=== PATIENT | male | born 1985 | race Caucasian/White ===

== ENCOUNTER 2017-11-29 15:43 | Emergency (ER) | payer OTHER, MEDICAID, SELFPAY ==
[2017-11-29] VITALS (7 sets, daily range): BP systolic 110–126; BP diastolic 46–81; PULSE 49–85; RESP 14–22; TEMP 36.9; O2SAT 99–100
--- NOTE | 2017-11-29 16:12 | ED.TRAUMA ---
HPI - Trauma General Chief Complaint: Trauma Stated Complaint: ELECTROCUTED BY [address] [employer] Time Seen by Provider: 11/29/17 16:30 Source: patient Mode of arrival: ambulatory Limitations: no limitations History of Present Illness HPI narrative: Patient is a 32-year-old male who presents after being electrocuted by the leather drier. He said he was working on the leather drier he did on plug every other time accept the last time. He had a ranch in hand and his hand crossed all 3 power wires. He was unable to let go. He had urinary incontinence, he does not think he was unconscious. Somebody had a unplug the leather drier in order for him to be released. His body shook all over. The was 130 amps. He does not have any pain. He was holding on to the wrench with his right hand. He is able move all his fingers denies numbness or tingling. Happened at about 2:45pm this afternoon MD complaint: injury (Electrical) Related Data Home Medications Medication Instructions Recorded Confirmed cyclobenzaprine 10 mg PO PRN PRN #0 04/24/17 11/29/17 acetaminophen-codeine 2 tab PO TID 11/29/17 11/29/17 omeprazole 20 mg PO BID 11/29/17 11/29/17 Allergies Allergy/AdvReac Type Severity Reaction Status Date / Time Sulfa (Sulfonamide Allergy Mild Unverified 09/05/17 12:15 Antibiotics) [SULFA (SULFONAMIDE ANTIBIOTICS)] hydrocodone [HYDROCODONE] Allergy Unknown ITCHY AND Unverified 09/05/17 12:15 RASH, GI UPSET tramadol AdvReac Verified 11/29/17 16:50 Review of Systems Review of Systems All systems reviewed & are unremarkable except as noted in HPI and below Constitutional Denies chills, Denies fatigue, Denies fever(s), Denies lethargy and Denies weakness Eyes Denies change in vision, Denies eye discharge, Denies irritation and Denies loss of vision Cardiovascular Denies chest pain, Denies syncope, Denies pedal edema and Denies edema Respiratory Denies cough and Denies pain with cough Gastrointestinal Gastrointestinal: Denies abdominal pain, Denies change in bowel habits, Denies diarrhea, Denies nausea and Denies vomiting Musculoskeletal Reports as per HPI Integumentary/Breasts Denies pruritus, Denies erythema, Denies rash and Denies wounds Neurologic Denies syncope, Denies loss of vision and Denies weakness Endocrine Denies fatigue and Denies flushing PFSH Surgical History Status post hernia repair Status post hernia repair Family History Father Age: 58 Hypertension Mother Age: 54 Hypertension High cholesterol Sister Age: 36 Hypertension Exam Initial Vital Signs Initial Vital Signs: Vital Signs Temperature 98.4 F 11/29/17 15:50 Pulse Rate 85 11/29/17 15:50 Respiratory Rate 18 11/29/17 15:50 Blood Pressure 124/81 H 11/29/17 15:50 Pulse Oximetry 99 11/29/17 15:50 Const General: cooperative and well developed Nutritional Appearance: well nourished Orientation: alert, awake, oriented x3 and not confused Eyes General: appearance normal, both eyes and all related structures Pupils: PERRL EOM: EOM intact bilaterally Neck Neck: normal visual inspection and full ROM Chest Chest: normal inspection of the chest Resp Effort & Inspection: normal respiratory effort, able to speak in complete sentences, no respiratory distress and no use of accessory muscles Auscultation: clear to auscultation bilaterally, no rales, no rhonchi and no wheezes Cardio Rate: regular rate Rhythm: regular rhythm Heart Sounds: no click, no gallops, no murmurs and no rubs Pulses: normal peripheral pulses GI Inspection: non-distended Palpation: soft, no hepatosplenomegaly, No guarding, No pulsatile mass and No tender Auscultation: normal bowel sounds Skin General: no rashes or lesions noted Other: No khan, no lesions Neuro General: alert, oriented x3, gait normal and no focal motor deficits Speech: speech normal Extrem General: normal to inspection, full ROM, capillary refill normal and normal exam except as noted Course Orders Ordered: Discontinued Medications Sodium Chloride (Normal Saline 0.9%) 1,000 mls @ 1,000 mls/hr IV BOLUS ONE Stop: 11/29/17 17:32 Last Infusion: 11/29/17 17:49 Dose: 0 mls/hr Admin: 11/29/17 16:35 Dose: 1,000 mls/hr Sodium Chloride (Normal Saline 0.9%) 1,000 mls @ 1,000 mls/hr IV BOLUS ONE Stop: 11/29/17 19:16 Last Infusion: 11/29/17 18:34 Dose: 0 mls/hr Admin: 11/29/17 17:49 Dose: 1,000 mls/hr Sodium Chloride (Normal Saline 0.9%) 1,000 ml IV NOW ONE Stop: 11/29/17 16:34 Last Admin: 11/29/17 16:35 Dose: Vital Signs - 8 hr 11/29/17 15:50 11/29/17 16:11 11/29/17 16:38 Temperature 98.4 F Pulse Rate 85 79 Respiratory Rate 18 16 16 Blood Pressure 124/81 H Blood Pressure [Left Arm] 126/62 H Pulse Oximetry 99 100 11/29/17 16:51 11/29/17 17:12 11/29/17 17:46 Temperature Pulse Rate 76 49 L 72 Respiratory Rate 14 15 22 Blood Pressure Blood Pressure [Left Arm] 119/58 L 121/57 H 111/46 L Pulse Oximetry 99 99 100 MDM - Trauma Medical Records Attestation: I reviewed the patient's medical records. Lab Data Attestation: I reviewed the patient's lab results. Result diagrams: 11/29/17 16:20 11/29/17 16:20 Lab Results 11/29/17 11/29/17 11/29/17 Range/Units 16:20 16:20 17:40 WBC 6.5 (4.5-11.0) X10^3/uL RBC 4.30 L (4.5-5.9) X10^6/uL Hgb 14.1 (13.5-17.5) g/dL Hct 40.6 L (41-53) % MCV 94.5 (80-100) fL MCH 32.9 (26-34) PG MCHC 34.8 (30-36) % RDW 12.3 (11.6-14.8) % Plt Count 168 (150-400) X10^3/uL Neut % (Auto) 67.9 (50-75) % Lymph % (Auto) 23.5 L (25-40) % [place] % (Auto) 6.6 (3-14) % Eos % (Auto) 1.4 L (2-4) % Baso % (Auto) 0.6 (0-2) % Neut # (Auto) 4400 (4231-0972) /uL Sodium 141 (137-145) mmol/L Potassium 4.0 (3.4-5.1) mmol/L Chloride 106 (98-107) mmol/L Carbon Dioxide 27 (22-32) mmol/L BUN 14 (9-20) mg/dL Creatinine 0.80 (0.66-1.25) mg/dL Estimated GFR > 60.0 (>60) mL/min BUN/Creatinine Ratio 17.5 (6-22) Glucose 86 (70-100) mg/dL Calcium 9.3 (8.4-10.2) mg/dL Total Bilirubin 1.5 H (0.2-1.3) mg/dL AST 26 (17-59) IU/L ALT 26 (21-72) IU/L Alkaline Phosphatase 54 (38-126) U/L Total Creatine Kinase 342 H (55-170) U/L Total Protein 7.2 (6.3-8.2) g/dL Albumin 4.3 (3.5-5.0) g/dL Globulin 2.9 (1.7-4.1) g/dL Albumin/Globulin Ratio 1.5 (1.0-2.8) Urine Color Yellow Urine Appearance Clear Urine pH 6.5 (4.5-8.0) Ur Specific [place] 1.010 (1.000-1.035) Urine Protein Negative (Negative) Urine Glucose (UA) Negative (Normal) g/dL Urine Ketones Negative (NEGATIVE) Urine Occult Blood Negative (Negative) Urine Nitrate Negative (Negative) Urine Bilirubin Negative (NEGATIVE) Urine Urobilinogen 0.2 (0.2) E.U./dL Ur Leukocyte Esterase Negative (NEGATIVE) Urine RBC None seen (0-5/HPF) Urine WBC 5-10/hpf H (0-5/HPF) Urine Bacteria Many (>30) H (None) Ur Culture Indicated? Specimen cultured Micro UA Comment Not Reportable ECG Data Attestation: I personally reviewed and interpreted this ECG as follows: Prior ECG tracings: available for review Interpretation: Normal sinus rhythm rate 68 no acute ischemia normal intervals Discharge Plan Departure Patient Disposition: Home, Self-Care Clinical Impression: Electric current accident Discharge Date/Time: 11/29/17 18:36 Interventions: ED Discharge Assessment Last Done: 11/29/17 18:35 Instructions: DI for Electric Shock Injuries Activity Restrictions/Additional Instructions: *You have been diagnosed with electric current injury *What to do: Unplug the samuel devices while working them, may take Tylenol and/or ibuprofen if needed for pain *Continue to take medications as directed *Follow up with your primary care provider in 2-3 days *Return to ER if you should have any new, worsening or concerning symptoms Prescriptions: No Action cyclobenzaprine 10 MG tablet 10 mg PO PRN PRN (Reason: Spasms) Qty: 0 RF: 0 omeprazole 20 mg Capsule,Delayed Release(Dr/Ec) 20 mg PO BID RF: 0 acetaminophen-codeine 300-30 mg tablet 2 tab PO TID RF: 0 Referrals: Cricket Wagoner MD [Primary Care Provider] -
[2017-11-29 16:29] LABS: Add Manual Diff / Slide Review NO; Basophils Percent Auto 0.6 % (0-2); Eosinophils Percent Auto 1.4 % (2-4); Hematocrit 40.6 % (41-53); Hemoglobin 14.1 g/dL (13.5-17.5); Lymphocytes Percent Auto 23.5 % (25-40); Mean Corpuscular HGB Conc 34.8 % (30-36); Mean Corpuscular Hemoglobin 32.9 PG (26-34); Mean Corpuscular Volume 94.5 fL (80-100); Monocytes Percent Auto 6.6 % (3-14); Neutrophils Absolute Auto 4400 /uL (3000-5900); Neutrophils Percent Auto 67.9 % (50-75); Platelet Count 168 X10^3/uL (150-400); Red Cell Distribution Width 12.3 % (11.6-14.8); White Blood Cell Count 6.5 X10^3/uL (4.5-11.0)
[2017-11-29] MEDS: SODIUM CHLORIDE 0.9% 1,000 ML 1000 ML IV ×2 (16:35→17:49)
[2017-11-29 16:38] LABS: Alanine Aminotransferase 26 IU/L (21-72); Albumin 4.3 g/dL (3.5-5.0); Albumin Globulin Ratio 1.5 (1.0-2.8); Alkaline Phosphatase 54 U/L (38-126); Aspartate Aminotransferase 26 IU/L (17-59); BUN Creatinine Ratio 17.5 (6-22); Bilirubin Total 1.5 mg/dL (0.2-1.3); Blood Urea Nitrogen 14 mg/dL (9-20); Calcium 9.3 mg/dL (8.4-10.2); Carbon Dioxide 27 mmol/L (22-32); Chloride 106 mmol/L (98-107); Creatine Kinase 342 U/L (55-170); Estimated Glomerular Filt Rate > 60.0 mL/min (>60); Globulin 2.9 g/dL (1.7-4.1); Glucose 86 mg/dL (70-100); HEMOLYSIS < 15 (0-50); Sodium 141 mmol/L (137-145); Total Protein 7.2 g/dL (6.3-8.2)
--- NOTE | 2017-11-29 16:45 | PC.NURSE ---
pt reports, working on the clothes dryer (240watts) when his right hand with wrench made contact with the power line, occured approx 230pm , lasting 5-10 seconds rescued by brother. 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 now just feeling anxious, with body cramping. denies chest pain or shortness of breath, denies nausea or vomiting. alert and awake, cooperative with care, breath sound clear thru out, abdominal hypo with bowel sounds, moving all ext. skin warm dry pink, no enter or exit wound noted. obtained left elbow abrasion from the dryer.
[2017-11-29 17:42] LABS: RBC Urine None Seen (0-5/HPF)
[2017-11-29 17:48] LABS: Appearance Urine UA CLEAR; Bilirubin Urine UA NEGATIVE (NEGATIVE); Color Urine UA YELLOW; Glucose Urine UA NEGATIVE (Normal); Ketones Urine UA NEGATIVE (NEGATIVE); Leukocyte Esterase Urine UA NEGATIVE (NEGATIVE); Nitrite Urine UA Negative (Negative); Occult Blood Urine UA NEGATIVE (Negative); Protein Urine UA NEGATIVE (Negative); Urobilinogen Urine UA 0.2 E.U./dL (0.2); pH Urine UA 6.5 (4.5-8.0)
[2017-11-29 17:58] LABS: Bacteria Urine Many (>30); Culture Indicated Urine Specimen Cultured; WBC Urine 5-10/HPF (0-5/HPF)
--- NOTE | 2017-11-29 17:59 | ED_ITS ---
HPI - Trauma General Chief Complaint: Trauma Stated Complaint: ELECTROCUTED BY [address] Time Seen by Provider: 11/29/17 16:30 Source: patient Mode of arrival: ambulatory Limitations: no limitations History of Present Illness HPI narrative: Patient is a 32-year-old male who presents after being electrocuted by the soda drier feeder. He said he was working on the soda drier feeder he did on plug every other time accept the last time. He had a ranch in hand and his hand crossed all 3 power wires. He was unable to let go. He had urinary incontinence, he does not think he was unconscious. Somebody had a unplug the soda drier feeder in order for him to be released. His body shook all over. The was 130 amps. He does not have any pain. He was holding on to the wrench with his right hand. He is able move all his fingers denies numbness or tingling. Happened at about 2:45pm this afternoon MD complaint: injury (Electrical) Related Data Home Medications Medication Instructions Recorded Confirmed cyclobenzaprine 10 mg PO PRN PRN #0 04/24/17 11/29/17 acetaminophen-codeine 2 tab PO TID 11/29/17 11/29/17 omeprazole 20 mg PO BID 11/29/17 11/29/17 Allergies Allergy/AdvReac Type Severity Reaction Status Date / Time Sulfa (Sulfonamide Allergy Mild Unverified 09/05/17 12:15 Antibiotics) [SULFA (SULFONAMIDE ANTIBIOTICS)] hydrocodone [HYDROCODONE] Allergy Unknown ITCHY AND Unverified 09/05/17 12:15 RASH, GI UPSET tramadol AdvReac Verified 11/29/17 16:50 Review of Systems Review of Systems All systems reviewed & are unremarkable except as noted in HPI and below Constitutional Denies chills, Denies fatigue, Denies fever(s), Denies lethargy and Denies weakness Eyes Denies change in vision, Denies eye discharge, Denies irritation and Denies loss of vision Cardiovascular Denies chest pain, Denies syncope, Denies pedal edema and Denies edema Respiratory Denies cough and Denies pain with cough Gastrointestinal Gastrointestinal: Denies abdominal pain, Denies change in bowel habits, Denies diarrhea, Denies nausea and Denies vomiting Musculoskeletal Reports as per HPI Integumentary/Breasts Denies pruritus, Denies erythema, Denies rash and Denies wounds Neurologic Denies syncope, Denies loss of vision and Denies weakness Endocrine Denies fatigue and Denies flushing PFSH Surgical History Status post hernia repair Status post hernia repair Family History Father Age: 58 Hypertension Mother Age: 54 Hypertension High cholesterol Sister Age: 36 Hypertension Exam Initial Vital Signs Initial Vital Signs: Vital Signs Temperature 98.4 F 11/29/17 15:50 Pulse Rate 85 11/29/17 15:50 Respiratory Rate 18 11/29/17 15:50 Blood Pressure 124/81 H 11/29/17 15:50 Pulse Oximetry 99 11/29/17 15:50 Const General: cooperative and well developed Nutritional Appearance: well nourished Orientation: alert, awake, oriented x3 and not confused Eyes General: appearance normal, both eyes and all related structures Pupils: PERRL EOM: EOM intact bilaterally Neck Neck: normal visual inspection and full ROM Chest Chest: normal inspection of the chest Resp Effort & Inspection: normal respiratory effort, able to speak in complete sentences, no respiratory distress and no use of accessory muscles Auscultation: clear to auscultation bilaterally, no rales, no rhonchi and no wheezes Cardio Rate: regular rate Rhythm: regular rhythm Heart Sounds: no click, no gallops, no murmurs and no rubs Pulses: normal peripheral pulses GI Inspection: non-distended Palpation: soft, no hepatosplenomegaly, No guarding, No pulsatile mass and No tender Auscultation: normal bowel sounds Skin General: no rashes or lesions noted Other: No khan, no lesions Neuro General: alert, oriented x3, gait normal and no focal motor deficits Speech: speech normal Extrem General: normal to inspection, full ROM, capillary refill normal and normal exam except as noted Course Orders Ordered: Discontinued Medications Sodium Chloride (Normal Saline 0.9%) 1,000 mls @ 1,000 mls/hr IV BOLUS ONE Stop: 11/29/17 17:32 Last Infusion: 11/29/17 17:49 Dose: 0 mls/hr Admin: 11/29/17 16:35 Dose: 1,000 mls/hr Sodium Chloride (Normal Saline 0.9%) 1,000 mls @ 1,000 mls/hr IV BOLUS ONE Stop: 11/29/17 19:16 Last Infusion: 11/29/17 18:34 Dose: 0 mls/hr Admin: 11/29/17 17:49 Dose: 1,000 mls/hr Sodium Chloride (Normal Saline 0.9%) 1,000 ml IV NOW ONE Stop: 11/29/17 16:34 Last Admin: 11/29/17 16:35 Dose: Vital Signs - 8 hr 11/29/17 15:50 11/29/17 16:11 11/29/17 16:38 Temperature 98.4 F Pulse Rate 85 79 Respiratory Rate 18 16 16 Blood Pressure 124/81 H Blood Pressure [Left Arm] 126/62 H Pulse Oximetry 99 100 11/29/17 16:51 11/29/17 17:12 11/29/17 17:46 Temperature Pulse Rate 76 49 L 72 Respiratory Rate 14 15 22 Blood Pressure Blood Pressure [Left Arm] 119/58 L 121/57 H 111/46 L Pulse Oximetry 99 99 100 MDM - Trauma Medical Records Attestation: I reviewed the patient's medical records. Lab Data Attestation: I reviewed the patient's lab results. Result diagrams: 11/29/17 16:20 11/29/17 16:20 Lab Results 11/29/17 11/29/17 11/29/17 Range/Units 16:20 16:20 17:40 WBC 6.5 (4.5-11.0) X10^3/uL RBC 4.30 L (4.5-5.9) X10^6/uL Hgb 14.1 (13.5-17.5) g/dL Hct 40.6 L (41-53) % MCV 94.5 (80-100) fL MCH 32.9 (26-34) PG MCHC 34.8 (30-36) % RDW 12.3 (11.6-14.8) % Plt Count 168 (150-400) X10^3/uL Neut % (Auto) 67.9 (50-75) % Lymph % (Auto) 23.5 L (25-40) % [place] % (Auto) 6.6 (3-14) % Eos % (Auto) 1.4 L (2-4) % Baso % (Auto) 0.6 (0-2) % Neut # (Auto) 4400 (4034-2042) /uL Sodium 141 (137-145) mmol/L Potassium 4.0 (3.4-5.1) mmol/L Chloride 106 (98-107) mmol/L Carbon Dioxide 27 (22-32) mmol/L BUN 14 (9-20) mg/dL Creatinine 0.80 (0.66-1.25) mg/dL Estimated GFR > 60.0 (>60) mL/min BUN/Creatinine Ratio 17.5 (6-22) Glucose 86 (70-100) mg/dL Calcium 9.3 (8.4-10.2) mg/dL Total Bilirubin 1.5 H (0.2-1.3) mg/dL AST 26 (17-59) IU/L ALT 26 (21-72) IU/L Alkaline Phosphatase 54 (38-126) U/L Total Creatine Kinase 342 H (55-170) U/L Total Protein 7.2 (6.3-8.2) g/dL Albumin 4.3 (3.5-5.0) g/dL Globulin 2.9 (1.7-4.1) g/dL Albumin/Globulin Ratio 1.5 (1.0-2.8) Urine Color Yellow Urine Appearance Clear Urine pH 6.5 (4.5-8.0) Ur Specific [place] 1.010 (1.000-1.035) Urine Protein Negative (Negative) Urine Glucose (UA) Negative (Normal) g/dL Urine Ketones Negative (NEGATIVE) Urine Occult Blood Negative (Negative) Urine Nitrate Negative (Negative) Urine Bilirubin Negative (NEGATIVE) Urine Urobilinogen 0.2 (0.2) E.U./dL Ur Leukocyte Esterase Negative (NEGATIVE) Urine RBC None seen (0-5/HPF) Urine WBC 5-10/hpf H (0-5/HPF) Urine Bacteria Many (>30) H (None) Ur Culture Indicated? Specimen cultured Micro UA Comment Not Reportable ECG Data Attestation: I personally reviewed and interpreted this ECG as follows: Prior ECG tracings: available for review Interpretation: Normal sinus rhythm rate 68 no acute ischemia normal intervals Discharge Plan Departure Patient Disposition: Home, Self-Care Clinical Impression: Electric current accident Discharge Date/Time: 11/29/17 18:36 Interventions: ED Discharge Assessment Last Done: 11/29/17 18:35 Instructions: DI for Electric Shock Injuries Activity Restrictions/Additional Instructions: *You have been diagnosed with electric current injury *What to do: Unplug the samuel devices while working them, may take Tylenol and/ or ibuprofen if needed for pain *Continue to take medications as directed *Follow up with your primary care provider in 2-3 days *Return to ER if you should have any new, worsening or concerning symptoms Prescriptions: No Action cyclobenzaprine 10 MG tablet 10 mg PO PRN PRN (Reason: Spasms) Qty: 0 RF: 0 omeprazole 20 mg Capsule,Delayed Release(Dr/Ec) 20 mg PO BID RF: 0 acetaminophen-codeine 300-30 mg tablet 2 tab PO TID RF: 0 Referrals: Cricket Wagoner MD [Primary Care Provider] -
== END 2017-11-29 18:36 | disposition home or self-care (01) ==
PROVIDERS: Emergency Provider Emergency Medicine; Family Provider Family Medicine; PCP Family Medicine
DX: T75.4XXA Electrocution, initial encounter (principal); W86.0XXA Exposure to domestic wiring and appliances, initial encounter
CPT/HCPCS: 36591; 80053; 81001; 82550; 85025; 87086; 93005; 93041; 94770; 96360; 96361; 99284; 99285

== ENCOUNTER 2018-03-21 15:30 | Emergency (ER) | payer OTHER, MEDICAID, SELFPAY ==
[2018-03-21 15:32] VITALS: BP 131/72; PULSE 80; RESP 22; TEMP 36.4; O2SAT 100
--- NOTE | 2018-03-21 15:56 | DI.RAD.S_ITS ---
PROCEDURE: XR CHEST 2V INDICATIONS: shortnes of breath, cough TECHNIQUE: 2 views of the chest were acquired. COMPARISON: [facility], CR, ABDOMEN ACUTE SERIES, 03/30/2016, 1:45. FINDINGS: Surgical changes and devices: None. Lungs and pleura: No pleural effusions or pneumothorax. Lungs are clear. Mediastinum: Mediastinal contours are normal. Heart size is normal. Bones and chest wall: No suspicious bony abnormalities. Soft tissues appear unremarkable. IMPRESSION: No acute process. Dictated by: Kingsley Dhaliwal M.D. on 03/21/2018 at 16:14 Approved by: Kingsley Dhaliwal M.D. on 03/21/2018 at 16:15
--- NOTE | 2018-03-21 15:56 | PC.NURSE ---
RT leighann at chair side providing breathing Tx.
--- NOTE | 2018-03-21 15:59 | ED.ASTHMA ---
HPI - Asthma <ANN-MARIE Dang-BC - Last Filed: 03/21/18 20:08> General Chief Complaint: Asthma Stated Complaint: ASTHMA ATTACK Time Seen by Provider: 03/21/18 15:50 Source: patient Mode of arrival: ambulatory Limitations: no limitations History of Present Illness HPI Narrative: Patient is a 32-year-old male with history of asthma presents with chief complaint of an asthma exacerbation. He states he has had 3 asthma attacks in the past day. He also complains of night sweats, chills and a productive cough. He does not take any preventative medications for his asthma. He states he used his albuterol 3 times just prior to arrival. He states has been feeling run down for several weeks. He denies any fevers, nausea, vomiting, diarrhea and complains of fatigue. He states that he has taken oral steroids several times for his asthma. Related Data Home Medications Medication Instructions Recorded Confirmed cyclobenzaprine 10 mg PO PRN PRN #0 04/24/17 11/29/17 omeprazole 20 mg PO DAILY 11/29/17 03/21/18 Previous Rx's Medication Instructions Recorded acetaminophen 300 mg-codeine 30 mg See Label Instructions PO Q6H #60 02/01/18 tablet tab albuterol sulfate HFA 90 2 puff INHALATION Q4-6H PRN #18 03/21/18 mcg/actuation aerosol inhaler gram prednisone 50 mg PO DAILY #5 tab 03/21/18 Allergies Allergy/AdvReac Type Severity Reaction Status Date / Time Sulfa (Sulfonamide Allergy Mild Unverified 09/05/17 12:15 Antibiotics) [SULFA (SULFONAMIDE ANTIBIOTICS)] hydrocodone [HYDROCODONE] Allergy Unknown ITCHY AND Unverified 09/05/17 12:15 RASH, GI UPSET tramadol AdvReac Verified 11/29/17 16:50 Review of Systems <ERI DangBC - Last Filed: 03/21/18 20:08> Review of Systems GENERAL: See HPI HEENT: Denies sinus pain, ear pain, sore throat, difficulty swallowing, dizziness. RESPIRATORY: See HPI CARDIOVASCULAR: Denies chest pain, palpitations, orthopnea, edema, GASTROINTESTINAL: Denies nausea, vomiting, abdominal pain, diarrhea, constipation, melena. : Denies dysuria, frequency, incontinence, hematuria, urinary retention. MUSCULOSKELETAL: denies weakness, joint pain, or bony pain SKIN: Denies rash, skin lesions, or other NEUROLOGIC: Denies weakness, headache, numbness, change in speech, confusion, seizures, incoordination. PSYCHIATRIC: No concerning psychosocial issues. 12 point review of systems is negative except for those stated above Exam <ERI DangBC - Last Filed: 03/21/18 20:08> Narrative Exam Narrative: GENERAL: This is a well-nourished, well-developed patient, in mild distress sitting on chair HEAD: Atraumatic. Normocephalic. No temporal or scalp tenderness. EYES: Pupils equal round and reactive. Extraocular motions intact. No scleral icterus. No injection or drainage. ENT: Nose without bleeding, purulent drainage or septal hematoma. Throat without erythema, tonsillar hypertrophy or exudate. Uvula midline. Airway patent. NECK: Trachea midline. No JVD or lymphadenopathy. Supple, nontender, no meningeal signs. CARDIOVASCULAR: Regular rate and rhythm without murmurs, gallops, or rubs. RESPIRATORY: Diffuse expiratory wheezes Breath sounds equal bilaterally. No wheezes, rales, or rhonchi. Slight crackles left middle lobe. GASTROINTESTINAL: Abdomen soft, non-tender, nondistended. No hepato-splenomegaly, or palpable masses. No guarding. EXTREMITIES: No clubbing, cyanosis, or edema. No joint tenderness, effusion, or edema noted. BACK: Nontender without deformity or crepitance. No flank tenderness. NEURO: AOx3. SKIN: No rash or erythema. Initial Vital Signs Initial Vital Signs: Vital Signs Temperature 97.5 F L 03/21/18 15:32 Pulse Rate 80 03/21/18 15:32 Respiratory Rate 22 03/21/18 15:32 Blood Pressure 131/72 03/21/18 15:32 Pulse Oximetry 100 03/21/18 15:32 <Guille Dyer DO - Last Filed: 03/21/18 20:31> Initial Vital Signs Initial Vital Signs: Vital Signs Temperature 97.5 F L 03/21/18 15:32 Pulse Rate 80 03/21/18 15:32 Respiratory Rate 22 03/21/18 15:32 Blood Pressure 131/72 03/21/18 15:32 Pulse Oximetry 100 03/21/18 15:32 Course <ALLAN Dang - Last Filed: 03/21/18 20:08> Orders Ordered: ED Orders 03/21/18 15:56 XR chest 2V Stat Discontinued Medications Albuterol/Ipratropium (Duoneb) 3 ml INH NOW ONE Stop: 03/21/18 16:03 Last Admin: 03/21/18 16:02 Dose: 3 ml Prednisone (Deltasone) 40 mg PO NOW ONE Stop: 03/21/18 15:58 Last Admin: 03/21/18 16:32 Dose: 40 mg Vital Signs - 8 hr 03/21/18 15:32 03/21/18 16:03 03/21/18 17:02 Temperature 97.5 F L Pulse Rate 80 84 71 Respiratory Rate 22 16 15 Blood Pressure 131/72 128/79 Pulse Oximetry 100 100 100 <Guille Dyer DO - Last Filed: 03/21/18 20:31> Orders Ordered: ED Orders 03/21/18 15:56 XR chest 2V Stat Discontinued Medications Albuterol/Ipratropium (Duoneb) 3 ml INH NOW ONE Stop: 03/21/18 16:03 Last Admin: 03/21/18 16:02 Dose: 3 ml Prednisone (Deltasone) 40 mg PO NOW ONE Stop: 03/21/18 15:58 Last Admin: 03/21/18 16:32 Dose: 40 mg Vital Signs - 8 hr 03/21/18 15:32 03/21/18 16:03 03/21/18 17:02 Temperature 97.5 F L Pulse Rate 80 84 71 Respiratory Rate 22 16 15 Blood Pressure 131/72 128/79 Pulse Oximetry 100 100 100 MDM - Asthma <ALLAN Dang - Last Filed: 03/21/18 20:08> Imaging Data Chest x-ray: Radiologist's impression: [address] [address] XRay Report Signed Patient: Luis Castano RMR#: [id number] : 1985Acct:[id number] Age/Sex: 32 / MDate of Service: 03/21/18 Loc: ED Accession Number: [id number] Procedure: XR chest 2V Ordering Provider: Isabel De La Cruz PROCEDURE: XR CHEST 2V INDICATIONS: shortnes of breath, cough TECHNIQUE: 2 views of the chest were acquired. COMPARISON: [facility], CR, ABDOMEN ACUTE SERIES, 03/30/2016, 1:45. FINDINGS: Surgical changes and devices: None. Lungs and pleura: No pleural effusions or pneumothorax. Lungs are clear. Mediastinum: Mediastinal contours are normal. Heart size is normal. Bones and chest wall: No suspicious bony abnormalities. Soft tissues appear unremarkable. IMPRESSION: No acute process. Dictated by: Knigsley Dhaliwal M.D. on 03/21/2018 at 16:14 Approved by: Kingsley Dhaliwal M.D. on 03/21/2018 at 16:15 MDM Narrative Medical decision making narrative: Patient presents with chief complaint of asthma exacerbation. He states he has had 3 attacks today. Given his productive cough and general malaise, I obtained a a chest x-ray which found no pneumonia. He was treated in the emergency department with p.o. steroids. I discussed at length follow up with his primary care providers was coming back to the emergency department if needed. He received good results with a nebulizer in the emergency department. He had no questions or concerns upon discharge. Return precautions were discussed at length including severe shortness of breath. Discharge Plan Departure Patient Disposition: Home Clinical Impression: Asthma exacerbation Discharge Date/Time: 03/21/18 17:03 Interventions: ED Discharge Assessment Last Done: 03/21/18 17:02 Instructions: DI for Asthma -- Adult Activity Restrictions/Additional Instructions: I am starting you on steroids for your asthma exacerbation. Your x-ray was negative for any pneumonia. Please follow-up with your primary care provider if needed. Please follow-up with your primary care provider if you notice your asthma is being worse as you may need to step up your asthma therapy. Prescriptions: New prednisone 50 mg tablet 50 mg PO DAILY Qty: 5 RF: 0 No Action cyclobenzaprine 10 MG tablet 10 mg PO PRN PRN (Reason: Spasms) Qty: 0 RF: 0 acetaminophen-codeine 300-30 mg tablet See Label Instructions PO Q6H Qty: 60 RF: 0 albuterol sulfate [Ventolin HFA] 90 mcg/actuation HFA aerosol inhaler 2 puff INHALATION Q4-6H PRN (Reason: shortness of breath or wheezing) Qty: 18 RF: 1 omeprazole 20 mg Capsule,Delayed Release(Dr/Ec) 20 mg PO DAILY RF: 0 Referrals: Cricket Wagoner MD [Primary Care Provider] - <Guille Dyer DO - Last Filed: 03/21/18 20:31> Cosign ED Attending Lucasature Attestation: I was immediately available in the department for consultation. Documentation has been reviewed. I agree with assessment and plan.
[2018-03-21] MEDS: ALBUTEROL/IPRATROPIUM 3 ML AMPUL INH (16:02)
[2018-03-21 16:03] VITALS: PULSE 84; RESP 16; O2SAT 100
[2018-03-21] MEDS: predniSONE 20 MG TABLET 40 MG PO (16:32)
[2018-03-21 17:02] VITALS: BP 128/79; PULSE 71; RESP 15; O2SAT 100
== END 2018-03-21 17:03 | disposition home or self-care (01) ==
PROVIDERS: Emergency Provider Nurse Practitioner Family; Family Provider Family Medicine; PCP Family Medicine
DX: J45.901 Unspecified asthma with (acute) exacerbation (principal)
CPT/HCPCS: 71046; 94150; 94640; 99282; 99283

== ENCOUNTER 2018-03-22 06:03 | Emergency (ER) | payer OTHER, MEDICAID, SELFPAY ==
[2018-03-22 06:09] VITALS: BP 150/102; PULSE 80; RESP 20; TEMP 37.2; O2SAT 98; BMI 24.2
--- NOTE | 2018-03-22 06:09 | ED.SOB ---
HPI - SOB/Dyspnea General Chief Complaint: Asthma Stated Complaint: CANNOT BREATHE Time Seen by Provider: 03/22/18 06:07 Source: patient and family Mode of arrival: ambulatory Limitations: no limitations History of Present Illness 32-year-old male, nonsmoker, occasional marijuana user presents with an asthma exacerbation this morning. He woke up feeling short of breath with wheeze and became quite anxious and was unable to improve his breathing after 6 puffs of his home inhaler. He does not have the use of a spacer. He presents to the emergency department with 2 friends stating he cannot breathe. He denies fever or chills. He has had some runny nose and occasional cough. He was here earlier in the day and had a DuoNeb was given prednisone. He denies recent travel MD Complaint: shortness of breath and cough Onset (ago): hour(s) Context: anxiety Severity: moderate Consistency/Duration: intermittent Relieving factors: bronchodilators Exacerbating factors: nothing Known history of: asthma Associated symptoms: denies other symptoms Treatment prior to arrival: bronchodilator Related Data Home oxygen amount: none Home Medications Medication Instructions Recorded Confirmed cyclobenzaprine 10 mg PO PRN PRN #0 04/24/17 03/22/18 omeprazole 20 mg PO DAILY 11/29/17 03/22/18 Previous Rx's Medication Instructions Recorded albuterol sulfate HFA 90 2 puff INHALATION Q4-6H PRN #18 03/21/18 mcg/actuation aerosol inhaler gram prednisone 50 mg PO DAILY #5 tab 03/21/18 benzonatate 200 mg capsule 200 mg PO TID PRN #20 cap 03/22/18 fluticasone 44 mcg/actuation HFA 2 inhalation INHALATION BID 30 03/22/18 aerosol inhaler Days #10.6 gram Allergies Allergy/AdvReac Type Severity Reaction Status Date / Time Sulfa (Sulfonamide Allergy Mild Unverified 03/22/18 10:41 Antibiotics) [SULFA (SULFONAMIDE ANTIBIOTICS)] hydrocodone [HYDROCODONE] Allergy Unknown ITCHY AND Unverified 03/22/18 10:41 RASH, GI UPSET tramadol AdvReac Verified 03/22/18 10:41 Review of Systems Review of Systems All systems reviewed & are unremarkable except as noted in HPI and below Constitutional Denies chills, Denies fever(s), Denies lethargy and Denies weakness Eyes Denies change in vision, Denies eye discharge, Denies irritation and Denies loss of vision ENT Ears, Nose, Mouth, and Throat: Denies change in voice, Denies neck pain and Denies sore throat Cardiovascular Denies chest pain, Denies irregular heart rhythm, Denies lightheadedness, Denies palpitations, Reports dyspnea, Denies dyspnea on exertion and Denies orthopnea Respiratory Denies cough, Reports dyspnea, Denies dyspnea on exertion and Denies wheezing Gastrointestinal Gastrointestinal: Denies abdominal pain, Denies change in bowel habits, Denies diarrhea, Denies nausea and Denies vomiting Genitourinary Denies hematuria, Denies flank pain, Denies urinary incontinence and Denies urinary urgency Musculoskeletal Denies neck pain Integumentary/Breasts Denies pruritus, Denies erythema, Denies rash and Denies wounds Neurologic Denies confusion, Denies loss of vision and Denies weakness Psychiatric Denies anxiety, Denies confusion, Denies depression, Denies homicidal ideation and Denies suicidal ideation Endocrine Denies palpitations Hematologic/Lymphatic Denies easy bruising Allergic/Immunologic Denies wheezing [facility] Medical History Cervical spine disease (Chronic ~2014) Chronic back pain (Chronic ~2011) Elbow pain (Chronic ~2016) Gastric ulcer (Chronic ~2010) Hearing deficit (Chronic ~2015) Shoulder pain (Chronic) Tinnitus (Chronic ~2015) Vertigo (Chronic ~2015) Vision disorder (Chronic) White blood cell disorder (Chronic ~2015) Fractures (Resolved ~2014) Ruptured tympanic membrane (Resolved ~2015) Surgical History Anesthesia (Resolved) Status post hernia repair (~2008) Status post hernia repair (~2003) Family History Father Age: 58 Hypertension Hematoma Mother Age: 54 Hypertension High cholesterol Diabetes mellitus Sister Age: 36 Hypertension Double ureter Social History Smoking Status: Never smoker Exam Narrative Exam Narrative: GEN: AOx3 and in mild distress, anxious and complaining of trouble breathing. EYES: Pupils are equal, round, and reactive to light and accommodation. Extraoccular muscles are intact bilaterally. There is no subconjunctival hemorrhage or exudate. CHEST: Mild expiratory wheeze throughout. Heart rate is regular rhythm, there are no murmurs, clicks, rubs, or gallops. There is no chest wall tenderness. ABD: Abdomen is soft and nontender. There is no guarding or rebound. Bowel sounds are normal in all 4 quadrants. There is no mass or organomegaly. EXT: Full painless ROM of all extremities with no loss of sensation or strength. SKIN: Warm, pink, and dry. No erythema or rash Initial Vital Signs Initial Vital Signs: Vital Signs Temperature 98.9 F 03/22/18 06:09 Pulse Rate 80 03/22/18 06:09 Respiratory Rate 20 03/22/18 06:09 Blood Pressure 150/102 H 03/22/18 06:09 Pulse Oximetry 98 03/22/18 06:09 Course Orders Ordered: Discontinued Medications Albuterol (Ventolin) 2.5 mg INH NOW ONE Stop: 03/22/18 06:37 Last Admin: 03/22/18 06:38 Dose: 2.5 mg Albuterol/Ipratropium (Duoneb) 3 ml INH NOW ONE Stop: 03/22/18 06:08 Last Admin: 03/22/18 06:18 Dose: 3 ml Reevaluation(s) Reevaluation #1: Patient had his own peak flow meter and measured 300 prior to any intervention. Patient was given a DuoNeb and immediately felt better. He admits to feeling anxious and even being in the emergency department improves his symptoms. He states he does not have a spacer and at that point Respiratory therapy was consulted for bedside teaching with spacer Vital Signs - 8 hr 03/22/18 06:09 Temperature 98.9 F Pulse Rate 80 Respiratory Rate 20 Blood Pressure 150/102 H Pulse Oximetry 98 Discharge Plan Departure Patient Disposition: Home Clinical Impression: Asthma attack Discharge Date/Time: 03/22/18 06:58 Interventions: ED Discharge Assessment Last Done: 03/22/18 06:56 Instructions: Asthma -- Adult Activity Restrictions/Additional Instructions: *You have been diagnosed with [ acute asthma attack] *What to do: *Take medications as directed, use your spacer *Follow up with your primary care provider in 2-3 days, call for an appointment. Let them know you were seen in the Emergency Department and that we ask that you be seen in follow up *Return to ER if you should have any new, worsening or concerning symptoms Prescriptions: No Action cyclobenzaprine 10 MG tablet 10 mg PO PRN PRN (Reason: Spasms) Qty: 0 RF: 0 albuterol sulfate [Ventolin HFA] 90 mcg/actuation HFA aerosol inhaler 2 puff INHALATION Q4-6H PRN (Reason: shortness of breath or wheezing) Qty: 18 RF: 1 benzonatate 200 mg capsule 200 mg PO TID PRN (Reason: cough) Qty: 20 RF: 0 fluticasone 44 mcg/actuation HFA aerosol inhaler 2 inhalation INHALATION BID 30 Days Qty: 10.6 RF: 2 prednisone 50 mg tablet 50 mg PO DAILY Qty: 5 RF: 0 omeprazole 20 mg Capsule,Delayed Release(Dr/Ec) 20 mg PO DAILY RF: 0 Referrals: Cricket Wagoner MD [Primary Care Provider] -
[2018-03-22] MEDS: ALBUTEROL/IPRATROPIUM 3 ML AMPUL INH (06:18)
[2018-03-22 06:35] VITALS: PULSE 96; RESP 20; O2SAT 98
[2018-03-22 06:37] VITALS: BP 144/65; PULSE 89; O2SAT 98
[2018-03-22] MEDS: ALBUTEROL 2.5 MG/3 ML NEB (ADULT) INH (06:38)
[2018-03-22 06:45] VITALS: PULSE 96; RESP 18; O2SAT 98
== END 2018-03-22 06:58 | disposition home or self-care (01) ==
PROVIDERS: Emergency Provider Emergency Medicine; Family Provider Family Medicine; PCP Family Medicine
DX: J45.901 Unspecified asthma with (acute) exacerbation (principal)
CPT/HCPCS: 94150; 94640; 99282; J7613

== ENCOUNTER → 2018-03-26 09:47 | Outpatient (CLI) | payer OTHER, MEDICAID, SELFPAY ==
[2018-03-26 10:16] LABS: Add Manual Diff / Slide Review NO; Basophils Percent Auto 0.5 % (0-2); Eosinophils Percent Auto 2.2 % (2-4); Hematocrit 43.2 % (41-53); Hemoglobin 15.1 g/dL (13.5-17.5); Lymphocytes Percent Auto 24.6 % (25-40); Mean Corpuscular Hemoglobin 32.7 PG (26-34); Mean Corpuscular Volume 93.5 fL (80-100); Monocytes Percent Auto 8.8 % (3-14); Neutrophils Absolute Auto 4000 /uL (3000-5900); Neutrophils Percent Auto 63.9 % (50-75); Platelet Count 237 X10^3/uL (150-400); Red Blood Cell Count 4.62 X10^6/uL (4.5-5.9); Red Cell Distribution Width 12.2 % (11.6-14.8); White Blood Cell Count 6.3 X10^3/uL (4.5-11.0)
[2018-03-26 10:36] LABS: Erythrocyte Sedimentation Rate 2 MM/HR (0-15)
[2018-03-26 10:38] LABS: Lactate (Lactic Acid) < 0.5 mmol/L (0.7-2.1)
[2018-03-26 11:04] LABS: Procalcitonin < 0.05 ng/mL (<0.5)
[2018-03-26 11:33] LABS: C-Reactive Protein Quant < 0.5 mg/dL (<1.0)
== END ==
PROVIDERS: PCP Family Medicine; Visit Provider Family Medicine
DX: R50.9 Fever, unspecified (principal); R53.83 Other fatigue
CPT/HCPCS: 36415; 83605; 84145; 85025; 85651; 86140

== ENCOUNTER 2018-07-01 22:14 | Emergency (ER) | payer OTHER, MEDICAID, SELFPAY ==
[2018-07-01 22:35] VITALS: BP 146/116; PULSE 81; RESP 18; TEMP 36.2; O2SAT 97; BMI 25.8
--- NOTE | 2018-07-01 22:59 | ED.DENTAL ---
HPI - Dental/Oral General Chief complaint: Dental/Oral Stated complaint: ABCESS TOOTH LOTS OF PAIN Time Seen by Provider: 07/01/18 22:39 Source: patient Mode of arrival: ambulatory Limitations: no limitations History of Present Illness HPI Narrative: Patient is a 33-year-old male presents with dental pain ongoing the last 5 days. He has been started on clindamycin this is his 3rd full day on clindamycin. He knows he has an abscess deep down he cannot get a root canal until September. He has been seen by the dentist. His he continues to have pain. He is on meloxicam and Tylenol 1000 mg. MD Complaint: tooth pain 1. No abscess. Tender to touch no swelling Onset (ago): day(s) (5) Related Data Home Medications Medication Instructions Recorded Confirmed cyclobenzaprine 10 mg PO PRN PRN #0 04/24/17 03/22/18 omeprazole 20 mg PO DAILY 11/29/17 03/22/18 Previous Rx's Medication Instructions Recorded albuterol sulfate HFA 90 2 puff INHALATION Q4-6H PRN #18 03/21/18 mcg/actuation aerosol inhaler gram prednisone 50 mg PO DAILY #5 tab 03/21/18 benzonatate 200 mg capsule 200 mg PO TID PRN #20 cap 03/22/18 Allergies Allergy/AdvReac Type Severity Reaction Status Date / Time Sulfa (Sulfonamide Allergy Mild Unverified 03/22/18 10:41 Antibiotics) [SULFA (SULFONAMIDE ANTIBIOTICS)] hydrocodone [HYDROCODONE] Allergy Unknown ITCHY AND Unverified 03/22/18 10:41 RASH, GI UPSET tramadol AdvReac Verified 03/22/18 10:41 Review of Systems Review of Systems GENERAL: Denies chills,fever HEENT: Dental pain see HPI RESPIRATORY: Denies dyspnea, cough, wheezing CARDIOVASCULAR: Denies chest pain, palpitations GASTROINTESTINAL: Denies nausea, vomiting MUSCULOSKELETAL: Denies extremity pain, injury SKIN: No rash, no laceration, no pruritus NEUROLOGIC: Denies weakness, dizziness, headache, numbness 8 point review of systems is negative except for those stated above and HPI PFSH Social History Smoking Status: Never smoker Exam Initial Vital Signs Initial Vital Signs: Vital Signs Temperature 97.1 F L 07/01/18 22:35 Pulse Rate 81 07/01/18 22:35 Respiratory Rate 18 07/01/18 22:35 Blood Pressure 146/116 H 07/01/18 22:35 Pulse Oximetry 97 07/01/18 22:35 GENERAL: Well-appearing, well-nourished and in no acute distress. CARDIOVASCULAR: peripheral pulses in tact, cap refill <2 sec RESPIRATORY: No respiratory distress, speaks in full sentences without difficulty [ABDOMEN: Soft, nontender, no guarding or rebound] EXTREMITIES: Normal range of motion, no clubbing or edema. Neurovascularly intact NEUROLOGICAL: Cranial nerves II through XII grossly intact. Normal gait and speech. SKIN: Warm, dry, no petechiae, no rashes or lesions. [facility] Face and sinus: normal facial exam, no erythema, no edema and no fluctuance Teeth and gingiva: dentition normal (Tooth 25, no abscess, no trismus) Procedures [facility] Procedure Name of Procedure: Dental block Technique/Description of procedure performed: Dental block, injection around affected tooth, bupivacaine with epinephrine use good anesthesia achieved. Course Vital Signs - 8 hr 07/01/18 22:35 07/01/18 23:25 Temperature 97.1 F L Pulse Rate 81 74 Respiratory Rate 18 16 Blood Pressure 146/116 H Blood Pressure [Left Arm] 142/90 H Pulse Oximetry 97 100 MDM - Dental/Oral MDM Narrative Medical decision making narrative: Multiple injections of bupivacaine with epinephrine there was blanching noted at site of injection. Patient states pain is not really improved. He is already on meloxicam and Tylenol. No sign of abscess. He has been on clindamycin. Recommended following up with his dentist. At this time no indication for any narcotics. Discharge Plan Departure Patient Disposition: Home Clinical Impression: Pain, dental Discharge Date/Time: 07/01/18 23:38 Interventions: ED Discharge Assessment Last Done: 07/01/18 23:37 Instructions: Tooth Abscess Activity Restrictions/Additional Instructions: *You have been diagnosed with dental pain/abscess *What to do: You will need to be seen by dentist *Continue to take medications as directed Finish antibiotics as prescribed Tylenol 1000 mg every 6 hr do not exceed more than 4000 mg in 24 hr Meloxicam 15 mg once a day *Follow up with your primary care provider in 2-3 days *Return to ER if you should have fever, redness on face, facial swelling, difficulty breathing or any new, worsening or concerning symptoms Prescriptions: No Action cyclobenzaprine 10 MG tablet 10 mg PO PRN PRN (Reason: Spasms) Qty: 0 RF: 0 albuterol sulfate [Ventolin HFA] 90 mcg/actuation HFA aerosol inhaler 2 puff INHALATION Q4-6H PRN (Reason: shortness of breath or wheezing) Qty: 18 RF: 1 benzonatate 200 mg capsule 200 mg PO TID PRN (Reason: cough) Qty: 20 RF: 0 prednisone 50 mg tablet 50 mg PO DAILY Qty: 5 RF: 0 omeprazole 20 mg Capsule,Delayed Release(Dr/Ec) 20 mg PO DAILY RF: 0 Referrals: Cricket Wagoner MD [Primary Care Provider] -
[2018-07-01 23:25] VITALS: BP 142/90; PULSE 74; RESP 16; O2SAT 100
== END 2018-07-01 23:38 | disposition home or self-care (01) ==
PROVIDERS: Emergency Provider Emergency Medicine; Family Provider Family Medicine; PCP Family Medicine
DX: K08.89 Other specified disorders of teeth and supporting structures (principal)
CPT/HCPCS: 99282

== ENCOUNTER 2018-09-10 07:22 | Day surgery (SDC) | payer OTHER, MEDICAID, SELFPAY ==
[2018-09-10] VITALS (10 sets, daily range): BP systolic 105–127; BP diastolic 46–70; PULSE 60–114; RESP 11–18; TEMP 36.4–37.8; O2SAT 95–107; BMI 25.7
--- NOTE | 2018-09-10 | PATH_ITS ---
[facility] Accession Number: [id number] . 01 Material submitted: . PART A: gastrointestinal site - GASTRIC BIOPSIES PART B: esophagus, E-G Junction - GE JUNCTION . 02 Diagnosis: A. Stomach, Biopsies: Antral and body-type mucosa with no diagnostic abnormality. Negative for Helicobacter by immunohistochemistry. Negative for intestinal metaplasia. Negative for dysplasia and malignancy. . B. Gastroesophageal Junction, Biopsy: Squamocolumnar junctional mucosa with specialized intestinal metaplasia, consistent with Alberts's esophagus. Mild active inflammation with erosion is also present. Negative for dysplasia and malignancy. [facility]/09/12/2018 . 02 Electronically signed: . Amirah Peterson MD, Pathologist NPI- [id number] . 01 Gross description: . Part A: GASTRIC BIOPSIES: Received in formalin are multiple fragment(s) of armijo, soft tissue measuring 0.1 x 0.1 x 0.1 cm to 0.3 x 0.3 x 0.2 cm which is entirely submitted and submitted entirely in 1 cassette(s) Part B: GE JUNCTION: Received in formalin are 4 fragment(s) of armijo, soft tissue measuring 0.1 x 0.1 x 0.1 cm to 0.2 x 0.2 x 0.2 cm which is entirely submitted and submitted entirely in 1 cassette(s) /[facility] /[facility] . 02 Microscopic: . A. An immunohistochemical stain was performed to evaluate for Helicobacter organisms and is negative. The control stain showed appropriate reactivity. . B. An AB/PAS stain was performed to evaluate for intestinal metaplasia and is focally positive. The control stain showed appropriate reactivity. . * This test was developed and its performance characteristics determined by [facility]. It has not been cleared or approved by the U.S. Food and Drug Administration. The FDA has determined that such clearance or approval is not necessary. This test is used for clinical purposes. It should not be regarded as investigational or for research. . 02 Pathologist provided ICD-10: K22.70 . 02 CPT . 079810, 424148, M43165, 720856 Performed at: 01 [facility] [address] [id number] MD Royal Ramírez MD Phone: [phone] Performed at: 02 [facility] [id number] [place] [id number] MD Amirah Peterson MD Phone: [phone]
[2018-09-10] MEDS: SODIUM CHLORIDE 0.9% 1,000 ML 100 ML IV (07:35)
[2018-09-10] MEDS: LIDOCAINE 4% SOLN 50 ML 20 ML TOP (09:10)
[2018-09-10] MEDS: TETRACAINE/BENZOCAINE/BUTAMBEN (CETACAINE) BOTTLE 1 SPRAY TOP (09:11)
[2018-09-10] MEDS: fentaNYL 250 MCG/5 ML INJ IV (09:12)
[2018-09-10] MEDS: MIDAZOLAM 5 MG/5 ML VIAL IV (09:12)
--- NOTE | 2018-09-10 09:38 | PM.PREOP ---
Pre-operative Note Interval Note History & Physical reviewed/Exam performed by Physician: Yes Changes to H&P: No ASA Class (for procedural sedation): I
--- NOTE | 2018-09-10 10:23 | PM.OP.ENDO ---
Operative Date/Time/Diagnoses Date of procedure: 09/10/18 Time of procedure: 10:04 Pre-op diagnosis: Severe heartburn with worsening symptoms Post-op diagnosis: same (Esophageal ulcers. Patchy gastritis) Procedure & Clinicians Study performed: EGD with cold biopsy Same procedure as scheduled: Yes Indications: Worsening symptoms Surgeon: Ramakrishna Gilmore Procedure Notes SCOAP/Timeout: Performed Procedure in detail: The patient was placed in the left lateral decubitus position after having topical anesthetic applied was oropharynx. He was sedated in stepwise fashion using fentanyl and Versed. A bite block was inserted. Scope was advanced through it into the esophagus. The esophagus was normal until I reached the GE junction. here there was inflammation in the appearance of some fibrinous exudate suggesting healing ulcers. Partial Schatzki ring was suggested by the appearance. The scope was passed into the stomach which insufflated well. There was patchy areas of cobblestoning that were discrete. There were also some linear erosions in the antrum. the pyloric channel was narrowed but patent. There were no ulcerations seen. The duodenum was normal to the 3rd part. Scope was brought back into the stomach and retroflexed. There was a small hiatal hernia noted. the scope was straightened and biopsies taken of the linear erosions in the antrum and the cobblestoning in the proximal body. scope was then brought up into the GE junction area where multiple biopsies were taken at the GE junction and of the ulcerative areas. The scope was removed and the patient tolerated the procedure well. the cord structures were noted to be normal and not inflamed. Scope withdrawal time: Not applicable Sedation minutes: 19 Findings: gastritis, hiatal hernia (Small) and other findings (Esophageal ulcer) Specimen(s): other (Gastric and GE junction) Complications: none Recommendations: Continue medication(s) Plan for aftercare: Will call with results and recommendations Follow up: as needed Disposition: PACU
== END 2018-09-10 11:10 | disposition home or self-care (01) ==
PROVIDERS: Family Provider Family Medicine; PCP Family Medicine; Visit Provider Specialist
PROC: 0DJ08ZZ Inspection of Upper Intestinal Tract, Via Natural or Artificial Opening Endoscopic (ICD-10-PCS; CPT 43235; principal; 2018-09-10 08:45)
DX: K22.70 Barrett's esophagus without dysplasia (principal); K21.9 Gastro-esophageal reflux disease without esophagitis; K29.70 Gastritis, unspecified, without bleeding; K44.9 Diaphragmatic hernia without obstruction or gangrene; K22.10 Ulcer of esophagus without bleeding
CPT/HCPCS: 43239; 99152; J2250; J3010

== ENCOUNTER 2018-09-12 13:52 | Emergency (ER) | payer OTHER, MEDICAID, SELFPAY ==
[2018-09-12 14:01] VITALS: BP 127/76; PULSE 75; RESP 15; TEMP 37.2; O2SAT 98; BMI 25.7
--- NOTE | 2018-09-12 14:04 | DI.RAD.S_ITS ---
PROCEDURE: XR FINGER LT MIN 2V INDICATIONS: bent left thumb back, pain TECHNIQUE: AP hand, 2 views of the 1st finger(s) acquired. COMPARISON: [facility], VIKTOR, HAND 3V RIGHT, 11/27/2016, 16:15. [facility], VIKTOR, FINGER RT, 10/30/2016, 10:05. FINDINGS: Bones: There is an intra-articular fracture seen involving the proximal phalanx of the thumb, with mild displacement and mild comminution. No suspicious lytic or blastic lesions are seen. Soft tissues: No suspicious soft tissue calcifications. IMPRESSION: Intra-articular fracture involving the distal aspect of the proximal phalanx of the thumb. Dictated by: Jarred Orr M.D. on 09/12/2018 at 13:38 Approved by: Jarred Orr M.D. on 09/12/2018 at 13:39
[2018-09-12] MEDS: ONDANSETRON 4 MG ODT SL (15:16)
[2018-09-12] MEDS: CODEINE/ACETAMINOPHEN 30/300 TABLET 1 TAB PO (15:16)
--- NOTE | 2018-09-12 15:30 | ED_ITS ---
HPI - Extremity Injury (Upper) <ANN-MARIE Dang-BC - Last Filed: 09/12/18 16:31> General Chief Complaint: Extremity Injury, Upper Stated Complaint: left hand injury, thinks he fractured his thumb Time Seen by Provider: 09/12/18 14:56 Source: patient Mode of arrival: ambulatory Limitations: no limitations History of Present Illness HPI narrative: The patient is a 33-year-old male With a history of gastritis who is a nonsmoker who presents with a chief complaint of acute left thumb pain. he states he bent his thumb back when he fell on patent. He denies any other injury. Denies any numbness or tingling. He has not taken anything for the pain. he denies any laceration or abrasion at the area. Related Data Home Medications Medication Instructions Recorded Confirmed lorazepam 0.5 mg tablet 0.5 mg PO BEDTIME PRN 09/05/18 09/05/18 meloxicam 15 mg tablet 15 mg PO DAILY 09/05/18 09/12/18 pantoprazole 20 mg tablet,delayed 20 mg PO BID tab 09/05/18 09/05/18 release Previous Rx's Medication Instructions Recorded acetaminophen 300 mg-codeine 30 mg See Rx Instructions PO Q6H PRN #30 08/21/18 tablet tab oxycodone-acetaminophen 5 mg-325 1 tab PO Q4-6H PRN #10 tab 09/13/18 mg tablet Allergies Allergy/AdvReac Type Severity Reaction Status Date / Time Sulfa (Sulfonamide Allergy Mild Verified 09/12/18 15:19 Antibiotics) [SULFA (SULFONAMIDE ANTIBIOTICS)] tramadol AdvReac Verified 09/12/18 15:19 Review of Systems <ERI Dang - Last Filed: 09/12/18 16:31> Review of Systems GENERAL: Denies chills, fatigue, malaise, fever, sweats. HEENT: Denies sinus pain, ear pain, sore throat, difficulty swallowing, dizziness. RESPIRATORY: Denies dyspnea, cough, wheezing, hemoptysis, sputum. CARDIOVASCULAR: Denies chest pain, palpitations, orthopnea, edema, GASTROINTESTINAL: Denies nausea, vomiting, abdominal pain, diarrhea, constipation, melena. : Denies dysuria, frequency, incontinence, hematuria, urinary retention. MUSCULOSKELETAL: See HPI SKIN: See HPI NEUROLOGIC: Denies weakness, headache, numbness, change in speech, confusion, seizures, incoordination. PSYCHIATRIC: No concerning psychosocial issues. 12 point review of systems is negative except for those stated above PFSH <ALLAN Dang - Last Filed: 09/12/18 16:31> Medical History Cervical spine disease (Chronic ~2014) Chronic back pain (Chronic ~2011) Elbow pain (Chronic ~2016) Gastric ulcer (Chronic ~2010) Hearing deficit (Chronic ~2015) Shoulder pain (Chronic) Tinnitus (Chronic ~2015) Vertigo (Chronic ~2015) Vision disorder (Chronic) White blood cell disorder (Chronic ~2015) Fractures (Resolved ~2014) Ruptured tympanic membrane (Resolved ~2015) Surgical History Anesthesia (Resolved) Status post hernia repair (~2008) Status post hernia repair (~2003) Family History Father Age: 59 Hypertension Hematoma Mother Age: 55 Hypertension High cholesterol Diabetes mellitus Sister Age: 37 Hypertension Double ureter Grandmother Stroke Grandfather Cancer Social History marital status: household members: family occupational status: employed Smoking Status: Never smoker alcohol intake: current substance use type: does not use Family History Father Age: 59 Hypertension Hematoma Mother Age: 55 Hypertension High cholesterol Diabetes mellitus Sister Age: 37 Hypertension Double ureter Grandmother Stroke Grandfather Cancer Social History marital status: household members: family occupational status: employed Smoking Status: Never smoker alcohol intake: current substance use type: does not use Exam <ALLAN Dang - Last Filed: 09/12/18 16:31> Narrative Exam Narrative: GENERAL: This is a well-nourished, well-developed patient, sitting in chair HEAD: Atraumatic. Normocephalic. No temporal or scalp tenderness. EYES: Pupils equal round and reactive. Extraocular motions intact. No scleral icterus. No injection or drainage. ENT: Nose without bleeding, purulent drainage or septal hematoma. Throat without erythema, tonsillar hypertrophy or exudate. Uvula midline. Airway patent. NECK: Trachea midline. No JVD or lymphadenopathy. Supple, nontender, no meningeal signs. CARDIOVASCULAR: Regular rate and rhythm RESPIRATORY: No cough. No increased respiratory effort. EXTREMITIES: Pain to palpation left thumb. Capillary refill less than 2 seconds left thumb. Left radial pulse intact. NEURO: AOx3. SKIN: No rash or erythema ecchymosis noted left thumb. No laceration noted left thumb. Initial Vital Signs Initial Vital Signs: Vital Signs Temperature 98.9 F 09/12/18 14:01 Pulse Rate 75 09/12/18 14:01 Respiratory Rate 15 09/12/18 14:01 Blood Pressure 127/76 09/12/18 14:01 Pulse Oximetry 98 09/12/18 14:01 <Mery Padilla DO - Last Filed: 09/15/18 19:03> Initial Vital Signs Initial Vital Signs: Vital Signs Temperature 98.9 F 09/12/18 14:01 Pulse Rate 75 09/12/18 14:01 Respiratory Rate 15 09/12/18 14:01 Blood Pressure 127/76 09/12/18 14:01 Pulse Oximetry 98 09/12/18 14:01 Procedures <ALLAN Dang - Last Filed: 09/12/18 16:31> Orthopedic Splinting/Casting Injury #1: Side: left Upper Extremity Injury Location: finger Upper Extremity Immobilizer: thumb spica Post splinting neuro exam: intact Post splinting vascular exam: intact Placed by: Nursing Course <ALLAN Dang - Last Filed: 09/12/18 16:31> Orders Ordered: Discontinued Medications Acetaminophen/Codeine Phosphate (Tylenol #3) 1 tab PO NOW ONE Stop: 09/12/18 15:03 Last Admin: 09/12/18 15:16 Dose: 1 tab Ondansetron HCl (Zofran Odt) 4 mg SL NOW ONE Stop: 09/12/18 15:03 Last Admin: 09/12/18 15:16 Dose: 4 mg Vital Signs - 8 hr 09/12/18 14:01 09/12/18 16:01 Temperature 98.9 F Pulse Rate 75 80 Respiratory Rate 15 19 Blood Pressure 127/76 150/74 H Pulse Oximetry 98 99 <Mery Padilla DO - Last Filed: 09/15/18 19:03> Orders Ordered: Discontinued Medications Acetaminophen/Codeine Phosphate (Tylenol #3) 1 tab PO NOW ONE Stop: 09/12/18 15:03 Last Admin: 09/12/18 15:16 Dose: 1 tab Ondansetron HCl (Zofran Odt) 4 mg SL NOW ONE Stop: 09/12/18 15:03 Last Admin: 09/12/18 15:16 Dose: 4 mg Vital Signs - 8 hr 09/12/18 14:01 09/12/18 16:01 Temperature 98.9 F Pulse Rate 75 80 Respiratory Rate 15 19 Blood Pressure 127/76 150/74 H Pulse Oximetry 98 99 MDM - Extremity Injury (Upper) <ANN-MARIE Dang-BC - Last Filed: 09/12/18 16:31> Imaging Data thumb xray : Radiologist's impression: [address] [address] XRay Report Signed Patient: Luis Castano RMR#: [id number] : 1985Acct:[id number] Age/Sex: te of Service: 09/12/18 Loc: ED Accession Number: [id number] Procedure: XR finger LT min 2V Ordering Provider: Mery Padilla D.O. PROCEDURE: XR FINGER LT MIN 2V INDICATIONS: bent left thumb back, pain TECHNIQUE: AP hand, 2 views of the 1st finger(s) acquired. COMPARISON: [facility], VIKTOR, HAND 3V RIGHT, 11/27/2016, 16:15. [facility], VIKTOR, FINGER RT, 10/30/2016, 10:05. FINDINGS: Bones: There is an intra-articular fracture seen involving the proximal phalanx of the thumb, with mild displacement and mild comminution. No suspicious lytic or blastic lesions are seen. Soft tissues: No suspicious soft tissue calcifications. IMPRESSION: Intra-articular fracture involving the distal aspect of the proximal phalanx of the thumb. Dictated by: Jarred Orr M.D. on 09/12/2018 at 13:38 Approved by: Jarred Orr M.D. on 09/12/2018 at 13:39 MDM Narrative Medical decision making narrative: The patient is a 33-year-old male who presents with a chief complaint of left thumb pain. x-ray indicates an intra- articular fracture. Was placed in a thumb spica cast by nursing with positive pulse motor and sensory before and after splint application. He was given Tylenol 3 in the emergency department. I discussed at length follow up with primary care as well as Orthopedics. Patient has no questions or concerns upon discharge. I discussed return precautions of decreased circulation to thumb and acute concerns Discharge Plan Departure Patient Disposition: Home Clinical Impression: Fracture of thumb, left, closed Qualifiers: Encounter type: initial encounter Phalanx: proximal Fracture alignment: displaced Qualified Code(s): S62.512A - Displaced fracture of proximal phalanx of left thumb, initial encounter for closed fracture Discharge Date/Time: 09/12/18 16:02 Interventions: ED Discharge Assessment Last Done: 09/12/18 16:01 Instructions: DI for Finger Fracture, How To Perform RICE (Rest, Ice, Compress, Elevate), How to Take Care of Your Splint Activity Restrictions/Additional Instructions: You broke your thumb. Please follow-up with [facility]. I have given you a small prescription of pain medication. Please be aware this could be sedating and constipating. Please use aggressive rest ice compression elevation. Please come back to the emergency department for any acute concerns such as lack of circulation to your thumb. Prescriptions: No Action acetaminophen-codeine [Tylenol-Codeine #3] 300-30 mg tablet See Rx Instructions PO Q6H PRN (Reason: pain) Qty: 30 RF: 0 oxycodone-acetaminophen 5-325 mg tablet 1 tab PO Q4-6H PRN (Reason: pain in thumb) Qty: 10 RF: 0 pantoprazole [Protonix] 20 mg tablet,delayed release (DR/EC) 20 mg PO BID RF: 0 meloxicam 15 mg tablet 15 mg PO DAILY RF: 0 lorazepam [Ativan] 0.5 mg tablet 0.5 mg PO BEDTIME PRNRF: 0 Referrals: [facility] [Provider Group] Sergio Helm MD [Primary Care Provider] - Cricket Wagoner MD [Family Provider] - <Mery Padilla DO - Last Filed: 09/15/18 19:03> Cosign ED Attending Coskiaature Attestation: I was immediately available in the department for consultation. Documentation has been reviewed. I agree with assessment and plan.
[2018-09-12 16:01] VITALS: BP 150/74; PULSE 80; RESP 19; O2SAT 99
== END 2018-09-12 16:02 | disposition home or self-care (01) ==
PROVIDERS: Emergency Provider Nurse Practitioner Family; Family Provider Family Medicine; PCP Family Medicine
DX: S62.512A Displaced fracture of proximal phalanx of left thumb, initial encounter for closed fracture (principal); W19.XXXA Unspecified fall, initial encounter
CPT/HCPCS: 73140; 99282; 99283

== ENCOUNTER → 2019-01-03 09:06 | Outpatient (CLI) | payer OTHER, MEDICAID, SELFPAY ==
--- NOTE | 2019-01-03 | DI.RAD.S_ITS ---
PROCEDURE: FL BARIUM SWALLOW INDICATIONS: Gastro-esophageal reflux disease COMPARISON: None. FINDINGS: Function: There is mildly decreased esophageal peristalsis. No elicited gastroesophageal reflux. Morphology: Air-contrast images demonstrate normal mucosal morphology. Single contrast views show no esophageal strictures, extrinsic mass effects, or diverticula. Limited images of the stomach demonstrate normal appearance. IMPRESSION: Mild esophageal dysmotility otherwise negative examination as above. Dictated by: Marquez Vazquez M.D. on 01/03/2019 at 10:20 Approved by: Marquez Vazquez M.D. on 01/03/2019 at 10:21
== END ==
PROVIDERS: Family Provider Family Medicine; PCP Family Medicine; Visit Provider Surgery
DX: K21.9 Gastro-esophageal reflux disease without esophagitis (principal); K22.4 Dyskinesia of esophagus
CPT/HCPCS: 74220

== ENCOUNTER → 2019-01-15 11:26 | Outpatient (CLI) | payer OTHER, MEDICAID, SELFPAY ==
--- NOTE | 2019-01-15 | DI.RAD.S_ITS ---
PROCEDURE: XR CHEST 2V INDICATIONS: LEFT HAND PAIN/EXPOSURE TO NON TOXIC CHEMICALS TECHNIQUE: 2 views of the chest were acquired. COMPARISON: [facility], CR, XR CHEST 2V, 03/21/2018, 15:32. FINDINGS: Surgical changes and devices: None. Lungs and pleura: Lungs are clear. No pleural effusions or pneumothorax. Mediastinum: Mediastinal contours are normal. Heart size is normal. Bones and chest wall: No suspicious bony abnormalities. Soft tissues appear unremarkable. IMPRESSION: No acute cardiopulmonary disease. Dictated by: Lopez Perez M.D. on 01/15/2019 at 16:25 Approved by: Lopez Perez M.D. on 01/15/2019 at 16:26
--- NOTE | 2019-01-15 | DI.RAD.S_ITS ---
PROCEDURE: XR HAND LT MIN 3V INDICATIONS: LEFT HAND PAIN/EXPOSURE TO NON TOXIC CHEMICALS TECHNIQUE: 3 views of the hand(s) acquired. COMPARISON: [facility], , HAND 3V RIGHT, 11/27/2016, 16:15. FINDINGS: Bones: No fractures or dislocations. Carpal bones are normally aligned. No suspicious bony lesions. Soft tissues: There is a punctate calcification medially adjacent to the medial/ulnar aspect of the left ulnocarpal joint, which may represent a joint body. IMPRESSION: No acute osseous abnormality of the left hand. Dictated by: Lopez Perez M.D. on 01/15/2019 at 15:46 Approved by: Lopez Perez M.D. on 01/15/2019 at 15:50
== END ==
PROVIDERS: Family Provider Family Medicine; PCP Student in an Organized Health Care Education/Training Program; Visit Provider Student in an Organized Health Care Education/Training Program
DX: M79.642 Pain in left hand (principal); Z77.098 Contact with and (suspected) exposure to other hazardous, chiefly nonmedicinal, chemicals; V18.0XXA Pedal cycle driver injured in noncollision transport accident in nontraffic accident, initial encounter
CPT/HCPCS: 71046; 73130

== ENCOUNTER 2019-02-18 09:20 | Emergency (ER) | payer OTHER, MEDICAID, SELFPAY ==
[2019-02-18 09:20] VITALS: BP 134/63; PULSE 65; RESP 18; TEMP 36.7; O2SAT 99
--- NOTE | 2019-02-18 09:28 | DI.RAD.S_ITS ---
PROCEDURE: XR FOOT RT MIN 3V INDICATIONS: injury TECHNIQUE: 3 views of the foot were acquired. COMPARISON: None. FINDINGS: Bones: No fractures or dislocations. No suspicious bony lesions. Soft tissues: No tibiotalar joint effusion. Achilles tendon appears normal. IMPRESSION: No evidence acute bony abnormality of the right foot Dictated by: Flaco Durbin M.D. on 02/18/2019 at 10:34 Approved by: Flaco Durbin M.D. on 02/18/2019 at 10:34
--- NOTE | 2019-02-18 09:41 | ED.LOWEXIN ---
HPI - Extremity Injury (Lower) General Chief Complaint: Extremity Injury, Lower Stated Complaint: right foot injury Time Seen by Provider: 02/18/19 09:38 Source: patient Mode of arrival: Ambulatory History of Present Illness HPI Narrative: Patient is a 33-year-old male who presents with right foot injury. He said yesterday he was putting on his pants and he kicked bed. His 2nd and 3rd toe hurt. He has to wear sandals to walk, but is ambulatory without difficulty. He has no numbness or tingling. No other injuries. MD complaint: foot injury Related Data Home Medications Medication Instructions Recorded Confirmed hydroxyzine HCl 10 mg tablet 10 mg PO BEDTIME 01/30/19 01/30/19 pregabalin 100 mg capsule 100 mg PO DAILY cap 01/30/19 01/30/19 ranitidine HCl PO DAILY 01/30/19 01/30/19 Previous Rx's Medication Instructions Recorded acetaminophen 300 mg-codeine 30 mg 1 - 2 tab PO Q6H PRN #50 tab 01/30/19 tablet diclofenac sodium 1 % topical gel 2 g TOP QID #100 gram MDD 8 gm 01/30/19 lidocaine 5 % topical patch 1 patch TOP DAILY #30 each MDD 12 01/30/19 hours in a 24 hour period Allergies Allergy/AdvReac Type Severity Reaction Status Date / Time Sulfa (Sulfonamide Allergy Mild Verified 01/30/19 08:30 Antibiotics) [SULFA (SULFONAMIDE ANTIBIOTICS)] tramadol AdvReac Verified 01/30/19 08:30 Review of Systems Review of Systems Narrative: GENERAL: Denies chills,fever HEENT: Denies throat pain RESPIRATORY: Denies dyspnea, cough, wheezing CARDIOVASCULAR: Denies chest pain, palpitations GASTROINTESTINAL: Denies nausea, vomiting MUSCULOSKELETAL: See HPI SKIN: No rash, no laceration, no pruritus NEUROLOGIC: Denies weakness, dizziness, headache, numbness 8 point review of systems is negative except for those stated above and HPI [facility] Medical History Cervical spine disease (Chronic ~2014) Chronic back pain (Chronic ~2011) Elbow pain (Chronic ~2016) Fractures (Resolved ~2014) Gastric ulcer (Chronic ~2010) Hearing deficit (Chronic ~2015) Ruptured tympanic membrane (Resolved ~2015) Shoulder pain (Chronic) Tinnitus (Chronic ~2016) Vertigo (Chronic ~2016) Vision disorder (Chronic) White blood cell disorder (Chronic ~2016) Surgical History Anesthesia (Resolved) Status post hernia repair (~2008) Status post hernia repair (~2003) Family History Father Age: 59 Hypertension Hematoma Mother Age: 55 Hypertension High cholesterol Diabetes mellitus Sister Age: 37 Hypertension Double ureter Grandmother Stroke Grandfather Cancer Social History marital status: household members: family occupational status: employed Smoking Status: Never smoker alcohol intake: current substance use type: does not use Family History Father Age: 59 Hypertension Hematoma Mother Age: 55 Hypertension High cholesterol Diabetes mellitus Sister Age: 37 Hypertension Double ureter Grandmother Stroke Grandfather Cancer Social History marital status: household members: family occupational status: employed Smoking Status: Never smoker alcohol intake: current substance use type: does not use Exam Initial Vital Signs Initial Vital Signs: Vital Signs Temperature 98.1 F 02/18/19 09:20 Pulse Rate 65 02/18/19 09:20 Respiratory Rate 18 02/18/19 09:20 Blood Pressure 134/63 02/18/19 09:20 Pulse Oximetry 99 02/18/19 09:20 GENERAL: Well-appearing, well-nourished and in no acute distress. CARDIOVASCULAR: peripheral pulses in tact, cap refill <2 sec RESPIRATORY: No respiratory distress, speaks in full sentences without difficulty EXTREMITIES: Normal range of motion, no clubbing or edema. Neurovascularly intact Right foot: No significant swelling or contusion no erythema. Neurovascularly intact. Pain at the base of 2nd and 3rd toe NEUROLOGICAL: Cranial nerves II through XII grossly intact. Normal gait and speech. SKIN: Warm, dry, no petechiae, no rashes or lesions. Course Orders Ordered: ED Orders 02/18/19 09:28 XR foot RT min 3V Stat Vital Signs Vital signs: Vital Signs - 8 hr 02/18/19 09:20 Temperature 98.1 F Pulse Rate 65 Respiratory Rate 18 Blood Pressure 134/63 Pulse Oximetry 99 MDM - Extremity Injury (Lower) Imaging Data foot XR: Radiologist's impression: PROCEDURE: XR FOOT RT MIN 3V INDICATIONS: injury TECHNIQUE: 3 views of the foot were acquired. COMPARISON: None. FINDINGS: Bones: No fractures or dislocations. No suspicious bony lesions. Soft tissues: No tibiotalar joint effusion. Achilles tendon appears normal. IMPRESSION: No evidence acute bony abnormality of the right foot Dictated by: Flaco Durbin M.D. on 02/18/2019 at 10:34 Discharge Plan Departure Patient Disposition: Home Clinical Impression: Right foot sprain Qualifiers: Encounter type: initial encounter Qualified Code(s): S93.601A - Unspecified sprain of right foot, initial encounter Discharge Date/Time: 02/18/19 10:29 Instructions: DI for Foot Sprain Activity Restrictions/Additional Instructions: *You have been diagnosed with right foot sprain *What to do: Increase activity as tolerated, wear supportive shoes either your sandals or the orthopedic shoe *Continue to take medications as directed Ibuprofen 100 mg every 8 hours if needed for pain *Follow up with your primary care provider in 2-3 days *Return to ER if you should have increasing pain, numbness, or any new, worsening or concerning symptoms Prescriptions: No Action acetaminophen-codeine [Tylenol-Codeine #3] 300-30 mg tablet 1 - 2 tab PO Q6H PRN (Reason: pain) Qty: 50 RF: 0 ranitidine HCl PO DAILY RF: 0 Lyrica 100 mg capsule 100 mg PO DAILY RF: 0 hydroxyzine HCl 10 mg tablet 10 mg PO BEDTIME RF: 0 lidocaine 5 % adhesive patch,medicated 1 patch TOP DAILY MDD 12 hours in a 24 hour period Qty: 30 RF: 5 diclofenac sodium 1 % gel 2 g TOP QID MDD 8 gm Qty: 100 RF: 5 Referrals: Mray Beth Crabtree MD [Primary Care Provider] -
== END 2019-02-18 10:29 | disposition home or self-care (01) ==
LOC: ED 09:56
PROVIDERS: Emergency Provider Emergency Medicine; Family Provider Family Medicine; PCP Student in an Organized Health Care Education/Training Program
DX: S93.601A Unspecified sprain of right foot, initial encounter (principal); W22.8XXA Striking against or struck by other objects, initial encounter
CPT/HCPCS: 73630; 99282; 99283

== ENCOUNTER 2019-07-23 10:35 | Emergency (ER) | payer OTHER, MEDICAID, SELFPAY ==
[2019-07-23 10:39] VITALS: BP 119/78; PULSE 81; RESP 16; TEMP 35.9; O2SAT 99
--- NOTE | 2019-07-23 10:42 | DI.RAD.S_ITS ---
PROCEDURE: XR KNEE RT 3V INDICATIONS: fell down stair TECHNIQUE: 4 views of the knee were acquired. COMPARISON: None. FINDINGS: Bones: No displaced fractures or dislocations. No suspicious bony lesions. Soft tissues: No joint effusion. No suspicious soft tissue calcifications. IMPRESSION: No acute right knee fractures. Dictated by: Mega Barraza M.D. on 07/23/2019 at 10:09 Approved by: Mega Barraza M.D. on 07/23/2019 at 10:09
[2019-07-23] MEDS: ACETAMINOPHEN 325 MG TABLET 975 MG PO (14:56)
[2019-07-23] MEDS: IBUPROFEN 400 MG TABLET 800 MG PO (15:17)
[2019-07-23 15:21] VITALS: PULSE 70
--- NOTE | 2019-07-23 15:21 | ED_ITS ---
HPI - Extremity Injury (Lower) General Chief Complaint: Extremity Injury, Lower Stated Complaint: Stair broke underneath, fell, hurt R knee Time Seen by Provider: 07/23/19 15:21 Source: patient Mode of arrival: Ambulatory Limitations: no limitations History of Present Illness HPI Narrative: 34-year-old male comes in with complaint of right knee pain. Patient states he is walking on the stairs and his bottom step broke and he fell onto his right knee hitting just below the patella. Patient states that there has been pain had even below the patella area is worse with extension. Has some increased pain with weight-bearing. Patient states it feels better with flexion. Patient denies any numbness, ecchymosis or other skin changes. Patient states that he has some radiation down the teran. He denies any bony pain. He denies any other injuries. States no other major medical issues. No surgeries on his knee. No allergies to medications. Related Data Home Medications Medication Instructions Recorded Confirmed pregabalin 100 mg capsule 100 mg PO DAILY cap 01/30/19 03/11/19 ranitidine HCl PO DAILY 01/30/19 03/11/19 Previous Rx's Medication Instructions Recorded diclofenac sodium 1 % topical gel 2 g TOP QID #100 gram MDD 8 gm 01/30/19 lidocaine 5 % topical patch 1 patch TOP DAILY #30 each MDD 12 01/30/19 hours in a 24 hour period hydroxyzine HCl 10 mg tablet 10 mg PO BEDTIME #90 tab 03/11/19 ondansetron HCl 4 mg tablet See Rx Instructions .ROUTE 03/18/19 .COMPLEX #30 tab acetaminophen 300 mg-codeine 30 mg 1 - 2 tab PO Q6H PRN #50 tab 07/22/19 tablet Allergies Allergy/AdvReac Type Severity Reaction Status Date / Time Sulfa (Sulfonamide Allergy Mild Verified 03/11/19 11:15 Antibiotics) [SULFA (SULFONAMIDE ANTIBIOTICS)] tramadol AdvReac Verified 03/11/19 11:15 Review of Systems Review of Systems ROS Unobtainable: All systems reviewed & are unremarkable except as noted in HPI and below Patient History Medical History Cervical spine disease (Chronic ~2014) Chronic back pain (Chronic ~2011) Elbow pain (Chronic ~2016) Fractures (Resolved ~2014) Gastric ulcer (Chronic ~2010) Hearing deficit (Chronic ~2015) Ruptured tympanic membrane (Resolved ~2015) Shoulder pain (Chronic) Tinnitus (Chronic ~2015) Vertigo (Chronic ~2015) Vision disorder (Chronic) White blood cell disorder (Chronic ~2015) Surgical History Anesthesia (Resolved) Status post hernia repair (~2008) Status post hernia repair (~2003) Social History marital status: household members: family occupational status: employed Smoking Status: Never smoker alcohol intake: current substance use type: does not use Smoking Status: Never smoker alcohol intake frequency: a few times a month Alcohol type: beer Substance Use Type: marijuana Exam Narrative Exam Narrative: GENERAL: Alert and oriented x three, well-nourished male who is sleeping initially but awakens easily for exam. HEENT: Head normocephalic, atraumatic, EOMI, pupils reactive, face symmetric, moist mucous membranes EXTREMITIES: Normal range of motion, no clubbing or edema. Neurovascularly intact. No bony tenderness. Patient has some mild discomfort in the soft tissue of the lateral portion of the knee just below the patella. No ecchymosis, no swelling, no effusion. Patient has negative joint testing with no laxity. Normal sensation throughout the leg. NEUROLOGICAL: Cranial nerves II through XII grossly intact. Moving all extremities SKIN: Warm, dry, no petechiae, no rashes or lesions. Initial Vital Signs Initial Vital Signs: Vital Signs Temperature 96.7 F L 07/23/19 10:39 Pulse Rate 81 07/23/19 10:39 Respiratory Rate 16 07/23/19 10:39 Blood Pressure 119/78 07/23/19 10:39 Pulse Oximetry 99 07/23/19 10:39 Course Orders Ordered: ED Orders 07/23/19 10:42 XR knee RT 3V Stat Discontinued Medications Acetaminophen (Tylenol) 975 mg PO NOW ONE Stop: 07/23/19 14:47 Last Admin: 07/23/19 14:56 Dose: 975 mg Documented by: NATY Ibuprofen (Advil) 800 mg PO NOW ONE Stop: 07/23/19 14:47 Last Admin: 07/23/19 14:56 Dose: Not Given Documented by: NATY Ibuprofen (Advil) 800 mg PO NOW ONE Stop: 07/23/19 15:10 Last Admin: 07/23/19 15:17 Dose: 800 mg Documented by: NATY Ketorolac Tromethamine (Toradol) 30 mg IM NOW ONE Stop: 07/23/19 15:34 Last Admin: 07/23/19 15:40 Dose: 30 mg Documented by: NATY Vital Signs Vital signs: Vital Signs - 8 hr 07/23/19 15:21 07/23/19 16:05 Pulse Rate 70 Pulse Rate [Right Dorsalis Pedis] 70 Respiratory Rate 18 Blood Pressure [Left Arm] 110/58 L Pulse Oximetry 99 MDM - Extremity Injury (Lower) Imaging Data knee fx: Radiologist's Impression: [address] [address] XRay Report Signed Patient: Luis Castano RMR#: [id number] : 1985Acct:[id number] Age/Sex: 34 / MDate of Service: 07/23/19 Loc: ED Accession Number: [id number] Procedure: XR knee RT 3V Ordering Provider: Isabel Macias D.O. PROCEDURE: XR KNEE RT 3V INDICATIONS: fell down stair TECHNIQUE: 4 views of the knee were acquired. COMPARISON: None. FINDINGS: Bones: No displaced fractures or dislocations. No suspicious bony lesions. Soft tissues: No joint effusion. No suspicious soft tissue calcifications. IMPRESSION: No acute right knee fractures. Dictated by: Mega Barraza M.D. on 07/23/2019 at 10:09 Approved by: Mega Barraza M.D. on 07/23/2019 at 10:09 [facility] Narrative Medical decision making narrative: Patient was offered a knee immobilizer but is more comfortable being able to flex his knee that extended. He landed right on the area of the patellar tendon but has good strength and motion my suspicion for a tear or injury to the tendon itself is low. Patient does not have any bony tenderness in x-ray is negative. No effusion. Plan for watchful waiting Gumaro wrap and weight-bearing as tolerated. We discussed knee immobilizer but patient defers. Plan for repeat imaging if no improvement over the next week. Discharge Plan Departure Patient Disposition: Home Clinical Impression: Acute pain of right knee Discharge Date/Time: 07/23/19 16:07 Instructions: DI for Knee Pain Activity Restrictions/Additional Instructions: Follow-up with primary if your continued to have symptoms after a week. You may take ibuprofen and/or Tylenol as needed for pain. Elevated affected body part to decrease swelling. OK to use ice pack on the affected body part. Use for 15-20 minutes each time, for 5-6x per day. If you develop worsening pain, numbness, tingling, discoloration of the affected body part, loosen the GUMARO wrap, and either see your doctor for an urgent re-assessment, or return to the Emergency Department. Return to the Emergency Department for any new or worsening symptoms. Prescriptions: No Action ondansetron HCl [Zofran] 4 mg tablet See Rx Instructions .ROUTE .COMPLEX Qty: 30 RF: 2 acetaminophen-codeine [Tylenol-Codeine #3] 300-30 mg tablet 1 - 2 tab PO Q6H PRN (Reason: pain) Qty: 50 RF: 0 hydroxyzine HCl 10 mg tablet 10 mg PO BEDTIME Qty: 90 RF: 3 ranitidine HCl PO DAILY RF: 0 Lyrica 100 mg capsule 100 mg PO DAILY RF: 0 lidocaine 5 % adhesive patch,medicated 1 patch TOP DAILY MDD 12 hours in a 24 hour period Qty: 30 RF: 5 diclofenac sodium 1 % gel 2 g TOP QID MDD 8 gm Qty: 100 RF: 5 Referrals: Cricket Wagoner MD [Primary Care Provider] - Stand Alone Forms: Work Release Note
[2019-07-23] MEDS: KETOROLAC 60 MG/2 ML VIAL 30 MG IM (15:40)
[2019-07-23 16:05] VITALS: BP 110/58; PULSE 70; RESP 18; O2SAT 99
== END 2019-07-23 16:07 | disposition home or self-care (01) ==
PROVIDERS: Emergency Provider Emergency Medicine; Family Provider Family Medicine; PCP Family Medicine
DX: M25.561 Pain in right knee (principal)
CPT/HCPCS: 73562; 96372; 99283; 99284; J1885

== ENCOUNTER 2019-08-15 08:57 | Emergency (ER) | payer OTHER, MEDICAID, SELFPAY ==
[2019-08-15 09:00] VITALS: BP 138/85; PULSE 81; RESP 17; TEMP 36.8; O2SAT 99; BMI 25.0
--- NOTE | 2019-08-15 09:03 | ED_ITS ---
HPI - Back Pain/Injury General Chief Complaint: Back Pain/Injury Stated Complaint: 'my lower back' Time Seen by Provider: 08/15/19 09:00 Source: patient Mode of arrival: Wheelchair Limitations: no limitations History of Present Illness HPI Narrative: 34-year-old male nonsmoker with history of lumbar pain and cervical radiculopathy presents a chief complaint of severe lumbar pain after bending over to pickle sorter 1 of his children's toys last night. He denies any specific trauma or direct impact. He denies any numbness, tingling or weakness. He denies any loss of control of bowel or bladder. He has had no fever or chills. Denies any recent travel. MD Complaint: back pain and back injury Onset (ago): hour(s) Duration: constant Similar Symptoms Previously: Yes Location: lumbar spine Severity: moderate Quality: sharp Related Data Home Medications Medication Instructions Recorded Confirmed pregabalin 100 mg capsule 100 mg PO DAILY cap 01/30/19 03/11/19 ranitidine HCl PO DAILY 01/30/19 03/11/19 Previous Rx's Medication Instructions Recorded diclofenac sodium 1 % topical gel 2 g TOP QID #100 gram MDD 8 gm 01/30/19 lidocaine 5 % topical patch 1 patch TOP DAILY #30 each MDD 12 01/30/19 hours in a 24 hour period hydroxyzine HCl 10 mg tablet 10 mg PO BEDTIME #90 tab 03/11/19 ondansetron HCl 4 mg tablet See Rx Instructions .ROUTE 03/18/19 .COMPLEX #30 tab acetaminophen 300 mg-codeine 30 mg 1 - 2 tab PO Q6H PRN #50 tab 07/22/19 tablet lorazepam 0.5 mg tablet See Rx Instructions PO DAILY PRN 08/06/19 #6 tab hydrocodone-acetaminophen 1 tab PO Q4-6H PRN #10 tab 08/15/19 ketorolac 10 mg PO Q6H PRN #14 tab 08/15/19 Allergies Allergy/AdvReac Type Severity Reaction Status Date / Time Sulfa (Sulfonamide Allergy Mild Verified 08/15/19 09:06 Antibiotics) [SULFA (SULFONAMIDE ANTIBIOTICS)] tramadol AdvReac Verified 08/15/19 09:06 Review of Systems Constitutional Constitutional: Denies chills, Denies fatigue, Denies fever(s), Denies frequent falls, Denies lethargy and Denies weakness Eyes Eyes: Denies change in vision, Denies eye discharge, Denies irritation and Denies loss of vision ENT Ears, Nose, Mouth, and Throat: Denies change in voice, Denies dizziness, Denies neck pain, Denies sore throat and Denies throat swelling Cardiovascular Cardiovascular: Denies chest pain, Denies irregular heart rhythm, Denies lightheadedness, Denies palpitations, Denies dyspnea, Denies dyspnea on exertion and Denies orthopnea Respiratory Respiratory: Denies cough, Denies dyspnea, Denies dyspnea on exertion and Denies wheezing Gastrointestinal Gastrointestinal: Denies abdominal pain, Denies change in bowel habits, Denies diarrhea, Denies nausea and Denies vomiting Genitourinary Genitourinary: Denies hematuria, Denies flank pain, Denies urinary incontinence and Denies urinary urgency Musculoskeletal Musculoskeletal: Reports back pain, Denies muscle weakness, Denies neck pain, Denies numbness and Denies tingling Integumentary/Breasts Skin/Breast: Denies pruritus, Denies erythema, Denies rash and Denies wounds Neurologic Neurologic: Denies behavioral changes, Denies confusion, Denies dizziness, Denies frequent falls, Denies loss of vision, Denies numbness, Denies tingling and Denies weakness Psychiatric Psychiatric: Denies anxiety, Denies behavioral changes, Denies confusion, Denies depression, Denies homicidal ideation and Denies suicidal ideation Endocrine Endocrine: Denies fatigue, Denies flushing and Denies palpitations Hematologic/Lymphatic Hematologic/Lymphatic: Denies easy bruising Allergic/Immunologic Allergic/Immunologic: Denies urticaria, Denies throat swelling and Denies wheezing Patient History Medical History Cervical spine disease (Chronic ~2014) Chronic back pain (Chronic ~2011) Elbow pain (Chronic ~2016) Fractures (Resolved ~2014) Gastric ulcer (Chronic ~2010) Hearing deficit (Chronic ~2015) Ruptured tympanic membrane (Resolved ~2015) Shoulder pain (Chronic) Tinnitus (Chronic ~2015) Vertigo (Chronic ~2015) Vision disorder (Chronic) White blood cell disorder (Chronic ~2015) Surgical History Anesthesia (Resolved) Status post hernia repair (~2008) Status post hernia repair (~2003) Family History Father Age: 60 Hypertension Hematoma Mother Age: 56 Hypertension High cholesterol Diabetes mellitus Sister Age: 38 Hypertension Double ureter Grandmother Stroke Grandfather Cancer Social History marital status: household members: family occupational status: employed Smoking Status: Never smoker alcohol intake: current substance use type: does not use Smoking Status: Never smoker alcohol intake frequency: a few times a month Alcohol type: beer Substance Use Type: marijuana Exam Narrative Exam Narrative: GENERAL: [34] year old patient appears stated age. Well- nourished, well-developed patient, in mild distress. HEAD: Atraumatic. Normocephalic. EYES: Pupils equal round and reactive. Extraocular motions intact. No scleral i cterus. No injection or drainage. ENT: Nose without bleeding, purulent drainage. Throat without erythema, tonsillar hypertrophy or exudate. Airway patent. NECK: Trachea midline. Non tender CARDIOVASCULAR: Regular rate and rhythm without murmurs, gallops, or rubs. RESPIRATORY: Clear to auscultation. Breath sounds equal bilaterally. No wheezes, rales, or rhonchi. GASTROINTESTINAL: Abdomen soft, non-tender, nondistended. EXTREMITIES: No edema or joint tenderness. BACK: Midline, if not right-sided low back pain to palpation. No redness, warmth or swelling. No saddle anesthesia. Bilateral lower extremity sensation intact. Patellar reflexes 2+ bilaterally NEURO: AOx3. SKIN: No rash or erythema of visible areas Initial Vital Signs Initial Vital Signs: Vital Signs Temperature 98.2 F 08/15/19 09:00 Pulse Rate 81 08/15/19 09:00 Respiratory Rate 17 08/15/19 09:00 Blood Pressure 138/85 08/15/19 09:00 Pulse Oximetry 99 08/15/19 09:00 Course Orders Ordered: Discontinued Medications Dexamethasone (Decadron) 10 mg IV NOW ONE Stop: 08/15/19 09:20 Last Admin: 08/15/19 09:27 Dose: 10 mg Documented by: MARIVEL Hydromorphone HCl (Dilaudid) 1 mg IV NOW ONE Stop: 08/15/19 09:20 Last Admin: 08/15/19 09:28 Dose: 1 mg Documented by: MARIVEL Ketorolac Tromethamine (Toradol) 15 mg IV NOW ONE Stop: 08/15/19 09:20 Last Admin: 08/15/19 09:28 Dose: 15 mg Documented by: MARIVEL Vital Signs Vital signs: Vital Signs - 8 hr 08/15/19 09:00 Temperature 98.2 F Pulse Rate 81 Respiratory Rate 17 Blood Pressure 138/85 Pulse Oximetry 99 MDM - Back Pain/Injury MDM Narrative Medical decision making narrative: Multiple etiologies for patient's symptoms considered including: Multiple etiologies of back pain considered including; Epidural abscess, cauda equina, mass occupying lesion, and other considered but thought less likely given lack of fever, as well as other considerations noted above Patient's symptoms improved or duration of stay with above-stated therapies. Findings and discharge diagnosis discussed with patient/family followed by verbalization of understanding Return precautions discussed with patient/family whom verbalize understanding. Discharge Plan Departure Patient Disposition: Home Clinical Impression: Acute exacerbation of chronic low back pain Instructions: DI for Back Strain or Sprain Activity Restrictions/Additional Instructions: *You have been diagnosed with [acute on chronic lumbar pain without obvious radiculopathy.] *What to do: *Take medications as directed: Sent to [facility] at your request *Follow up with your primary care provider in 2-3 days, call for an appointment. Let them know you were seen in the Emergency Department and that we ask that you be seen in follow up *Return to ER if you should have any new, worsening or concerning symptoms You have been prescribed narcotic medications. While on these medications you cannot drive or operate heavy machinery. Additionally you cannot sign legal documents or perform any duties such as this. Many people get constipated on narcotic medications so it would be advisable to discuss stool softeners with the pharmacist when you pickle sorter your prescription. Please understand that we cannot provide further refills of narcotics or controlled substances through the ED and your pain management will need to be through your Primary Care Provider Prescriptions: New hydrocodone-acetaminophen 5-325 mg tablet 1 tab PO Q4-6H PRN (Reason: pain) Qty: 10 RF: 0 ketorolac 10 mg tablet 10 mg PO Q6H PRN (Reason: pain) Qty: 14 RF: 0 No Action ondansetron HCl [Zofran] 4 mg tablet See Rx Instructions .ROUTE .COMPLEX Qty: 30 RF: 2 acetaminophen-codeine [Tylenol-Codeine #3] 300-30 mg tablet 1 - 2 tab PO Q6H PRN (Reason: pain) Qty: 50 RF: 0 lorazepam [Ativan] 0.5 mg tablet See Rx Instructions PO DAILY PRN (Reason: anxiety) Qty: 6 RF: 0 hydroxyzine HCl 10 mg tablet 10 mg PO BEDTIME Qty: 90 RF: 3 ranitidine HCl PO DAILY RF: 0 Lyrica 100 mg capsule 100 mg PO DAILY RF: 0 lidocaine 5 % adhesive patch,medicated 1 patch TOP DAILY MDD 12 hours in a 24 hour period Qty: 30 RF: 5 diclofenac sodium 1 % gel 2 g TOP QID MDD 8 gm Qty: 100 RF: 5 Referrals: Cricket Wagoner MD [Primary Care Provider] - ED Sign-out Cosign ED Attending Cosignature Attestation: I was immediately available in the department for consultation. This documentation has been reviewed and I agree with assessment and plan. Supervised by Guille Dyer DO
--- NOTE | 2019-08-15 09:09 | PC.NURSE ---
Pt denies loss bowel/bladder. pt has hx chronic back problems
[2019-08-15] MEDS: DEXAMETHASONE 10 MG/ML VIAL IV (09:27)
[2019-08-15] MEDS: KETOROLAC 60 MG/2 ML VIAL 15 MG IV (09:28)
[2019-08-15] MEDS: HYDROMORPHONE 1 MG INJ IV (09:28)
[2019-08-15 10:30] VITALS: BP 130/79; PULSE 60; RESP 18; O2SAT 99
== END 2019-08-15 10:30 | disposition home or self-care (01) ==
PROVIDERS: Emergency Provider Emergency Medicine; Family Provider Family Medicine; PCP Family Medicine
DX: M54.5 Low back pain (principal)
CPT/HCPCS: 36415; 96374; 96375; 99284; J1100; J1170; J1885

== ENCOUNTER 2019-10-02 23:54 | Emergency (ER) | payer OTHER, MEDICAID, SELFPAY ==
--- NOTE | 2019-10-02 23:58 | ED_ITS ---
HPI - Extremity Injury (Lower) General Chief Complaint: Extremity Injury, Lower Stated Complaint: 'BROKE MY FOOT' Time Seen by Provider: 10/02/19 23:57 Source: patient Mode of arrival: Ambulatory Limitations: no limitations History of Present Illness HPI Narrative: 34M non smoker presents with R foot pain after kicking a wall. His pain is worse with ambulation and improves with rest. Pain is largely involving great toe. NO other injury. MD complaint: knee injury Type of Injury: blunt Place: home Severity: moderate Relieving factors: rest Exacerbating factors: weight bearing Context: direct blow Associated symptoms: swelling and able to partially bear weight Related Data Home Medications Medication Instructions Recorded Confirmed pregabalin 100 mg capsule 100 mg PO DAILY cap 01/30/19 03/11/19 Previous Rx's Medication Instructions Recorded hydroxyzine HCl 10 mg tablet 10 mg PO BEDTIME #90 tab 03/11/19 ondansetron HCl 4 mg tablet See Rx Instructions .ROUTE 03/18/19 .COMPLEX #30 tab lorazepam 0.5 mg tablet See Rx Instructions PO DAILY PRN 08/06/19 #6 tab ketorolac 10 mg PO Q6H PRN #14 tab 08/15/19 cyclobenzaprine 10 mg tablet 10 mg PO BID PRN #60 tab 08/19/19 dexamethasone 4 mg tablet 4 mg PO TID #12 tab 08/26/19 acetaminophen 300 mg-codeine 30 mg 1 - 2 tab PO Q6H PRN #50 tab 09/25/19 tablet Allergies Allergy/AdvReac Type Severity Reaction Status Date / Time Sulfa (Sulfonamide Allergy Mild Verified 08/26/19 10:31 Antibiotics) [SULFA (SULFONAMIDE ANTIBIOTICS)] tramadol AdvReac Verified 08/26/19 10:31 Review of Systems Constitutional Constitutional: Denies chills, Denies fatigue, Denies fever(s), Denies frequent falls, Denies lethargy and Denies weakness Eyes Eyes: Denies change in vision, Denies eye discharge, Denies irritation and Denies loss of vision ENT Ears, Nose, Mouth, and Throat: Denies change in voice, Denies dizziness, Denies neck pain, Denies sore throat and Denies throat swelling Cardiovascular Cardiovascular: Denies chest pain, Denies irregular heart rhythm, Denies lightheadedness, Denies palpitations, Denies dyspnea, Denies dyspnea on exertion and Denies orthopnea Respiratory Respiratory: Denies cough, Denies dyspnea, Denies dyspnea on exertion and Denies wheezing Gastrointestinal Gastrointestinal: Denies abdominal pain, Denies change in bowel habits, Denies diarrhea, Denies nausea and Denies vomiting Genitourinary Genitourinary: Denies hematuria, Denies flank pain, Denies urinary incontinence and Denies urinary urgency Musculoskeletal Musculoskeletal: Denies back pain, Denies muscle weakness, Denies neck pain, Denies numbness and Denies tingling Integumentary/Breasts Skin/Breast: Denies pruritus, Denies erythema, Denies rash and Denies wounds Neurologic Neurologic: Denies behavioral changes, Denies confusion, Denies dizziness, Denies frequent falls, Denies loss of vision, Denies numbness, Denies tingling and Denies weakness Psychiatric Psychiatric: Denies anxiety, Denies behavioral changes, Denies confusion, Denies depression, Denies homicidal ideation and Denies suicidal ideation Endocrine Endocrine: Denies fatigue, Denies flushing and Denies palpitations Hematologic/Lymphatic Hematologic/Lymphatic: Denies easy bruising Allergic/Immunologic Allergic/Immunologic: Denies urticaria, Denies throat swelling and Denies wheezing Patient History Medical History Cervical spine disease (Chronic ~2014) Chronic back pain (Chronic ~2011) Elbow pain (Chronic ~2016) Fractures (Resolved ~2014) Gastric ulcer (Chronic ~2010) Hearing deficit (Chronic ~2015) Ruptured tympanic membrane (Resolved ~2015) Shoulder pain (Chronic) Tinnitus (Chronic ~2015) Vertigo (Chronic ~2015) Vision disorder (Chronic) White blood cell disorder (Chronic ~2015) Surgical History Anesthesia (Resolved) Status post hernia repair (~2008) Status post hernia repair (~2003) Family History Father Age: 60 Hypertension Hematoma Mother Age: 56 Hypertension High cholesterol Diabetes mellitus Sister Age: 38 Hypertension Double ureter Grandmother Stroke Grandfather Cancer Social History marital status: household members: family occupational status: employed Smoking Status: Never smoker alcohol intake: current substance use type: does not use Smoking Status: Never smoker alcohol intake frequency: a few times a month Alcohol type: beer Substance Use Type: marijuana Exam Narrative Exam Narrative: GEN: AOx3 and in mild distress EYES: Pupils are equal, round, and reactive to light and accommodation. Extraoccular muscles are intact bilaterally. There is no subconjunctival hemorrhage or exudate. CHEST: Lungs are clear to auscultation bilaterally and free of wheezes, rales, or rhonchi. Heart rate is regular rhythm, there are no murmurs, clicks, rubs, or gallops. There is no chest wall tenderness. ABD: Abdomen is soft and nontender. There is no guarding or rebound. Bowel sounds are normal in all 4 quadrants. There is no mass or organomegaly. EXT: Full but painful range of motion of right great toe with no obvious deformity. Closed, isolated neurovascularly intact. SKIN: Warm, pink, and dry. No erythema or rash Initial Vital Signs Initial Vital Signs: Vital Signs Temperature 98.6 F 10/03/19 00:05 Pulse Rate 94 H 10/03/19 00:05 Respiratory Rate 14 10/03/19 00:05 Blood Pressure 171/76 H 10/03/19 00:05 Pulse Oximetry 98 10/03/19 00:05 Procedures Orthopedic Splinting/Casting Injury #1: Side: right Lower Extremity Injury Location: foot Lower Extremity Immobilizer: post-op shoe Course Orders Ordered: ED Orders 10/03/19 00:07 XR foot RT min 3V Stat Vital Signs Vital signs: Vital Signs - 8 hr 10/03/19 00:05 Temperature 98.6 F Pulse Rate 94 H Respiratory Rate 14 Blood Pressure 171/76 H Pulse Oximetry 98 Discharge Plan Departure Patient Disposition: Home Clinical Impression: Right foot sprain Qualifiers: Encounter type: initial encounter Qualified Code(s): S93.601A - Unspecified sprain of right foot, initial encounter Discharge Date/Time: 10/03/19 00:55 Instructions: DI for Foot Sprain Activity Restrictions/Additional Instructions: *You have been diagnosed with [right foot sprain] *What to do: *Take medications as directed *Follow up with your primary care provider in 2-3 days, call for an efraín ointment. Let them know you were seen in the Emergency Department and that we ask that you be seen in follow up *Return to ER if you should have any new, worsening or concerning symptoms Radiographic study has been interpreted by an emergency physician. The official diagnosis by radiology will be performed within the next 24 hours and should there be any change in outcome we will notify you of how to proceed. Prescriptions: No Action ondansetron HCl [Zofran] 4 mg tablet See Rx Instructions .ROUTE .COMPLEX Qty: 30 RF: 2 lorazepam [Ativan] 0.5 mg tablet See Rx Instructions PO DAILY PRN (Reason: anxiety) Qty: 6 RF: 0 cyclobenzaprine 10 mg tablet 10 mg PO BID PRN (Reason: Spasms) Qty: 60 RF: 0 acetaminophen-codeine [Tylenol-Codeine #3] 300-30 mg tablet 1 - 2 tab PO Q6H PRN (Reason: pain) Qty: 50 RF: 0 dexamethasone 4 mg tablet 4 mg PO TID Qty: 12 RF: 0 hydroxyzine HCl 10 mg tablet 10 mg PO BEDTIME Qty: 90 RF: 3 ketorolac 10 mg tablet 10 mg PO Q6H PRN (Reason: pain) Qty: 14 RF: 0 Lyrica 100 mg capsule 100 mg PO DAILY RF: 0 Referrals: Cricket Wagoner MD [Primary Care Provider] -
[2019-10-03 00:05] VITALS: BP 171/76; PULSE 94; RESP 14; TEMP 37; O2SAT 98; BMI 25.0
--- NOTE | 2019-10-03 00:07 | DI.RAD.S_ITS ---
PROCEDURE: XR FOOT RT MIN 3V INDICATIONS: injury to foot, pain of great toe TECHNIQUE: 3 views of the foot were acquired. COMPARISON: [facility], CR, XR FOOT RT MIN 3V, 02/18/2019, 9:33. FINDINGS: Bones: There is a small corticated bone fragment along the medial aspect of the distal first metatarsal which is new when compared with the prior plain film dated 02/18/19. No other findings to suggest fracture or dislocation. Soft tissues: No tibiotalar joint effusion. Achilles tendon appears normal. IMPRESSION: Questionable fracture of the distal first metatarsal, the acuity of which is unknown but is likely subsequent to the prior plain film acquired 02/18/19. Dictated by: Leah Garcia M.D. on 10/03/2019 at 8:54 Approved by: Leah Garcia M.D. on 10/03/2019 at 8:55
== END 2019-10-03 00:55 | disposition home or self-care (01) ==
PROVIDERS: Emergency Provider Emergency Medicine; Family Provider Family Medicine; PCP Family Medicine
DX: S93.601A Unspecified sprain of right foot, initial encounter (principal); W22.01XA Walked into wall, initial encounter
CPT/HCPCS: 73630; 99283

== ENCOUNTER 2020-01-20 22:32 | Emergency (ER) | payer OTHER, MEDICAID, SELFPAY ==
[2020-01-20 22:46] VITALS: BP 127/65; PULSE 97; RESP 16; TEMP 37; O2SAT 97; BMI 24.2
--- NOTE | 2020-01-20 23:21 | PC.NURSE ---
Reports last tetanus shot 3-4 years ago.
[2020-01-21] MEDS: LIDOCAINE 1% (PF) 2 ML (00:01)
--- NOTE | 2020-01-21 00:11 | ED.WOUNDLAC ---
HPI - Wound/Laceration General Chief Complaint: Wound/Laceration Stated Complaint: cut right hand Time Seen by Provider: 01/20/20 23:44 Source: patient Mode of arrival: Ambulatory History of Present Illness HPI narrative: Patient complains of laceration to the dorsum of the right hand between the 2nd and 3rd digit at the MCP area. Patient was taking trash out, the steps broke. The garbage sec broken something in the garbage Sack cut his right hand. Patient states he twisted his knee but did not land on it. Does not want x-ray of the knee. Able to ambulate. No numbness tingling weakness. Tetanus up-to-date. No numbness or tingling to the hand or fingers Related Data Previous Rx's Medication Instructions Recorded ondansetron HCl 4 mg tablet See Rx Instructions .ROUTE 03/18/19 .COMPLEX #30 tab cyclobenzaprine 10 mg tablet 10 mg PO BID PRN #60 tab 10/06/19 acetaminophen 300 mg-codeine 30 mg 1 - 2 tab PO Q6H PRN #50 tab 11/07/19 tablet lorazepam 0.5 mg tablet See Rx Instructions PO BID PRN #30 11/10/19 tab pregabalin 100 mg capsule 100 mg PO DAILY #90 cap 11/10/19 hydroxyzine HCl 10 mg tablet 30 mg PO BEDTIME #90 tab 11/26/19 prazosin 1 mg capsule 3 mg PO BEDTIME #30 cap 11/26/19 amoxicillin 500 mg tablet 500 mg PO TID #30 tab 12/15/19 duloxetine 30 mg capsule,delayed 30 mg PO DAILY #90 cap 12/29/19 release oxycodone 5 mg tablet 5 mg PO Q6H PRN #30 tab 12/29/19 cephalexin 500 mg PO Q8H #15 cap 01/21/20 Allergies Allergy/AdvReac Type Severity Reaction Status Date / Time Sulfa (Sulfonamide Allergy Mild Verified 10/06/19 11:25 Antibiotics) [SULFA (SULFONAMIDE ANTIBIOTICS)] tramadol AdvReac Verified 10/06/19 11:25 Review of Systems Review of Systems Narrative: GENERAL: Denies chills, fatigue, malaise, fever, sweats. HEENT: Denies sinus pain, ear pain, sore throat, difficulty swallowing, dizziness. RESPIRATORY: Denies dyspnea, cough, wheezing, hemoptysis, sputum. CARDIOVASCULAR: Denies chest pain, palpitations, orthopnea, edema, GASTROINTESTINAL: Denies nausea, vomiting, abdominal pain, diarrhea, constipation, melena. : Denies dysuria, frequency, incontinence, hematuria, urinary retention. MUSCULOSKELETAL: denies weakness, joint pain, or bony pain SKIN: Denies rash, skin lesions, or other, complains of laceration to the hand NEUROLOGIC: Denies weakness, headache, numbness, change in speech, confusion, seizures, incoordination. PSYCHIATRIC: No concerning psychosocial issues. ROS Unobtainable: All systems reviewed & are unremarkable except as noted in HPI and below Patient History Medical History Acute stress disorder (Acute) Cervical spine disease (Chronic ~2014) Chronic back pain (Chronic ~2011) Elbow pain (Chronic ~2016) Fractures (Resolved ~2014) Gastric ulcer (Chronic ~2010) Hearing deficit (Chronic ~2015) Ruptured tympanic membrane (Resolved ~2015) Shoulder pain (Chronic) Tinnitus (Chronic ~2015) Vertigo (Chronic ~2015) Vision disorder (Chronic) White blood cell disorder (Chronic ~2015) Surgical History Anesthesia (Resolved) Status post hernia repair (~2008) Status post hernia repair (~2003) Family History Father Age: 60 Hypertension Hematoma Mother Age: 56 Hypertension High cholesterol Diabetes mellitus Sister Age: 38 Hypertension Double ureter Grandmother Stroke Grandfather Cancer Social History marital status: household members: family occupational status: employed Smoking Status: Never smoker alcohol intake: current substance use type: does not use Smoking Status: Never smoker alcohol intake frequency: a few times a month Alcohol type: beer Substance Use Type: marijuana Exam Narrative Exam Narrative: GENERAL: patient appears stated age. Well-nourished, well-developed patient, in no distress, not toxic HEAD: Atraumatic. Normocephalic. EXTREMITIES: Examination right hand. There is a small 1 cm transverse laceration between the 2nd and 3rd MCP joints. Bloodless field base visualize no foreign body seen no tendon or bone injury seen. No muscle injury. Patient able to fully flex and extend at the MCP PIP and D IP joints of the 2nd and 3rd digits. Examination right knee nontender able flex and extend the knee fully without any difficulties. No skin injury. NEURO: AOx3. SKIN: No rash or erythema of visible areas PSYCH: Not anxious, is cooperative Initial Vital Signs Initial Vital Signs: Vital Signs Temperature 98.6 F 01/20/20 22:46 Pulse Rate 97 H 01/20/20 22:46 Respiratory Rate 16 01/20/20 22:46 Blood Pressure 127/65 01/20/20 22:46 Pulse Oximetry 97 01/20/20 22:46 Procedures Laceration Repair Laceration 1: Site: hand Side (If applicable): right Size (cm): 1 Description: linear Depth: simple, single layer Local Anesthetic: lidocaine 1% Amount of anesthesia used (mL): 1 Pre-repair: wound explored and irrigated extensively Skin layer closed with: nylon Size (cm): 5-0 Number of sutures: 2 Technique: simple, interrupted Course Orders Ordered: Discontinued Medications Cephalexin HCl (Keflex) 500 mg PO NOW ONE Stop: 01/21/20 00:11 Last Admin: 01/21/20 00:18 Dose: 500 mg Documented by: ORQUIDEA Reevaluation(s) Reevaluation #1: No bleeding after suturing. No neuro complaints. Time: 00:18 Vital Signs Vital signs: Vital Signs - 8 hr 01/20/20 22:46 Temperature 98.6 F Pulse Rate 97 H Respiratory Rate 16 Blood Pressure 127/65 Pulse Oximetry 97 MDM - Wound/Laceration MDM Narrative Medical decision making narrative: No imaging indicated at this time. Based visualized in the laceration. No foreign body. Low suspicion for foreign body. Patient does not want x-ray of her right knee. Discharge Plan Departure Patient Disposition: Home Clinical Impression: Laceration of hand, right Qualifiers: Encounter type: initial encounter Foreign body presence: without foreign body Qualified Code(s): S61.411A - Laceration without foreign body of right hand, initial encounter Discharge Date/Time: 01/21/20 00:33 Instructions: DI for Laceration Repair Activity Restrictions/Additional Instructions: Prescription for antibiotic has been sent here [facility]. Clean wound twice a day warm soap and water in topical antibiotic. See family doctor or may return here in 9 days to remove 2 stitches. May shower but no submersion of the hand under water. Return if worse or if any fever chills or any concerns or questions Prescriptions: New cephalexin 500 mg capsule 500 mg PO Q8H Qty: 15 RF: 0 No Action prazosin 1 mg capsule 3 mg PO BEDTIME Qty: 30 RF: 5 hydroxyzine HCl 10 mg tablet 30 mg PO BEDTIME Qty: 90 RF: 3 ondansetron HCl [Zofran] 4 mg tablet See Rx Instructions .ROUTE .COMPLEX Qty: 30 RF: 2 acetaminophen-codeine [Tylenol-Codeine #3] 300-30 mg tablet 1 - 2 tab PO Q6H PRN (Reason: pain) Qty: 50 RF: 0 amoxicillin 500 mg tablet 500 mg PO TID Qty: 30 RF: 0 duloxetine 30 mg capsule,delayed release(DR/EC) 30 mg PO DAILY Qty: 90 RF: 0 oxycodone 5 mg tablet 5 mg PO Q6H PRN (Reason: pain) Qty: 30 RF: 0 cyclobenzaprine 10 mg tablet 10 mg PO BID PRN (Reason: Spasms) Qty: 60 RF: 0 lorazepam [Ativan] 0.5 mg tablet See Rx Instructions PO BID PRN (Reason: anxiety) Qty: 30 RF: 0 Lyrica 100 mg capsule 100 mg PO DAILY Qty: 90 RF: 3 Referrals: Cricket Wagoner MD [Primary Care Provider] -
[2020-01-21] MEDS: cephALEXin 250 MG CAPSULE 500 MG PO (00:18)
== END 2020-01-21 00:33 | disposition home or self-care (01) ==
PROVIDERS: Emergency Provider Emergency Medicine; Family Provider Family Medicine; PCP Family Medicine
DX: S61.411A Laceration without foreign body of right hand, initial encounter (principal); W45.8XXA Other foreign body or object entering through skin, initial encounter
CPT/HCPCS: 12001; 99283

== ENCOUNTER → 2020-01-21 17:07 | Outpatient (CLI) | payer OTHER, MEDICAID, SELFPAY ==
--- NOTE | 2020-01-21 17:12 | DI.RAD.S_ITS ---
PROCEDURE: XR HAND RT MIN 3V INDICATIONS: Right hand pain after fall w/ laceration TECHNIQUE: 3 views of the hand(s) acquired. COMPARISON: [facility], [facility], HAND 3V RIGHT, 11/27/2016, 16:15. [facility], [facility], XR HAND LT MIN 3V, 01/15/2019, 11:41. FINDINGS: Bones: No acute fracture or dislocation. No suspicious bony lesions. Soft tissues: There is dorsal soft tissue swelling and swelling at the thenar eminence. A radiodense foreign body is present within the dorsal soft tissues interposed between the distal aspect of the 2nd and 3rd metacarpals. There may be a 2nd radiopaque foreign body adjacent to the radial aspect of the 2nd metacarpal. IMPRESSION: 1. No acute fracture or dislocation. 2. Radiopaque foreign bodies as above. Dictated by: Leah Garcia M.D. on 01/21/2020 at 16:48 Approved by: Leah Garcia M.D. on 01/21/2020 at 16:51
== END ==
PROVIDERS: Family Provider Family Medicine; PCP Family Medicine; Referring Provider Family Medicine; Visit Provider Family Medicine
DX: S61.421A Laceration with foreign body of right hand, initial encounter (principal); M79.641 Pain in right hand; W19.XXXA Unspecified fall, initial encounter
CPT/HCPCS: 73130

== ENCOUNTER 2020-01-26 06:57 | Emergency (ER) | payer OTHER, MEDICAID, SELFPAY ==
[2020-01-26 07:00] VITALS: BP 145/84; PULSE 74; RESP 18; TEMP 36.5; O2SAT 100; BMI 24.2
--- NOTE | 2020-01-26 07:10 | DI.RAD.S_ITS ---
PROCEDURE: XR HAND LT MIN 3V INDICATIONS: pain/swelling to hand after slip working on car TECHNIQUE: 3 views of the hand(s) acquired. COMPARISON: [facility], CR, XR HAND LT MIN 3V, 01/15/2019, 11:41. [facility], CR, XR HAND 3+ VIEWS LEFT, 09/30/2018, 16:05. [facility], CR, XR HAND 3+ VIEWS LEFT, 09/24/2018, 14:00. [facility], CR, XR HAND RT MIN 3V, 01/21/2020, 17:02. FINDINGS: Bones: Linear calcification is identified at the junction of the 5th metacarpal and hamate/pisiform carpal bones. In addition, there is poorly defined irregularity at the base of the 4th metacarpal. No suspicious bony lesions. Soft tissues: No suspicious soft tissue calcifications. Punctate radiodensity is noted anterior to the ulna styloid, unchanged since 2019. Prominent soft tissue edema is present overlying the mid hand. IMPRESSION: 1. Linear calcification near the 5th metacarpal base/hamate junction most suggestive of ill-defined fracture. In addition, there is mildly displaced irregularity at the base of the 4th metacarpal, also suggestive of fracture. Secondary to positioning, these areas are not well delineated particularly in regards to additional carpal fractures. CT wrist is recommended for further evaluation. The above findings were discussed with Dr. Sara Paz on 12/29/2019 at 7:45 a.m.. Dictated by: Jyoti Jackson M.D. on 01/26/2020 at 7:41 Approved by: Jyoti Jackson M.D. on 01/26/2020 at 7:50
--- NOTE | 2020-01-26 07:12 | ED_ITS ---
HPI - Extremity Injury (Upper) General Chief Complaint: Extremity Injury, Upper Stated Complaint: BROKE RIGHT HAND Time Seen by Provider: 01/26/20 07:03 Source: patient Mode of arrival: Ambulatory History of Present Illness HPI narrative: 34-year-old gentleman who was seen 5 days ago with a laceration to the right hand was repaired without complication. Yesterday he was working on his [employer] brain using his left hand because his right is disabled slipped jammed his hand into a tight spot significant pain felt that it would improve over the course of the night he was unable to sleep all night long because of the pain and presents today with significant left hand swelling and D bruising over the entire palmar surface of the hand with significant range of motion to all fingers due to swelling and pain. Related Data Previous Rx's Medication Instructions Recorded ondansetron HCl 4 mg tablet See Rx Instructions .ROUTE 03/18/19 .COMPLEX #30 tab cyclobenzaprine 10 mg tablet 10 mg PO BID PRN #60 tab 10/06/19 acetaminophen 300 mg-codeine 30 mg 1 - 2 tab PO Q6H PRN #50 tab 11/07/19 tablet pregabalin 100 mg capsule 100 mg PO DAILY #90 cap 11/10/19 hydroxyzine HCl 10 mg tablet 30 mg PO BEDTIME #90 tab 11/26/19 prazosin 1 mg capsule 3 mg PO BEDTIME #30 cap 11/26/19 amoxicillin 500 mg tablet 500 mg PO TID #30 tab 12/15/19 duloxetine 30 mg capsule,delayed 30 mg PO DAILY #90 cap 12/29/19 release cephalexin 500 mg PO Q8H #15 cap 01/21/20 lorazepam 0.5 mg tablet See Rx Instructions PO BID PRN #30 01/25/20 tab oxycodone 5 mg tablet 5 mg PO Q6H PRN #30 tab 01/25/20 oxycodone 5 - 10 mg PO Q6H PRN #45 tab 01/26/20 Allergies Allergy/AdvReac Type Severity Reaction Status Date / Time Sulfa (Sulfonamide Allergy Mild Verified 10/06/19 11:25 Antibiotics) [SULFA (SULFONAMIDE ANTIBIOTICS)] tramadol AdvReac Verified 10/06/19 11:25 Patient History Medical History (Updated 01/26/20 @ 09:08 by Sara Paz MD) Acute stress disorder (Acute) Cervical spine disease (Chronic ~2014) Chronic back pain (Chronic ~2011) Elbow pain (Chronic ~2016) Fractures (Resolved ~2014) Gastric ulcer (Chronic ~2010) Hearing deficit (Chronic ~2015) Ruptured tympanic membrane (Resolved ~2015) Shoulder pain (Chronic) Tinnitus (Chronic ~2015) Vertigo (Chronic ~2015) Vision disorder (Chronic) White blood cell disorder (Chronic ~2015) Surgical History Anesthesia (Resolved) Status post hernia repair (~2008) Status post hernia repair (~2003) Family History Father Age: 60 Hypertension Hematoma Mother Age: 56 Hypertension High cholesterol Diabetes mellitus Sister Age: 38 Hypertension Double ureter Grandmother Stroke Grandfather Cancer Social History marital status: household members: family occupational status: employed Smoking Status: Never smoker alcohol intake: current substance use type: does not use Smoking Status: Never smoker alcohol intake frequency: a few times a month Alcohol type: beer Substance Use Type: marijuana Exam Initial Vital Signs Initial Vital Signs: Vital Signs Temperature 97.7 F 01/26/20 07:00 Pulse Rate 74 01/26/20 07:00 Respiratory Rate 18 01/26/20 07:00 Blood Pressure 145/84 H 01/26/20 07:00 Pulse Oximetry 100 01/26/20 07:00 Course Orders Ordered: ED Orders 01/26/20 07:10 XR hand LT min 3V Stat 01/26/20 07:52 CT UE LT wo con Stat Discontinued Medications Hydromorphone HCl (Dilaudid) 2 mg IM NOW ONE Stop: 01/26/20 07:24 Last Admin: 01/26/20 07:30 Dose: 2 mg Documented by: RANJIT Hydromorphone HCl (Dilaudid) 1 mg IV NOW ONE Stop: 01/26/20 09:17 Last Admin: 01/26/20 09:33 Dose: 1 mg Documented by: RANJIT Ibuprofen (Advil) 400 mg PO NOW ONE Stop: 01/26/20 11:00 Ketorolac Tromethamine (Toradol) 15 mg IV NOW ONE Stop: 01/26/20 10:41 Oxycodone HCl (Percolone) 10 mg PO NOW ONE Stop: 01/26/20 10:41 Vital Signs Vital signs: Vital Signs - 8 hr 01/26/20 07:00 Temperature 97.7 F Pulse Rate 74 Respiratory Rate 18 Blood Pressure 145/84 H Pulse Oximetry 100 MDM - Extremity Injury (Upper) Medical Records Attestation: I reviewed the patient's medical records. Imaging Data CT hand: Radiologist's Impression: FINDINGS: Image quality: Excellent. Bones: No fracture is seen in visualized portion of right radius and ulna. Slightly comminuted fracture involving mid to distal portion of the hamate is noted with fracture line extending to its articulation with 5th metacarpal base. 5th metacarpal bone is intact. Comminuted and slightly displaced fracture involving 4th proximal phalangeal base is seen with slight dorsal and lateral displacement at fracture side and fracture line extending to 4th carpometacarpal joint space. No fractures are seen in 1st through 3rd metacarpal bones. No fracture is noted in the phalanges. No suspicious intraosseous lesion. Soft tissues: Significant dorsal soft tissue swelling is noted over ulnar aspect of left hand and wrist predominantly over the carpal bones and metacarpal bones. No gross full-thickness extensor or flexor tendon rupture is seen. No significant joint effusion. Metallic density is noted in superficial subcutaneous soft tissue over ulnar are and volar aspect of wrist at the level of ulnar styloid. IMPRESSION: 1. Acute comminuted intra-articular fracture involving dorsal and distal portion of the hamate. 2. Acute comminuted and slightly displaced intra-articular fracture involving 4th metacarpal base and proximal shaft. 3. Significant soft tissue swelling and edema over dorsal and ulnar aspect of left wrist. 4. No other fracture or dislocation. Full-thickness wrist tendon rupture. Dictated by: Tin Meza M.D. on 01/26/2020 at 8:26 Hand x-ray: Radiologist's Impression: FINDINGS: Bones: Linear calcification is identified at the junction of the 5th metacarpal and hamate/pisiform carpal bones. In addition, there is poorly defined irregularity at the base of the 4th metacarpal. No suspicious bony lesions. Soft tissues: No suspicious soft tissue calcifications. Punctate radiodensity is noted anterior to the ulna styloid, unchanged since 2019. Prominent soft tissue edema is present overlying the mid hand. IMPRESSION: 1. Linear calcification near the 5th metacarpal base/hamate junction most suggestive of ill-defined fracture. In addition, there is mildly displaced irregularity at the base of the 4th metacarpal, also suggestive of fracture. Secondary to positioning, these areas are not well delineated particularly in regards to additional carpal fractures. CT wrist is recommended for further evaluation. The above findings were discussed with Dr. Sara Paz on 12/29/2019 at 7:45 a.m.. Dictated by: Jyoti Jackson M.D. on 01/26/2020 at 7:41 MDM Narrative Medical decision making narrative: 34-year-old gentleman who was working on his car yesterday using his left hand fell forward and has suffered a fracture to the hamate as well as the 4th metacarpal with significant swelling, palmar bleeding and pain. After almost a 4 hour emergency staff room stay with ice elevation pain control the swelling is actually clearly not worsening and overall concern for compartment syndrome is significantly less. Films and case reviewed with Dr. Shaw orthopedist. At this time patient will be splinted with very clear instructions on how to watch for vascular compromise and when to return should he have worsening pain or neurovascular concerns. He will follow-up with ortho later this week. He typically gets 3o 5 mg oxycodone from his primary care doctor Dr. Wagoner and is due to pick this up later this week. With pain control will opt to simply give him a prescription for 45 pills which will include the usual #30 prescription. Patient is safe for home discharge Discharge Plan Departure Patient Disposition: Home Clinical Impression: Fracture of hamate Qualifiers: Encounter type: initial encounter Hamate bone location: body Fracture type: closed Fracture alignment: displaced Laterality: left Qualified Code(s): S62.142A - Displaced fracture of body of hamate [unciform] bone, left wrist, initial encounter for closed fracture Fx metacarpal Qualifiers: Encounter type: initial encounter Metacarpal bone: fourth Fracture type: closed Metacarpal location: base Fracture alignment: displaced Laterality: left Qualified Code(s): S62.315A - Displaced fracture of base of fourth metacarpal bone, left hand, initial encounter for closed fracture Instructions: DI for a Hand Fracture Activity Restrictions/Additional Instructions: You did a very good job in breaking your hand, I am so sorry it is hurting so much. I have discussed the x-rays and CT scan with Dr. Shaw, our orthopedist on- call. You likely will need surgery. At this time, we need the swelling to go down a little bit and then you need to follow-up with orthopedic surgery later this week. Please make sure that you call Dr. Shaw's office after you get home this afternoon to schedule an ER follow-up appointment for later this week. We had a long discussion about how to check for blood flow to your fingers and make sure that the swelling is not causing further damage. If you have any concerns it is very appropriate to return to emergency room for us to check. Using 400 mg of ibuprofen (2 [id number] pills) and 1 Tylenol every 6 hours can be very helpful in controlling pain. Using 400 mg of ibuprofen and 5- 10 mg of oxycodone every 6 hours can be appropriate for severe pain. Keeping the splint in place, hand elevated and icing it as much as possible will all help with pain and swelling. 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 I hope you heal quickly Prescriptions: New oxycodone 5 mg tablet 5 - 10 mg PO Q6H PRN (Reason: pain) Qty: 45 RF: 0 No Action prazosin 1 mg capsule 3 mg PO BEDTIME Qty: 30 RF: 5 hydroxyzine HCl 10 mg tablet 30 mg PO BEDTIME Qty: 90 RF: 3 ondansetron HCl [Zofran] 4 mg tablet See Rx Instructions .ROUTE .COMPLEX Qty: 30 RF: 2 acetaminophen-codeine [Tylenol-Codeine #3] 300-30 mg tablet 1 - 2 tab PO Q6H PRN (Reason: pain) Qty: 50 RF: 0 amoxicillin 500 mg tablet 500 mg PO TID Qty: 30 RF: 0 duloxetine 30 mg capsule,delayed release(DR/EC) 30 mg PO DAILY Qty: 90 RF: 0 lorazepam [Ativan] 0.5 mg tablet See Rx Instructions PO BID PRN (Reason: anxiety) Qty: 30 RF: 0 oxycodone 5 mg tablet 5 mg PO Q6H PRN (Reason: pain) Qty: 30 RF: 0 cyclobenzaprine 10 mg tablet 10 mg PO BID PRN (Reason: Spasms) Qty: 60 RF: 0 Lyrica 100 mg capsule 100 mg PO DAILY Qty: 90 RF: 3 cephalexin 500 mg capsule 500 mg PO Q8H Qty: 15 RF: 0 Referrals: Cricket Wagoner MD [Primary Care Provider] -
--- NOTE | 2020-01-26 07:25 | PC.NURSE ---
reports he was removing a large bolt on a brake caliper of a chevy truck and the bolt was very tight. He put all the force he could into the breaker bar wrench to break the bolt free and the breaker bar broke causing him to hit the frame rail of the truck in a punching motion. He took ibuprofen last night and awoke this morning with with increased pain and swelling. His wedding ring was removed using lubricating jelly by the nurse placed in a specimen cup and labeled with patient stickers.
[2020-01-26] MEDS: HYDROMORPHONE 1 MG INJ 2 MG IM (07:30)
--- NOTE | 2020-01-26 07:52 | DI.CT.S_ITS ---
PROCEDURE: CT UE LT WO CON INDICATIONS: carpel and metacarpal fractures TECHNIQUE: Noncontrast 3 mm axial sections acquired of the left wrist and left hand including mid to distal left forearm with coronal and sagittal reformats. COMPARISON: [facility], CR, XR HAND LT MIN 3V, 01/26/2020, 7:01. FINDINGS: Image quality: Excellent. Bones: No fracture is seen in visualized portion of right radius and ulna. Slightly comminuted fracture involving mid to distal portion of the hamate is noted with fracture line extending to its articulation with 5th metacarpal base. 5th metacarpal bone is intact. Comminuted and slightly displaced fracture involving 4th proximal phalangeal base is seen with slight dorsal and lateral displacement at fracture side and fracture line extending to 4th carpometacarpal joint space. No fractures are seen in 1st through 3rd metacarpal bones. No fracture is noted in the phalanges. No suspicious intraosseous lesion. Soft tissues: Significant dorsal soft tissue swelling is noted over ulnar aspect of left hand and wrist predominantly over the carpal bones and metacarpal bones. No gross full-thickness extensor or flexor tendon rupture is seen. No significant joint effusion. Metallic density is noted in superficial subcutaneous soft tissue over ulnar are and volar aspect of wrist at the level of ulnar styloid. IMPRESSION: 1. Acute comminuted intra-articular fracture involving dorsal and distal portion of the hamate. 2. Acute comminuted and slightly displaced intra-articular fracture involving 4th metacarpal base and proximal shaft. 3. Significant soft tissue swelling and edema over dorsal and ulnar aspect of left wrist. 4. No other fracture or dislocation. Full-thickness wrist tendon rupture. Dictated by: Tin Meza M.D. on 01/26/2020 at 8:26 Approved by: Tin Meza M.D. on 01/26/2020 at 8:33
[2020-01-26] MEDS: HYDROMORPHONE 1 MG INJ IV (09:33)
[2020-01-26] MEDS: OXYCODONE IR 5 MG TABLET 10 MG PO (11:13)
[2020-01-26] MEDS: IBUPROFEN 400 MG TABLET PO (11:13)
[2020-01-26 11:16] VITALS: BP 140/93; PULSE 74; O2SAT 99
== END 2020-01-26 11:26 | disposition home or self-care (01) ==
PROVIDERS: Emergency Provider Emergency Medicine; Family Provider Family Medicine; PCP Family Medicine
DX: S62.142A Displaced fracture of body of hamate [unciform] bone, left wrist, initial encounter for closed fracture (principal); S62.315A Displaced fracture of base of fourth metacarpal bone, left hand, initial encounter for closed fracture; W23.0XXA Caught, crushed, jammed, or pinched between moving objects, initial encounter
CPT/HCPCS: 36415; 73130; 73200; 96372; 96374; 99284; 99285; J1170

== ENCOUNTER → 2020-02-03 11:20 | Outpatient (CLI) | payer OTHER, MEDICAID, SELFPAY ==
[2020-02-04 07:55] LABS: COVID19 Sendout Not Detected (Not Detect)
== END ==
PROVIDERS: Family Provider Family Medicine; PCP Family Medicine; Visit Provider Nurse Practitioner
DX: Z11.59 Encounter for screening for other viral diseases (principal)
CPT/HCPCS: 87635

== ENCOUNTER 2020-02-05 06:28 | Day surgery (SDC) | payer OTHER, MEDICAID, SELFPAY ==
[2020-02-04 08:32] VITALS: BMI 24.5
[2020-02-05] VITALS (9 sets, daily range): BP systolic 132–162; BP diastolic 71–86; PULSE 73–101; RESP 9–100; TEMP 36.1–37.2; O2SAT 91–98; BMI 24.1
--- NOTE | 2020-02-05 | PATH_ITS ---
[facility] Accession Number: [id number] . 01 Material submitted: . finger - FOREIGN BODY RIGHT INDEX FINGER . 01 Diagnosis: Right Index Finger, Biopsy: Scar and mixed inflammation with focal dermal necrosis. . Note: While nonspecific, the changes are compatible with a foreign body implantation site. No foreign body or polarizable foreign material is identified in initial and deeper levels examined in an effort to better define this process. PAS stain is negative for fungal hyphae. Clinicopathological correlation is advised. MRV 02/10/2020 1438 Local . 01 Electronically signed: . Tamiko Campos MD, Dermatopathologist NPI- [id number] . 01 Gross description: . The specimen is received in formalin, labeled foreign body right index finger and consists of a 0.9 x 0.6 cm irregular disrupted armijo skin excised to a depth of 0.3 cm. The margin is inked blue. The specimen is bisected and entirely submitted in cassette A1. ([id number]) /[facility] 02/06/2020 1606 Local . 01 Pathologist provided ICD-10: L98.9 . 01 CPT . 191084, [id number] Performed at: [address] [facility] [address], [place], [place] [id number] MD Royal Ramírez MD Phone: [phone]
--- NOTE | 2020-02-05 07:17 | PM.PREOP ---
Pre-operative Note COVID-19 COVID-19 status: Negative Interval Note History & Physical reviewed/Exam performed by Physician: Yes Changes to H&P: No
[2020-02-05] MEDS: LACTATED RINGERS 1,000 ML 42 ML IV ×2 (07:31→09:49)
[2020-02-05] MEDS: METOCLOPRAMIDE 10 MG/2 ML INJ IV (07:37)
[2020-02-05] MEDS: FAMOTIDINE 20 MG/50 ML PIGGYBACK 200 MG IV (07:42)
[2020-02-05] MEDS: CEFAZOLIN 2 GM/100 ML FROZ.PIGGY IV (08:00)
--- NOTE | 2020-02-05 08:28 | SUR.OPER ---
Supine on padded OR bed, head on pillow, bilateral arms draped free on padded black padded arm table at <90 degrees abduction, legs uncrossed, safety belt at thigh, tape over blanket over lower legs.
[2020-02-05] MEDS: BUPIVACAINE 0.25% W/ EPI 30 ML VIAL INJ (08:40)
[2020-02-05] MEDS: HYDROMORPHONE 2 MG INJ IV ×2 (10:41→10:48)
--- NOTE | 2020-02-05 10:43 | SUR.PHASEI ---
Report given to Jodie BATRES.
--- NOTE | 2020-02-05 10:48 | PM.OP.1 ---
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 ORIF hamate fracture left CPT code 49436 2. ORIF 4th metacarpal base fracture CPT code 17346 left 3. ORIF and fixation with K-wires left 4th and 5th CMC joints 4. Removal foreign body right hand CPT code 06006 bilateral procedures removal foreign body right hand and ORIF of fractures left hand Same procedure as scheduled: Yes Indications: The patient is a 34-year-old male the head to hand injuries in close proximity to each other. The 1st injury was to his right hand over the index metacarpal when he reached into a garbage bag at his home and came out with a laceration and bleeding from his hand. He had sutures in the ER and the next day had an x-ray that demonstrates some opacities in the soft tissues. These opacities persisted as well as extreme pain and tenderness. Suspicion was for retained foreign bodies. He was indicated for exploration and removal foreign body right hand over the index metacarpal. Second injury came several days later when he jammed his left hand while working on his car and sustained fractures to his left hand and left 4th metacarpal base an impaction injury at the 5th metacarpal base of the hand as well. He was indicated for open reduction internal fixation of the displaced fractures and a possible pinning of the CMC joints. The risks and benefits of the procedure have been discussed with the patient even opportunity to ask questions. The risks of surgery include but are not limited to infection, malunion, nonunion, persistence of pain, damage to nerves and blood vessels, posttraumatic arthritis, DVT, PE, cardiopulmonary complications and . The patient expressed a thorough understanding of the risks and benefits of surgery and has elected to proceed. Consent was signed in the office. Surgeon: Kim Arcos Click Yes if Unassisted: Yes Anesthesia Type: General and Local Operative Notes Findings: Left hand: Displaced coronal fracture of the hamate body with a smaller avulsion dorsal cortex fractures well. The fracture was cleaned of hematoma and reduced stabilized with K-wires and then fixed with a 2. 3 x18 lag screw from the [facility] handset. A comminuted 4th metacarpal base fracture was encountered. This was reduced and pinned in place and then stabilized with a 1.3 T plate from the [employer] set. This was cut to size and the screws were placed in standard fashion. Following ORIF there was still some dorsal subluxation at the 4th carpometacarpal joint. Gentle volar pressure reduced this and decision was made to pin the 4th and 5th as cmc jts with cross 062 K-wires which held the reduction appropriately. Specimen(s): other (Foreign body from the right hand were sent for pathology) Prosthetic devices, grafts, tissues, transplants, or devices: Acumed T-plate, 1.3 left 4th metacarpal 2.3 lag screw from [employer] set to hamate 2 x 062 K-wire across the CMC joints Estimated Blood Loss (mL): 10 Blood products transfused: none Tourniquet time (min): 60 Procedure in detail: Patient was seen in the preoperative area the site of surgery marked informed consent confirmed. This was the right and left hands. Patient was brought back to the operating room and positioned supine on the operative table with hand tables on both sides of the bed. General anesthesia was administered. SCDs were 1 on the lower extremities. The bilateral upper extremities were prepped and draped in the standard sterile fashion. A formal time-out procedure was performed confirming the patient's side and site of surgery administration of appropriate preoperative antibiotics and presence of informed consent. Implants were in the room and accounted for. Attention turned 1st to the left arm. Esmarch was used for exsanguination tourniquet raised on the brachium to 250 mm mercury and stayed there for just over an hour. C-arm was brought in and the fractures were marked out on the skin a longitudinal approach over the base of the 4th metacarpal to the hamate was made through the skin and subcutaneous tissues careful dissection to avoid any of the branches of the ulnar nerve. Incision was made along side of the extensor tendons and these were retracted radially exposing the periosteum of the 4th metacarpal base. Periosteum was incised exposing the comminuted 4th metacarpal base fracture. This dissection was extended proximally to reveal the hamate fracture. This was a coronal type 4 fracture splitting the hamate in 2 parts of the dorsal and volar and there was a separate smaller I dorsal cortical avulsion at the proximal hamate. The fracture was cleaned of hematoma and reduced and held with a pin. This was a big enough piece to hold with a lag screw therefore a 2.3 lag screw from the [employer] set was placed across the fracture. This was an 18 mm screw. This was checked on fluoroscopy and felt to be appropriate of across the fracture in appropriate length. The smaller dorsal avulsion fracture was able to be placed back in place manually and was not big enough to take the screw. Attention was then turned to the 4th metacarpal base this was a comminuted intra-articular T type fracture a splitting the joint surface. Again this was cleansed and reduced and held with provisional K-wires. A 1.3 T plate was selected from the [employer] set and cut to size. This was provisionally placed to the bone with the pins and then a screw was placed. These were the screws that function both as nonlocking and locking screws with the adjustable ahead. Therefore the plate was placed down to bone with the screw and the screw keep her was then removed and the locking threads could engage the plate. Plate was fixed both proximally and distally and centered on the bone. A reduction and hardware placement and screw lengths were checked on fluoroscopy and were appropriate. This point attention was turned back to the CMC joints. There was some residual dorsal subluxation of the 4th metacarpal base on the hamate after fracture fixation. This was easily reduced with volar directed pressure over the base of the 4th metacarpal. To hold this reduction a decision was made to utilize 2x 062 K-wires that would both hold reduction of the 4th CMC as well as the 5th CMC to the 4th base. These were placed under fluoroscopic guidance and then cut and bent. These will remain in place approximately 6 weeks. This point the tourniquet was released wound was irrigated hemostasis was achieved and the wound was closed with 3 0 Vicryl suture and 3 O nylon. Care was taken to close periosteum over as much of the plate as possible. Sterile dressings were placed with Xeroform gauze Webril and a ulnar gutter splint. At this point the procedure on the left arm was terminated and attention was turned to the right hand. Again the right hand had been previously draped out on the right-sided hand table. An Esmarch was used to elevate the forearm tourniquet to 250 mm screw of mercury the stayed up for approximately 15 minutes. An extensile longitudinal incision over the index metacarpal was made this was centered between the previous laceration and the other more radial suspected foreign body. Was brought down over the extensor mechanism and dissected radially and ulnarly. Right over the metacarpal and the superficial tissues a sharp piece of glass was encountered this had been sitting just ulnar to the metacarpal. This was removed and saved to be sent to pathology. Next the wound was thoroughly explored there was another suspected opacity just radial to the index metacarpal. This area was thoroughly explored with visual inspection as well as palpation. Some soft tissue was debrided but no obvious of glass fragment was encountered. On repeat fluoroscopy in operating room the opacity that was previously visualized was no longer visualized was suspected that this had been removed in the debridement irrigation. There was a small suspected smaller opacity left right at the area of the previous traumatic laceration this was not able to be visualized through the incision flaps. But with continued visualization decision was made to excise the previous traumatic laceration once this was completed repeat x-ray did not show any remaining opacities. The excised tissue was explored some on the back table and there was a suspected hard fragment but no additional glass. This was also sent for pathology. Final C-arm fluoroscopy was obtained in AP and lateral planes did not show any remaining opacities in the soft tissues around the index metacarpal phalangeal joint. At this point tourniquet was released hemostasis was achieved wound was closed with 3 0 Vicryl and 3 O nylon suture and a soft wrap and sterile dressing were placed. Patient was then woken from the operating room and taken to the recovery room in good condition. There no immediate complications from this procedure. All counts were correct. Complications: none Post-operative Condition: stable Disposition: same day surgery Plan for aftercare: Nonweightbearing left upper extremity. K-wires were remained in place 6 weeks. Keep splint clean dry and intact. May do gentle finger range of motion as tolerated. Keep ulnar gutter splint in place. On the right hand may do range of motion as tolerated. Keep incision clean dry and intact until sutures are removed.
[2020-02-05] MEDS: OXYCODONE IR 5 MG TABLET PO ×2 (10:50→11:59)
--- NOTE | 2020-02-05 12:01 | SUR.PHASEII ---
1200 pt dressed; states pain in left hand is 7/10. 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 occasionally moans and grimaces, otherwise calm and talking pleasantly, expresses appreciation to everyone, including Dr. Arcos, for the care. Denies light-headedness; ambulated to the bathroom with standby, stable on feet.
== END 2020-02-05 12:13 | disposition home or self-care (01) ==
PROVIDERS: PCP Family Medicine; Referring Provider Family Medicine; Visit Provider Orthopaedic Surgery Foot and Ankle Surgery
PROC: (CPT 25645; principal; 2020-02-05 07:45)
DX: S62.142A Displaced fracture of body of hamate [unciform] bone, left wrist, initial encounter for closed fracture (principal); S62.315A Displaced fracture of base of fourth metacarpal bone, left hand, initial encounter for closed fracture; S63.052A Subluxation of other carpometacarpal joint of left hand, initial encounter; S61.021A Laceration with foreign body of right thumb without damage to nail, initial encounter; W25.XXXA Contact with sharp glass, initial encounter; W23.1XXA Caught, crushed, jammed, or pinched between stationary objects, initial encounter
CPT/HCPCS: 25645; 26685 ×2; 26070; 26615; J0360; J0690; J1100; J1170; J1885; J2405; J2704; J2765; J3010

== ENCOUNTER 2020-02-20 15:45 | Emergency (ER) | payer OTHER, MEDICAID, SELFPAY ==
[2020-02-20 15:55] VITALS: BP 131/61; PULSE 75; RESP 12; TEMP 36.3; O2SAT 97; BMI 24.2
--- NOTE | 2020-02-20 16:20 | PC.NURSE ---
Brought back to [facility] for Dr Arcos
--- NOTE | 2020-02-20 16:31 | PM.CN ---
History of Present Illness Consult details Date Patient Seen: 02/20/20 Time Patient Seen: 16:31 Chief complaint: left arm/wrist fracture Reason for consult: Loose painful pin left hand Requesting provider: ED* *Temp Narrative: Liya is a 34-year-old male the head an injury to his left hand several weeks ago he underwent open reduction internal fixation and pinning of his 4th metacarpal and hamate fractures. He has had pain related to his most proximal pin and he has noticed that it is loose and there is some drainage redness and pain when it catches his skin. He was seen recently in the clinic. He was put on some Keflex with hopes to maintain this panel bit longer for his carpometacarpal instability. Presents today with increasing pain. Denies any fevers chills nausea or vomiting. Get a refill of pain medications from his primary care provider because he forgot to ask about these in orthopedic clinic. Meds Home Medications and Allergies Home Medications Medication Instructions Recorded Confirmed Type hydroxyzine HCl 10 mg tablet 30 mg PO BEDTIME #90 tab 11/26/19 02/05/20 Rx duloxetine 30 mg capsule,delayed 30 mg PO DAILY #90 cap 12/29/19 02/05/20 Rx release lorazepam 0.5 mg tablet See Rx Instructions PO BID PRN #30 01/25/20 02/05/20 Rx tab cephalexin [Keflex] 500 mg PO QID #20 cap 02/05/20 Rx ibuprofen 800 mg PO TID PRN #20 tab 02/05/20 Rx prazosin 3 mg PO BEDTIME PRN 02/05/20 02/04/20 History hydromorphone 2 mg tablet 2 mg PO Q4H PRN #40 tab 02/19/20 Rx Allergies Allergy/AdvReac Type Severity Reaction Status Date / Time Sulfa (Sulfonamide Allergy Mild Verified 02/05/20 06:44 Antibiotics) [SULFA (SULFONAMIDE ANTIBIOTICS)] tramadol AdvReac Verified 02/05/20 06:44 Review of Systems Review of Systems ROS: Yes All systems reviewed with the patient and are negative except as otherwise documented Exam Vital Signs (past 8 hours): - 02/20/20 15:55 Temperature 97.4 F L Pulse Rate 75 Respiratory Rate 12 Blood Pressure 131/61 Pulse Oximetry 97 Oxygen Delivery Method Room Air Narrative Exam Narrative: Alert oriented male no acute distress. Respiratory unlabored on room air Heart regular rate Left hand had demonstrates incision that is healing well with Steri-Strips in place. There are [address] The proximal 1 is grossly loose. There is some fibrin this exudate and small amount erythema around the pin. Patient has excruciating pain when this turns. There is a small skin tear. There is no active bleeding. Minimal swelling. No ascending cellulitis. No evidence of deep abscess. Assessment & Plan Assessment and plan (1) Pin tract infection: Status: Acute Assessment & Plan narrative: Loose pin transfixing the hamate 4th metacarpal joint is removed today this is removed very easily as it is loose. The area is cleansed and a Band-Aid placed. There is no purulence expressed. No ascending erythema. No signs of deep infection. Presentation consistent with pin tract infection at common after hand openings. Pin was removed. Patient will continue Keflex x1 week and follow up as scheduled in the orthopedic clinic. Patient understands and agrees with the plan. Time Spent With Patient Time with patient: less than 15 minutes
[2020-02-20 16:45] VITALS: PULSE 61; RESP 16; O2SAT 99
--- NOTE | 2020-02-20 16:45 | PC.NURSE ---
Dr Arcos removed one pin from patients wrist, due to being loose. patient tolerated well
--- NOTE | 2020-02-20 20:28 | ED_ITS ---
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 HEAD: Atraumatic. Normocephalic. No temporal or scalp tenderness. EYES: Pupils equal round and reactive. Extraocular motions intact. No scleral icterus. No injection or drainage. ENT: Nose without bleeding, purulent drainage or septal hematoma. Throat without erythema, tonsillar hypertrophy or exudate. Uvula midline. Airway patent. NECK: Trachea midline. No JVD or lymphadenopathy. Supple, nontender, no meningeal signs. CARDIOVASCULAR: Regular rate and rhythm without murmurs, gallops, or rubs. RESPIRATORY: Clear to auscultation. Breath sounds equal bilaterally. No wheezes, rales, or rhonchi. GASTROINTESTINAL: Abdomen soft, non-tender, nondistended. No hepato- splenomegaly, or palpable masses. No guarding. EXTREMITIES: No clubbing, cyanosis, or edema. No joint tenderness, effusion, or edema noted. BACK: Nontender without deformity or crepitance. No flank tenderness. NEURO: AOx3. SKIN: No rash or erythema. The patient is a 34-year-old male with history of injury to his left hand several weeks ago and open reduction internal fixation and pending of his 5th metacarpal and hamate fractures. He had surgery on 02/05/2020. He was concerned about a loose pin and some redness and drainage so he called Dr. Shaw. He was seen by Dr. Shaw in the emergency department who removed a loose pin today. She request that I give him a prescription of Keflex for another week. He denies any fevers nausea vomiting or diarrhea. He denies any muscle aches or chills. He states he has a follow-up appointment with Dr. Shaw scheduled in 4 days. Related Data Home Medications Medication Instructions Recorded Confirmed prazosin 3 mg PO BEDTIME PRN 02/05/20 02/04/20 Previous Rx's Medication Instructions Recorded hydroxyzine HCl 10 mg tablet 30 mg PO BEDTIME #90 tab 11/26/19 duloxetine 30 mg capsule,delayed 30 mg PO DAILY #90 cap 12/29/19 release lorazepam 0.5 mg tablet See Rx Instructions PO BID PRN #30 01/25/20 tab cephalexin [Keflex] 500 mg PO QID #20 cap 02/05/20 ibuprofen 800 mg PO TID PRN #20 tab 02/05/20 hydromorphone 2 mg tablet 2 mg PO Q4H PRN #40 tab 02/19/20 cephalexin 500 mg PO TID #21 cap 02/20/20 Allergies Allergy/AdvReac Type Severity Reaction Status Date / Time Sulfa (Sulfonamide Allergy Mild Verified 02/05/20 06:44 Antibiotics) [SULFA (SULFONAMIDE ANTIBIOTICS)] tramadol AdvReac Verified 02/05/20 06:44 Review of Systems <ALLAN Dang - Last Filed: 02/20/20 20:33> Review of Systems Narrative: GENERAL: Denies chills, fatigue, malaise, fever, sweats. HEENT: Denies sinus pain, ear pain, sore throat, difficulty swallowing, dizziness. RESPIRATORY: Denies dyspnea, cough, wheezing, hemoptysis, sputum. CARDIOVASCULAR: Denies chest pain, palpitations, orthopnea, edema, GASTROINTESTINAL: Denies nausea, vomiting, abdominal pain, diarrhea, constipation, melena. : Denies dysuria, frequency, incontinence, hematuria, urinary retention. MUSCULOSKELETAL: See HPI SKIN: See HPI NEUROLOGIC: Denies weakness, headache, numbness, change in speech, confusion, seizures, incoordination. PSYCHIATRIC: No concerning psychosocial issues. 12 point review of systems is negative except for those stated above Patient History <ALLAN Dang - Last Filed: 02/20/20 20:33> Medical History Acute stress disorder (Acute) Cervical spine disease (Chronic ~2014) Chronic back pain (Chronic ~2011) Elbow pain (Chronic ~2016) Fractures (Resolved ~2014) Gastric ulcer (Chronic ~2010) Hearing deficit (Chronic ~2015) Ruptured tympanic membrane (Resolved ~2015) Shoulder pain (Chronic) Tinnitus (Chronic ~2015) Vertigo (Chronic ~2015) Vision disorder (Chronic) White blood cell disorder (Chronic ~2015) Surgical History Anesthesia (Resolved) Status post hernia repair (~2008) Status post hernia repair (~2003) Family History Father Age: 60 Hypertension Hematoma Mother Age: 56 Hypertension High cholesterol Diabetes mellitus Sister Age: 38 Hypertension Double ureter Grandmother Stroke Grandfather Cancer Social History marital status: household members: spouse and children occupational status: employed Smoking Status: Never smoker alcohol intake: current substance use type: does not use Smoking Status: Never smoker alcohol intake frequency: a few times a month Alcohol type: beer Substance Use Type: marijuana Exam <ALLAN Dang - Last Filed: 02/20/20 20:33> Narrative Exam Narrative: GENERAL: This is a well-nourished, well-developed patient, in no acute distress HEAD: Atraumatic. Normocephalic. No temporal or scalp tenderness. EYES: Pupils equal round and reactive. Extraocular motions intact. No scleral icterus. No injection or drainage. ENT: Nose without bleeding, purulent drainage or septal hematoma. Wearing a mask. Airway patent. NECK: Trachea midline. No JVD or lymphadenopathy. Supple, nontender, no meningeal signs. CARDIOVASCULAR: Regular rate and rhythm RESPIRATORY: No cough. No increased respiratory effort. No accessory muscle use. EXTREMITIES: Patient has dressing and splint in place left forearm. Moving all left fingers slightly. Capillary refill less than 2 seconds all fingers left hand. NEURO: AOx3. SKIN: See extremity exam Initial Vital Signs Initial Vital Signs: Vital Signs Temperature 97.4 F L 02/20/20 15:55 Pulse Rate 75 02/20/20 15:55 Respiratory Rate 12 02/20/20 15:55 Blood Pressure 131/61 02/20/20 15:55 Pulse Oximetry 97 02/20/20 15:55 <Sara Paz MD - Last Filed: 02/25/20 07:46> Initial Vital Signs Initial Vital Signs: Vital Signs Temperature 97.4 F L 02/20/20 15:55 Pulse Rate 75 02/20/20 15:55 Respiratory Rate 12 02/20/20 15:55 Blood Pressure 131/61 02/20/20 15:55 Pulse Oximetry 97 02/20/20 15:55 Scores <ALLAN Dang - Last Filed: 02/20/20 20:33> GCS [place] coma scale eye opening: Spontaneous Bon[place]acio coma scale verbal response: Orientated [place] coma scale motor response: Obey commands [place] coma scale total score: 15 Course <ALLAN Dang - Last Filed: 02/20/20 20:33> Vital Signs Vital signs: Vital Signs - 8 hr 02/20/20 15:55 02/20/20 16:45 Temperature 97.4 F L Pulse Rate 75 61 Respiratory Rate 12 16 Blood Pressure 131/61 Pulse Oximetry 97 99 <Sara Paz MD - Last Filed: 02/25/20 07:46> Vital Signs Vital signs: Vital Signs - 8 hr 02/20/20 15:55 02/20/20 16:45 Temperature 97.4 F L Pulse Rate 75 61 Respiratory Rate 12 16 Blood Pressure 131/61 Pulse Oximetry 97 99 MDM - Extremity Injury (Upper) <ALLAN Dang - Last Filed: 02/20/20 20:33> MDM Narrative Medical decision making narrative: The patient is a 34-year-old male who presents with a chief complaint of a loose pain after an open reduction internal fixation of his left hand by Dr. Shaw. He is concerned about infection as well. He was seen by Dr. Hung in the emergency department who removed the loose pin, redressed his arm and requested a prescription of Keflex to be continued. I sent this prescription into the pharmacy for him, discussed taking it with probiotic or yogurt. I offer to take down his dressing and re-evaluate his hand to evaluate for signs of infection, but he declined and asked me not to due to the pain of the procedure taking down his dressing. Thus I will treat him with antibiotics based on Dr. Shaw is exam and per her request. Patient has no signs of systemic infection in the emergency department, is afebrile throughout his stay. No questions or concerns upon discharge and states understanding return precautions as well as follow-up care. He has a follow-up appointment with Dr. Shaw in a few days. Patient has no questions or concerns upon discharge and is neurovascular intact throughout his stay in the ER. Discharge Plan Departure Patient Disposition: Home Clinical Impression: Pin tract infection Qualifiers: Encounter type: initial encounter Qualified Code(s): T84.60XA - Infection and inflammatory reaction due to internal fixation device of unspecified site, initial encounter Discharge Date/Time: 02/20/20 16:45 Instructions: DI for Surgical Site Infection Activity Restrictions/Additional Instructions: Thank you for trusting us with your care today. As discussed, I sent a continued antibiotic prescription to [facility]. Please take this with probiotic or yogurt. Please monitor for signs of worsening infection such as extending redness purulent drainage etcetera Please follow-up with Dr. Shaw as previously arranged Please come back to emergency department for any acute concerns Prescriptions: New cephalexin 500 mg capsule 500 mg PO TID Qty: 21 RF: 0 No Action hydroxyzine HCl 10 mg tablet 30 mg PO BEDTIME Qty: 90 RF: 3 duloxetine 30 mg capsule,delayed release(DR/EC) 30 mg PO DAILY Qty: 90 RF: 0 lorazepam [Ativan] 0.5 mg tablet See Rx Instructions PO BID PRN (Reason: anxiety) Qty: 30 RF: 0 hydromorphone 2 mg tablet 2 mg PO Q4H PRN (Reason: pain) Qty: 40 RF: 0 prazosin 1 mg capsule 3 mg PO BEDTIME PRN (Reason: nightmares) RF: 0 ibuprofen 800 mg tablet 800 mg PO TID PRN (Reason: pain) Qty: 20 RF: 0 cephalexin [Keflex] 500 mg capsule 500 mg PO QID Qty: 20 RF: 0 Referrals: Kim Arcos MD [Physician] - Cricket Wagoner MD [Primary Care Provider] - <Sara Paz MD - Last Filed: 02/25/20 07:46> [facility]: I was immediately available in the department for consultation throughout this patient's visit. I agree with documentation as above. Sara Paz MD
== END 2020-02-20 16:45 | disposition home or self-care (01) ==
PROVIDERS: Emergency Provider Nurse Practitioner Family; PCP Family Medicine
DX: T84.60XA Infection and inflammatory reaction due to internal fixation device of unspecified site, initial encounter (principal)
CPT/HCPCS: 99281; 99282

== ENCOUNTER 2020-03-18 19:03 | Emergency (ER) | payer OTHER, MEDICAID, SELFPAY ==
[2020-03-18 19:08] VITALS: BP 124/67; PULSE 66; RESP 14; TEMP 36.5; O2SAT 98; BMI 25.0
--- NOTE | 2020-03-18 19:50 | DI.RAD.S_ITS ---
PROCEDURE: XR FINGER RT MIN 2V INDICATIONS: laceration w/glass to distal 4th digit TECHNIQUE: PA view of the hand and two views of the ring finger were acquired. COMPARISON: [facility], , FINGER RT, 10/30/2016, 10:05. FINDINGS: Bones: No acute fractures or dislocations. No suspicious bony lesions. Soft tissues: No suspicious soft tissue calcifications. No radiopaque foreign body. IMPRESSION: No acute osseous abnormality. No radiopaque foreign body. Dictated by: Christopher Jin M.D. on 03/18/2020 at 20:07 Approved by: Christopher Jin M.D. on 03/18/2020 at 20:09
--- NOTE | 2020-03-18 19:54 | ED_ITS ---
HPI - Wound/Laceration <Yola Ontiveros PA-C - Last Filed: 03/18/20 22:43> General Chief Complaint: Wound/Laceration Stated Complaint: cut 4th finger Time Seen by Provider: 03/18/20 19:44 Source: patient Mode of arrival: Ambulatory Limitations: no limitations History of Present Illness HPI narrative: 34-year-old male with frequent emergency department visits and recent left hand surgery presents to the emergency department complaining of laceration to his right 4th finger sustained shortly before arrival when he was pulling a jar off of a shelf and it shattered when he was taking the lid off. He denies any other injury except some very minor scrapes to additional fingers. Says he has tried to wash it out at home but he could not because it was too painful. Onset (ago): hour(s) (1) Extremity Location: Right: hand (Right 4th finger) Place: home Context: accidental Associated symptoms: pain Related Data Home Medications Medication Instructions Recorded Confirmed prazosin 3 mg PO BEDTIME PRN 02/05/20 03/08/20 Previous Rx's Medication Instructions Recorded hydroxyzine HCl 10 mg tablet 30 mg PO BEDTIME #90 tab 11/26/19 duloxetine 30 mg capsule,delayed 30 mg PO DAILY #90 cap 12/29/19 release lorazepam 0.5 mg tablet See Rx Instructions PO BID PRN #30 01/25/20 tab cephalexin [Keflex] 500 mg PO QID #20 cap 02/05/20 ibuprofen 800 mg PO TID PRN #20 tab 02/05/20 cephalexin 500 mg PO TID #21 cap 02/20/20 oxycodone 5 mg tablet 5 mg PO Q6H PRN #30 tab 03/08/20 Allergies Allergy/AdvReac Type Severity Reaction Status Date / Time Sulfa (Sulfonamide Allergy Mild Verified 03/18/20 19:08 Antibiotics) [SULFA (SULFONAMIDE ANTIBIOTICS)] tramadol AdvReac Verified 03/18/20 19:08 Review of Systems <Yola Ontiveros PA-C - Last Filed: 03/18/20 22:43> Review of Systems Narrative: GENERAL: Denies chills, fatigue, malaise, fever, sweats. HEENT: Denies sinus pain, ear pain, sore throat, difficulty swallowing, dizziness. RESPIRATORY: Denies dyspnea, cough, wheezing, hemoptysis, sputum. CARDIOVASCULAR: Denies chest pain, palpitations, orthopnea, edema, GASTROINTESTINAL: Denies nausea, vomiting, abdominal pain, diarrhea, constipation, melena. : Denies dysuria, frequency, incontinence, hematuria, urinary retention. MUSCULOSKELETAL: denies weakness, joint pain, or bony pain SKIN: Positive for laceration/avulsion to his right 4th finger at the on the pad of the finger, Denies rash, skin lesions, or other NEUROLOGIC: Denies weakness, headache, numbness, change in speech, confusion, seizures, incoordination. PSYCHIATRIC: No concerning psychosocial issues. 12 point review of systems is negative except for those stated above Patient History <Yola Ontiveros PA-C - Last Filed: 03/18/20 22:43> Medical History Acute stress disorder (Acute) Cervical spine disease (Chronic ~2014) Chronic back pain (Chronic ~2011) Elbow pain (Chronic ~2016) Fractures (Resolved ~2014) Gastric ulcer (Chronic ~2010) Hearing deficit (Chronic ~2015) Ruptured tympanic membrane (Resolved ~2015) Shoulder pain (Chronic) Tinnitus (Chronic ~2015) Vertigo (Chronic ~2015) Vision disorder (Chronic) White blood cell disorder (Chronic ~2015) Surgical History Anesthesia (Resolved) Status post hernia repair (~2008) Status post hernia repair (~2003) Family History Father Age: 60 Hypertension Hematoma Mother Age: 56 Hypertension High cholesterol Diabetes mellitus Sister Age: 38 Hypertension Double ureter Grandmother Stroke Grandfather Cancer Social History marital status: household members: spouse and children occupational status: employed Smoking Status: Never smoker alcohol intake: current substance use type: does not use Smoking Status: Never smoker alcohol intake frequency: other Alcohol type: beer Substance Use Type: marijuana Exam <Yola Ontiveros PA-C - Last Filed: 03/18/20 22:43> Narrative Exam Narrative: GENERAL: 34 year old patient appears stated age. Well-nourished, well-developed patient, in mild distress. HEAD: Atraumatic. Normocephalic. EYES: Pupils equal round and reactive. Extraocular motions intact. No scleral icterus. No injection or drainage. ENT: Nose without bleeding, purulent drainage. Throat without erythema, tonsillar hypertrophy or exudate. Airway patent. NECK: Trachea midline. Non tender CARDIOVASCULAR: Regular rate and rhythm without murmurs, gallops, or rubs. RESPIRATORY: Clear to auscultation. Breath sounds equal bilaterally. No wheezes, rales, or rhonchi. GASTROINTESTINAL: Abdomen soft, non-tender, nondistended. EXTREMITIES: There is a well-healing surgical scar on the dorsum of the left hand. The anterior surface of the distal right 4th finger has a 3 sided flap avulsion/laceration attached proximally that is fairly superficial and approximately 1 cm by 5 mm x 1 cm. The flap is nonviable with poor vascularity. The joint is not affected, sensation is intact. Capillary refill is less than 2 seconds. Skin is pink. No edema or joint tenderness. BACK: Nontender without deformity or crepitance. No flank tenderness. NEURO: AOx3. SKIN: No rash or erythema of visible areas Initial Vital Signs Initial Vital Signs: Vital Signs Temperature 97.7 F 03/18/20 19:08 Pulse Rate 66 03/18/20 19:08 Respiratory Rate 14 03/18/20 19:08 Blood Pressure 124/67 03/18/20 19:08 Pulse Oximetry 98 03/18/20 19:08 <Guille Dyer DO - Last Filed: 03/19/20 01:10> Initial Vital Signs Initial Vital Signs: Vital Signs Temperature 97.7 F 03/18/20 19:08 Pulse Rate 66 03/18/20 19:08 Respiratory Rate 14 03/18/20 19:08 Blood Pressure 124/67 03/18/20 19:08 Pulse Oximetry 98 03/18/20 19:08 Procedures <Yola Ontiveros PA-C - Last Filed: 03/18/20 22:43> Laceration Repair Laceration 1: Site: hand (Fourth finger) Side (If applicable): right Size (cm): 1 Description: flap and clean Depth: simple, single layer Local Anesthetic: lidocaine 1% (Digital block) Amount of anesthesia used (mL): 6 (Buffered lidocaine) Pre-repair: wound explored, irrigated extensively and deep structures intact Skin layer closed with: other (Surgicel dressing and pressure wrap) Scores <Yola Ontiveros PA-C - Last Filed: 03/18/20 22:43> GCS Bonifacio coma scale eye opening: Spontaneous Bon[place]acio coma scale verbal response: Orientated Bonifacio coma scale motor response: Obey commands [place] coma scale total score: 15 Course <Yola Ontiveros PA-C - Last Filed: 03/18/20 22:43> Orders Ordered: ED Orders 03/18/20 19:50 XR finger RT min 2V Stat Discontinued Medications Lidocaine/Sodium Bicarbonate (Buffered Lidocaine 10 Ml Syr) 10 ml INJ NOW ONE Stop: 03/18/20 19:46 Last Admin: 03/18/20 20:45 Dose: 10 ml Documented by: RORY Vital Signs Vital signs: Vital Signs - 8 hr 03/18/20 19:08 03/18/20 21:20 Temperature 97.7 F Pulse Rate 66 64 Respiratory Rate 14 12 Blood Pressure 124/67 122/76 Pulse Oximetry 98 99 <Guille Dyer DO - Last Filed: 03/19/20 01:10> Orders Ordered: ED Orders 03/18/20 19:50 XR finger RT min 2V Stat Discontinued Medications Lidocaine/Sodium Bicarbonate (Buffered Lidocaine 10 Ml Syr) 10 ml INJ NOW ONE Stop: 03/18/20 19:46 Last Admin: 03/18/20 20:45 Dose: 10 ml Documented by: KATELYNSON Vital Signs Vital signs: Vital Signs - 8 hr 03/18/20 19:08 03/18/20 21:20 Temperature 97.7 F Pulse Rate 66 64 Respiratory Rate 14 12 Blood Pressure 124/67 122/76 Pulse Oximetry 98 99 MDM - Wound/Laceration <KAROLINE Gomez Last Filed: 03/18/20 22:43> Differential Diagnosis Differential diagnosis: Likely laceration, abrasion and avulsion of skin Medical Records Attestation: I reviewed the patient's medical records. Imaging Data Extremity x-ray #1: Attestation: I personally reviewed and interpreted this imaging study as follows: Radiologist's Impression: [address] [address] XRay Report Signed Patient: Luis Castano RMR#: [id number] : 1985Acct:[id number] Age/Sex: 34 / MDate of Service: 03/18/20 Loc: ED Accession Number: [id number] Procedure: XR finger RT min 2V Ordering Provider: Yola Ontiveros P.A-C PROCEDURE: XR FINGER RT MIN 2V INDICATIONS: laceration w/glass to distal 4th digit TECHNIQUE: PA view of the hand and two views of the ring finger were acquired. COMPARISON: [facility], , FINGER RT, 10/30/2016, 10:05. FINDINGS: Bones: No acute fractures or dislocations. No suspicious bony lesions. Soft tissues: No suspicious soft tissue calcifications. No radiopaque foreign body. IMPRESSION: No acute osseous abnormality. No radiopaque foreign body. Dictated by: Christopher Jin M.D. on 03/18/2020 at 20:07 Approved by: Christopher Jin M.D. on 03/18/2020 at 20:09 MDM Narrative Medical decision making narrative: Well-appearing 34-year-old male presents to the emergency department complaining of laceration to his 4th digit of his right hand sustained from last today. X-ray is unremarkable, neurovascularly intact. Patient is numbed with a digital block and washed out thoroughly, no evidence of foreign body. Labs are not obtained. Flap is not amenable to suturing however he is bleeding after washout significantly enough from capillary beds of avulsed tissue to warrant Surgicel bandage with a pressure wrap and splint. This is performed as above in procedures. Patient advised to follow-up with primary care, wear his splint, take Tylenol and ibuprofen for pain, seek medical care or return to ED with signs of infection or uncontrolled bleeding. Emergency return precautions provided, all questions answered. Discharge Plan Departure Patient Disposition: Home Clinical Impression: Avulsion of skin Laceration of right ring finger Qualifiers: Encounter type: initial encounter Damage to nail status: without damage Foreign body presence: without foreign body Qualified Code(s): S61.214A - Laceration without foreign body of right ring finger without damage to nail, initial encounter Discharge Date/Time: 03/18/20 21:20 Instructions: How to Care for a Laceration After Repair, DI for Laceration Repair Activity Restrictions/Additional Instructions: Thank you for letting us be part of your care in the emergency department today. You sustained an avulsion or flap laceration when you cut yourself with glass today. The piece of skin that is there is too thin to need to repair with stitches and will ultimately and fall off however because you have of a lot of capillaries there you did have significant bleeding that needs to be controlled and we put a surgical bloodstopper gauze and a pressure wrap on there. I do want you to continue wearing the splint that we have provided; you can take the dressing off in 12-24 hours but please keep Band-Aid or some gauze wrap on it with some tape to ensure that it is protected and has a little bit of pressure on it and wear the splint as well. I provided a work note for you if needed, I recommend he take Tylenol and ibuprofen for pain. If you have any concerning signs of infection such as redness, heat, pussy drainage or swelling please do not hesitate to get rechecked; I do encourage a follow-up with your primary care as needed. If your wound does begin to bleed again please use direct pressure and clean gauze and wrap it. If this does not control the bleeding after 15 minutes you should return to Urgent Care or the emergency department if needed. Prescriptions: No Action hydroxyzine HCl 10 mg tablet 30 mg PO BEDTIME Qty: 90 RF: 3 duloxetine 30 mg capsule,delayed release(DR/EC) 30 mg PO DAILY Qty: 90 RF: 0 lorazepam [Ativan] 0.5 mg tablet See Rx Instructions PO BID PRN (Reason: anxiety) Qty: 30 RF: 0 oxycodone 5 mg tablet 5 mg PO Q6H PRN (Reason: pain) Qty: 30 RF: 0 prazosin 1 mg capsule 3 mg PO BEDTIME PRN (Reason: nightmares) RF: 0 ibuprofen 800 mg tablet 800 mg PO TID PRN (Reason: pain) Qty: 20 RF: 0 cephalexin [Keflex] 500 mg capsule 500 mg PO QID Qty: 20 RF: 0 cephalexin 500 mg capsule 500 mg PO TID Qty: 21 RF: 0 Referrals: Cricket Wagoner MD [Primary Care Provider] - Stand Alone Forms: Work Release Note <Guille Dyer DO - Last Filed: 03/19/20 01:10> Cosign ED Attending Cosignature Attestation: I was immediately available in the department for consultation. This documentation has been reviewed and I agree with assessment and plan. Supervised by Guille Dyer DO
[2020-03-18] MEDS: LIDO 1%/SOD BICARB 8.4% (10ML) 10 ML SYRINGE INJ (20:45)
--- NOTE | 2020-03-18 21:08 | PC.NURSE ---
laceration to ring finger, swollen but well approximated.
[2020-03-18 21:20] VITALS: BP 122/76; PULSE 64; RESP 12; O2SAT 99
== END 2020-03-18 21:20 | disposition home or self-care (01) ==
PROVIDERS: Emergency Provider Student in an Organized Health Care Education/Training Program; PCP Family Medicine
DX: S61.214A Laceration without foreign body of right ring finger without damage to nail, initial encounter (principal); W25.XXXA Contact with sharp glass, initial encounter
CPT/HCPCS: 12001; 64450; 73140; 99283

== ENCOUNTER → 2020-04-07 14:20 | Outpatient (CLI) | payer OTHER, MEDICAID, SELFPAY ==
[2020-04-07 16:08] LABS: COVID19 -Nasal RAPID Negative (Negative)
== END ==
PROVIDERS: PCP Family Medicine; Visit Provider Physician Assistant
DX: Z11.59 Encounter for screening for other viral diseases (principal)
CPT/HCPCS: 87635

== ENCOUNTER 2020-04-09 07:57 | Day surgery (SDC) | payer OTHER, MEDICAID, SELFPAY ==
[2020-04-07 12:56] VITALS: BMI 25.2
[2020-04-09] VITALS (10 sets, daily range): BP systolic 99–121; BP diastolic 49–73; PULSE 57–70; RESP 10–18; TEMP 35.9–37.1; O2SAT 96–98; BMI 25.0
--- NOTE | 2020-04-09 | PATH_ITS ---
[facility] Accession Number: [id number] . 01 Material submitted: . finger - GLASS FROM RIGHT INDEX FINGER . 01 Clinical history: . FOREIGN BODY; GLASS FROM RIGHT INDEX FINGER . 02 Diagnosis: Glass From Right Index Finger, Removal: Foreign material; gross only diagnosis. [facility] 04/13/2020 1545 Local . 02 Electronically signed: . Amirah Peterson MD, Pathologist NPI- [id number] . 01 Gross description: . The specimen is received fresh, labeled foreign body, and consists of a 0.3 x 0.2 x 0.1 cm translucent fragment of glass with no attached soft tissue. No sections are submitted for microscopic examination. (EA:[id number]) /[facility] 04/10/2020 1747 Local . 02 Pathologist provided ICD-10: M79.5 . 02 CPT . 508968 Performed at: 01 [facility] [address] [id number] MD Royal Ramírez MD Phone: [phone] Performed at: 02 [facility] [id number] [place], [place] [id number] MD Amirah Peterson MD Phone: [phone]
[2020-04-09] MEDS: LACTATED RINGERS 1,000 ML 42 ML IV (08:42)
--- NOTE | 2020-04-09 09:30 | PM.PREOP ---
Pre-operative Note COVID-19 COVID-19 status: Negative Interval Note History & Physical reviewed/Exam performed by Physician: Yes Changes to H&P: No
--- NOTE | 2020-04-09 09:34 | P.OP_ITS ---
Operative Date/Time/Diagnoses Date of procedure: 04/09/20 Time of procedure: 09:50 Pre-op diagnosis: Foreign body right hand M79.5 Post-op diagnosis: same Procedure & Clinicians Procedure: Removal foreign body right hand x2 CPT code 46952-40 Modifier 58 for more extensive procedure. Patient had a previous large glass foreign body removals about 6 weeks ago. Persistent the radial index finger CT scan demonstrated 2 very small radial opaque foreign bodies consistent with remaining of glass pieces. Patient had significant symptoms and was indicated for were extensive exploration and foreign body removal. Same procedure as scheduled: Yes Indications: Patient is a 34-year-old male that sustained lacerations to his right hand when reaching into a garbage bag. Several glass foreign bodies were removed in the operating room in January. No additional foreign bodies were visible on plain x-ray. Patient had persistent pain along the radial aspect of the MCP in the soft tissues. CT scan was obtained that demonstrated 2 very small foreign bodies subcutaneously in this area. Due to his significant symptoms he was indicated for repeat exploration and foreign body removal. The risks and benefits of the procedure have been discussed with the patient even opportunity to ask questions. The risks of surgery include but are not limited to infection, malunion, nonunion, persistence of pain, incomplete removal, need for additional procedure, damage to nerves and blood vessels, posttraumatic arthritis, DVT, PE, cardiopulmonary complications and . The patient expressed a thorough understanding of the risks and benefits of surgery and has elected to proceed. Consent was signed. Surgeon: Kim Arcos Click Yes if Unassisted: Yes Anesthesia Type: General and Local (0.25% Marcaine with epinephrine) Operative Notes Findings: Two glass foreign body right index metacarpal 1 measured approximately 6 mm and was located more distally and radially along the metacarpal head. The 2nd more central and proximal measuring approximately 3 mm at the base of the metacarpal head neck junction Closure Type: primary Specimen(s): other (Foreign bodies to pathology, glass x2) Estimated Blood Loss (mL): 2 Blood products transfused: none Tourniquet time (min): 26 Procedure in detail: Patient was seen in the preoperative area the site of surgery was marked and informed consent confirmed. The site of surgery was the right hand radial aspect of the index MCP. The area of maximal tenderness was circled and initialed. patient was brought back to the operating room by the anesthesia team. He was positioned supine on the operative table with the right hand on a hand table. Anesthesia was administered. A nonsterile brachial tourniquet was placed. the right upper extremities prepped and draped in the standard sterile fashion. A formal time-out procedure was performed confirming the patient's side and site of surgery administration of preoperative antibiotics and presence of informed consent. All were in agreement. CT scan was up and visible in the room with the location of the foreign bodies. Attention was turned to the right upper extremity exsanguination with the Esmarch to place the tourniquet was elevated to 250 mm mercury. This was elevated for 26 minutes and was deflated. Longitudinal incision was made just radial it to the swelling and midline over the MCP extending proximally. This included the area of maximal tenderness. the foreign body distal was noted to be superficial therefore an ellipse of skin was also taken. Correlating with a CT scan the subcutaneous tissues were e xplored. The more proximal smaller glass foreign body was found buried deep within the subcutaneous tissues over the metacarpal head neck junction. This was found and removed. Then attention turned distally to the larger more superficial foreign body. This was not found in the skin excision. There was some more scar tissue around the extra capsular tissues this was open and the foreign body was identified. This again was a piece of glass measuring approximately 6 mm in the widest dimension. Both of these were removed and a correlated with the imaging. The wound was irrigated tourniquet was released hemostasis was achieved and the skin was repaired with 4 0 Monocryl and 3 O nylon suture. 5 cc of 0.25% Marcaine with epinephrine was injected for local anesthesia. A soft dressing with Xeroform gauze and a Giuseppe wrap and Gumaro were placed. Patient was woken from anesthesia and taken to the recovery room in good condition. There no immediate complications from this procedure. All counts were correct. The 2 glass foreign bodies were sent to pathology for documentation. Complications: none Post-operative Condition: stable Disposition: PACU Plan for aftercare: Hand range of motion. Keep incision clean dry and intact. dressing may be changed as needed. Sutures will be removed in 10-14 days.
[2020-04-09] MEDS: CEFAZOLIN 2 GM/100 ML FROZ.PIGGY IV (10:18)
--- NOTE | 2020-04-09 10:36 | SUR.OPER ---
Supine on padded OR bed, head on pillow, right arm on arm table under control of surgeon, left arm secured on padded arm boards at <90 degrees abduction, legs uncrossed, safety belt at thigh, tape over blanket over lower legs.
[2020-04-09] MEDS: BUPIVACAINE 0.25% W/ EPI (PF) 10 ML VIAL 20 ML INJ (10:43)
--- NOTE | 2020-04-09 11:47 | SUR.PHASEI ---
Report given to Maritza Klein RN.
[2020-04-09] MEDS: OXYCODONE/ACETAMINOPHEN 5/325 TABLET 1 TAB PO (11:57)
== END 2020-04-09 12:18 | disposition home or self-care (01) ==
PROVIDERS: PCP Family Medicine; Referring Provider Family Medicine; Visit Provider Orthopaedic Surgery Foot and Ankle Surgery
PROC: (CPT 26070; principal; 2020-04-09 09:45)
DX: M79.5 Residual foreign body in soft tissue (principal); W25.XXXA Contact with sharp glass, initial encounter
CPT/HCPCS: 26070; J0690; J1100; J2250; J2405; J2704; J3010

== ENCOUNTER → 2020-04-30 16:00 | Outpatient (CLI) | payer OTHER, MEDICAID, SELFPAY ==
--- NOTE | 2020-04-30 16:02 | DI.MRI.S_ITS ---
PROCEDURE: MR SHOULDER RT WO CON INDICATIONS: STRAIN OF UNSPECIFIED MUSCLE, FASCIA TECHNIQUE: Noncontrast oblique coronal T2 fast spin echo with fat saturation, oblique sagittal T1 spin echo and T2 fast spin echo with fat saturation, axial T1 spin echo and T2 fast spin echo with fat saturation through the shoulder. COMPARISON: [facility] [place], [place], XR SHOULDER 2+ VIEWS RIGHT, 04/20/2020, 15:15. FINDINGS: Image quality: Excellent. Rotator cuff: The supraspinatus, infraspinatus, subscapularis, and teres minor appear intact. Sagittal images demonstrate no fatty muscle atrophy. Bones and bursae: No bone marrow contusions or fractures. No acromioclavicular joint degeneration. The acromion demonstrates conventional anatomy, without an os acromiale. pathologic subacromial-subdeltoid or subcoracoid bursal fluid is present. Capsule and soft tissues: In the absence of intra-articular contrast, the labrum and glenohumeral ligaments are incompletely evaluated. There is mild tearing within the posterior and posterior-inferior labrum. The long head of the biceps tendon demonstrates normal location and morphology. The rotator interval appears normal, without fibrosis. The coracohumeral ligament is normal in thickness. IMPRESSION: 1. Mild tearing within the posterior and posterior-inferior labrum. 2. Trace subacromial/subdeltoid bursal fluid. 3. No discrete rotator cuff tear. Dictated by: Royal Harper M.D. on 04/30/2020 at 17:22 Approved by: Royal Harper M.D. on 04/30/2020 at 17:24
== END ==
PROVIDERS: PCP Family Medicine; Referring Provider Orthopaedic Surgery Foot and Ankle Surgery; Visit Provider Orthopaedic Surgery Foot and Ankle Surgery
DX: S43.491A Other sprain of right shoulder joint, initial encounter (principal); X58.XXXA Exposure to other specified factors, initial encounter
CPT/HCPCS: 73221

== ENCOUNTER 2020-07-13 10:10 | Emergency (ER) | payer OTHER, MEDICAID, SELFPAY ==
[2020-07-13 10:32] VITALS: BP 141/85; PULSE 99; RESP 18; TEMP 36.7; O2SAT 96
--- NOTE | 2020-07-13 11:15 | PC.NURSE ---
Moving all extremities equally well. Denies sensation decrease / change.
--- NOTE | 2020-07-13 12:53 | DI.RAD.S_ITS ---
PROCEDURE: XR THORACIC SPINE 3V INDICATIONS: upper thoracic pain TECHNIQUE: 3 views of the thoracic spine were acquired. COMPARISON: [facility], , THORACIC SPINE 3 VIEWS, 06/16/2014, 14:53. FINDINGS: Bones: No fractures or dislocations. No suspicious bony lesions. 12 pairs of ribs are noted, and appear intact where visualized. Soft tissues: No paravertebral stripe thickening. IMPRESSION: No visualized acute fracture or dislocation. However, if clinical concern and/or pain persist, short interval imaging followup in 7-10 days is recommended, as occult injury cannot be definitively excluded. Dictated by: Jyoti Jackson M.D. on 07/13/2020 at 13:54 Approved by: Jyoti Jackson M.D. on 07/13/2020 at 13:56
--- NOTE | 2020-07-13 13:07 | ED_ITS ---
HPI - Back Pain/Injury <JULI Martin - Last Filed: 07/13/20 18:01> General Chief Complaint: Back Pain/Injury Stated Complaint: severe pain in neck/spine x4 days Time Seen by Provider: 07/13/20 12:08 Source: patient Limitations: no limitations History of Present Illness HPI Narrative: This is a 35-year-old male, nonsmoker, who has past medical history significant for upper back pain, lumbar strain, and cervical radiculopathy presents to ED with chief complain of upper thoracic pain ear neck radiating to bilateral upper arms for last couple of weeks after he was working on a boat to loose up a tight bolt using a wrench. Patient states pain radiates to his posterior head with certain movements. Patient denies weakness to bilateral upper extremities. Patient is getting physical therapy at [facility] which he needs to schedule. Patient was evaluated by his primary care physician Dr. Valentine and discussed about radiology imaging test which has not been done. Patient states few days ago he was shoveling snow and has been having increased in pain. Patient already taken Flexeril, oxycodone, duloxetine for nerve pain, ibuprofen 800 mg and had used Tens unit with very little improvement. Patient c oncerned for rupturing disc and would like to get MRI test today. Patient's is Dr. Elizondo in the past. No history of IV drug use. Patient denies fever, chills, nausea or vomiting. Related Data Previous Rx's Medication Instructions Recorded hydroxyzine HCl 10 mg tablet 30 mg PO BEDTIME #90 tab 11/26/19 capsaicin 0.1 % topical cream 1 applic TOPICAL TID #60 g 05/17/20 duloxetine 60 mg capsule,delayed 60 mg PO DAILY #90 cap 05/17/20 release cyclobenzaprine 10 mg tablet 10 mg PO BID PRN #180 tab 06/09/20 ibuprofen 800 mg tablet 800 mg PO TID PRN #270 tab 06/09/20 oxycodone 5 mg tablet 5 mg PO Q6H PRN #30 tab 06/29/20 lidocaine 1 patch TOPICAL DAILY PRN #30 ea 07/13/20 omeprazole magnesium [Prilosec OTC] 20 mg PO DAILY #14 tab 07/13/20 prednisone 40 mg PO DAILY 4 Days #8 tab 07/13/20 Allergies Allergy/AdvReac Type Severity Reaction Status Date / Time Sulfa (Sulfonamide Allergy Mild Verified 07/14/20 09:01 Antibiotics) [SULFA (SULFONAMIDE ANTIBIOTICS)] tramadol AdvReac Verified 07/14/20 09:01 Review of Systems <JULI Martin - Last Filed: 07/13/20 18:01> Review of Systems Narrative: General: Denies fever, chills, fatigue, malaise, sweats. HEENT: Denies sinus pain, ear pain, sore throat, difficulty swallowing, dizziness. Respiratory: Denies dyspnea, cough, wheezing, hemoptysis, sputum. Cardiovascular: Denies chest pain, palpitations, orthopnea, edema. Gastrointestinal: Denies nausea, vomiting, abdominal pain, diarrhea, constipation, melena. : Denies dysuria, frequency, incontinence, hematuria, urinary retention. Musculoskeletal: See HPI Skin: Denies rash, skin lesions, or other. Neurologic: Denies weakness, headache, numbness, change in speech, confusion, seizures, incoordination. Psychiatric: No concerning psychosocial issues. 12-point review of systems is negative except for those stated above. Patient History <JULI Martin - Last Filed: 07/13/20 18:01> Medical History Acute stress disorder Cervical spine disease (~2014) Chronic back pain (~2011) Chronic solar dermatitis Elbow pain (~2016) Fractures (~2014) Gastric ulcer (~2010) Hearing deficit (~2015) Right rotator cuff tear Ruptured tympanic membrane (~2015) Shoulder pain Tinnitus (~2015) Vertigo (~2015) Vision disorder White blood cell disorder (~2015) Surgical History Anesthesia History of open reduction and internal fixation (ORIF) procedure (02/05/20) Status post hernia repair (~2008) Status post hernia repair (~2003) Family History Father Age: 61 Hypertension Hematoma Mother Age: 57 Hypertension High cholesterol Diabetes mellitus Sister Age: 39 Hypertension Double ureter Grandmother Stroke Grandfather Cancer Social History marital status: household members: spouse and children occupational status: employed Smoking Status: Never smoker alcohol intake: former substance use type: does not use Smoking Status: Never smoker alcohol intake frequency: 0-2 drinks per day Alcohol type: beer Substance Use Type: marijuana Exam <Osei BrownJULI - Last Filed: 07/13/20 18:01> Narrative Exam Narrative: General appearance: well developed, well nourished, in no acute distress. Head: normocephalic, atraumatic, no scalp lesions, non-tender. ENT: Hearing grossly intact. Nose without bleeding, purulent discharge, septal hematoma or deviation. Mucous membrane moist, no mucosal lesion. Throat without erythema, tonsillar hypertrophy or exudate. Uvula in midline, airway patent. Neck/Thyroid: neck supple, full range of motion, no visible masses or meningeal signs. No JVD, non-tender without lymphadenopathy. Skin: no suspicious rashes, lesions over visible areas. Warm and dry and appropriate color for ethnicity. Heart: no clubbing, no cyanosis, no edema. S1 and S2 normal. RRR w/o murmurs, clicks, or bruits. Lungs: Breathing even and unlabored. No stridor. No accessory muscles used. Able to speak in full sentences. Chest: normal shape and expansion. Abdomen: non-obese, non-distended. Neurologic: alert and oriented. 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 Psych: good eye contact, normal affect. Initial Vital Signs Initial Vital Signs: Vital Signs Temperature 98.1 F 07/13/20 10:32 Pulse Rate 99 H 07/13/20 10:32 Respiratory Rate 18 07/13/20 10:32 Blood Pressure 141/85 H 07/13/20 10:32 Pulse Oximetry 96 07/13/20 10:32 Back/Spine/Pelvis Back: normal to inspection Cervical Spine: normal cervical lordosis and No step off deformity Thoracic/Lumbar Spine: thoracic and lumbar spine normal to inspection, No surgical scar(s) present, paraspinal tenderness (right upper thoracic pain), thoraco-lumbar ROM limited and No thoracic spinal tenderness <Isabel Macias DO - Last Filed: 07/14/20 10:28> Initial Vital Signs Initial Vital Signs: Vital Signs Temperature 98.1 F 07/13/20 10:32 Pulse Rate 99 H 07/13/20 10:32 Respiratory Rate 18 07/13/20 10:32 Blood Pressure 141/85 H 07/13/20 10:32 Pulse Oximetry 96 07/13/20 10:32 Scores <JULI Martin - Last Filed: 07/13/20 18:01> GCS Bonifacio coma scale eye opening: Spontaneous Speer coma scale verbal response: Orientated Speer coma scale motor response: Obey commands Bonifacio coma scale total score: 15 qSOFA Altered Mental Status (GCS <15): No Respiratory rate greater than/equal to 22: No Systolic blood pressure less than or equal to 100: No qSOFA Total: 0 0-1 Not High Risk 1-3 High risk Course <JULI Martin - Last Filed: 07/13/20 18:01> Orders Ordered: Discontinued Medications Acetaminophen (Acetaminophen 325 Mg Tablet) 650 mg PO NOW ONE Stop: 07/13/20 12:54 Last Admin: 07/13/20 13:18 Dose: 650 mg Documented by: NATY Lidocaine (Lidocaine Patch 1 Each Adh..Patch) 1 each TOP NOW ONE Stop: 07/13/20 12:54 Last Admin: 07/13/20 13:18 Dose: 1 each Documented by: NATY Pantoprazole Sodium (Pantoprazole 20 Mg Tablet) 20 mg PO NOW ONE Stop: 07/13/20 12:56 Last Admin: 07/13/20 13:18 Dose: 20 mg Documented by: NATY Prednisone (Prednisone 20 Mg Tablet) 40 mg PO NOW ONE Stop: 07/13/20 12:54 Last Admin: 07/13/20 13:18 Dose: 40 mg Documented by: NATY Vital Signs Vital signs: Vital Signs - 8 hr 07/13/20 10:32 Temperature 98.1 F Pulse Rate 99 H Respiratory Rate 18 Blood Pressure 141/85 H Pulse Oximetry 96 <Isabel Macias DO - Last Filed: 07/14/20 10:28> Orders Ordered: Discontinued Medications Acetaminophen (Acetaminophen 325 Mg Tablet) 650 mg PO NOW ONE Stop: 07/13/20 12:54 Last Admin: 07/13/20 13:18 Dose: 650 mg Documented by: NATY Lidocaine (Lidocaine Patch 1 Each Adh..Patch) 1 each TOP NOW ONE Stop: 07/13/20 12:54 Last Admin: 07/13/20 13:18 Dose: 1 each Documented by: NATY Pantoprazole Sodium (Pantoprazole 20 Mg Tablet) 20 mg PO NOW ONE Stop: 07/13/20 12:56 Last Admin: 07/13/20 13:18 Dose: 20 mg Documented by: NATY Prednisone (Prednisone 20 Mg Tablet) 40 mg PO NOW ONE Stop: 07/13/20 12:54 Last Admin: 07/13/20 13:18 Dose: 40 mg Documented by: NATY Vital Signs Vital signs: Vital Signs - 8 hr 07/13/20 10:32 Temperature 98.1 F Pulse Rate 99 H Respiratory Rate 18 Blood Pressure 141/85 H Pulse Oximetry 96 [facility] - Back Pain/Injury <JULI Martin - Last Filed: 07/13/20 18:01> Differential Diagnosis Differential diagnosis: Likely thoracic back pain, discitis and other (Cervical radiculopathy, spine strain, herniated disc) Imaging Data XR-Thoracic spine: Radiologist's Impression: [address] [id number] ReportSigned Patient: Luis Castano RMR#: [id number]: [id number]:[id number]/Sex: 35 / MDate of Service: 07/13/20Loc: EDAccession Number: [id number] Procedure: XR thoracic spine 3V Ordering Provider: Osei Brown PROCEDURE: XR THORACIC SPINE 3V INDICATIONS: upper thoracic pain TECHNIQUE: 3 views of the thoracic spine were acquired. COMPARISON: [facility], THORACIC SPINE 3 VIEWS, 06/16/2014, 14:53. FINDINGS: Bones: No fractures or dislocations. No suspicious bony lesions. 12 pairs of ribs are noted, and appear intact where visualized. Soft tissues: No paravertebral stripe thickening. IMPRESSION: No visualized acute fracture or dislocation. However, if clinical concern and/or pain persist, short interval imaging followup in 7-10 days is recommended, as occult injury cannot be definitively excluded. Dictated by: Jyoti Jackson M.D. on 07/13/2020 at 13:54 Approved by: Jyoti Jackson M.D. on 07/13/2020 at 13:56 [facility] Narrative Medical decision making narrative: This is a 35 year old male who presents to ED with chief complain of inferior to low C-spine and upper T-spine right paraspinal tenderness which radiates to bilateral arm. This is has been going on for a few weeks but reaggravated few days ago after he shoveled snow. Patient has limited range of motion bilateral upper extremities due to discomfor t. Patient states he has been using Flexeril, Motrin, oxycodone, Tens unit and some physical therapy. Patient is afebrile and nontoxic appearing. Unfortunately, MRI is not available as patient requested and explained to patient this could be arranged by his primary care physician in the future after conservative therapy. Patient offered Tylenol, lidocaine patch, prednisone in ED and advised to continue with this therapy and current his pain management regimen. X-ray test does not show acute findings in thoracic spine. Return precautions discussed with patient and he verbalized understanding in agreement with the treatment plan. Discharge Plan Departure Patient Disposition: Home Clinical Impression: Cervical radiculopathy Back pain, thoracic Qualifiers: Chronicity: acute Back pain laterality: right Qualified Code(s): M54.6 - Pain in thoracic spine Instructions: DI for Cervical Radiculopathy, Thoracic Back Pain Activity Restrictions/Additional Instructions: You have been diagnosed with [upper thoracic pain, cervical radiculopathy. Please continue with your current treatment. X-ray test was negative for acute findings.]. What to do: *Take your medications as directed. Please take prednisone 40 mg daily for next 4 more days. Use lidocaine patch on affected site for pain which stays on for 12 hours and off for 12 hours as needed for pain. You can add Tylenol as needed for pain. Use omeprazole when you take both steroids prednisone and ibuprofen to decrease GI irritation. These medication have been transmitted to [facility], [place], operated by [facility]. *Follow up with your primary care provider in 2-3 days, call for an appointment. Let them know you were seen in the ED and that we asked you to be seen in follow up. You may require advanced imaging. *Return to ED if you have any new, worsening, or concerning symptoms, such as [worsening pain, increasing weakness, numbness, tingling, chest pain, breathing difficulty, unable to tolerate fluids, or any acute concerns]. Prescriptions: New prednisone 20 mg tablet 40 mg PO DAILY 4 Days Qty: 8 RF: 0 lidocaine 5 % adhesive patch,medicated 1 patch topical DAILY PRN (Reason: pain) Qty: 30 RF: 0 omeprazole magnesium [Prilosec OTC] 20 mg tablet,delayed release (DR/EC) 20 mg PO DAILY Qty: 14 RF: 0 No Action hydroxyzine HCl 10 mg tablet 30 mg PO BEDTIME Qty: 90 RF: 3 oxycodone 5 mg tablet 5 mg PO Q6H PRN (Reason: pain) Qty: 30 RF: 0 capsaicin [High Potency Capsaicin] 0.1 % cream 1 applic topical TID Qty: 60 RF: 1 duloxetine 60 mg capsule,delayed release(DR/EC) 60 mg PO DAILY Qty: 90 RF: 1 ibuprofen 800 mg tablet 800 mg PO TID PRN (Reason: pain) Qty: 270 RF: 1 cyclobenzaprine 10 mg tablet 10 mg PO BID PRN (Reason: muscle spasm) Qty: 180 RF: 1 Referrals: Kris Valentine DO [Primary Care Provider] - <Isabel Macias DO - Last Filed: 07/14/20 10:28> Cosign ED Attending Coskiaature Attestation: I was immediately available in the department for consultation. Documentation has been reviewed.
[2020-07-13] MEDS: LIDOCAINE PATCH 1 EACH ADH..PATCH TOP (13:18)
[2020-07-13] MEDS: predniSONE 20 MG TABLET 40 MG PO (13:18)
[2020-07-13] MEDS: PANTOPRAZOLE 20 MG TABLET PO (13:18)
[2020-07-13] MEDS: ACETAMINOPHEN 325 MG TABLET 650 MG PO (13:18)
== END 2020-07-13 14:21 | disposition home or self-care (01) ==
PROVIDERS: Emergency Provider Nurse Practitioner Family; PCP Family Medicine
DX: M54.12 Radiculopathy, cervical region (principal); M54.6 Pain in thoracic spine
CPT/HCPCS: 72072; 99283

== ENCOUNTER 2020-07-18 21:49 | Emergency (ER) | payer OTHER, MEDICAID, SELFPAY ==
--- NOTE | 2020-07-18 21:55 | ED_ITS ---
HPI - Chest Pain General Chief Complaint: Chest Pain Stated Complaint: Chest pain Time Seen by Provider: 07/18/20 21:55 Source: patient and old records reviewed Mode of arrival: Ambulatory Limitations: no limitations History of Present Illness HPI narrative: This is a 35-year-old male comes with complaint of chest pain on the left side radiating down his left arm. Patient states he thinks it may be from his back he has had chronic thoracic back and neck issues for several months. He has been trying to get set up for MRI and has been seeing Dr. Jonnie lara for pain management and they have a plan for a nerve ablation. Patient states he had a recent flare and was seen in the emergency department after shoveling snow. Today he was doing better and went to do some standing with chest back and forth motions of his upper extremity. About 3:00 p.m. he completed this, he started having symptoms about 6:00 p.m. and is continued to have pain on the left side of his chest straight through his left shoulder t owards his thoracic spine. He states it radiates down left arm. He has some tingling down the left upper extremity which he states has been chronic and longstanding. Movement does make it worse. He states no fevers, no chills. He states when his pain was at its worst he did feel sweaty. He denies any nausea but did have 1 episode of emesis. Um he states he felt like he had an anxiety attack when his pain was worsening. It was painful to take a breath or move. He is on duloxetine, Flexeril, ibuprofen 800 mg, omeprazole and prednisone which was started recently after his pain increased shoveling snow. He does have a history of asthma, he has had 4 surgeries 1 on his left hand as well as 3 surgeries to remove glass in his right hand. He is allergic to sulfa gets tinnitus with Toradol. Denies tobacco, alcohol and only uses CBD. He states his father did not have a valve and had it fixed or replaced 9 years ago with a cadaver valve. Denies any other cardiac, pulmonary, embolic history. Related Data Previous Rx's Medication Instructions Recorded hydroxyzine HCl 10 mg tablet 30 mg PO BEDTIME #90 tab 11/26/19 capsaicin 0.1 % topical cream 1 applic TOPICAL TID #60 g 05/17/20 duloxetine 60 mg capsule,delayed 60 mg PO DAILY #90 cap 05/17/20 release cyclobenzaprine 10 mg tablet 10 mg PO BID PRN #180 tab 06/09/20 ibuprofen 800 mg tablet 800 mg PO TID PRN #270 tab 06/09/20 oxycodone 5 mg tablet 5 mg PO Q6H PRN #30 tab 06/29/20 lidocaine 1 patch TOPICAL DAILY PRN #30 ea 07/13/20 omeprazole magnesium [Prilosec OTC] 20 mg PO DAILY #14 tab 07/13/20 Allergies Allergy/AdvReac Type Severity Reaction Status Date / Time Sulfa (Sulfonamide Allergy Mild Verified 07/14/20 09:01 Antibiotics) [SULFA (SULFONAMIDE ANTIBIOTICS)] tramadol AdvReac Verified 07/14/20 09:01 Review of Systems Review of Systems ROS Unobtainable: All systems reviewed & are unremarkable except as noted in HPI and below Patient History Medical History Acute stress disorder Cervical spine disease (~2014) Chronic back pain (~2011) Chronic solar dermatitis Elbow pain (~2016) Fractures (~2014) Gastric ulcer (~2010) Hearing deficit (~2015) Right rotator cuff tear Ruptured tympanic membrane (~2015) Shoulder pain Tinnitus (~2015) Vertigo (~2015) Vision disorder White blood cell disorder (~2015) Surgical History Anesthesia History of open reduction and internal fixation (ORIF) procedure (02/05/20) Status post hernia repair (~2008) Status post hernia repair (~2003) Family History Father Age: 61 Hypertension Hematoma Mother Age: 57 Hypertension High cholesterol Diabetes mellitus Sister Age: 39 Hypertension Double ureter Grandmother Stroke Grandfather Cancer Social History marital status: household members: spouse and children occupational status: employed Smoking Status: Never smoker alcohol intake: former substance use type: does not use Smoking Status: Never smoker alcohol intake frequency: 0-2 drinks per day Alcohol type: beer Substance Use Type: marijuana Exam Narrative Exam Narrative: GENERAL: Alert and oriented x three, thin male in moderate distress. HEENT: Head normocephalic, atraumatic, EOMI, pupils reactive, face symmetric, moist mucous membranes NECK: Supple, full range of motion CARDIOVASCULAR: Regular rate and rhythm without murmurs, rubs or gallops. No JVD. RESPIRATORY: Breath sounds equal bilaterally, no wheezes rales or rhonchi. ABDOMEN: Soft, nontender. Normoactive bowel sounds all 4 quadrants. No guarding or rebound, rigidity, no mass : No CVA tenderness BACK: No cervical, thoracic or lumbar vertebral point tenderness. Patient does appear to have some muscle spasm in his thoracic and latissimus dorsi particularly on the left. Patient has decreased range of motion. Patient's gait is [antalgic/normal]. Rectal exam is deferred. 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 DTRs are 2/4 upper extremities. 2+ radial pulses bilaterally. No swelling, discoloration or other skin changes to the bilateral upper extremities. Sensation equal bilaterally. EXTREMITIES: Normal range of motion, no clubbing or edema. Neurovascularly intact. No reproducible pain with palpation of the left upper extremity NEUROLOGICAL: Cranial nerves II through XII grossly intact. Moving all extremities SKIN: Warm, dry, no petechiae, no rashes or lesions appreciated. Initial Vital Signs Initial Vital Signs: Vital Signs Temperature 97.9 F 07/18/20 21:58 Pulse Rate 95 H 07/18/20 21:58 Respiratory Rate 22 07/18/20 21:58 Blood Pressure 144/87 H 07/18/20 21:58 Pulse Oximetry 99 07/18/20 21:58 Scores HEART Score Heart Score history: Slightly Suspicious Heart Score EKG: Normal Heart Score Age: < 45 years old Heart Score risk factors: 1-2 risk factors Heart Score troponin: < or = to normal limit Heart Score Total: 1 Course Orders Ordered: ED Orders 07/18/20 22:08 XR chest 1V Stat EKG-12 Lead Stat 07/18/20 22:14 Complete Blood Count AUTO DIFF Stat Comprehensive Metabolic Panel Stat Lipase Stat Partial Thromboplastin Time Stat Prothrombin Time INR Stat Troponin & CK Cardiac Panel Stat Discontinued Medications Hydrocodone Bitart/Acetaminophen (Hydrocodone/Acet 5/325 Tablet) 2 tab PO NOW ONE Stop: 07/18/20 22:11 Last Admin: 07/18/20 22:20 Dose: 2 tab Documented by: COHLO Diazepam (Diazepam 5 Mg Tablet) 10 mg PO NOW ONE Stop: 07/18/20 22:11 Last Admin: 07/18/20 22:20 Dose: 10 mg Documented by: CHOLO Sodium Chloride (Normal Saline 0.9%) 1,000 mls @ 150 mls/hr IV CONT SUKUMAR Last Infusion: 07/18/20 23:44 Dose: 0 mls/hr Documented by: Admin: 07/18/20 22:22 Dose: 150 mls/hr Documented by: CHOLO Morphine Sulfate (Morphine 4 Mg/Ml Inj) 4 mg IV NOW ONE Stop: 07/18/20 23:27 Last Admin: 07/18/20 23:31 Dose: 4 mg Documented by: TAYLOR Oxycodone/Acetaminophen (Oxycodone/Apap 5/325 Prepack) 1 bottle MISC SEEINSTR ONE Stop: 07/18/20 23:29 Last Admin: 07/18/20 23:31 Dose: 1 bottle Documented by: TAYLOR Reevaluation(s) Time: 23:14 Vital Signs Vital signs: Vital Signs - 8 hr 07/18/20 21:58 07/18/20 22:06 07/18/20 22:30 Temperature 97.9 F Pulse Rate 95 H 83 78 Respiratory Rate 22 24 26 H Blood Pressure 144/87 H 131/66 Pulse Oximetry 99 98 96 07/18/20 23:44 Temperature Pulse Rate 80 Respiratory Rate 18 Blood Pressure 150/84 H Pulse Oximetry 94 MDM - Chest Pain Lab Data Attestation: I reviewed the patient's lab results. Result diagrams: 07/18/20 22:14 07/18/20 22:14 Labs: Lab Results 07/18/20 07/18/20 07/18/20 Range/Units 22:14 22:14 22:14 WBC 10.0 (4.5-11.0) X10^3/uL RBC 4.42 L (4.5-5.9) X10^6/uL Hgb 13.9 (13.5-17.5) g/dL Hct 40.3 L (41-53) % MCV 91.0 (80-100) fL MCH 31.4 (26-34) PG MCHC 34.4 (30-36) % RDW 12.9 (11.6-14.8) % Plt Count 208 (150-400) X10^3/uL Neut % (Auto) 73.2 (50-75) % Lymph % (Auto) 19.4 L (25-40) % Weber % (Auto) 6.0 (3-14) % Eos % (Auto) 0.8 L (2-4) % Baso % (Auto) 0.6 (0-2) % Neut # (Auto) 7300 H (5790-9242) /uL Lymph # (Auto) 1900 (5023-8500) /uL Weber # (Auto) 600 (0-900) /uL Eos # (Auto) 100 (0-450) /uL Baso # (Auto) 100 (0-100) /uL PT 12.6 (10.1-12.7) SECONDS INR 1.1 (0.9-1.3) APTT 35 (26.4-36.2) SECONDS Sodium 137 (137-145) mmol/L Potassium 4.1 (3.4-5.1) mmol/L Chloride 103 (98-107) mmol/L Carbon Dioxide 27 (22-32) mmol/L BUN 12 (9-20) mg/dL Creatinine 0.97 (0.66-1.25) mg/dL Estimated GFR > 60.0 (>60) mL/min BUN/Creatinine Ratio 12.4 (6-22) Glucose 116 H (70-100) mg/dL Calcium 9.4 (8.4-10.2) mg/dL Total Bilirubin 0.9 (0.2-1.3) mg/dL AST 29 (17-59) IU/L ALT 20 (<50) IU/L Alkaline Phosphatase 69 (38-126) U/L Total Creatine Kinase 233 H (55-170) U/L CK-MB (CK-2) 1.70 (<2.37) ng/mL CK-MB (CK-2) Rel Index 0.7 L (1.5-5.0) % Troponin I < 0.012 (0.01-0.034) ng/mL Total Protein 7.4 (6.3-8.2) g/dL Albumin 4.5 (3.5-5.0) g/dL Globulin 2.9 (1.7-4.1) g/dL Albumin/Globulin Ratio 1.6 (1.0-2.8) Lipase 54 (23-300) U/L Imaging Data Chest x-ray: Radiologist's Impression: Minimal right infrahilar opacity probably vessels. No pneumothorax. Sharp lateral costophrenic angles. Normal heart size. No pulmonary vascular cephalization. No active cardiopulmonary pathology evident. ECG Data Attestation: I personally reviewed and interpreted this ECG as follows: Prior ECG tracings: available for review Interpretation: Normal sinus rhythm rate of 83, MS 156, QRS of 96 QTC is 401. Patient does have a prior EKG from 11/29/2017 which appears similar. [facility] Narrative Medical decision making narrative: Three 5-year-old male who has had multiple visits in the past typically for orthopedic issues but occasionally other reasons. Complaining of chest pain although does seem to be more musculoskeletal. His heart score is 1, EKG shows no acute changes and is simil ar to prior. Chest x-ray was included and shows no acute changes. Labs show mildly elevated total CK, negative troponin, glucose of 116 with no major electrolyte abnormalities. CBC reviewed. A thoracic spine x-ray on 07/13/2020 which is the generalized very he has complaint of pain. He indicates that the T2-3 areas where he seems to be hurting with his chronic thoracic pain. Imaging does not show any significant changes. Patient has not had any new or recent trauma but has had some repetitive and musculoskeletal stresses that may have exacerbated his symptoms. Suspect patient symptoms are musculoskeletal in origin either from the cervical or thoracic region. After medication patient is feeling somewhat improved but still uncomfortable. Plan for additional dose of pain medication, prepack and follow up with PCP tomorrow for management of medications, He states he has had some adjustments recently. [place] [facility] shows patient has filled oxycodone 5mg tablets #30, on 06/30, 06/09, 04/28, and 04/[address] Shetty and Ciaran his PCPs. Discharge Plan Departure Patient Disposition: Home Clinical Impression: Chest pain Instructions: DI for Chest Pain Activity Restrictions/Additional Instructions: Follow up with your physician in the next 1-2 days whether in person or by phone , to discuss further workup and imaging as well as pain management options. Continue home medications as prescribed. 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 Prescriptions: No Action hydroxyzine HCl 10 mg tablet 30 mg PO BEDTIME Qty: 90 RF: 3 oxycodone 5 mg tablet 5 mg PO Q6H PRN (Reason: pain) Qty: 30 RF: 0 capsaicin [High Potency Capsaicin] 0.1 % cream 1 applic topical TID Qty: 60 RF: 1 duloxetine 60 mg capsule,delayed release(DR/EC) 60 mg PO DAILY Qty: 90 RF: 1 ibuprofen 800 mg tablet 800 mg PO TID PRN (Reason: pain) Qty: 270 RF: 1 cyclobenzaprine 10 mg tablet 10 mg PO BID PRN (Reason: muscle spasm) Qty: 180 RF: 1 lidocaine 5 % adhesive patch,medicated 1 patch topical DAILY PRN (Reason: pain) Qty: 30 RF: 0 omeprazole magnesium [Prilosec OTC] 20 mg tablet,delayed release (DR/EC) 20 mg PO DAILY Qty: 14 RF: 0 Referrals: Mary Beth Crabtree MD [Primary Care Provider] -
[2020-07-18 21:58] VITALS: BP 144/87; PULSE 95; RESP 22; TEMP 36.6; O2SAT 99; BMI 25.4
[2020-07-18 22:06] VITALS: PULSE 83; RESP 24; O2SAT 98
--- NOTE | 2020-07-18 22:08 | DI.RAD.S_ITS ---
PROCEDURE: XR CHEST 1V INDICATIONS: chest pain TECHNIQUE: One view of the chest was acquired. COMPARISON: [facility], CR, XR CHEST 2V, 01/15/2019, 11:41. FINDINGS: Surgical changes and devices: None. Lungs and pleura: Lungs are clear. No pleural effusions or pneumothorax. Mediastinum: Mediastinal contours appear normal. Heart size is normal. Bones and chest wall: No suspicious bony lesions. Overlying soft tissues appear unremarkable. IMPRESSION: No acute cardiopulmonary disease. No significant discrepancy with the cork tipper radiology preliminary report. Dictated by: Daquan Epps M.D. on 07/19/2020 at 8:39 Approved by: Daquan Epps M.D. on 07/19/2020 at 8:39
[2020-07-18] MEDS: diazePAM 5 MG TABLET 10 MG PO (22:20)
[2020-07-18] MEDS: HYDROCODONE/ACET 5/325 TABLET 2 TAB PO (22:20)
[2020-07-18] MEDS: SODIUM CHLORIDE 0.9% 1,000 ML 150 ML IV (22:22)
[2020-07-18 22:23] LABS: Add Manual Diff / Slide Review NO; Basophils Absolute Auto 100 /uL (0-100); Basophils Percent Auto 0.6 % (0-2); Eosinophils Absolute Auto 100 /uL (0-450); Eosinophils Percent Auto 0.8 % (2-4); Hematocrit 40.3 % (41-53); Hemoglobin 13.9 g/dL (13.5-17.5); Lymphocytes Absolute Auto 1900 /uL (1100-4500); Lymphocytes Percent Auto 19.4 % (25-40); Mean Corpuscular HGB Conc 34.4 % (30-36); Mean Corpuscular Hemoglobin 31.4 PG (26-34); Monocytes Absolute Auto 600 /uL (0-900); Neutrophils Absolute Auto 7300 /uL (1500-7000); Neutrophils Percent Auto 73.2 % (50-75); Platelet Count 208 X10^3/uL (150-400); Red Blood Cell Count 4.42 X10^6/uL (4.5-5.9); Red Cell Distribution Width 12.9 % (11.6-14.8)
[2020-07-18 22:30] VITALS: BP 131/66; PULSE 78; RESP 26; O2SAT 96
[2020-07-18 22:31] LABS: INR 1.1 (0.9-1.3); Prothrombin Time 12.6 SECONDS (10.1-12.7)
[2020-07-18 22:34] LABS: PTT Partial Thromboplastin Tim 35 SECONDS (26.4-36.2)
[2020-07-18 22:36] LABS: Alanine Aminotransferase 20 IU/L (<50); Albumin 4.5 g/dL (3.5-5.0); Albumin Globulin Ratio 1.6 (1.0-2.8); Alkaline Phosphatase 69 U/L (38-126); Aspartate Aminotransferase 29 IU/L (17-59); BUN Creatinine Ratio 12.4 (6-22); Bilirubin Total 0.9 mg/dL (0.2-1.3); Blood Urea Nitrogen 12 mg/dL (9-20); Calcium 9.4 mg/dL (8.4-10.2); Carbon Dioxide 27 mmol/L (22-32); Chloride 103 mmol/L (98-107); Creatine Kinase 233 U/L (55-170); Estimated Glomerular Filt Rate > 60.0 mL/min (>60); Globulin 2.9 g/dL (1.7-4.1); Glucose 116 mg/dL (70-100); HEMOLYSIS < 15 (0-50); Lipase 54 U/L (23-300); Potassium 4.1 mmol/L (3.4-5.1); Sodium 137 mmol/L (137-145); Total Protein 7.4 g/dL (6.3-8.2)
[2020-07-18 22:47] LABS: Troponin I < 0.012 ng/mL (0.01-0.034)
[2020-07-18 22:51] LABS: CKMB % Relative Index 0.7 % (1.5-5.0)
[2020-07-18] MEDS: MORPHINE 4 MG/ML INJ IV (23:31)
[2020-07-18] MEDS: OXYCODONE/APAP 5/325 PREPACK 1 BOTTLE MISC (23:31)
[2020-07-18 23:44] VITALS: BP 150/84; PULSE 80; RESP 18; O2SAT 94
== END 2020-07-18 23:45 | disposition home or self-care (01) ==
PROVIDERS: Emergency Provider Emergency Medicine; PCP Student in an Organized Health Care Education/Training Program
DX: R07.9 Chest pain, unspecified (principal); M54.6 Pain in thoracic spine; R11.0 Nausea
CPT/HCPCS: 36415; 71045; 80053; 82550; 82553; 83690; 84484; 85025; 85610; 85730; 93005; 96361; 96374; 99283; 99284; J2270

== ENCOUNTER → 2020-09-30 18:58 | Outpatient (CLI) | payer OTHER, MEDICAID, SELFPAY ==
--- NOTE | 2020-09-30 19:00 | DI.MRI.S_ITS ---
PROCEDURE: MR CERVICAL SPINE WO CON INDICATIONS: cervical radiculopathy TECHNIQUE: Noncontrast sagittal T1 spin echo and T2 fast spin echo, sagittal STIR, foraminal oblique sagittal T2 fast spin echo, and axial gradient echo or T2 fast spin echo through the cervical spine. COMPARISON: Outside Facility, RG, MRI C AND T SPINE WO CONTRAST, 12/31/2019, 15:56. FINDINGS: Image quality: Excellent. Alignment and Curvature: There is loss of normal cervical lordosis. Bone Marrow: Marrow demonstrates normal overall signal. Spinal Cord: Visualized spinal cord has normal size and signal. No cerebellar tonsillar herniation. Paraspinous Soft Tissues: No paravertebral masses. Prevertebral soft tissues are normal in thickness. C2-C3: Normal appearance. C3-C4: Normal appearance. C4-C5: Mild disc height loss and desiccation. Mild facet and uncovertebral hypertrophy bilaterally. No significant canal stenosis. Mild left greater than right foraminal stenosis. No significant change. C5-C6: Mild disc height loss and desiccation. Mild facet and uncovertebral hypertrophy. No significant canal stenosis. Mild bilateral foraminal stenosis. No significant change. C6-C7: Mild facet and uncovertebral hypertrophy bilaterally. No significant canal stenosis. Mild left greater than right foraminal stenosis. No significant change. C7-T1: Normal appearance. IMPRESSION: 1. Multilevel degenerative disc and facet disease, as well as uncovertebral hypertrophy. 2. No significant canal stenosis. 3. Mild multilevel foraminal stenosis. 4. No neural impingement. Dictated by: Kingsley Dhaliwal M.D. on 10/01/2020 at 9:22 Approved by: Kingsley Dhaliwal M.D. on 10/01/2020 at 9:27
== END ==
PROVIDERS: Referring Provider Physical Medicine & Rehabilitation; Visit Provider Physical Medicine & Rehabilitation
DX: M50.121 Cervical disc disorder at C4-C5 level with radiculopathy (principal); M48.02 Spinal stenosis, cervical region
CPT/HCPCS: 72141

== ENCOUNTER → 2020-11-05 09:41 | Outpatient (CLI) | payer OTHER, MEDICAID, SELFPAY ==
--- NOTE | 2020-11-05 09:43 | DI.RAD.S_ITS ---
PROCEDURE: XR CERVICAL SPINE 4V OR 5V INDICATIONS: cervical radiculopathy TECHNIQUE: 5 views of the cervical spine acquired. COMPARISON: None. FINDINGS: Bones: No fractures or dislocations to the T1 level. Oblique images demonstrate no bony foraminal stenoses. Soft tissues: No prevertebral soft tissue swelling. IMPRESSION: No trauma found, no subluxation or significant degenerative change identified. Dictated by: Master Wilkins M.D. on 11/05/2020 at 11:06 Approved by: Master Wilkins M.D. on 11/05/2020 at 11:07
== END ==
PROVIDERS: Referring Provider Physical Medicine & Rehabilitation; Visit Provider Physical Medicine & Rehabilitation
DX: M54.12 Radiculopathy, cervical region (principal); K22.70 Barrett's esophagus without dysplasia
CPT/HCPCS: 72050; 99213

== ENCOUNTER 2020-11-19 10:07 | Emergency (ER) | payer OTHER, MEDICAID, SELFPAY ==
--- NOTE | 2020-11-19 10:29 | DI.RAD.S_ITS ---
PROCEDURE: XR HAND LT MIN 3V INDICATIONS: hardware in hand possibly 'cracked TECHNIQUE: 3 views of the hand(s) acquired. COMPARISON: [facility], CR, XR HAND LT MIN 3V, 01/26/2020, 7:01. FINDINGS: Bones: Patient is status post prior ORIF of 4th metacarpal shaft and hamate with surgical hardware in place. No gross hardware loosening or failure is seen. No definite acute fracture or dislocation is noted. Thin calcification adjacent to ulnar aspect of 5th metacarpal base, suggestive of avulsion injury of indeterminate age. Carpal bones are normally aligned. No suspicious bony lesions. Soft tissues: No other soft tissue calcifications are seen. IMPRESSION: 1. No definite acute left hand fracture or dislocation. Subtle linear calcification adjacent to ulnar aspect of 5th metacarpal base and may represent age indeterminate avulsion injury suggest clinical correlation. 2. Prior fixation of 4th metacarpal shaft and hamate. No gross hardware loosening or failure. Dictated by: Tin Meza M.D. on 11/19/2020 at 10:59 Approved by: Tin Meza M.D. on 11/19/2020 at 11:02
[2020-11-19 10:34] VITALS: BP 139/72; PULSE 78; RESP 16; TEMP 37; O2SAT 98; BMI 23.6
--- NOTE | 2020-11-19 10:38 | PC.NURSE ---
Patient felt a pop yesterday increase pain, noted hand is different shape now. Feels as though screw or hardware is loose in hand. CMS intact. incision present healing WNL
--- NOTE | 2020-11-19 12:27 | ED_ITS ---
HPI - Extremity Injury (Upper) General Chief Complaint: Extremity Injury, Upper Stated Complaint: metal hardware in left hand collapsed Time Seen by Provider: 11/19/20 12:27 Source: patient Mode of arrival: Ambulatory History of Present Illness HPI narrative: This is a 35-year-old male comes with complaint of fracture or injury to his left hand. Patient had hardware placed approximately a year ago by Dr. Shaw with Orthopedic surgery. He states he does use a buffer regularly at work he states he felt a pop and had pain in the 4th and 5th metacarpal region, he noted that his knuckle seem a little bit decreased in their size and he has some pain with flexion extension of the fingers 4. And 5 on the left hand. Patient states he was actually reaching and was couch and wiggling his hand to grab a remote control when this happened. He has continued to have symptoms. Denies any other symptoms or injury elsewhere. Related Data Previous Rx's Medication Instructions Recorded hydroxyzine HCl 10 mg tablet 30 mg PO BEDTIME #90 tab 11/26/19 capsaicin 0.1 % topical cream 1 applic TOPICAL TID #60 g 05/17/20 cyclobenzaprine 10 mg tablet 10 mg PO BID PRN #180 tab 06/09/20 lidocaine 1 patch TOPICAL DAILY PRN #30 ea 07/13/20 omeprazole magnesium [Prilosec OTC] 20 mg PO DAILY #14 tab 07/13/20 celecoxib 200 mg capsule 200 mg PO DAILY #30 cap 11/05/20 hydrocodone-acetaminophen 1 tab PO Q6H PRN #10 tab 11/19/20 Allergies Allergy/AdvReac Type Severity Reaction Status Date / Time Sulfa (Sulfonamide Allergy Mild Verified 11/19/20 10:36 Antibiotics) [SULFA (SULFONAMIDE ANTIBIOTICS)] tramadol AdvReac Verified 11/19/20 10:36 Review of Systems Review of Systems ROS Unobtainable: All systems reviewed & are unremarkable except as noted in HPI and below Patient History Medical History Acute stress disorder Cervical spine disease (~2014) Chronic back pain (~2011) Chronic solar dermatitis Elbow pain (~2016) Facet arthropathy, cervical Fractures (~2014) Gastric ulcer (~2010) Hearing deficit (~2015) Right rotator cuff tear Ruptured tympanic membrane (~2015) Shoulder pain Tinnitus (~2015) Vertigo (~2015) Vision disorder White blood cell disorder (~2015) Surgical History Anesthesia History of open reduction and internal fixation (ORIF) procedure (02/05/20) Status post hernia repair (~2008) Status post hernia repair (~2003) Family History Father Age: 61 Hypertension Hematoma Mother Age: 57 Hypertension High cholesterol Diabetes mellitus Sister Age: 39 Hypertension Double ureter Grandmother Stroke Grandfather Cancer Social History marital status: household members: spouse and children occupational status: employed Smoking Status: Never smoker alcohol intake: former substance use type: does not use Smoking Status: Never smoker alcohol intake frequency: other Alcohol type: beer Substance Use Type: marijuana Exam Narrative Exam Narrative: GENERAL: Alert and oriented x three, well-nourished male in mild distress. HEENT: Head normocephalic, atraumatic, EOMI, pupils reactive, face symmetric, moist mucous membranes NECK: Supple, full range of motion EXTREMITIES: Patient has full range of motion of fingers 1 2 and 3 but decreased movement of the 4th and 5th fingers. Patient does have decreased prominence of the 4th and 5th knuckles. Patient is able to flex and extend his fingers fully but does appear uncomfortable. He has some mild difficulty with full extension, no clubbing or edema. Neurovascularly intact. Patient does have a healed incision over the dorsum of his hand consistent with prior surgery. NEUROLOGICAL: Cranial nerves II through XII grossly intact. Moving all extremities SKIN: Warm, dry, no petechiae, no rashes or lesions. Initial Vital Signs Initial Vital Signs: Vital Signs Temperature 98.6 F 11/19/20 10:34 Pulse Rate 78 11/19/20 10:34 Respiratory Rate 16 11/19/20 10:34 Blood Pressure 139/72 11/19/20 10:34 Pulse Oximetry 98 11/19/20 10:34 Course Orders Ordered: Discontinued Medications Hydrocodone Bitart/Acetaminophen (Hydrocodone/Acet 5/325 Tablet) 2 tab PO NOW ONE Stop: 11/19/20 14:03 Vital Signs Vital signs: Vital Signs - 8 hr 11/19/20 14:21 Pulse Rate 89 Respiratory Rate 12 Blood Pressure 126/82 Pulse Oximetry 98 MDM - Extremity Injury (Upper) Imaging Data Extremity x-ray #1: Radiologist's Impression: [place] [id number] [place] [id number] ReportSigned Patient: Luis Castano RMR#: [id number]: 1985Acct:[id number]/Sex: 35 / MDate of Service: 11/19/20Loc: EDAccession Number: [id number] Procedure: XR hand LT min 3V Ordering Provider: Isabel Macias D.O. PROCEDURE: XR HAND LT MIN 3V INDICATIONS: hardware in hand possibly 'cracked TECHNIQUE: 3 views of the hand(s) acquired. COMPARISON: [facility], CR, XR HAND LT MIN 3V, 01/26/2020, 7:01. FINDINGS: Bones: Patient is status post prior ORIF of 4th metacarpal shaft and hamate with surgical hardware in place. No gross hardware loosening or failure is seen. No definite acute fracture or dislocation is noted. Thin calcification adjacent to ulnar aspect of 5th metacarpal base, suggestive of avulsion injury of indeterminate age. Carpal bones are normally aligned. No suspicious bony lesions. Soft tissues: No other soft tissue calcifications are seen. IMPRESSION: 1. No definite acute left hand fracture or dislocation. Subtle linear calcification adjacent to ulnar aspect of 5th metacarpal base and may represent age indeterminate avulsion injury suggest clinical correlation. 2. Prior fixation of 4th metacarpal shaft and hamate. No gross hardware loosening or failure. Dictated by: Tin Meza M.D. on 11/19/2020 at 10:59 Approved by: Tin Meza M.D. on 11/19/2020 at 11:02 [facility] Narrative Medical decision making narrative: 35-year-old male with possible avulsion injury unclear about the exact onset, age indeterminate. Patient does not have any bony tenderness but he does have quite a bit of pain with movement of his fingers and had felt a pop and has some difficulty with extension. Patient has had surgical repair. He follows with Dr. Shaw for his orthopedic surgeon. Patient was placed in ulnar gutter splint and referred back to Orthopedic surgery for follow-up. Discharge Plan Departure Patient Disposition: Home Clinical Impression: Hand injury Activity Restrictions/Additional Instructions: Follow-up with your orthopedic surgeon in the next week. Call for an appointment this afternoon or Sunday morning. Your x-ray imaging shows changes the 5th metacarpal base unclear if this is new or old but appears to possibly have been in avulsion injury. Your hardware today appears to be in place without any obvious loosening or failure. Take pain medication as prescribed. This medication can make you sleepy do not drive, perform hazardous activities or make any major decisions while taking it. This medication will make you constipated please take a stool softener once to twice daily until stools are soft and regular. Splint Care: Keep splint clean and dry. Elevated affected body part to decrease swelling. OK to use ice pack on the affected body part. Use for 15-20 minutes each time, for 5-6x per day. If you develop worsening pain, numbness, tingling, discoloration of the affected body part, loosen the splint by loosening the RACHAEL wrap, and either see your doctor for an urgent re-assessment, or return to the Emergency Department. Return to the Emergency Department for any new or worsening symptoms. Prescriptions: New hydrocodone-acetaminophen 5-325 mg tablet 1 tab PO Q6H PRN (Reason: pain) Qty: 10 RF: 0 No Action hydroxyzine HCl 10 mg tablet 30 mg PO BEDTIME Qty: 90 RF: 3 capsaicin [High Potency Capsaicin] 0.1 % cream 1 applic topical TID Qty: 60 RF: 1 cyclobenzaprine 10 mg tablet 10 mg PO BID PRN (Reason: muscle spasm) Qty: 180 RF: 1 lidocaine 5 % adhesive patch,medicated 1 patch topical DAILY PRN (Reason: pain) Qty: 30 RF: 0 omeprazole magnesium [Prilosec OTC] 20 mg tablet,delayed release (DR/EC) 20 mg PO DAILY Qty: 14 RF: 0 celecoxib [Celebrex] 200 mg capsule 200 mg PO DAILY Qty: 30 RF: 2 Referrals: Kim Arcos MD [Physician] - Miscellaneous,MD Queenie [Primary Care Provider] -
[2020-11-19 14:21] VITALS: BP 126/82; PULSE 89; RESP 12; O2SAT 98
== END 2020-11-19 14:22 | disposition home or self-care (01) ==
PROVIDERS: Emergency Provider Emergency Medicine
DX: S69.92XA Unspecified injury of left wrist, hand and finger(s), initial encounter (principal); Z96.698 Presence of other orthopedic joint implants
CPT/HCPCS: 73130; 99281; 99283

== ENCOUNTER → 2020-11-29 09:33 | Outpatient (CLI) | payer OTHER, MEDICAID, SELFPAY ==
[2020-11-29 11:50] LABS: COVID19 -Nasal RAPID Negative (Negative)
== END ==
PROVIDERS: Visit Provider Physician Assistant
DX: Z20.828 Contact with and (suspected) exposure to other viral communicable diseases (principal)
CPT/HCPCS: 87635

== ENCOUNTER 2020-12-04 23:50 | Emergency (ER) | payer OTHER, MEDICAID, SELFPAY ==
--- NOTE | 2020-12-04 23:54 | DI.RAD.S_ITS ---
PROCEDURE: XR FOOT RT MIN 3V INDICATIONS: Lateral calcaneal pain after fall TECHNIQUE: 3 views of the foot were acquired. COMPARISON: [facility], CR, XR FOOT RT MIN 3V, 02/18/2019, 9:33. [facility], CR, XR FOOT RT MIN 3V, 10/03/2019, 0:10. FINDINGS: Bones: In this patient with this given history, scrutiny is given to the calcaneus. No fractures are seen of the calcaneus. No acute fractures or dislocations are seen elsewhere. There is a remote appearing fracture fragment seen along the distal medial aspect of the 1st metatarsal. No suspicious bony lesions. Soft tissues: No tibiotalar joint effusion. Achilles tendon appears normal. IMPRESSION: Negative examination of the calcaneus. Note: No significant discrepancy from the preliminary report. Dictated by: Jarred Orr M.D. on 12/05/2020 at 7:01 Approved by: Jarred Orr M.D. on 12/05/2020 at 7:02
[2020-12-04 23:56] VITALS: BP 129/75; PULSE 82; RESP 15; TEMP 36.4; O2SAT 98; BMI 23.5
--- NOTE | 2020-12-04 23:57 | ED.LOWEXIN ---
HPI - Extremity Injury (Lower) General Chief Complaint: Extremity Injury, Lower Stated Complaint: Broke foot Time Seen by Provider: 12/04/20 23:51 History of Present Illness HPI Narrative: Patient is a 35-year-old male here for evaluation of injuries that he sustained when he was loading things on the top of his car and jumped off of the car landing on his right foot and having pain in his right heel since then. No interventions prior to arrival. No other injuries from the event. Related Data Previous Rx's Medication Instructions Recorded hydroxyzine HCl 10 mg tablet 30 mg PO BEDTIME #90 tab 11/26/19 capsaicin 0.1 % topical cream 1 applic TOPICAL TID #60 g 05/17/20 (High Potency Capsaicin) cyclobenzaprine 10 mg tablet 10 mg PO BID PRN #180 tab 06/09/20 lidocaine 5 % topical patch 1 patch TOPICAL DAILY PRN #30 ea 07/13/20 omeprazole magnesium 20 mg 20 mg PO DAILY #14 tab 07/13/20 tablet,delayed release (Prilosec OTC) celecoxib 200 mg capsule (Celebrex) 200 mg PO DAILY #30 cap 11/05/20 hydrocodone 5 mg-acetaminophen 325 1 tab PO Q6H PRN #10 tab 11/19/20 mg tablet Allergies Allergy/AdvReac Type Severity Reaction Status Date / Time Sulfa (Sulfonamide Allergy Mild Verified 11/19/20 10:36 Antibiotics) [SULFA (SULFONAMIDE ANTIBIOTICS)] tramadol AdvReac Verified 11/19/20 10:36 Review of Systems Musculoskeletal Comments: Right foot pain Integumentary/Breasts Skin/Breast: Reports system reviewed and no additional complaints, except as documented Neurologic Neurologic: Reports system reviewed and no additional complaints, except as documented Hematologic/Lymphatic On Anticoagulants: No Patient History Medical History Acute stress disorder Cervical spine disease (~2014) Chronic back pain (~2011) Chronic solar dermatitis Elbow pain (~2016) Facet arthropathy, cervical Fractures (~2014) Gastric ulcer (~2010) Hearing deficit (~2015) Right rotator cuff tear Ruptured tympanic membrane (~2015) Shoulder pain Tinnitus (~2015) Vertigo (~2015) Vision disorder White blood cell disorder (~2015) Surgical History Anesthesia History of open reduction and internal fixation (ORIF) procedure (02/05/20) Status post hernia repair (~2008) Status post hernia repair (~2003) Family History Father Age: 61 Hypertension Hematoma Mother Age: 57 Hypertension High cholesterol Diabetes mellitus Sister Age: 39 Hypertension Double ureter Grandmother Stroke Grandfather Cancer Social History marital status: household members: spouse and children occupational status: employed Smoking Status: Never smoker alcohol intake: former substance use type: does not use Smoking Status: Never smoker alcohol intake frequency: other Alcohol type: beer Substance Use Type: marijuana Exam Initial Vital Signs Initial Vital Signs: Vital Signs Temperature 97.6 F 12/04/20 23:56 Pulse Rate 82 12/04/20 23:56 Respiratory Rate 15 12/04/20 23:56 Blood Pressure 129/75 12/04/20 23:56 Pulse Oximetry 98 12/04/20 23:56 Cardio Pulses: dorsalis pedis present on the right Skin General: no rashes or lesions noted Extrem Other: Patient with tenderness to palpation of the right calcaneus. The rest of his right foot and lower extremity exam is unremarkable. Procedures Orthopedic Splinting/Casting Injury #1: Side: right Lower Extremity Immobilizer: posterior splint Other Orthopedic Equipment: crutches Post splinting neuro exam: intact Post splinting vascular exam: intact Placed by: Nursing Course Orders Ordered: ED Orders 12/04/20 23:54 XR foot RT min 3V Stat Discontinued Medications Ibuprofen (Ibuprofen 400 Mg Tablet) 800 mg PO NOW ONE Stop: 12/05/20 00:15 Last Admin: 12/05/20 00:22 Dose: Not Given Documented by: ORQUIDEA Vital Signs Vital signs: Vital Signs - 8 hr 12/04/20 23:56 12/05/20 00:51 Temperature 97.6 F Pulse Rate 82 87 Respiratory Rate 15 18 Blood Pressure 129/75 125/80 Pulse Oximetry 98 99 MDM - Extremity Injury (Lower) Imaging Data Extremity x-ray #1: Radiologist's Impression: No acute findings MDM Narrative Medical decision making narrative: Patient has no back pain. X-ray of the right foot shows no acute findings. Low suspicion for ankle fracture. Patient states that he is convinced that something is broken given the discomfort that he is having. Tried to reassure him that his x-rays are unremarkable. Patient asked for CT scan however there is no indication for CT. Has no indication for an MRI. He was placed in a posterior splint for his comfort and given crutches. Was given return precautions. Expressed understanding. Discharge Plan Departure Patient Disposition: Home Clinical Impression: Acute pain of right foot Instructions: How to Use Crutches, How To Perform RICE (Rest, Ice, Compress, Elevate), How to Apply an Elastic Wrap on Ankle Activity Restrictions/Additional Instructions: There were no fractures noted on the x-rays today. This splint was placed for your comfort. Recommend that you do keep it on for the next couple days and use the crutches. Contact your primary provider for a follow-up. You can take Tylenol for any discomfort. Also recommend you keep your foot elevated. Prescriptions: No Action hydroxyzine HCl 10 mg tablet 30 mg PO BEDTIME Qty: 90 RF: 3 capsaicin [High Potency Capsaicin] 0.1 % cream 1 applic topical TID Qty: 60 RF: 1 cyclobenzaprine 10 mg tablet 10 mg PO BID PRN (Reason: muscle spasm) Qty: 180 RF: 1 lidocaine 5 % adhesive patch,medicated 1 patch topical DAILY PRN (Reason: pain) Qty: 30 RF: 0 omeprazole magnesium [Prilosec OTC] 20 mg tablet,delayed release (DR/EC) 20 mg PO DAILY Qty: 14 RF: 0 hydrocodone-acetaminophen 5-325 mg tablet 1 tab PO Q6H PRN (Reason: pain) Qty: 10 RF: 0 celecoxib [Celebrex] 200 mg capsule 200 mg PO DAILY Qty: 30 RF: 2 Referrals: Miscellaneous,Doctor, MD [Primary Care Provider] -
[2020-12-05 00:51] VITALS: BP 125/80; PULSE 87; RESP 18; O2SAT 99
== END 2020-12-05 00:52 | disposition home or self-care (01) ==
PROVIDERS: Emergency Provider Emergency Medicine
DX: M79.671 Pain in right foot (principal); Y93.39 Activity, other involving climbing, rappelling and jumping off
CPT/HCPCS: 29515; 73630; 99283

== ENCOUNTER 2020-12-14 11:13 | Emergency (ER) | payer OTHER, MEDICAID, SELFPAY ==
[2020-12-14 11:30] VITALS: BP 120/59; PULSE 76; RESP 20; TEMP 36.8; O2SAT 99; BMI 23.5
--- NOTE | 2020-12-14 11:50 | ED_ITS ---
HPI - Extremity Injury (Lower) General Chief Complaint: Extremity Injury, Lower Stated Complaint: right foot injury on 12/04/20 Time Seen by Provider: 12/14/20 11:33 Source: patient Mode of arrival: Ambulatory Limitations: no limitations History of Present Illness HPI Narrative: Male who presents with right foot pain. His he was loading things on top of his car when he jumped off the car and landed on his right foot 10 days ago. He was seen evaluated at that time he had an x-ray which was negative and discharged home. He continues to have severe pain and some swelling. It hurts to ambulate. He denies numbness tingling or weakness. Related Data Previous Rx's Medication Instructions Recorded hydroxyzine HCl 10 mg tablet 30 mg PO BEDTIME #90 tab 11/26/19 capsaicin 0.1 % topical cream 1 applic TOPICAL TID #60 g 05/17/20 (High Potency Capsaicin) cyclobenzaprine 10 mg tablet 10 mg PO BID PRN #180 tab 06/09/20 lidocaine 5 % topical patch 1 patch TOPICAL DAILY PRN #30 ea 07/13/20 omeprazole magnesium 20 mg 20 mg PO DAILY #14 tab 07/13/20 tablet,delayed release (Prilosec OTC) celecoxib 200 mg capsule (Celebrex) 200 mg PO DAILY #30 cap 11/05/20 hydrocodone 5 mg-acetaminophen 325 1 tab PO Q6H PRN #10 tab 11/19/20 mg tablet Allergies Allergy/AdvReac Type Severity Reaction Status Date / Time Sulfa (Sulfonamide Allergy Mild Verified 11/19/20 10:36 Antibiotics) [SULFA (SULFONAMIDE ANTIBIOTICS)] tramadol AdvReac Verified 11/19/20 10:36 Review of Systems Review of Systems Narrative: GENERAL: Denies chills,fever HEENT: Denies throat pain RESPIRATORY: Denies dyspnea, cough, wheezing CARDIOVASCULAR: Denies chest pain, palpitations GASTROINTESTINAL: Denies nausea, vomiting MUSCULOSKELETAL: See HPI SKIN: No rash, no laceration, no pruritus NEUROLOGIC: Denies weakness, dizziness, headache, numbness 8 point review of systems is negative except for those stated above and HPI Patient History Medical History Acute stress disorder Cervical spine disease (~2014) Chronic back pain (~2011) Chronic solar dermatitis Elbow pain (~2017) Facet arthropathy, cervical Fractures (~2014) Gastric ulcer (~2010) Hearing deficit (~2016) Right rotator cuff tear Ruptured tympanic membrane (~2015) Shoulder pain Tinnitus (~2015) Vertigo (~2015) Vision disorder White blood cell disorder (~2015) Surgical History Anesthesia History of open reduction and internal fixation (ORIF) procedure (02/05/20) Status post hernia repair (~2008) Status post hernia repair (~2003) Family History Father Age: 61 Hypertension Hematoma Mother Age: 57 Hypertension High cholesterol Diabetes mellitus Sister Age: 39 Hypertension Double ureter Grandmother Stroke Grandfather Cancer Social History marital status: household members: spouse and children occupational status: employed Smoking Status: Never smoker alcohol intake: former substance use type: does not use Smoking Status: Never smoker alcohol intake frequency: other Alcohol type: beer Substance Use Type: marijuana Exam Initial Vital Signs Initial Vital Signs: Vital Signs Temperature 98.3 F 12/14/20 11:30 Pulse Rate 76 12/14/20 11:30 Respiratory Rate 20 12/14/20 11:30 Blood Pressure 120/59 L 12/14/20 11:30 Pulse Oximetry 99 12/14/20 11:30 GENERAL: Well-appearing, well-nourished and in no acute distress. CARDIOVASCULAR: peripheral pulses in tact, cap refill <2 sec RESPIRATORY: No respiratory distress, speaks in full sentences without difficulty EXTREMITIES: Normal range of motion, no clubbing or edema. Neurovascularly intact. Significant pain over right calcaneus minimal swelling acuity in her no erythema, distal pedal pulse intact NEUROLOGICAL: Cranial nerves II through XII grossly intact. Normal gait and speech. SKIN: Warm, dry, no petechiae, no rashes or lesions. Course Orders Ordered: ED Orders 12/14/20 11:54 CT LE RT wo con Stat Vital Signs Vital signs: Vital Signs - 8 hr 12/14/20 11:30 Temperature 98.3 F Pulse Rate 76 Respiratory Rate 20 Blood Pressure 120/59 L Pulse Oximetry 99 MDM - Extremity Injury (Lower) Imaging Data CT lower extremity: Radiologist's Impression: PROCEDURE: CT LE RT WO CON INDICATIONS: calcaneal pain x 10 days TECHNIQUE: Noncontrast 1-1.5 mm axial sections acquired from above the tibiotalar joint to the bottom of the calcaneus, with coronal and sagittal reformats. COMPARISON: [facility], CR, XR FOOT RT MIN 3V, 12/05/2020, 0:01. FINDINGS: Image quality: Excellent. Bones: No trauma found Soft tissues: . No soft tissue hematoma identified. IMPRESSION: No fracture or hematoma found. MR scanning provides a more accurate assessment for presence of occult fractures and bone bruising. Ligamentous injury also can be detected. By this examination no acute trauma is found. Dictated by: Master Wilkins M.D. on 12/14/2020 at 12:49 MDM Narrative Medical decision making narrative: Patient does not have any fracture. He actually has already contacted Dr. Miller And has follow up with her. At this time recommend wearing boot if it is comfortable using crutches as needed may increasing weight-bearing as tolerated. He may require outpatient MRI I but has good outpatient orthopedic follow-up. Discharge Plan Departure Patient Disposition: Home Clinical Impression: Contusion of foot, right Qualifiers: Encounter type: initial encounter Qualified Code(s): S90.31XA - Contusion of right foot, initial encounter Instructions: DI for Foot Sprain Activity Restrictions/Additional Instructions: *You have been diagnosed with right foot contusion and sprain *What to do: At this time CT scan does not show any fracture. You likely have sprain and bruising. This can take a number of weeks to heal. He may ambulate as tolerated. If boot is helpful wear it if not do not. Use crutches as needed. If your persistently having pain. He may need physical therapy or perhaps outpatient MRI however not indicated at this time *Continue to take medications as directed Take Tylenol as directed as needed for pain *Follow up with your primary care provider in 2-3 days *Return to ER if you should have increasing pain swelling redness or any new, worsening or concerning symptoms Prescriptions: No Action hydroxyzine HCl 10 mg tablet 30 mg PO BEDTIME Qty: 90 RF: 3 capsaicin [High Potency Capsaicin] 0.1 % cream 1 applic topical TID Qty: 60 RF: 1 cyclobenzaprine 10 mg tablet 10 mg PO BID PRN (Reason: muscle spasm) Qty: 180 RF: 1 lidocaine 5 % adhesive patch,medicated 1 patch topical DAILY PRN (Reason: pain) Qty: 30 RF: 0 omeprazole magnesium [Prilosec OTC] 20 mg tablet,delayed release (DR/EC) 20 mg PO DAILY Qty: 14 RF: 0 hydrocodone-acetaminophen 5-325 mg tablet 1 tab PO Q6H PRN (Reason: pain) Qty: 10 RF: 0 celecoxib [Celebrex] 200 mg capsule 200 mg PO DAILY Qty: 30 RF: 2 Referrals: Miscellaneous,Doctor, MD [Primary Care Provider] -
--- NOTE | 2020-12-14 11:54 | DI.CT.S_ITS ---
PROCEDURE: CT LE RT WO CON INDICATIONS: calcaneal pain x 10 days TECHNIQUE: Noncontrast 1-1.5 mm axial sections acquired from above the tibiotalar joint to the bottom of the calcaneus, with coronal and sagittal reformats. COMPARISON: [facility], CR, XR FOOT RT MIN 3V, 12/05/2020, 0:01. FINDINGS: Image quality: Excellent. Bones: No trauma found Soft tissues: . No soft tissue hematoma identified. IMPRESSION: No fracture or hematoma found. MR scanning provides a more accurate assessment for presence of occult fractures and bone bruising. Ligamentous injury also can be detected. By this examination no acute trauma is found. Dictated by: Master iWlkins M.D. on 12/14/2020 at 12:49 Approved by: Master Wilkins M.D. on 12/14/2020 at 12:51
== END 2020-12-14 13:19 | disposition home or self-care (01) ==
PROVIDERS: Emergency Provider Emergency Medicine
DX: S90.31XA Contusion of right foot, initial encounter (principal); Y93.39 Activity, other involving climbing, rappelling and jumping off
CPT/HCPCS: 73700; 99281; 99284

== ENCOUNTER → 2020-12-19 13:09 | Outpatient (CLI) | payer OTHER, MEDICAID, SELFPAY ==
[2020-12-19 14:10] LABS: COVID-19 CEPHEID PCR (VTM/NP) Negative (Negative)
== END ==
PROVIDERS: Visit Provider Physician Assistant
DX: Z20.822 Contact with and (suspected) exposure to COVID-19 (principal)
CPT/HCPCS: U0003

== ENCOUNTER 2020-12-26 13:34 | Emergency (ER) | payer OTHER, MEDICAID, SELFPAY ==
[2020-12-26 13:36] VITALS: BP 149/77; PULSE 78; RESP 18; TEMP 36.3; O2SAT 99; BMI 24.6
--- NOTE | 2020-12-26 13:43 | DI.RAD.S_ITS ---
PROCEDURE: XR ACUTE ABDOMEN SERIES INDICATIONS: sp endoscopy, now w/ upper chest and throat pain. TECHNIQUE: One view chest and two views of the abdomen were acquired. COMPARISON: [facility], , ABDOMEN ACUTE SERIES, 03/30/2016, 1:45. FINDINGS: Surgical changes and devices: None. Chest: Lungs are clear. Heart size is normal. No pleural effusions. No pneumoperitoneum. Abdomen: Bowel gas pattern is normal. No suspicious calcifications. Visualized solid organ contours appear normal. Bones: No suspicious bony lesions. IMPRESSION: No acute process. Dictated by: Kingsley Dhaliwal M.D. on 12/26/2020 at 13:14 Approved by: Kingsley Dhaliwal M.D. on 12/26/2020 at 13:14
[2020-12-26 14:13] LABS: Alanine Aminotransferase 25 IU/L (<50); Albumin Globulin Ratio 1.6 (1.0-2.8); Alkaline Phosphatase 72 U/L (38-126); Aspartate Aminotransferase 30 IU/L (17-59); BUN Creatinine Ratio 15.8 (6-22); Bilirubin Total 1.5 mg/dL (0.2-1.3); Blood Urea Nitrogen 16 mg/dL (9-20); Calcium 9.7 mg/dL (8.4-10.2); Carbon Dioxide 28 mmol/L (22-32); Chloride 106 mmol/L (98-107); Estimated Glomerular Filt Rate > 60.0 mL/min (>60); Globulin 3.2 g/dL (1.7-4.1); Glucose 69 mg/dL (70-100); HEMOLYSIS 36 (0-50); Potassium 4.4 mmol/L (3.4-5.1); Sodium 143 mmol/L (137-145); Total Protein 8.2 g/dL (6.3-8.2)
[2020-12-26 14:14] LABS: Add Manual Diff / Slide Review NO; Basophils Absolute Auto 100 /uL (0-100); Basophils Percent Auto 0.7 % (0-2); Eosinophils Absolute Auto 100 /uL (0-450); Eosinophils Percent Auto 1.9 % (2-4); Hematocrit 44.7 % (41-53); Hemoglobin 15.5 g/dL (13.5-17.5); Lymphocytes Absolute Auto 2200 /uL (1100-4500); Lymphocytes Percent Auto 28.4 % (25-40); Mean Corpuscular HGB Conc 34.6 % (30-36); Mean Corpuscular Volume 92.6 fL (80-100); Monocytes Absolute Auto 500 /uL (0-900); Neutrophils Absolute Auto 4800 /uL (1500-7000); Platelet Count 217 X10^3/uL (150-400); Red Blood Cell Count 4.83 X10^6/uL (4.5-5.9); Red Cell Distribution Width 12.8 % (11.6-14.8); White Blood Cell Count 7.8 X10^3/uL (4.5-11.0)
--- NOTE | 2020-12-26 14:16 | PC.NURSE ---
provider aware patient is in pain
[2020-12-26 14:19] VITALS: BP 123/70; PULSE 68; O2SAT 98
[2020-12-26 14:30] VITALS: BP 118/59; PULSE 74; O2SAT 98
[2020-12-26 15:00] VITALS: BP 116/58; PULSE 67; O2SAT 97
[2020-12-26 15:30] VITALS: BP 107/53; PULSE 65; O2SAT 97
--- NOTE | 2020-12-26 15:36 | ED.CHESTPAIN ---
HPI - Chest Pain General Chief Complaint: Chest Pain Stated Complaint: severe pain after endoscopy Time Seen by Provider: 12/26/20 15:18 Source: patient Mode of arrival: Ambulatory Limitations: no limitations History of Present Illness HPI narrative: Patient left the department prior to being fully evaluated. Patient was refusing to remove IV and was instructed clearly at 911 would be contacted and police called if he did not remove his IV or allow us to remove it prior to leaving. Patient had to be followed into the waiting area and pulled his IV out and threw it on the ground before leaving. Patient was able to ambulate safely on his own. With clear speech, mentation and appropriate to make decisions to leave the department. Labs and imaging were reviewed. Related Data Previous Rx's Medication Instructions Recorded omeprazole magnesium 20 mg 20 mg PO DAILY #14 tab 07/13/20 tablet,delayed release (Prilosec OTC) Allergies Allergy/AdvReac Type Severity Reaction Status Date / Time Sulfa (Sulfonamide Allergy Mild Verified 12/15/20 08:19 Antibiotics) [SULFA (SULFONAMIDE ANTIBIOTICS)] tramadol AdvReac Verified 12/15/20 08:19 Review of Systems Review of Systems ROS Unobtainable: All systems reviewed & are unremarkable except as noted in HPI and below Patient History Medical History Acute stress disorder Cervical spine disease (~2014) Chronic back pain (~2011) Chronic solar dermatitis Elbow pain (~2016) Facet arthropathy, cervical Fractures (~2014) Gastric ulcer (~2010) Hearing deficit (~2015) Right rotator cuff tear Ruptured tympanic membrane (~2015) Shoulder pain Tinnitus (~2015) Vertigo (~2015) Vision disorder White blood cell disorder (~2015) Surgical History Anesthesia History of open reduction and internal fixation (ORIF) procedure (02/05/20) Status post hernia repair (~2008) Status post hernia repair (~2003) Family History Father Age: 61 Hypertension Hematoma Mother Age: 57 Hypertension High cholesterol Diabetes mellitus Sister Age: 39 Hypertension Double ureter Grandmother Stroke Grandfather Cancer Social History marital status: household members: spouse and children occupational status: employed Smoking Status: Never smoker alcohol intake: former substance use type: does not use Smoking Status: Never smoker alcohol intake frequency: other Alcohol type: beer Substance Use Type: marijuana Exam Narrative Exam Narrative: GENERAL: Alert male. Ambulating out of the department. HEENT: Head normocephalic, atraumatic NECK: full range of motion EXTREMITIES: Normal range of motion NEUROLOGICAL: Normal gait. Initial Vital Signs Initial Vital Signs: Vital Signs Temperature 97.4 F L 12/26/20 13:36 Pulse Rate 78 12/26/20 13:36 Respiratory Rate 18 12/26/20 13:36 Blood Pressure 149/77 H 12/26/20 13:36 Pulse Oximetry 99 12/26/20 13:36 Course Orders Ordered: ED Orders 12/26/20 13:43 XR acute abdomen series Stat 12/26/20 13:55 CMP [Comprehensive Metabolic Panel] Stat Complete Blood Count AUTO DIFF Stat Discontinued Medications Al Hydrox/Mg Hydrox/Simethicone 20 ml/ Lidocaine HCl 15 ml 0 ml PO NOW ONE Stop: 12/26/20 15:29 Vital Signs Vital signs: Vital Signs - 8 hr 12/26/20 13:36 12/26/20 14:19 12/26/20 14:30 Temperature 97.4 F L Pulse Rate 78 68 74 Respiratory Rate 18 Blood Pressure 149/77 H 123/70 118/59 L Pulse Oximetry 99 98 98 12/26/20 15:00 12/26/20 15:30 Temperature Pulse Rate 67 65 Respiratory Rate Blood Pressure 116/58 L 107/53 L Pulse Oximetry 97 97 MDM - Chest Pain Lab Data Result diagrams: 12/26/20 13:55 12/26/20 13:55 Labs: Lab Results 12/26/20 12/26/20 Range/Units 13:55 13:55 WBC 7.8 (4.5-11.0) X10^3/uL RBC 4.83 (4.5-5.9) X10^6/uL Hgb 15.5 (13.5-17.5) g/dL Hct 44.7 (41-53) % MCV 92.6 (80-100) fL MCH 32.0 (26-34) PG MCHC 34.6 (30-36) % RDW 12.8 (11.6-14.8) % Plt Count 217 (150-400) X10^3/uL Neut % (Auto) 62.0 (50-75) % Lymph % (Auto) 28.4 (25-40) % [place] % (Auto) 7.0 (3-14) % Eos % (Auto) 1.9 L (2-4) % Baso % (Auto) 0.7 (0-2) % Neut # (Auto) 4800 (7336-4402) /uL Lymph # (Auto) 2200 (0946-9687) /uL [place] # (Auto) 500 (0-900) /uL Eos # (Auto) 100 (0-450) /uL Baso # (Auto) 100 (0-100) /uL Sodium 143 (137-145) mmol/L Potassium 4.4 (3.4-5.1) mmol/L Chloride 106 (98-107) mmol/L Carbon Dioxide 28 (22-32) mmol/L BUN 16 (9-20) mg/dL Creatinine 1.01 (0.66-1.25) mg/dL Estimated GFR > 60.0 (>60) mL/min BUN/Creatinine Ratio 15.8 (6-22) Glucose 69 L (70-100) mg/dL Calcium 9.7 (8.4-10.2) mg/dL Total Bilirubin 1.5 H (0.2-1.3) mg/dL AST 30 (17-59) IU/L ALT 25 (<50) IU/L Alkaline Phosphatase 72 (38-126) U/L Total Protein 8.2 (6.3-8.2) g/dL Albumin 5.0 (3.5-5.0) g/dL Globulin 3.2 (1.7-4.1) g/dL Albumin/Globulin Ratio 1.6 (1.0-2.8) Discharge Plan Departure Patient Disposition: Left Against Medical Advice Clinical Impression: Patient left before evaluation by physician Prescriptions: No Action omeprazole magnesium [Prilosec OTC] 20 mg tablet,delayed release (DR/EC) 20 mg PO DAILY Qty: 14 RF: 0 Referrals: Jones Abdul MD [Primary Care Provider] - Stand Alone Forms: Against Medical Advice
--- NOTE | 2020-12-26 15:41 | PC.NURSE ---
patient came to room door and stated he wanted his IV pulled because he was leaving and going to [facility]. Patient informed provider being notified and asked to stay until provider could see him. Patient then stated he is leaving the IV in place and going to [facility]. patient walked past doctors station and provider told him the IV needed to be removed. several nurses followed patient down the samuel asking to remove iv. patient pulled IV. a nurse followed patient into parking lot and proveded a bandage to control bleeding.
== END 2020-12-26 15:47 | disposition left against medical advice (07) ==
PROVIDERS: Emergency Provider Emergency Medicine; PCP Family Medicine
DX: R07.9 Chest pain, unspecified (principal)
CPT/HCPCS: 36415; 74022; 80053; 85025; 99284

== ENCOUNTER → 2021-02-01 11:05 | Outpatient (CLI) | payer OTHER, MEDICAID, SELFPAY ==
[2021-02-09 15:59] LABS: COVID19 -Nasal RAPID POSITIVE (Negative)
== END ==
PROVIDERS: PCP Family Medicine; Visit Provider Physician Assistant
DX: Z20.822 Contact with and (suspected) exposure to COVID-19 (principal)
CPT/HCPCS: 87635

== ENCOUNTER → 2021-02-24 13:00 | Outpatient (CLI) | payer OTHER, MEDICAID, SELFPAY ==
--- NOTE | 2021-02-24 | DI.MRI.S_ITS ---
PROCEDURE: MR SHOULDER RT W CON INDICATIONS: Strain of muscle and tendon of front wall of thorax, initial TECHNIQUE: After the administration of 12 mL of dilute intra-articular Gadolinium contrast, oblique coronal T1 and T2 spin echo with fat saturation, oblique sagittal T1 spin echo with and without fat saturation, oblique sagittal T2 fast spin echo with fat saturation, axial T1 spin echo with fat saturation through the shoulder. COMPARISON: [facility] [place], CR, XR SHOULDER 2+ VIEWS RIGHT, 04/20/2020, 15:15. [facility], MR, MR SHOULDER RT WO CON, 04/30/2020, 16:33. FINDINGS: Image quality: Excellent. Rotator cuff: The supraspinatus, infraspinatus, and subscapularis tendons appear intact throughout. No rotator cuff muscle atrophy on sagittal images. Bones and bursae: No bone marrow contusions or fractures. No acromioclavicular joint degeneration. The acromion demonstrates conventional anatomy, without an os acromiale. Capsule and soft tissues: There is undercutting of the anterior-superior labrum (series 5, image 7; series 7, image 16) which could represent sublabral sulcus versus small tear. The glenohumeral ligaments appear intact. The long head of the biceps tendon demonstrates normal location and morphology. The rotator interval appears normal, without fibrosis. The coracohumeral ligament is of normal thickness. No intra-articular bodies. Incidental note made of capacious posterior joint space which is nonspecific finding, but can be reflective of prior shoulder dislocation. IMPRESSION: 1. Small anterior-superior labral tear versus sublabral sulcus. Please correlate with clinical findings. 2. No rotator cuff tear. Dictated by: Katia Renteria MD, PhD on 02/24/2021 at 17:55 Approved by: Katia Renteria MD, PhD on 02/25/2021 at 10:14
--- NOTE | 2021-02-24 | DI.RAD.S_ITS ---
PROCEDURE: FL SHOULDER INJECTION MR/CT RT INDICATIONS: Strain of muscle and tendon of front wall of thorax, initial COMPARISON: None. TECHNIQUE: The indications, alternatives, benefits, risks, and complications of the procedure were explained to the patient. Written informed consent was obtained and placed in the chart. The shoulder was examined fluoroscopically and a site for needle placement chosen for entry into the glenohumeral joint from an anterior approach. The skin was prepped and draped in a sterile fashion, and 1% lidocaine infiltrated from skin down to joint capsule. A spinal needle was inserted into the glenohumeral joint, and a small amount of iodinated contrast media injected to confirm intra-articular placement of the needle tip. This was followed by approximately 12 mL dilute solution of a gadolinium containing MR contrast agent. The needle was removed and a dressing was applied. The patient was given postprocedural instructions and sent to the MR suite for MR imaging. FINDINGS: A single fluoroscopic spot image demonstrates intra-articular location of injected iodinated contrast. IMPRESSION: Successful fluoroscopically guided administration of dilute Gadolinium solution into the shoulder joint for MR arthrogram. Dictated by: Marquez Vazquez M.D. on 02/24/2021 at 14:44 Approved by: Marquez Vazquez M.D. on 02/24/2021 at 14:47
== END ==
PROVIDERS: PCP Family Medicine; Referring Provider Orthopaedic Surgery; Visit Provider Orthopaedic Surgery
DX: S29.011A Strain of muscle and tendon of front wall of thorax, initial encounter (principal); X58.XXXA Exposure to other specified factors, initial encounter
CPT/HCPCS: 23350; 73222; 77002

== ENCOUNTER → 2021-05-11 15:59 | Outpatient (CLI) | payer OTHER, MEDICAID, SELFPAY ==
--- NOTE | 2021-05-11 16:03 | DI.MRI.S_ITS ---
PROCEDURE: MR HEAD/BRAIN WO CON INDICATIONS: headaches unrelieved by medication TECHNIQUE: Noncontrast axial T1 spin echo, axial T2 fast spin echo, sagittal and axial FLAIR, coronal T2 fast spin echo, axial gradient echo, axial diffusion and ADC through the brain. COMPARISON: None. FINDINGS: Image quality: Excellent. CSF Spaces: Basal cisterns are patent. No extra-axial fluid collections. Ventricles are normal in size and shape. Brain: No intracranial masses or hemorrhage. [place]/white matter interface is normal. Brainstem appears normal. Diffusion-weighted images demonstrate no acute ischemic insult. No chronic ischemic insults. Normal intravascular flow voids are present. Skull and face: Calvarium has normal marrow signal. Orbits appear normal. Sinuses: Small mucous retention cyst noted in the left maxillary sinus. Minimal mucosal thickening of the floors of the maxillary sinuses bilaterally. Fluid signal in the right mastoid air cells. Left mastoid air cells are clear. IMPRESSION: 1. No intracranial disease process. 2. No abnormal intracranial mass or mass effect. 3. No intracranial hemorrhage. 4. Fluid in the right mastoid air cells. Recommend correlation with direct physical findings to differentiate serous fluid from an inflammatory process. Dictated by: Katia Renteria MD, PhD on 05/11/2021 at 16:57 Approved by: Katia Renteria MD, PhD on 05/11/2021 at 16:59
== END ==
PROVIDERS: PCP Family Medicine; Referring Provider Family Medicine; Visit Provider Family Medicine
DX: R51.9 Headache, unspecified (principal)
CPT/HCPCS: 70551

== ENCOUNTER 2021-05-19 12:18 | Emergency (ER) | payer OTHER, MEDICAID, SELFPAY ==
[2021-05-19 12:25] VITALS: BP 144/79; RESP 18; TEMP 36.7; O2SAT 100; BMI 23.3
--- NOTE | 2021-05-19 12:29 | DI.RAD.S_ITS ---
PROCEDURE: XR CHEST 1V INDICATIONS: post operative chest pain TECHNIQUE: One view of the chest was acquired. COMPARISON: [facility], CR, XR CHEST 1V, 07/18/2020, 22:24. FINDINGS: Surgical changes and devices: None. Lungs and pleura: Lungs are clear. No pleural effusions or pneumothorax. Mediastinum: Mediastinal contours appear normal. Heart size is normal. Bones and chest wall: No suspicious bony lesions. Overlying soft tissues appear unremarkable. IMPRESSION: No acute cardiopulmonary abnormalities or focal airspace disease. Dictated by: Luis See M.D. on 05/19/2021 at 12:58 Approved by: Luis See M.D. on 05/19/2021 at 12:59
[2021-05-19] MEDS: SODIUM CHLORIDE 0.9% 1,000 ML 150 ML IV (12:36)
[2021-05-19 12:44] LABS: Add Manual Diff / Slide Review NO; Basophils Absolute Auto 100 /uL (0-100); Basophils Percent Auto 0.7 % (0-2); Eosinophils Absolute Auto 200 /uL (0-450); Eosinophils Percent Auto 2.1 % (2-4); Hematocrit 40.7 % (41-53); Hemoglobin 14.3 g/dL (13.5-17.5); Lymphocytes Absolute Auto 1600 /uL (1100-4500); Lymphocytes Percent Auto 19.4 % (25-40); Mean Corpuscular HGB Conc 35.1 % (30-36); Mean Corpuscular Hemoglobin 32.3 PG (26-34); Mean Corpuscular Volume 91.9 fL (80-100); Monocytes Absolute Auto 700 /uL (0-900); Monocytes Percent Auto 8.1 % (3-14); Neutrophils Absolute Auto 5700 /uL (1500-7000); Neutrophils Percent Auto 69.7 % (50-75); Platelet Count 218 X10^3/uL (150-400); Red Blood Cell Count 4.43 X10^6/uL (4.5-5.9); Red Cell Distribution Width 12.7 % (11.6-14.8); White Blood Cell Count 8.2 X10^3/uL (4.5-11.0)
--- NOTE | 2021-05-19 12:45 | ED.CHESTPAIN ---
HPI - Chest Pain General Chief Complaint: Chest Pain Stated Complaint: possible cardio, chest hurts Time Seen by Provider: 05/19/21 12:28 Source: patient Mode of arrival: Wheelchair Limitations: no limitations History of Present Illness HPI narrative: 36-year-old male nonsmoker with recent abdominal surgery at an outside facility presents with a chief complaint at least a day or 2 ago sharp and stabbing upper abdominal and right-sided chest pain. 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 His pain is sharp and stabbing with deep breaths, motion and use of his right upper extremity. He states he feels like he has gassy abdominal pain but otherwise his abdomen feels okay. He has been nauseated but denies any vomiting. He has had no fever or chills. He denies any change in bowel movements. He has had no urinary complaints. He is not dizzy nor weak or lightheaded. Related Data Previous Rx's Medication Instructions Recorded omeprazole magnesium 20 mg 20 mg PO DAILY #14 tab 07/13/20 tablet,delayed release (Prilosec OTC) meloxicam 7.5 mg tablet (Mobic) 7.5 mg PO DAILY #60 tab 02/04/21 hydroxyzine HCl 10 mg tablet 10 mg PO Q8H #60 tab 03/02/21 oxycodone 5 mg tablet 5 mg PO BID PRN #30 tab 03/02/21 pregabalin 150 mg capsule (Lyrica) 150 mg PO BID #90 cap 03/02/21 duloxetine 60 mg capsule,delayed 60 mg PO DAILY #60 cap 03/14/21 release (Cymbalta) sumatriptan succinate 25 mg tablet See Rx Instructions PO .COMPLEX 04/04/21 (Imitrex) #20 tab cyclobenzaprine 10 mg tablet 10 mg PO TID PRN #14 tab 05/19/21 ketorolac 10 mg tablet 10 mg PO Q6H PRN #14 tab 05/19/21 Allergies Allergy/AdvReac Type Severity Reaction Status Date / Time Sulfa (Sulfonamide Allergy Mild Verified 03/14/21 16:01 Antibiotics) [SULFA (SULFONAMIDE ANTIBIOTICS)] acetaminophen [From Tylenol] Allergy Verified 03/14/21 16:01 ketorolac [From Toradol] Allergy Verified 03/14/21 16:01 tramadol AdvReac Verified 03/14/21 16:01 Review of Systems Review of Systems Narrative: GENERAL: Denies chills, fatigue, malaise, fever, sweats. HEENT: Denies sinus pain, ear pain, sore throat, difficulty swallowing, dizziness. RESPIRATORY: Denies dyspnea, cough, wheezing, hemoptysis, sputum. CARDIOVASCULAR: See HPI GASTROINTESTINAL: See HPI : Denies dysuria, frequency, incontinence, hematuria, urinary retention. MUSCULOSKELETAL: denies weakness, joint pain, or bony pain SKIN: Denies rash, skin lesions, or other NEUROLOGIC: Denies weakness, headache, numbness, change in speech, confusion, seizures, incoordination. PSYCHIATRIC: No concerning psychosocial issues. 12 point review of systems is negative except for those stated above Patient History Medical History Acute stress disorder Cervical spine disease (~2014) Chronic back pain (~2011) Chronic solar dermatitis Elbow pain (~2016) Facet arthropathy, cervical Fibromyalgia Fractures (~2014) Gastric ulcer (~2010) Hearing deficit (~2015) Right rotator cuff tear Ruptured tympanic membrane (~2015) Shoulder pain Tinnitus (~2015) Vertigo (~2015) Vision disorder White blood cell disorder (~2015) Surgical History Anesthesia History of open reduction and internal fixation (ORIF) procedure (02/05/20) Status post hernia repair (~2008) Status post hernia repair (~2003) Family History Father Age: 61 Hypertension Hematoma Mother Age: 57 Hypertension High cholesterol Diabetes mellitus Sister Age: 39 Hypertension Double ureter Grandmother Stroke Grandfather Cancer Social History marital status: household members: spouse and children occupational status: employed Smoking Status: Never smoker alcohol intake: former substance use type: does not use Smoking Status: Never smoker alcohol intake frequency: other Alcohol type: beer Substance Use Type: marijuana Exam Narrative Exam Narrative: GENERAL: [36 year old patient appears stated age. Well-developed patient, in mild distress. A bit anxious, clearly uncomfortable HEAD: Atraumatic. Normocephalic. EYES: Pupils equal round and reactive. Extraocular motions intact. No scleral icterus. No injection or drainage. ENT: Nose without bleeding, purulent drainage. Throat without erythema, tonsillar hypertrophy or exudate. Airway patent. NECK: Trachea midline. Non tender CARDIOVASCULAR: Regular rate and rhythm without murmurs, gallops, or rubs. RESPIRATORY: Clear to auscultation. Breath sounds equal bilaterally. No wheezes, rales, or rhonchi. GASTROINTESTINAL: Abdomen soft, non-tender, nondistended. Incisions are clean, dry and intact EXTREMITIES: No edema or joint tenderness. BACK: Nontender without deformity or crepitance. No flank tenderness. NEURO: AOx3. SKIN: No rash or erythema of visible areas Initial Vital Signs Initial Vital Signs: Vital Signs Temperature 98.0 F 05/19/21 12:25 Respiratory Rate 18 05/19/21 12:25 Blood Pressure 144/79 H 05/19/21 12:25 Pulse Oximetry 100 05/19/21 12:25 Course Orders Ordered: ED Orders 05/19/21 12:29 XR chest 1V Stat EKG-12 Lead Stat 05/19/21 12:36 Complete Blood Count AUTO DIFF Stat Comprehensive Metabolic Panel Stat D Dimer Stat Lipase Stat NT-proBNP (BNP-Adult 18+) Stat Troponin & CK Cardiac Panel Stat 05/19/21 13:25 CT angio chest PE protocol Stat 05/19/21 13:27 CT abdomen pelvis w con Stat Discontinued Medications Hydromorphone HCl (Hydromorphone 0.5 Mg Inj) 0.5 mg IV NOW ONE Stop: 05/19/21 13:30 Last Admin: 05/19/21 13:44 Dose: 0.5 mg Documented by: EVA Sodium Chloride (Normal Saline 0.9%) 1,000 mls @ 150 mls/hr IV CONT SUKUMAR Last Admin: 05/19/21 12:36 Dose: 150 mls/hr Documented by: MARIVEL Vital Signs Vital signs: Vital Signs - 8 hr 05/19/21 12:25 05/19/21 12:51 05/19/21 15:08 Temperature 98.0 F Pulse Rate 78 76 Respiratory Rate 18 18 17 Blood Pressure 144/79 H 128/61 115/61 Pulse Oximetry 100 97 97 MDM - Chest Pain Lab Data Result diagrams: 05/19/21 12:36 05/19/21 12:36 Labs: Lab Results 05/19/21 05/19/21 05/19/21 Range/Units 12:36 12:36 12:36 WBC 8.2 (4.5-11.0) X10^3/uL RBC 4.43 L (4.5-5.9) X10^6/uL Hgb 14.3 (13.5-17.5) g/dL Hct 40.7 L (41-53) % MCV 91.9 (80-100) fL MCH 32.3 (26-34) PG MCHC 35.1 (30-36) % RDW 12.7 (11.6-14.8) % Plt Count 218 (150-400) X10^3/uL Neut % (Auto) 69.7 (50-75) % Lymph % (Auto) 19.4 L (25-40) % Norton % (Auto) 8.1 (3-14) % Eos % (Auto) 2.1 (2-4) % Baso % (Auto) 0.7 (0-2) % Neut # (Auto) 5700 (7011-2494) /uL Lymph # (Auto) 1600 (3021-2934) /uL Norton # (Auto) 700 (0-900) /uL Eos # (Auto) 200 (0-450) /uL Baso # (Auto) 100 (0-100) /uL D-Dimer < 200 (<230) ng/mL Sodium 140 (137-145) mmol/L Potassium 4.4 (3.4-5.1) mmol/L Chloride 105 (98-107) mmol/L Carbon Dioxide 29 (22-32) mmol/L BUN 13 (9-20) mg/dL Creatinine 0.93 (0.66-1.25) mg/dL Estimated GFR > 60.0 (>60) mL/min BUN/Creatinine Ratio 14.0 (6-22) Glucose 92 (70-100) mg/dL Calcium 9.9 (8.4-10.2) mg/dL Total Bilirubin 1.3 (0.2-1.3) mg/dL AST 21 (17-59) IU/L ALT 12 (<50) IU/L Alkaline Phosphatase 61 (38-126) U/L Total Creatine Kinase 76 (55-170) U/L CK-MB (CK-2) TNP CK-MB (CK-2) Rel Index TNP Troponin I < 0.012 (0.01-0.034) ng/mL NT-Pro-B Natriuret Pep 30 (<125) pg/mL Total Protein 7.6 (6.3-8.2) g/dL Albumin 4.7 (3.5-5.0) g/dL Globulin 2.9 (1.7-4.1) g/dL Albumin/Globulin Ratio 1.6 (1.0-2.8) Lipase 32 (23-300) U/L Imaging Data Chest x-ray: Radiologist's Impression: Launch?Image [address] [address] XRay Report Signed Patient: Luis Castano MR#: [id number] : 1985 Acct:[id number] Age/Sex: 36 / M Date of Service: 05/19/21 Loc: ED Accession Number: [id number] ?? Procedure: XR chest 1V Ordering Provider: Guille Dyer D.O. PROCEDURE:? XR CHEST 1V ? INDICATIONS:? post operative chest pain ? TECHNIQUE:? One view of the chest was acquired.? ? COMPARISON:? [facility], , XR CHEST 1V, 07/18/2020, 22:24. ? FINDINGS:? ? Surgical changes and devices:? None.? ? Lungs and pleura:? Lungs are clear.? No pleural effusions or pneumothorax.? ? Mediastinum:? Mediastinal contours appear normal.? Heart size is normal.? ? Bones and chest wall:? No suspicious bony lesions.? Overlying soft tissues appear unremarkable.? ? IMPRESSION:? No acute cardiopulmonary abnormalities or focal airspace disease. ? Dictated by: Luis See M.D. on 05/19/2021 at 12:58 ? ? Approved by: Luis eSe M.D. on 05/19/2021 at 12:59 ? CT scan - chest: Radiologist's Impression: Close Abdomen/Pelvis CT (Signed) Rebekah Hawkins - 05/19/21 Chest CTA (Signed) Luis See - 05/19/21 Chest X-Ray (Signed) Luis See - 05/19/21 Brain MRI (Signed) Katia Renteria - 05/11/21 Shoulder MRI (Signed) Katia Renteria - 02/24/21 Injection for MRI Arthrogram (Signed) Marquez Vazquez - 02/24/21 Chest/Abdomen X-ray (Signed) Kingsley Dhaliwal - 12/26/[address] (Signed) Master Wilkins - 12/14/20 Foot X-Ray (Signed) Jarred Orr - 12/04/20 Hand X-Ray (Signed) Tin Meza - 11/19/20 Cervical Spine X-Ray (Signed) Master Wilkins - 11/05/20 Cervical Spine MRI (Signed) Kingsley Dhaliwal - 09/30/20 Chest X-Ray (Signed) Garett Epps - 07/18/20 Thoracic Spine X-Ray (Signed) Jyoti Jackson - 07/13/20 Shoulder MRI (Signed) Royal Harper - 04/30/20 Finger X-Ray (Signed) Christopher Jin - 03/18/20 Telemetry Strips 02/05/[address] (Signed) Tin Meza - 01/26/20 Hand X-Ray (Signed) JacksonJyoti patino - 01/26/20 Hand X-Ray (Signed) Leah Garcia - 01/21/20 Foot X-Ray (Signed) Leah Garcia - 10/03/19 Knee X-Ray (Signed) Mega Barraza - 07/23/19 Foot X-Ray (Signed) Flaco Durbin - 02/18/19 Hand X-Ray (Signed) Lopez Perez - 01/15/19 Chest X-Ray (Signed) Lopez Perez - 01/15/19 Barium Swallow X-Ray (Signed) Marquez Vazquez - 01/03/19 Finger X-Ray (Signed) Jarred Orr - 09/12/18 Telemetry Strips 09/10/18 Chest X-Ray (Signed) Kingsley Dhaliwal - 03/21/18 Radiology - Historical 07/18/[address] [address] [address] Scan Report Signed Patient: Luis Castano MR#: [id number] : 1985 Acct:[id number] Age/Sex: 36 / M Date of Service: 05/19/21 Loc: ED Accession Number: [id number] ?? Procedure: CT angio chest PE protocol Ordering Provider: Guille Dyer D.O. PROCEDURE:? CT ANGIO CHEST PE PROTOCOL ? INDICATIONS:? pleuritic chest pain, recent surgery ? TECHNIQUE:? After the administration of intravenous contrast, 2 mm thick sections acquired from the pulmonary apices to the posterior costophrenic angles.? 3-dimensional maximum intensity projection (MIP) coronal and sagittal reformats were then acquired through the thorax.? For radiation dose reduction, the following was used:? automated exposure control, adjustment of mA and/or kV according to patient size.? ? COMPARISON:? [facility], , XR CHEST 1V, 05/19/2021, 12:31. ? FINDINGS:? Image quality:? Excellent.? ? Pulmonary arteries:? Pulmonary arteries are normal in size, and demonstrate no intraluminal filling defects to suggest central pulmonary embolism.? ? Lungs and pleura:? Mild dependent atelectasis the bilateral hemithoraces.? No focal consolidation.? No septal thickening or nodularity.? No suspicious pulmonary nodules or masses.? No pleural effusions or pneumothorax.? Central and peripheral airways are patent.? ? Mediastinum:? Heart size is normal, without pericardial effusion.? No mediastinal or hilar adenopathy.? Thoracic aorta is normal in caliber and enhancement.? Esophagus is normal in caliber.? Small hiatal hernia with postoperative changes of Vadim fundoplication. ? Bones and chest wall:? No suspicious bony lesions.? Ribs and thoracic spine appear intact throughout.? Thyroid gland is unremarkable.? No axillary or supraclavicular adenopathy.? ? Abdomen:? Visualized upper abdominal solid organs appear normal in the early arterial phase of enhancement.? ? IMPRESSION:? ? 1. CT angiogram of the chest without acute pulmonary emboli. ? 2. Mild dependent atelectasis of the bilateral hemithoraces.? Otherwise, no acute cardiopulmonary abnormalities identified. ? 3. Expected postsurgical changes of Vadim fundoplication.? ? ? Dictated by: Luis See M.D. on 05/19/2021 at 14:39 ? ? Approved by: Luis See M.D. on 05/19/2021 at 14:48 ? CT scan - abdomen/pelvis: Radiologist's Impression: Launch?Image [address] [address] [address] Scan Report Signed Patient: Luis Castano MR#: [id number] : 1985 Acct:[id number] Age/Sex: 36 / M Date of Service: 05/19/21 Loc: ED Accession Number: [id number] ?? Procedure: CT abdomen pelvis w con Ordering Provider: Guille Dyer D.O. PROCEDURE:? CT ABDOMEN PELVIS W CON ? INDICATIONS:? severe upper abdomen and chest pain, recent fundoplication ? TECHNIQUE:? After the administration of oral and IV contrast, axial sections were acquired from the lung bases to the pubic symphysis.? Coronal and sagittal reformats were performed.? For radiation dose reduction, the following was used:? automated exposure control, adjustment of mA and/or kV according to patient size. ? COMPARISON:? [facility], CT, ABDOMEN/PELVIS WITH CONTRAST, 07/18/2017, 3:29. ? FINDINGS:? Image quality:? Excellent.? ? Lung bases:? Unremarkable.? ? Heart:? No significant findings. ? ? ABDOMEN: Liver:? No masses Gallbladder:? Normal wall thickness. Biliary ducts:? Nondilated. Pancreas:? Normal. Spleen:? Normal size. Adrenal Glands:? No nodules. Kidneys and Ureters:? Normal enhancement.? No hydronephrosis or hydroureter.? No calcifications. ? Stomach and Bowel:? Surgical changes of fundoplication at the GE junction are subdiaphragmatic.? Mild expected edema in the gastric wall.? No perigastric fluid or free air.? Small and large bowel loops are otherwise normal. Peritoneum:? No abnormal intraperitoneal fluid.? No free air.? ? Ventral Wall: ? No hernia.? Abdominal Nodes:? No retroperitoneal or mesenteric adenopathy by size criteria.? Vessels:? Aorta and inferior vena cava are normal in size.? ? PELVIS: Pelvic Organs:? Normal size prostate gland. Bladder:? Normal bladder wall thickness. Pelvic Nodes: No enlarged lymph nodes.? Miscellaneous: No inguinal hernias are seen. ? ? ? Bones:? Unremarkable.? IMPRESSION:? ? 1. Surgical changes of fundoplication without evidence of complication.? ? ? Dictated by: Rebekah Hawkins M.D. on 05/19/2021 at 14:24 ? ? Approved by: Rebekah Hawkins M.D. on 05/19/2021 at 14:29 ? [facility] Narrative Medical decision making narrative: Patient with very reassuring history and physical exam. Labs are unremarkable. Labs in imaging demonstrate no significant findings such as pulmonary embolism, pericardial effusion, postsurgical findings such as hematoma, infection or other. He has been given extensive return precautions and questions answered to his apparent satisfaction. Discharge Plan Departure Patient Disposition: Home Clinical Impression: Atypical chest pain Instructions: DI for Atypical Chest Pain Activity Restrictions/Additional Instructions: *You have been diagnosed with [atypical chest pain. Your history, physical exam, labs and imaging are very reassuring. There is no evidence of any significant or life-threatening cause of your discomfort *What to do: *Please continue to take your regular medications as directed. [] New medication prescriptions sent to your pharmacy: [ ] [ ] New medication written as a paper prescription [ ] No new medications given *Please follow up with your primary care provider in 2-3 days, call for an appointment. Let them know you were seen in the Emergency Department and that we ask that you be seen in follow up. We will electronically transmit a record of today's note if your PCP is in our system *If you do not have a primary care provider please contact the [facility] Resource line at [phone]. They will ask some questions about your medical history and help get you set up with a doctor in the community. *Return to Emergency Department if you should have any new, worsening or concerning symptoms, such as [fever greater than 101 F, shaking chills, worsening pain, persistent vomiting or other bothersome symptoms] Prescriptions: New cyclobenzaprine 10 mg tablet 10 mg PO TID PRN (Reason: muscle spasm) Qty: 14 0RF ketorolac 10 mg tablet 10 mg PO Q6H PRN (Reason: pain) Qty: 14 0RF No Action sumatriptan succinate [Imitrex] 25 mg tablet See Rx Instructions PO .COMPLEX Qty: 20 0RF Rx Instructions: take 1 tab at onset of headache; if no relief may repeat 1 tab after at least 2 hrs; max = 4 tabs/24 hr PO meloxicam [Mobic] 7.5 mg tablet 7.5 mg PO DAILY Qty: 60 0RF duloxetine [Cymbalta] 60 mg capsule,delayed release(DR/EC) 60 mg PO DAILY Qty: 60 0RF pregabalin [Lyrica] 150 mg capsule 150 mg PO BID Qty: 90 0RF hydroxyzine HCl 10 mg tablet 10 mg PO Q8H Qty: 60 0RF oxycodone 5 mg tablet 5 mg PO BID PRN (Reason: pain) Qty: 30 0RF omeprazole magnesium [Prilosec OTC] 20 mg tablet,delayed release (DR/EC) 20 mg PO DAILY Qty: 14 0RF Referrals: Jones Abdul MD [Primary Care Provider] -
[2021-05-19 12:51] VITALS: BP 128/61; PULSE 78; RESP 18; O2SAT 97
[2021-05-19 13:03] LABS: Alanine Aminotransferase 12 IU/L (<50); Albumin 4.7 g/dL (3.5-5.0); Albumin Globulin Ratio 1.6 (1.0-2.8); Alkaline Phosphatase 61 U/L (38-126); Aspartate Aminotransferase 21 IU/L (17-59); Bilirubin Total 1.3 mg/dL (0.2-1.3); Blood Urea Nitrogen 13 mg/dL (9-20); Calcium 9.9 mg/dL (8.4-10.2); Carbon Dioxide 29 mmol/L (22-32); Chloride 105 mmol/L (98-107); Creatine Kinase 76 U/L (55-170); Estimated Glomerular Filt Rate > 60.0 mL/min (>60); Globulin 2.9 g/dL (1.7-4.1); Glucose 92 mg/dL (70-100); HEMOLYSIS < 15 (0-50); Lipase 32 U/L (23-300); Potassium 4.4 mmol/L (3.4-5.1); Sodium 140 mmol/L (137-145); Total Protein 7.6 g/dL (6.3-8.2)
[2021-05-19 13:04] LABS: D Dimer < 200 ng/mL (<230)
[2021-05-19 13:15] LABS: NT-proBNP (BNP-Adult 18+) 30 pg/mL (<125); Troponin I < 0.012 ng/mL (0.01-0.034)
--- NOTE | 2021-05-19 13:25 | DI.CT.S_ITS ---
PROCEDURE: CT ANGIO CHEST PE PROTOCOL INDICATIONS: pleuritic chest pain, recent surgery TECHNIQUE: After the administration of intravenous contrast, 2 mm thick sections acquired from the pulmonary apices to the posterior costophrenic angles. 3-dimensional maximum intensity projection (MIP) coronal and sagittal reformats were then acquired through the thorax. For radiation dose reduction, the following was used: automated exposure control, adjustment of mA and/or kV according to patient size. COMPARISON: [facility], CR, XR CHEST 1V, 05/19/2021, 12:31. FINDINGS: Image quality: Excellent. Pulmonary arteries: Pulmonary arteries are normal in size, and demonstrate no intraluminal filling defects to suggest central pulmonary embolism. Lungs and pleura: Mild dependent atelectasis the bilateral hemithoraces. No focal consolidation. No septal thickening or nodularity. No suspicious pulmonary nodules or masses. No pleural effusions or pneumothorax. Central and peripheral airways are patent. Mediastinum: Heart size is normal, without pericardial effusion. No mediastinal or hilar adenopathy. Thoracic aorta is normal in caliber and enhancement. Esophagus is normal in caliber. Small hiatal hernia with postoperative changes of Vadim fundoplication. Bones and chest wall: No suspicious bony lesions. Ribs and thoracic spine appear intact throughout. Thyroid gland is unremarkable. No axillary or supraclavicular adenopathy. Abdomen: Visualized upper abdominal solid organs appear normal in the early arterial phase of enhancement. IMPRESSION: 1. CT angiogram of the chest without acute pulmonary emboli. 2. Mild dependent atelectasis of the bilateral hemithoraces. Otherwise, no acute cardiopulmonary abnormalities identified. 3. Expected postsurgical changes of Vadim fundoplication. Dictated by: Luis See M.D. on 05/19/2021 at 14:39 Approved by: Luis See M.D. on 05/19/2021 at 14:48
--- NOTE | 2021-05-19 13:27 | DI.CT.S_ITS ---
PROCEDURE: CT ABDOMEN PELVIS W CON INDICATIONS: severe upper abdomen and chest pain, recent fundoplication TECHNIQUE: After the administration of oral and IV contrast, axial sections were acquired from the lung bases to the pubic symphysis. Coronal and sagittal reformats were performed. For radiation dose reduction, the following was used: automated exposure control, adjustment of mA and/or kV according to patient size. COMPARISON: [facility], CT, ABDOMEN/PELVIS WITH CONTRAST, 07/18/2017, 3:29. FINDINGS: Image quality: Excellent. Lung bases: Unremarkable. Heart: No significant findings. ABDOMEN: Liver: No masses Gallbladder: Normal wall thickness. Biliary ducts: Nondilated. Pancreas: Normal. Spleen: Normal size. Adrenal Glands: No nodules. Kidneys and Ureters: Normal enhancement. No hydronephrosis or hydroureter. No calcifications. Stomach and Bowel: Surgical changes of fundoplication at the GE junction are subdiaphragmatic. Mild expected edema in the gastric wall. No perigastric fluid or free air. Small and large bowel loops are otherwise normal. Peritoneum: No abnormal intraperitoneal fluid. No free air. Ventral Wall: No hernia. Abdominal Nodes: No retroperitoneal or mesenteric adenopathy by size criteria. Vessels: Aorta and inferior vena cava are normal in size. PELVIS: Pelvic Organs: Normal size prostate gland. Bladder: Normal bladder wall thickness. Pelvic Nodes: No enlarged lymph nodes. Miscellaneous: No inguinal hernias are seen. Bones: Unremarkable. IMPRESSION: 1. Surgical changes of fundoplication without evidence of complication. Dictated by: Rebekah Hawkins M.D. on 05/19/2021 at 14:24 Approved by: Rebekah Hawkins M.D. on 05/19/2021 at 14:29
[2021-05-19] MEDS: HYDROMORPHONE 0.5 MG INJ IV (13:44)
[2021-05-19 15:08] VITALS: BP 115/61; PULSE 76; RESP 17; O2SAT 97
--- NOTE | 2021-05-26 09:57 | PC.NURSE ---
Late entry pt NS stopped 1500,pt received approx 300ml
== END 2021-05-19 15:08 | disposition home or self-care (01) ==
PROVIDERS: Emergency Provider Emergency Medicine; PCP Family Medicine
DX: R07.89 Other chest pain (principal); R10.10 Upper abdominal pain, unspecified
CPT/HCPCS: 36415; 71045; 71275; 74177; 80053; 82550; 83690; 83880; 84484; 85025; 85379; 93005; 96361; 96374; 99284; J1170; Q9967

== ENCOUNTER → 2021-06-06 14:54 | Outpatient (CLI) | payer OTHER, MEDICAID, SELFPAY ==
[2021-06-06 18:09] LABS: COVID19 -Nasal RAPID POSITIVE (Negative)
[2021-06-09 04:34] LABS: IgE Alternaria alternata <0.10 kU/L (Class 0); IgE Aspergillus fumigatus <0.10 kU/L (Class 0); IgE Aureobasidi pullulans 0.37 kU/L (Class I); IgE Candida albicans <0.10 kU/L (Class 0); IgE Cladosporium herbarum <0.10 kU/L (Class 0); IgE Epicoccum purpur <0.10 kU/L (Class 0); IgE Fusarium proliferatum <0.10 kU/L (Class 0); IgE Mucor racemosus <0.10 kU/L (Class 0); IgE Penicillium chrysogen <0.10 kU/L (Class 0); IgE Phoma betae <0.10 kU/L (Class 0); IgE Setomelanomma rostrat <0.10 kU/L (Class 0); IgE Stemphylium herbarum <0.10 kU/L (Class 0)
== END ==
PROVIDERS: Nurse Practitioner Family; PCP Family Medicine; Referring Provider Family Medicine; Visit Provider Family Medicine
DX: U07.1 COVID-19 (principal); Z20.822 Contact with and (suspected) exposure to COVID-19
CPT/HCPCS: 36415; 87635

== ENCOUNTER 2021-12-12 16:52 | Emergency (ER) | payer OTHER, MEDICAID, SELFPAY ==
--- NOTE | 2021-12-12 17:18 | DI.RAD.S_ITS ---
PROCEDURE: XR FOOT RT MIN 3V INDICATIONS: great toe fracture TECHNIQUE: 3 views of the foot were acquired. COMPARISON: [facility], CT, CT LE RT WO CON, 12/14/2020, 12:03. [facility], CR, XR FOOT RT MIN 3V, 12/05/2020, 0:01. FINDINGS: Bones: No fractures or dislocations can be seen, including involving the great toe. No suspicious bony lesions. Soft tissues: No tibiotalar joint effusion. Achilles tendon appears normal. IMPRESSION: No displaced fracture of the great toe can be seen on these plain films. If there is point tenderness (or other clinical suspicion for a fracture not seen on these images) then a dedicated CT could be considered for further evaluation, if clinically appropriate. Dictated by: Jarred Orr M.D. on 12/12/2021 at 16:52 Approved by: Jarred Orr M.D. on 12/12/2021 at 16:53
[2021-12-12 17:24] VITALS: BP 131/58; PULSE 89; RESP 18; TEMP 36.8; O2SAT 98; BMI 24.2
--- NOTE | 2021-12-12 18:17 | PC.NURSE ---
right great toe is swollen and bruised
[2021-12-12] MEDS: OXYCODONE/ACETAMINOPHEN 5/325 TABLET 1 TAB PO (18:21)
[2021-12-12] MEDS: IBUPROFEN 400 MG TABLET 800 MG PO (18:21)
--- NOTE | 2021-12-12 18:27 | ED.LOWEXIN ---
HPI - Extremity Injury (Lower) <Amirah Soni, [facility] - Last Filed: 12/12/21 19:34> General Chief Complaint: Extremity Injury, Lower Stated Complaint: Rt. great toe broken Time Seen by Provider: 12/12/21 17:18 Source: patient Mode of arrival: Wheelchair History of Present Illness HPI Narrative: This is a 36-year-old male who presents to the emergency department complaining of right great toe joint pain after he was trying to secure a boat when the boat scratched his foot in between the dock and the boat. This happened just prior to arrival, patient has ecchymosis over his MCP joint of his great toe on his right foot. Patient denies any sensation changes, states he has a history of fibromyalgia, states he does not take his Lyrica because it makes him tired. Patient reports that he needs pain control, he is allergic to Toradol, states it causes tinnitus. Patient denies taking any medication prior to his arrival. Patient denies weakness, he is able to flex and extend his great toe, limited only due to pain. Related Data Previous Rx's Medication Instructions Recorded omeprazole magnesium 20 mg 20 mg PO DAILY #14 tabs 07/13/20 tablet,delayed release (Prilosec OTC) meloxicam 7.5 mg tablet (Mobic) 7.5 mg PO DAILY #60 tabs 02/04/21 hydroxyzine HCl 10 mg tablet 10 mg PO Q8H #60 tabs 03/02/21 oxycodone 5 mg tablet 5 mg PO BID PRN pain #30 tabs 03/02/21 pregabalin 150 mg capsule (Lyrica) 150 mg PO BID #90 caps 03/02/21 duloxetine 60 mg capsule,delayed 60 mg PO DAILY #60 caps 03/14/21 release (Cymbalta) sumatriptan succinate 25 mg tablet See Rx Instructions PO .COMPLEX 04/04/21 (Imitrex) #20 tabs cyclobenzaprine 10 mg tablet 10 mg PO TID PRN muscle spasm #14 05/19/21 tabs ketorolac 10 mg tablet 10 mg PO Q6H PRN pain #14 tabs 05/19/21 hydrocodone 5 mg-acetaminophen 325 1 tab PO Q8H PRN pain #10 tabs 12/12/21 mg tablet Allergies Allergy/AdvReac Type Severity Reaction Status Date / Time Sulfa (Sulfonamide Allergy Mild Verified 12/12/21 17:26 Antibiotics) [SULFA (SULFONAMIDE ANTIBIOTICS)] acetaminophen [From Tylenol] Allergy Verified 12/12/21 17:26 ketorolac [From Toradol] Allergy Verified 12/12/21 17:26 tramadol AdvReac Verified 12/12/21 17:26 Review of Systems <JULI Carballo - Last Filed: 12/12/21 19:34> Review of Systems Narrative: General: denies fever, chills, malaise, sweats, fatigue Head/Neck: denies headache, neck pain, dizziness Eyes: denies visual changes, eye pain Cardio: denies chest pain, palpitations, edema Respiratory: denies dyspnea, cough, orthopnea GI: denies abdominal pain, nausea, vomiting, or diarrhea : denies dysuria, hematuria, urinary retention, frequency or incontinence MSK: denies joint pain, muscle weakness Skin: Bruising over MCP joint 1st digit right foot. Neuro: denies numbness, tingling Patient History <JULI Carballo - Last Filed: 12/12/21 19:34> Medical History Acute stress disorder Cervical spine disease (~2014) Chronic back pain (~2011) Chronic solar dermatitis Elbow pain (~2016) Facet arthropathy, cervical Fibromyalgia Fractures (~2014) Gastric ulcer (~2010) Hearing deficit (~2015) Right rotator cuff tear Ruptured tympanic membrane (~2015) Shoulder pain Tinnitus (~2015) Vertigo (~2015) Vision disorder White blood cell disorder (~2015) Surgical History Anesthesia History of open reduction and internal fixation (ORIF) procedure (02/05/20) Status post hernia repair (~2008) Status post hernia repair (~2003) Family History Father Age: 62 Hypertension Hematoma Mother Age: 58 Hypertension High cholesterol Diabetes mellitus Sister Age: 40 Hypertension Double ureter Grandmother Stroke Grandfather Cancer Social History marital status: household members: spouse and children occupational status: employed Smoking Status: Never smoker alcohol intake: former substance use type: does not use Smoking Status: Never smoker alcohol intake frequency: other Alcohol type: beer Substance Use Type: marijuana Exam <JULI Carballo Last Filed: 12/12/21 19:34> Narrative Exam Narrative: Independently reviewed vitals signs and nursing notes. General: cooperative, comfortable, in no acute distress, well groomed Head: atraumatic, symmetrical facial expressions Neck: supple Eyes: equal round and reactive, EOMI, conjunctiva normal Nose: nares patent, no rhinorrhea Mouth/Throat: moist mucus membranes MSK: moves all extremities, neurovascularly intact, no weakness, normal tone, right great toe with dorsal ecchymosis, no open wound flexion and extension intact of his right great toe, limited due to pain, sensation is intact without deficit. Skin: brisk capillary refill, no rash, no erythema Neuro: normal speech and cognition, A&O x3 Psych: mental status is grossly normal, congruent mood, normal affect, pleasant and cooperative Initial Vital Signs Initial Vital Signs: Vital Signs Temperature 98.3 F 12/12/21 17:24 Pulse Rate 89 12/12/21 17:24 Respiratory Rate 18 12/12/21 17:24 Blood Pressure 131/58 L 12/12/21 17:24 Pulse Oximetry 98 12/12/21 17:24 Oxygen Delivery Method 12/12/21 17:24 <Mery Padilla DO - Last Filed: 12/14/21 08:21> Initial Vital Signs Initial Vital Signs: Vital Signs Temperature 98.3 F 12/12/21 17:24 Pulse Rate 89 12/12/21 17:24 Respiratory Rate 18 12/12/21 17:24 Blood Pressure 131/58 L 12/12/21 17:24 Pulse Oximetry 98 12/12/21 17:24 Oxygen Delivery Method 12/12/21 17:24 Procedures <JULI Carballo Last Filed: 12/12/21 19:34> Orthopedic Splinting/Casting Injury #1: Lower Extremity Injury Location: foot Lower Extremity Immobilizer: post-op shoe Post splinting neuro exam: intact Post splinting vascular exam: intact Placed by: Nursing Course <JULI Carballo - Last Filed: 12/12/21 19:34> Orders Ordered: Discontinued Medications Ibuprofen (Ibuprofen 400 Mg Tablet) 800 mg PO NOW ONE Stop: 12/12/21 17:32 Last Admin: 12/12/21 18:21 Dose: 800 mg Documented By: ELIANA Oxycodone/Acetaminophen (Oxycodone/Acetaminophen 5/325 Tablet) 1 tab PO NOW ONE Stop: 12/12/21 17:32 Last Admin: 12/12/21 18:21 Dose: 1 tab Documented By: ELIANA Vital Signs Vital signs: Vital Signs - 8 hr 12/12/21 17:24 Temperature 98.3 F Pulse Rate 89 Respiratory Rate 18 Blood Pressure 131/58 L Pulse Oximetry 98 Oxygen Delivery Method Room Air <Mery Padilla DO - Last Filed: 12/14/21 08:21> Orders Ordered: Discontinued Medications Ibuprofen (Ibuprofen 400 Mg Tablet) 800 mg PO NOW ONE Stop: 12/12/21 17:32 Last Admin: 12/12/21 18:21 Dose: 800 mg Documented By: ELIANA Oxycodone/Acetaminophen (Oxycodone/Acetaminophen 5/325 Tablet) 1 tab PO NOW ONE Stop: 12/12/21 17:32 Last Admin: 12/12/21 18:21 Dose: 1 tab Documented By: ELIANA Vital Signs Vital signs: Vital Signs - 8 hr 12/12/21 17:24 Temperature 98.3 F Pulse Rate 89 Respiratory Rate 18 Blood Pressure 131/58 L Pulse Oximetry 98 Oxygen Delivery Method Room Air MDM - Extremity Injury (Lower) <JULI Carballo - Last Filed: 12/12/21 19:34> Imaging Data Extremity x-ray #1: Radiologist's Impression: PROCEDURE:? XR FOOT RT MIN 3V ? INDICATIONS:? great toe fracture ? TECHNIQUE:? 3 views of the foot were acquired.? ? COMPARISON:? [facility], CT, CT LE RT WO CON, 12/14/2020, 12:03.? [facility], CR, XR FOOT RT MIN 3V, 12/05/2020, 0:01. ? FINDINGS:? ? Bones:? No fractures or dislocations can be seen, including involving the great toe.? No suspicious bony lesions.? ? Soft tissues:? No tibiotalar joint effusion.? Achilles tendon appears normal.? ? ? IMPRESSION:? No displaced fracture of the great toe can be seen on these plain films. ? If there is point tenderness (or other clinical suspicion for a fracture not seen on these images) then a dedicated CT could be considered for further evaluation, if clinically appropriate. ? Dictated by: Jarred Orr M.D. on 12/12/2021 at 16:52 ? ? Approved by: Jarred Orr M.D. on 12/12/2021 at 16:53 ? MDM Narrative Medical decision making narrative: This is a 36-year-old male with history of fibromyalgia who presents to the emergency department complaining of right great toe pain after foot got stuck in between a boat and a dock while he was trying to secure the boat. X-ray of his right foot shows no displaced fracture of the great toe, no dislocation, no suspicious bony lesions. Patient was complaining of extreme pain and anxiety, he was given ibuprofen and hydrocodone in the emergency department for his pain, fitted in a postop shoe, he is neurovascularly intact without any deficit. Patient is appropriate and amenable to discharge home. Vital signs are stable on repeat examination is unremarkable. Patient has been informed of results. Patient has been given strict return to ER precautions for any new or worsening symptoms. Patient understands to follow up closely with outpatient providers as instructed. Patient understands plan and agrees to discharge home. All questions and concerns answered at this time. Discharge Plan Departure Patient Disposition: Home Clinical Impression: Injury of toe Qualifiers: Encounter type: initial encounter Laterality: right Qualified Code(s): S99.921A - Unspecified injury of right foot, initial encounter Instructions: Toe Sprain, DI for Toe Fracture Activity Restrictions/Additional Instructions: *You have been diagnosed with right great toe pain from your injury today. Please use ice, elevation, the ortho shoe, anti-inflammatories like ibuprofen every 6-8 hours as needed, Tylenol and rest to help improve your pain. Please also add a topical agent whether it CBD or Voltaren gel. If your foot is still this painful in one week, please have another x-ray completed to evaluate for fracture. Please rest and elevate this frequently, at least three to 4 times a day over the next two days to help this heal. Please follow-up with Dr. Abdul if you need any medication changes or changes to your fibromyalgia medications. Your Lyrica will provide better pain control. Please add ibuprofen and Tylenol to your regimen for acute pain. *What to do: *Please continue to take your regular medications as directed. [x ] New medication prescriptions sent to your pharmacy: [ ] [ ] New medication written as a paper prescription [ ] No new medications given *Please follow up with your primary care provider in 2-3 days, call for an appointment. Let them know you were seen in the Emergency Department and that we asked that you be seen for follow-up. We will electronically transmit a record of today's note if your PCP is in our system *If you do not have a primary care provider please contact [phone] to establish care with one of the [facility] primary care providers. *Return to Emergency Department if you should have any new, worsening or concerning symptoms, such as [fever greater than 101F, chills, worsening pain, persistent vomiting or other bothersome symptoms] Prescriptions: New hydrocodone-acetaminophen 5-325 mg tablet 1 tab PO Q8H PRN (Reason: pain) Qty: 10 0RF No Action sumatriptan succinate [Imitrex] 25 mg tablet See Rx Instructions PO .COMPLEX Qty: 20 0RF Rx Instructions: take 1 tab at onset of headache; if no relief may repeat 1 tab after at least 2 hrs; max = 4 tabs/24 hr PO meloxicam [Mobic] 7.5 mg tablet 7.5 mg PO DAILY Qty: 60 0RF duloxetine [Cymbalta] 60 mg capsule,delayed release(DR/EC) 60 mg PO DAILY Qty: 60 0RF pregabalin [Lyrica] 150 mg capsule 150 mg PO BID Qty: 90 0RF hydroxyzine HCl 10 mg tablet 10 mg PO Q8H Qty: 60 0RF oxycodone 5 mg tablet 5 mg PO BID PRN (Reason: pain) Qty: 30 0RF omeprazole magnesium [Prilosec OTC] 20 mg tablet,delayed release (DR/EC) 20 mg PO DAILY Qty: 14 0RF cyclobenzaprine 10 mg tablet 10 mg PO TID PRN (Reason: muscle spasm) Qty: 14 0RF ketorolac 10 mg tablet 10 mg PO Q6H PRN (Reason: pain) Qty: 14 0RF Referrals: Jones Abdul MD [Primary Care Provider] - Visit Report Forms: Patient Portal/API <Mery Padilla DO - Last Filed: 12/14/21 08:21> Cosign ED Attending Lucasature Attestation: I was immediately available in the department for consultation. Documentation has been reviewed. I agree with assessment and plan.
--- NOTE | 2021-12-12 18:36 | PC.NURSE ---
pt declined crutches
== END 2021-12-12 18:39 | disposition home or self-care (01) ==
PROVIDERS: Emergency Provider Nurse Practitioner Critical Care Medicine; PCP Family Medicine
DX: S99.921A Unspecified injury of right foot, initial encounter (principal); W23.0XXA Caught, crushed, jammed, or pinched between moving objects, initial encounter
CPT/HCPCS: 73630; 99283

== ENCOUNTER 2021-12-22 20:36 | Emergency (ER) | payer OTHER, MEDICAID, SELFPAY ==
[2021-12-22 20:57] VITALS: BP 132/69; PULSE 78; RESP 20; TEMP 37.1; O2SAT 100; BMI 23.5
--- NOTE | 2021-12-22 21:07 | DI.RAD.S_ITS ---
PROCEDURE: XR SHOULDER LT MIN 2V INDICATIONS: injury, pain, pop TECHNIQUE: 3 views of the shoulder were acquired. COMPARISON: None. FINDINGS: Bones: No fractures or dislocations. No suspicious bony lesions. Visualized ribs appear intact. Soft tissues: No suspicious soft tissue calcifications. IMPRESSION: Normal study. Dictated by: Surinder Dominguez M.D. on 12/22/2021 at 21:23 Approved by: Surinder Dominguez M.D. on 12/22/2021 at 21:23
--- NOTE | 2021-12-23 00:25 | PC.NURSE ---
Patient called on visitor phone requesting discharge, educated pt unable to provide xray results without him seeing a physician. Pt reports he is being held against my will, last time I left before discharge you all called the drum tender on me, informed pt the drum tender would not be called and he does have the choice to leave. Pt requested advice, informed pt unable to provide advice or make the decision for him and unable to provide him with an accurate wait at this time.
== END 2021-12-23 00:31 | disposition left against medical advice (07) ==
PROVIDERS: Emergency Provider Emergency Medicine; PCP Family Medicine
DX: M25.512 Pain in left shoulder (principal)
CPT/HCPCS: 73030; 99281

== ENCOUNTER 2021-12-31 22:27 | Emergency (ER) | payer OTHER, MEDICAID, SELFPAY ==
[2021-12-31 22:31] VITALS: BP 123/63; PULSE 68; RESP 19; TEMP 36.4; O2SAT 99; BMI 24.6
--- NOTE | 2021-12-31 22:38 | ED_ITS ---
HPI - Extremity Problem General Chief complaint: Extremity Problem,Nontraumatic Stated complaint: Left knee injury Time Seen by Provider: 12/31/21 22:38 Source: patient Mode of arrival: Wheelchair History of Present Illness HPI Narrative: 36-year-old male with history of chronic back pain and anxiety presents with a chief complaint of pain of his left anterior knee. He denies any injury, trauma, fall or twisting. He states that there has been swelling that has been worsening over the course of the day and motion makes the pain worse, rest improves it. He denies any fever or chills. Denies any numbness, tingling or weakness. Denies any hip or ankle pain. He states that he has been on his knees for work though using knee pads. Related Data Previous Rx's Medication Instructions Recorded omeprazole magnesium 20 mg 20 mg PO DAILY #14 tabs 07/13/20 tablet,delayed release (Prilosec OTC) meloxicam 7.5 mg tablet (Mobic) 7.5 mg PO DAILY #60 tabs 02/04/21 hydroxyzine HCl 10 mg tablet 10 mg PO Q8H #60 tabs 03/02/21 oxycodone 5 mg tablet 5 mg PO BID PRN pain #30 tabs 03/02/21 pregabalin 150 mg capsule (Lyrica) 150 mg PO BID #90 caps 03/02/21 duloxetine 60 mg capsule,delayed 60 mg PO DAILY #60 caps 03/14/21 release (Cymbalta) sumatriptan succinate 25 mg tablet See Rx Instructions PO .COMPLEX 04/04/21 (Imitrex) #20 tabs cyclobenzaprine 10 mg tablet 10 mg PO TID PRN muscle spasm #14 05/19/21 tabs ketorolac 10 mg tablet 10 mg PO Q6H PRN pain #14 tabs 05/19/21 hydrocodone 5 mg-acetaminophen 325 1 tab PO Q8H PRN pain #10 tabs 12/12/21 mg tablet doxycycline hyclate 100 mg tablet 100 mg PO BID #20 tabs 12/31/21 Allergies Allergy/AdvReac Type Severity Reaction Status Date / Time Sulfa (Sulfonamide Allergy Mild Verified 12/31/21 22:36 Antibiotics) [SULFA (SULFONAMIDE ANTIBIOTICS)] acetaminophen [From Tylenol] Allergy Verified 08/06/22 22:36 ketorolac [From Toradol] Allergy Verified 12/31/21 22:36 tramadol AdvReac Verified 12/31/21 22:36 Review of Systems Review of Systems Narrative: GENERAL: Denies chills, fatigue, malaise, fever, sweats. HEENT: Denies sinus pain, ear pain, sore throat, difficulty swallowing, dizziness. RESPIRATORY: Denies dyspnea, cough, wheezing, hemoptysis, sputum. CARDIOVASCULAR: Denies chest pain, palpitations, orthopnea, edema, GASTROINTESTINAL: Denies nausea, vomiting, abdominal pain, diarrhea, constipation, melena. : Denies dysuria, frequency, incontinence, hematuria, urinary retention. MUSCULOSKELETAL: See HPI SKIN: Denies rash, skin lesions, or other NEUROLOGIC: Denies weakness, headache, numbness, change in speech, confusion, seizures, incoordination. PSYCHIATRIC: No concerning psychosocial issues. 12 point review of systems is negative except for those stated above Patient History Medical History Acute stress disorder Cervical spine disease (~2014) Chronic back pain (~2011) Chronic solar dermatitis Elbow pain (~2016) Facet arthropathy, cervical Fibromyalgia Fractures (~2014) Gastric ulcer (~2010) Hearing deficit (~2015) Right rotator cuff tear Ruptured tympanic membrane (~2015) Shoulder pain Tinnitus (~2015) Vertigo (~2015) Vision disorder White blood cell disorder (~2015) Surgical History Anesthesia History of open reduction and internal fixation (ORIF) procedure (02/05/20) Status post hernia repair (~2008) Status post hernia repair (~2003) Family History Father Age: 62 Hypertension Hematoma Mother Age: 58 Hypertension High cholesterol Diabetes mellitus Sister Age: 40 Hypertension Double ureter Grandmother Stroke Grandfather Cancer Social History marital status: household members: spouse and children occupational status: employed Smoking Status: Never smoker alcohol intake: former substance use type: does not use Smoking Status: Never smoker alcohol intake frequency: other Alcohol type: beer Substance Use Type: marijuana Exam Narrative Exam Narrative: GENERAL: [36] year old patient appears stated age. Well-developed patient, in mild distress. HEAD: Atraumatic. Normocephalic. EYES: Pupils equal round and reactive. Extraocular motions intact. No scleral icterus. No injection or drainage. ENT: Nose without bleeding, purulent drainage. Throat without erythema, tonsillar hypertrophy or exudate. Airway patent. NECK: Trachea midline. Non tender CARDIOVASCULAR: Regular rate and rhythm without murmurs, gallops, or rubs. RESPIRATORY: Clear to auscultation. Breath sounds equal bilaterally. No wheezes, rales, or rhonchi. GASTROINTESTINAL: Abdomen soft, non-tender, nondistended. EXTREMITIES: Full range of motion though painful with flexion and extension of left knee. There is no effusion, bony point tenderness or ligamentous laxity. He does have some mild swelling of his anterior knee without fluctuation or induration. BACK: Nontender without deformity or crepitance. No flank tenderness. NEURO: AOx3. SKIN: No rash or erythema of visible areas Initial Vital Signs Initial Vital Signs: Vital Signs Temperature 97.5 F L 12/31/21 22:31 Pulse Rate 68 12/31/21 22:31 Respiratory Rate 19 12/31/21 22:31 Blood Pressure 123/63 12/31/21 22:31 Pulse Oximetry 99 12/31/21 22:31 Oxygen Delivery Method 12/31/21 22:31 Course Orders Ordered: ED Orders 12/31/21 22:38 XR knee LT 3V Stat Discontinued Medications Doxycycline Hyclate (Doxycycline Hyclate 100 Mg Tablet) 100 mg PO NOW ONE Stop: 12/31/21 23:41 Last Admin: 12/31/21 23:43 Dose: 100 mg Documented By: KIMBERLEY Vital Signs Vital signs: Vital Signs - 8 hr 12/31/21 22:31 Temperature 97.5 F L Pulse Rate 68 Respiratory Rate 19 Blood Pressure 123/63 Pulse Oximetry 99 Oxygen Delivery Method Room Air MDM - Extremity (Nontraumatic) Imaging Data Extremity x-ray #1: Radiologist's Impression: [address] [address] XRay Report Signed Patient: Luis Castano MR#: [id number] : 1985 Acct:[id number] Age/Sex: 36 / M Date of Service: 12/31/21 Loc: ED Accession Number: [id number] ?? Procedure: XR knee LT 3V Ordering Provider: Guille Dyer D.O. PROCEDURE:? XR KNEE LT 3V ? INDICATIONS:? non-traumatic knee pain ? TECHNIQUE:? 3 views of the knee were acquired.? ? COMPARISON:? [facility], CR, XR KNEE RT 3V, 07/23/2019, 10:46. ? FINDINGS:? ? Bones:? No fractures or dislocations.? No suspicious bony lesions.? ? Soft tissues:? No joint effusion.? No suspicious soft tissue calcifications.? ? ? IMPRESSION:? Normal for age, source of current nontraumatic pain symptoms is not seen. ? ? Dictated by: Master Wilkins M.D. on 12/31/2021 at 23:04 ? ? Approved by: Master Wilkins M.D. on 12/31/2021 at 23:04 ? MDM Narrative Medical decision making narrative: Patient has left anterior knee pain in the absence of injury. X-ray is unremarkable. There is no bony tenderness or effusion. Though there is some anterior knee swelling there is minimal erythema and certainly no fluctuance. Most likely a bursitis, will treat with antibiotics. Return precautions discussed and questions answered to his apparent satisfaction Discharge Plan Departure Patient Disposition: Home Clinical Impression: Bursitis of left knee Instructions: DI for Bursitis Activity Restrictions/Additional Instructions: *You have been diagnosed with [atraumatic left knee pain likely early prepatellar bursitis] *What to do: *Please continue to take your regular medications as directed. [x] New medication prescriptions sent to your pharmacy: [[facility]} [ ] New medication written as a paper prescription [ ] No new medications given *Please follow up with your primary care provider in 2-3 days, call for an appointment. Let them know you were seen in the Emergency Department and that we ask that you be seen in follow up. We will electronically transmit a record of today's note if your PCP is in our system *If you do not have a primary care provider please contact the [facility] Resource line at [phone]. They will ask some questions about your medical history and help get you set up with a doctor in the community. *Return to Emergency Department if you should have any new, worsening or concerning symptoms, such as [fever greater than 101 F, shaking chills, worsening pain, persistent vomiting or other bothersome symptoms] Prescriptions: New doxycycline hyclate 100 mg tablet 100 mg PO BID Qty: 20 0RF No Action sumatriptan succinate [Imitrex] 25 mg tablet See Rx Instructions PO .COMPLEX Qty: 20 0RF Rx Instructions: take 1 tab at onset of headache; if no relief may repeat 1 tab after at least 2 hrs; max = 4 tabs/24 hr PO meloxicam [Mobic] 7.5 mg tablet 7.5 mg PO DAILY Qty: 60 0RF duloxetine [Cymbalta] 60 mg capsule,delayed release(DR/EC) 60 mg PO DAILY Qty: 60 0RF pregabalin [Lyrica] 150 mg capsule 150 mg PO BID Qty: 90 0RF hydroxyzine HCl 10 mg tablet 10 mg PO Q8H Qty: 60 0RF oxycodone 5 mg tablet 5 mg PO BID PRN (Reason: pain) Qty: 30 0RF hydrocodone-acetaminophen 5-325 mg tablet 1 tab PO Q8H PRN (Reason: pain) Qty: 10 0RF omeprazole magnesium [Prilosec OTC] 20 mg tablet,delayed release (DR/EC) 20 mg PO DAILY Qty: 14 0RF cyclobenzaprine 10 mg tablet 10 mg PO TID PRN (Reason: muscle spasm) Qty: 14 0RF ketorolac 10 mg tablet 10 mg PO Q6H PRN (Reason: pain) Qty: 14 0RF Referrals: Jones Abdul MD [Primary Care Provider] - Visit Report Forms: Patient Portal/API
--- NOTE | 2021-12-31 22:38 | DI.RAD.S_ITS ---
PROCEDURE: XR KNEE LT 3V INDICATIONS: non-traumatic knee pain TECHNIQUE: 3 views of the knee were acquired. COMPARISON: [facility], CR, XR KNEE RT 3V, 07/23/2019, 10:46. FINDINGS: Bones: No fractures or dislocations. No suspicious bony lesions. Soft tissues: No joint effusion. No suspicious soft tissue calcifications. IMPRESSION: Normal for age, source of current nontraumatic pain symptoms is not seen. Dictated by: Master Wilkins M.D. on 12/31/2021 at 23:04 Approved by: Master Wilkins M.D. on 12/31/2021 at 23:04
[2021-12-31] MEDS: DOXYCYCLINE HYCLATE 100 MG TABLET PO (23:43)
== END 2021-12-31 23:51 | disposition home or self-care (01) ==
PROVIDERS: Emergency Provider Emergency Medicine; PCP Family Medicine
DX: M70.52 Other bursitis of knee, left knee (principal)
CPT/HCPCS: 73562; 99283

== ENCOUNTER 2022-03-01 01:51 | Emergency (ER) | payer OTHER, MEDICAID, SELFPAY ==
[2022-03-01 02:00] VITALS: BP 156/80; PULSE 80; RESP 18; TEMP 36.6; O2SAT 98
--- NOTE | 2022-03-01 02:55 | ED.DENTAL ---
HPI - Dental/Oral General Chief complaint: Dental/Oral Stated complaint: Dental pain Time Seen by Provider: 03/01/22 02:54 Source: patient Mode of arrival: Ambulatory History of Present Illness HPI Narrative: Patient is a 36-year-old male who presents with dental pain and his front 2 teeth. He says he is getting a root canal done tomorrow he has been on amoxicillin. He previously was given pain pills is but just wants some pain relief. No fever or chills. Related Data Previous Rx's Medication Instructions Recorded omeprazole magnesium 20 mg 20 mg PO DAILY #14 tabs 07/13/20 tablet,delayed release (Prilosec OTC) meloxicam 7.5 mg tablet (Mobic) 7.5 mg PO DAILY #60 tabs 02/04/21 hydroxyzine HCl 10 mg tablet 10 mg PO Q8H #60 tabs 03/02/21 oxycodone 5 mg tablet 5 mg PO BID PRN pain #30 tabs 03/02/21 pregabalin 150 mg capsule (Lyrica) 150 mg PO BID #90 caps 03/02/21 duloxetine 60 mg capsule,delayed 60 mg PO DAILY #60 caps 03/14/21 release (Cymbalta) sumatriptan succinate 25 mg tablet See Rx Instructions PO .COMPLEX 04/04/21 (Imitrex) #20 tabs cyclobenzaprine 10 mg tablet 10 mg PO TID PRN muscle spasm #14 05/19/21 tabs ketorolac 10 mg tablet 10 mg PO Q6H PRN pain #14 tabs 05/19/21 hydrocodone 5 mg-acetaminophen 325 1 tab PO Q8H PRN pain #10 tabs 12/12/21 mg tablet doxycycline hyclate 100 mg tablet 100 mg PO BID #20 tabs 12/31/21 Allergies Allergy/AdvReac Type Severity Reaction Status Date / Time Sulfa (Sulfonamide Allergy Mild Verified 12/31/21 22:36 Antibiotics) [SULFA (SULFONAMIDE ANTIBIOTICS)] acetaminophen [From Tylenol] Allergy Verified 12/31/21 22:36 ketorolac [From Toradol] Allergy Verified 12/31/21 22:36 tramadol AdvReac Verified 12/31/21 22:36 Review of Systems Review of Systems Narrative: GENERAL: Denies chills,fever HEENT: Dental pain see HPI RESPIRATORY: Denies dyspnea, cough, wheezing CARDIOVASCULAR: Denies chest pain, palpitations GASTROINTESTINAL: Denies nausea, vomiting MUSCULOSKELETAL: Denies extremity pain, injury SKIN: No rash, no laceration, no pruritus NEUROLOGIC: Denies weakness, dizziness, headache, numbness 8 point review of systems is negative except for those stated above and HPI Patient History Medical History Acute stress disorder Cervical spine disease (~2014) Chronic back pain (~2011) Chronic solar dermatitis Elbow pain (~2016) Facet arthropathy, cervical Fibromyalgia Fractures (~2014) Gastric ulcer (~2010) Hearing deficit (~2015) Right rotator cuff tear Ruptured tympanic membrane (~2015) Shoulder pain Tinnitus (~2015) Vertigo (~2015) Vision disorder White blood cell disorder (~2015) Surgical History Anesthesia History of open reduction and internal fixation (ORIF) procedure (02/05/20) Status post hernia repair (~2008) Status post hernia repair (~2003) Family History Father Age: 62 Hypertension Hematoma Mother Age: 58 Hypertension High cholesterol Diabetes mellitus Sister Age: 40 Hypertension Double ureter Grandmother Stroke Grandfather Cancer Social History marital status: household members: spouse and children occupational status: employed Smoking Status: Never smoker alcohol intake: former substance use type: does not use Smoking Status: Never smoker alcohol intake frequency: other Alcohol type: beer Substance Use Type: marijuana Exam Initial Vital Signs Initial Vital Signs: Vital Signs Temperature 98 F 03/01/22 02:00 Pulse Rate 80 03/01/22 02:00 Respiratory Rate 18 03/01/22 02:00 Blood Pressure 156/80 H 03/01/22 02:00 Pulse Oximetry 98 03/01/22 02:00 Oxygen Delivery Method 03/01/22 02:00 GENERAL: Well-appearing, well-nourished and in no acute distress. CARDIOVASCULAR: peripheral pulses in tact, cap refill <2 sec RESPIRATORY: No respiratory distress, speaks in full sentences without difficulty EXTREMITIES: Normal range of motion, no clubbing or edema. Neurovascularly intact NEUROLOGICAL: Cranial nerves II through XII grossly intact. Normal gait and speech. SKIN: Warm, dry, no petechiae, no rashes or lesions. HENMT Teeth and gingiva: poor dentition Adult Head Mouth w/Numbe Teeth: 1. pain, no abscess, no facial swelling Procedures Nerve Block Nerve Block 1: Local Anesthetic: bupivacaine 0.5% and with epi Intraoral Nerve Block: supraperiosteal Course Vital Signs Vital signs: Vital Signs - 8 hr 03/01/22 02:00 Temperature 98 F Pulse Rate 80 Respiratory Rate 18 Blood Pressure 156/80 H Pulse Oximetry 98 Oxygen Delivery Method Room Air MDM - Dental/Oral MDM Narrative Medical decision making narrative: The patient has no sign of dental abscess no significant facial swelling or redness. He received almost immediate relief with dental block. He has an appointment with dentist tomorrow and he is already taking antibiotics. Discharge Plan Departure Patient Disposition: Home Clinical Impression: Pain, dental Instructions: DI for Dental Pain Activity Restrictions/Additional Instructions: *You have been diagnosed with dental pain *What to do: At this time and body got relief hope you get couple hours of sleep tonight. Please see her dentist in the morning continue your antibiotics *Continue to take medications as directed *Follow up with your primary care provider in 2-3 days or call [phone] *Return to ER if you should have increasing pain facial swelling is redness fever or any new, worsening or concerning symptoms Prescriptions: No Action sumatriptan succinate [Imitrex] 25 mg tablet See Rx Instructions PO .COMPLEX Qty: 20 0RF Rx Instructions: take 1 tab at onset of headache; if no relief may repeat 1 tab after at least 2 hrs; max = 4 tabs/24 hr PO meloxicam [Mobic] 7.5 mg tablet 7.5 mg PO DAILY Qty: 60 0RF duloxetine [Cymbalta] 60 mg capsule,delayed release(DR/EC) 60 mg PO DAILY Qty: 60 0RF pregabalin [Lyrica] 150 mg capsule 150 mg PO BID Qty: 90 0RF hydroxyzine HCl 10 mg tablet 10 mg PO Q8H Qty: 60 0RF oxycodone 5 mg tablet 5 mg PO BID PRN (Reason: pain) Qty: 30 0RF hydrocodone-acetaminophen 5-325 mg tablet 1 tab PO Q8H PRN (Reason: pain) Qty: 10 0RF omeprazole magnesium [Prilosec OTC] 20 mg tablet,delayed release (DR/EC) 20 mg PO DAILY Qty: 14 0RF cyclobenzaprine 10 mg tablet 10 mg PO TID PRN (Reason: muscle spasm) Qty: 14 0RF ketorolac 10 mg tablet 10 mg PO Q6H PRN (Reason: pain) Qty: 14 0RF doxycycline hyclate 100 mg tablet 100 mg PO BID Qty: 20 0RF Referrals: Jones Abdul MD [Primary Care Provider] -
[2022-03-01] MEDS: BUPIVACAINE 0.5% W/ EPI (PF) 30 ML VIAL (03:12)
[2022-03-01 03:16] VITALS: BP 141/74; PULSE 80; RESP 18
== END 2022-03-01 03:16 | disposition home or self-care (01) ==
PROVIDERS: Emergency Provider Emergency Medicine; PCP Family Medicine
DX: K08.89 Other specified disorders of teeth and supporting structures (principal)
CPT/HCPCS: 99281

== ENCOUNTER 2022-07-25 19:43 | Emergency (ER) | payer OTHER, MEDICAID, SELFPAY ==
[2022-07-25 19:50] VITALS: BP 135/69; PULSE 76; RESP 14; TEMP 36.2; O2SAT 99; BMI 24.2
--- NOTE | 2022-07-25 20:02 | DI.RAD.S_ITS ---
PROCEDURE: XR FINGER LT MIN 2V INDICATIONS: laceration TECHNIQUE: AP hand, 2 views of the 1st digit acquired. COMPARISON: [facility], CR, XR FINGER RT MIN 2V, 03/18/2020, 19:45. FINDINGS: Bones: No acute fractures or dislocations. There are postsurgical changes within the 5th metacarpal status post prior screw plate fixation as well as a fixation screw within the hamate. No suspicious bony lesions. Soft tissues: There is a soft tissue laceration of the 1st digit distally. No suspicious soft tissue calcifications. IMPRESSION: 1. No acute fracture or dislocation. Dictated by: Royal Harper M.D. on 07/25/2022 at 20:36 Approved by: Royal Harper M.D. on 07/25/2022 at 20:38
== END 2022-07-25 21:18 | disposition left against medical advice (07) ==
PROVIDERS: Emergency Provider Emergency Medicine; PCP Family Medicine
DX: S61.012A Laceration without foreign body of left thumb without damage to nail, initial encounter (principal); W26.0XXA Contact with knife, initial encounter
CPT/HCPCS: 73140; 99283

== ENCOUNTER 2022-10-10 16:54 | Emergency (ER) | payer OTHER, MEDICAID, SELFPAY ==
[2022-10-10] VITALS (19 sets, daily range): BP systolic 120–135; BP diastolic 57–78; PULSE 80–93; RESP 12–25; TEMP 35.8–36.6; O2SAT 93–99; BMI 24.3
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
--- NOTE | 2022-10-10 17:21 | PC.NURSE ---
see trauma flowsheet for assessment note
[2022-10-10] MEDS: SODIUM CHLORIDE 0.9% 1,000 ML 1000 ML IV (17:23)
--- NOTE | 2022-10-10 17:23 | PC.NURSE ---
Pt belongings--cell phone, 25$ in esparza, shoes, pants, shirt, blanket
[2022-10-10 17:35] LABS: Add Manual Diff / Slide Review NO; Basophils Absolute Auto 100 /uL (0-100); Basophils Percent Auto 0.8 % (0-2); Eosinophils Absolute Auto 200 /uL (0-450); Eosinophils Percent Auto 3.5 % (2-4); Hematocrit 44.9 % (41-53); Hemoglobin 15.9 g/dL (13.5-17.5); Lymphocytes Absolute Auto 2100 /uL (1100-4500); Lymphocytes Percent Auto 33.2 % (25-40); Mean Corpuscular HGB Conc 35.3 % (30-36); Mean Corpuscular Hemoglobin 33.4 PG (26-34); Mean Corpuscular Volume 94.5 fL (80-100); Monocytes Absolute Auto 500 /uL (0-900); Monocytes Percent Auto 7.9 % (3-14); Neutrophils Absolute Auto 3500 /uL (1500-7000); Neutrophils Percent Auto 54.6 % (50-75); Platelet Count 237 X10^3/uL (150-400); Red Blood Cell Count 4.75 X10^6/uL (4.5-5.9); Red Cell Distribution Width 12.5 % (11.6-14.8); White Blood Cell Count 6.5 X10^3/uL (4.5-11.0)
[2022-10-10 17:47] LABS: Alanine Aminotransferase 29 IU/L (<50); Albumin 4.9 g/dL (3.5-5.0); Albumin Globulin Ratio 1.4 (1.0-2.8); Alkaline Phosphatase 96 U/L (38-126); Aspartate Aminotransferase 37 IU/L (17-59); BUN Creatinine Ratio 8.8 (6-22); Bilirubin Total 0.8 mg/dL (0.2-1.3); Blood Urea Nitrogen 9 mg/dL (9-20); Calcium 8.7 mg/dL (8.4-10.2); Carbon Dioxide 19 mmol/L (22-32); Chloride 108 mmol/L (98-107); Estimated Glomerular Filt Rate > 60 mL/min (>60); Globulin 3.5 g/dL (1.7-4.1); Glucose 91 mg/dL (70-100); HEMOLYSIS 17 (0-50); Lipase 86 U/L (23-300); Potassium 3.9 mmol/L (3.4-5.1); Sodium 145 mmol/L (137-145); Total Protein 8.4 g/dL (6.3-8.2)
[2022-10-10 17:54] LABS: Ethanol (ETOH) 298 mg/dL
[2022-10-10 19:03] LABS: Bacteria Urine None Seen; Culture Indicated Urine Cult Not Indicated; RBC Urine None Seen (0-5/HPF); Urine Comments Microscopic Normal; WBC Urine None Seen (0-5/HPF)
== END 2022-10-10 18:51 | disposition home or self-care (01) ==
PROVIDERS: Emergency Provider Emergency Medicine; PCP Family Medicine
DX: T68.XXXA Hypothermia, initial encounter (principal); F10.129 Alcohol abuse with intoxication, unspecified; Y90.8 Blood alcohol level of 240 mg/100 ml or more; W69.XXXA Accidental drowning and submersion while in natural water, initial encounter
CPT/HCPCS: 36415; 80053; 80320; 81003; 81015; 83690; 85025; 96360; 99284

== ENCOUNTER 2022-11-13 12:30 | Emergency (ER) | payer OTHER, MEDICAID, SELFPAY ==
[2022-11-13 12:40] VITALS: BP 123/67; PULSE 83; RESP 18; TEMP 36.4; O2SAT 96; BMI 23.5
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
[2022-11-13] MEDS: IBUPROFEN 400 MG TABLET 800 MG PO (13:07)
--- NOTE | 2022-11-13 13:27 | ED.UPPEXIN ---
HPI - Extremity Injury (Upper) <Oriana Gutierrez PA-C - Last Filed: 11/13/22 16:33> General Chief Complaint: Extremity Injury, Upper Stated Complaint: L hand smashed with hammer, discoloeration Time Seen by Provider: 11/13/22 12:50 Source: patient Mode of arrival: Ambulatory History of Present Illness HPI narrative: 37-year-old right-hand dominant male presents to the ED status post a left hand injury sustained just prior to arrival. Patient was working on his house, using a hammer, when when the hammer accidentally struck the left hand. Patient denies numbness, tingling, weakness. Patient states that his hand feels sore and that it is painful to flex his fingers and make a fist. Patient denies numbness, tingling, weakness. Related Data Previous Rx's Medication Instructions Recorded omeprazole magnesium 20 mg 20 mg PO DAILY #14 tabs 07/13/20 tablet,delayed release (Prilosec OTC) meloxicam 7.5 mg tablet (Mobic) 7.5 mg PO DAILY #60 tabs 02/04/21 hydroxyzine HCl 10 mg tablet 10 mg PO Q8H #60 tabs 03/02/21 pregabalin 150 mg capsule (Lyrica) 150 mg PO BID #90 caps 03/02/21 duloxetine 60 mg capsule,delayed 60 mg PO DAILY #60 caps 03/14/21 release (Cymbalta) sumatriptan succinate 25 mg tablet See Rx Instructions PO .COMPLEX 04/04/21 (Imitrex) #20 tabs cyclobenzaprine 10 mg tablet 10 mg PO TID PRN muscle spasm #14 05/19/21 tabs Allergies Allergy/AdvReac Type Severity Reaction Status Date / Time Sulfa (Sulfonamide Allergy Mild Hives Verified 11/13/22 13:03 Antibiotics) [SULFA (SULFONAMIDE ANTIBIOTICS)] ketorolac [From Toradol] Allergy Verified 11/13/22 13:03 tramadol AdvReac Verified 11/13/22 13:03 Review of Systems <Oriana Gutierrez PA-C - Last Filed: 11/13/22 16:33> Review of Systems ROS Unobtainable: All systems reviewed & are unremarkable except as noted in HPI and below Constitutional Constitutional: Denies chills, Denies fatigue, Denies fever(s), Denies frequent falls, Denies lethargy and Denies weakness Eyes Eyes: Denies change in vision, Denies eye discharge, Denies irritation and Denies loss of vision ENT Ears, Nose, Mouth, and Throat: Denies change in voice, Denies dizziness, Denies neck pain, Denies sore throat and Denies throat swelling Cardiovascular Cardiovascular: Denies chest pain, Denies irregular heart rhythm, Denies lightheadedness, Denies palpitations, Denies dyspnea, Denies dyspnea on exertion and Denies orthopnea Respiratory Respiratory: Denies cough, Denies dyspnea, Denies dyspnea on exertion and Denies wheezing Gastrointestinal Gastrointestinal: Denies abdominal pain, Denies change in bowel habits, Denies diarrhea, Denies nausea and Denies vomiting Genitourinary Genitourinary: Denies hematuria, Denies flank pain, Denies urinary incontinence and Denies urinary urgency Musculoskeletal Musculoskeletal: Denies back pain, Denies muscle weakness, Denies neck pain, Denies numbness and Denies tingling Comments: Left hand pain Integumentary/Breasts Skin/Breast: Denies pruritus, Denies erythema, Denies rash and Denies wounds Neurologic Neurologic: Denies behavioral changes, Denies confusion, Denies dizziness, Denies frequent falls, Denies loss of vision, Denies numbness, Denies tingling and Denies weakness Psychiatric Psychiatric: Denies anxiety, Denies behavioral changes, Denies confusion, Denies depression, Denies homicidal ideation and Denies suicidal ideation Endocrine Endocrine: Denies fatigue, Denies flushing and Denies palpitations Hematologic/Lymphatic Hematologic/Lymphatic: Denies easy bruising Allergic/Immunologic Allergic/Immunologic: Denies urticaria, Denies throat swelling and Denies wheezing Patient History <Oriana Gutierrez PA-C - Last Filed: 11/13/22 16:33> Medical History Acute stress disorder Cervical spine disease (~2014) Chronic back pain (~2011) Chronic solar dermatitis Elbow pain (~2016) Facet arthropathy, cervical Fibromyalgia Fractures (~2014) Gastric ulcer (~2010) Hearing deficit (~2015) Right rotator cuff tear Ruptured tympanic membrane (~2015) Shoulder pain Tinnitus (~2015) Vertigo (~2015) Vision disorder White blood cell disorder (~2015) Surgical History Anesthesia History of open reduction and internal fixation (ORIF) procedure (02/05/20) Status post hernia repair (~2008) Status post hernia repair (~2003) Family History Father Age: 63 Hypertension Hematoma Mother Age: 59 Hypertension High cholesterol Diabetes mellitus Sister Age: 41 Hypertension Double ureter Grandmother Stroke Grandfather Cancer Social History marital status: household members: spouse and children occupational status: employed Smoking Status: Never smoker alcohol intake: former substance use type: does not use Smoking Status: Never smoker alcohol intake frequency: other Alcohol type: beer Substance Use Type: marijuana Exam <Oriana Gutierrez PA-C - Last Filed: 11/13/22 16:33> Narrative Exam Narrative: Const General:?cooperative, healthy appearing and comfortable HENPR Head:?normal to inspection Ears:?hearing grossly normal bilaterally Nose:?external nose normal Face and sinus:?normal facial exam and sinuses nontender Mouth:?oral mucosae normal Throat:?posterior oropharynx normal Eyes General:?appearance normal, both eyes and all related structures Neck Neck:?normal visual inspection and no lymphadenopathy noted Resp Effort & Inspection:?normal respiratory effort Auscultation:?clear to auscultation bilaterally Cardio Rate:?regular rate Rhythm:?regular rhythm Musculoskeletal There is mild swelling of the dorsal aspect of the left hand. There is scaphoid tenderness. Range of motion is limited by pain. Strength and sensation is intact. Patient appears neurovascularly intact. No deformities or bruising on exam. The skin is intact. Neuro General:?patient alert, patient awake and patient oriented x3 Initial Vital Signs Initial Vital Signs: Vital Signs Temperature 97.5 F L 11/13/22 12:40 Pulse Rate 83 11/13/22 12:40 Respiratory Rate 18 11/13/22 12:40 Blood Pressure 123/67 11/13/22 12:40 Pulse Oximetry 96 11/13/22 12:40 Oxygen Delivery Method Room Air 11/13/22 12:40 <Mohsen Wayne MD - Last Filed: 11/14/22 07:09> Initial Vital Signs Initial Vital Signs: Vital Signs Temperature 97.5 F L 11/13/22 12:40 Pulse Rate 83 11/13/22 12:40 Respiratory Rate 18 11/13/22 12:40 Blood Pressure 123/67 11/13/22 12:40 Pulse Oximetry 96 11/13/22 12:40 Oxygen Delivery Method Room Air 11/13/22 12:40 Course <Oriana Gutierrez PA-C - Last Filed: 11/13/22 16:33> Orders Ordered: Discontinued Medications Ibuprofen (Ibuprofen 400 Mg Tablet) 800 mg PO NOW ONE Stop: 11/13/22 13:04 Last Admin: 11/13/22 13:07 Dose: 800 mg Documented By: RL Vital Signs Vital signs: Vital Signs - 8 hr 11/13/22 12:40 11/13/22 14:22 Temperature 97.5 F L Pulse Rate 83 75 Respiratory Rate 18 16 Blood Pressure 123/67 119/64 Pulse Oximetry 96 98 Oxygen Delivery Method Room Air Room Air <Mohsen Wayne MD - Last Filed: 11/14/22 07:09> Orders Ordered: Discontinued Medications Ibuprofen (Ibuprofen 400 Mg Tablet) 800 mg PO NOW ONE Stop: 11/13/22 13:04 Last Admin: 11/13/22 13:07 Dose: 800 mg Documented By: RL Vital Signs Vital signs: Vital Signs - 8 hr 11/13/22 12:40 11/13/22 14:22 Temperature 97.5 F L Pulse Rate 83 75 Respiratory Rate 18 16 Blood Pressure 123/67 119/64 Pulse Oximetry 96 98 Oxygen Delivery Method Room Air Room Air MDM - Extremity Injury (Upper) <Oriana Gutierrez PA-C - Last Filed: 11/13/22 16:33> MDM Narrative Medical decision making narrative: 37-year-old right-hand dominant male presents to the ED status post a left hand injury sustained just prior to arrival. Concern for fracture/dislocation versus musculoskeletal sprain/strain. Will obtain x-rays of the hand and wrist. Will control pain with ibuprofen. Will reassess. X-ray with no acute findings. Patient's symptoms likely due to a musculoskeletal sprain/strain. Recommend supportive care with ibuprofen, Tylenol. Recommend follow-up with PCP as soon as possible. ED return precautions were discussed with patient. Patient verbalized understanding. Discharge Plan Departure Patient Disposition: Home Clinical Impression: Hand injury Instructions: DI for Hand Injury Activity Restrictions/Additional Instructions: You were evaluated in the ED today for a left hand injury. Your x-rays of the wrist and hand did not show any fractures or dislocations. Your symptoms are likely due to a musculoskeletal sprain/strain or contusion from the injury. You may continue to take ibuprofen and Tylenol 3 times a day for pain and inflammation. You may ice the injury for the 1st 24 hours, following which he would packs can be very helpful. Please follow-up with your PCP as soon as possible. Return to the ED if you experience worsening pain, numbness, tingling, weakness. Prescriptions: No Action sumatriptan succinate [Imitrex] 25 mg tablet See Rx Instructions PO .COMPLEX Qty: 20 0RF Rx Instructions: take 1 tab at onset of headache; if no relief may repeat 1 tab after at least 2 hrs; max = 4 tabs/24 hr PO meloxicam [Mobic] 7.5 mg tablet 7.5 mg PO DAILY Qty: 60 0RF duloxetine [Cymbalta] 60 mg capsule,delayed release(DR/EC) 60 mg PO DAILY Qty: 60 0RF pregabalin [Lyrica] 150 mg capsule 150 mg PO BID Qty: 90 0RF hydroxyzine HCl 10 mg tablet 10 mg PO Q8H Qty: 60 0RF omeprazole magnesium [Prilosec OTC] 20 mg tablet,delayed release (DR/EC) 20 mg PO DAILY Qty: 14 0RF cyclobenzaprine 10 mg tablet 10 mg PO TID PRN (Reason: muscle spasm) Qty: 14 0RF Referrals: Jones Abdul MD [Primary Care Provider] - Stand Alone Forms: Patient Portal/API <Mohsen Wayne MD - Last Filed: 11/14/22 07:09> [facility] ED Attending Lucasature Attestation: I was immediately available in the department for consultation. ?This documentation has been reviewed and I agree with assessment and plan. Supervised by Mohsen Wayne MD
[2022-11-13 14:22] VITALS: BP 119/64; PULSE 75; RESP 16; O2SAT 98
== END 2022-11-13 14:22 | disposition home or self-care (01) ==
PROVIDERS: Emergency Provider Student in an Organized Health Care Education/Training Program; PCP Family Medicine
DX: S69.92XA Unspecified injury of left wrist, hand and finger(s), initial encounter (principal); W22.8XXA Striking against or struck by other objects, initial encounter
CPT/HCPCS: 73110; 73130; 99283

== ENCOUNTER 2022-12-03 08:53 | Emergency (ER) | payer OTHER, MEDICAID, SELFPAY ==
[2022-12-03 08:59] VITALS: BP 145/87; PULSE 101; RESP 18; TEMP 36.7; O2SAT 99; BMI 24.3
--- NOTE | 2022-12-03 09:04 | DI.RAD.S_ITS ---
PROCEDURE: XR ANKLE RT MIN 3V INDICATIONS: r/o fx TECHNIQUE: 3 views of the ankle were acquired. COMPARISON: None. FINDINGS: Bones: No fractures or dislocations. Ankle mortise is normally aligned. No suspicious bony lesions. Soft tissues: Soft tissue swelling over the lateral malleolus consistent with ligamentous injury. IMPRESSION: No fracture. Soft tissue swelling over the lateral malleolus consistent with ligamentous injury. Dictated by: Carlyle Dejesus M.D. on 12/03/2022 at 8:55 Approved by: Carlyle Dejesus M.D. on 12/03/2022 at 8:56
--- NOTE | 2022-12-03 09:07 | ED.LOWEXIN ---
HPI - Extremity Injury (Lower) General Chief Complaint: Extremity Injury, Lower Stated Complaint: R Ankle pain/swelling, heard crunch, last night Time Seen by Provider: 12/03/22 09:07 Source: patient Mode of arrival: Ambulatory Limitations: no limitations History of Present Illness HPI Narrative: This is a 37-year-old male with history of GERD who presents with complaint of right ankle pain, swelling and bruising. Patient states yesterday he stepped backwards off a step inverting his ankle and had immediate pain, swelling and has pain with weight-bearing. Patient states moderate bruising particularly in the lateral side of his foot and ankle. Pain seems to be localized more in the ankle. Denies any loss of sensation, no weakness. States more painful to fully dorsiflex. Patient denies any other injuries. States he took ibuprofen about 730 this morning with minimal improvement. Patient states no other daily medications besides omeprazole. States allergic to sulfa cotton gets tinnitus from Toradol and tramadol. Related Data Previous Rx's Medication Instructions Recorded omeprazole magnesium 20 mg 20 mg PO DAILY #14 tabs 07/13/20 tablet,delayed release (Prilosec OTC) meloxicam 7.5 mg tablet (Mobic) 7.5 mg PO DAILY #60 tabs 02/04/21 hydroxyzine HCl 10 mg tablet 10 mg PO Q8H #60 tabs 03/02/21 pregabalin 150 mg capsule (Lyrica) 150 mg PO BID #90 caps 03/02/21 duloxetine 60 mg capsule,delayed 60 mg PO DAILY #60 caps 03/14/21 release (Cymbalta) sumatriptan succinate 25 mg tablet See Rx Instructions PO .COMPLEX 04/04/21 (Imitrex) #20 tabs cyclobenzaprine 10 mg tablet 10 mg PO TID PRN muscle spasm #14 05/19/21 tabs albuterol sulfate 90 mcg/actuation 2 puff inhalation Q6H PRN 11/16/22 aerosol inhaler shortness of breath or wheezing #6.7 grams albuterol sulfate 90 mcg/actuation 2 puff inhalation Q6H PRN 11/16/22 aerosol inhaler shortness of breath or wheezing #8.5 grams inhalational spacing device #1 ea 11/16/22 (Aerochamber MV spacer) Allergies Allergy/AdvReac Type Severity Reaction Status Date / Time Sulfa (Sulfonamide Allergy Mild Hives Verified 11/16/22 18:36 Antibiotics) [SULFA (SULFONAMIDE ANTIBIOTICS)] ketorolac [From Toradol] Allergy Verified 11/16/22 18:36 tramadol AdvReac Verified 11/16/22 18:36 Review of Systems Review of Systems ROS Unobtainable: All systems reviewed & are unremarkable except as noted in HPI and below Patient History Medical History Acute stress disorder Cervical spine disease (~2014) Chronic back pain (~2011) Chronic solar dermatitis Elbow pain (~2016) Facet arthropathy, cervical Fibromyalgia Fractures (~2014) Gastric ulcer (~2010) Hearing deficit (~2015) Right rotator cuff tear Ruptured tympanic membrane (~2015) Shoulder pain Tinnitus (~2015) Vertigo (~2015) Vision disorder White blood cell disorder (~2015) Surgical History Anesthesia History of open reduction and internal fixation (ORIF) procedure (02/05/20) Status post hernia repair (~2008) Status post hernia repair (~2003) Family History Father Age: 63 Hypertension Hematoma Mother Age: 59 Hypertension High cholesterol Diabetes mellitus Sister Age: 41 Hypertension Double ureter Grandmother Stroke Grandfather Cancer Social History marital status: household members: spouse and children occupational status: employed Smoking Status: Never smoker alcohol intake: former substance use type: does not use Smoking Status: Never smoker alcohol intake frequency: other Alcohol type: beer Substance Use Type: marijuana Exam Narrative Exam Narrative: GENERAL: Alert and oriented x three, male in [id number] discomfort. Patient is slightly shaky. HEENT: Head normocephalic, atraumatic, EOMI, pupils reactive, face symmetric, moist mucous membranes NECK: Supple, full range of motion EXTREMITIES: Normal range of motion, no clubbing. Positive for edema particularly with the right ankle/lateral malleoli. Patient has quite a bit of bruising superior to over and inferior to the right lateral malleoli. Patient has tenderness over the right lateral malleoli. No bony tenderness to the toes, forefoot or midfoot. No tenderness of the calcaneus. Patient has nontender in the right knee or upper leg. Has overall good range of motion. 2+ dorsalis pedis. Sensation intact throughout foot in all 5 toes. No lacerations or abrasions appreciated. Neurovascularly intact NEUROLOGICAL: Cranial nerves II through XII grossly intact. Moving all extremities SKIN: Warm, dry, no petechiae, no rashes or lesions other than noted above. Initial Vital Signs Initial Vital Signs: Vital Signs Temperature 98.0 F 12/03/22 08:59 Pulse Rate 101 H 12/03/22 08:59 Respiratory Rate 18 12/03/22 08:59 Blood Pressure 145/87 H 12/03/22 08:59 Pulse Oximetry 99 12/03/22 08:59 Oxygen Delivery Method Room Air 12/03/22 08:59 Course Orders Ordered: Discontinued Medications Hydrocodone Bitart/Acetaminophen (Hydrocodone/Acet 5/325 Tablet) 1 tab PO NOW ONE Stop: 12/03/22 10:08 Last Admin: 12/03/22 10:11 Dose: 1 tab Documented By: DOUGLAS Vital Signs Vital signs: Vital Signs - 8 hr 12/03/22 08:59 Temperature 98.0 F Pulse Rate 101 H Respiratory Rate 18 Blood Pressure 145/87 H Pulse Oximetry 99 Oxygen Delivery Method Room Air MDM - Extremity Injury (Lower) Imaging Data Extremity x-ray #1: Radiologist's Impression: [address] [address] XRay Report Signed Patient: Luis Castano MR#: [id number] : 1985 Acct:[id number] Age/Sex: 37 / M Date of Service: 12/03/22 Loc: ED Accession Number: [id number] ?? Procedure: XR ankle RT min 3V Ordering Provider: Isabel Macias D.O. PROCEDURE:? XR ANKLE RT MIN 3V ? INDICATIONS:? r/o fx ? TECHNIQUE:? 3 views of the ankle were acquired.? ? COMPARISON:? None. ? FINDINGS:? ? Bones:? No fractures or dislocations.? Ankle mortise is normally aligned.? No suspicious bony lesions.? ? Soft tissues:? Soft tissue swelling over the lateral malleolus consistent with ligamentous injury. ? ? IMPRESSION:? No fracture.? Soft tissue swelling over the lateral malleolus consistent with ligamentous injury. ? Dictated by: Carlyle Dejesus M.D. on 12/03/2022 at 8:55 ? ? Approved by: Carlyle Dejesus M.D. on 12/03/2022 at 8:56?? MDM Narrative Medical decision making narrative: This is a 37-year-old male who presents with right ankle pain after stepping backwards and inverting his ankle. He has obvious bruising and ecchymosis with tenderness over the right lateral malleoli. X-ray was obtained per [place] ankle rules. Patient x-ray shows no fracture or obvious dislocation. Patient has crutches with him, ortho boot, toe-touch weight-bearing as tolerated and follow up in 7-10 days if symptoms are not improving. Discharge Plan Departure Patient Disposition: Home Clinical Impression: Right ankle sprain Instructions: DI for Ankle Sprain Activity Restrictions/Additional Instructions: Follow-up in 7-10 days for recheck if your symptoms are not improving. You may weightbear as tolerated. You may take ibuprofen up to 600 mg every 6 hours and/or Tylenol up to a 1000 mg every 6 hours as needed for pain. Splint Care: Keep splint clean and dry. Elevated affected body part to decrease swelling. OK to use ice pack on the affected body part. Use for 15-20 minutes each time, for 5-6x per day. If you develop worsening pain, numbness, tingling, discoloration of the affected body part, loosen the splint by loosening the RACHAEL wrap, and either see your doctor for an urgent re-assessment, or return to the Emergency Department. Return to the Emergency Department for any new or worsening symptoms. Prescriptions: No Action (DME) Aerochamber MV Spacer See Rx Instructions .ROUTE .MEDSUPPLY Qty: 1 0RF Rx Instructions: As directed albuterol sulfate 90 mcg/actuation HFA aerosol inhaler 2 puff inhalation Q6H PRN (Reason: shortness of breath or wheezing) Qty: 6.7 1RF sumatriptan succinate [Imitrex] 25 mg tablet See Rx Instructions PO .COMPLEX Qty: 20 0RF Rx Instructions: take 1 tab at onset of headache; if no relief may repeat 1 tab after at least 2 hrs; max = 4 tabs/24 hr PO albuterol sulfate 90 mcg/actuation HFA aerosol inhaler 2 puff inhalation Q6H PRN (Reason: shortness of breath or wheezing) Qty: 8.5 1RF meloxicam [Mobic] 7.5 mg tablet 7.5 mg PO DAILY Qty: 60 0RF duloxetine [Cymbalta] 60 mg capsule,delayed release(DR/EC) 60 mg PO DAILY Qty: 60 0RF pregabalin [Lyrica] 150 mg capsule 150 mg PO BID Qty: 90 0RF hydroxyzine HCl 10 mg tablet 10 mg PO Q8H Qty: 60 0RF omeprazole magnesium [Prilosec OTC] 20 mg tablet,delayed release (DR/EC) 20 mg PO DAILY Qty: 14 0RF cyclobenzaprine 10 mg tablet 10 mg PO TID PRN (Reason: muscle spasm) Qty: 14 0RF Referrals: Jones Abdul MD [Primary Care Provider] - Stand Alone Forms: Patient Portal/API, Work Release Note
[2022-12-03 10:09] VITALS: PULSE 88; RESP 18; O2SAT 99
[2022-12-03] MEDS: HYDROCODONE/ACET 5/325 TABLET 1 TAB PO (10:11)
== END 2022-12-03 10:19 | disposition home or self-care (01) ==
PROVIDERS: Emergency Provider Emergency Medicine; PCP Family Medicine
DX: S93.401A Sprain of unspecified ligament of right ankle, initial encounter (principal); X50.1XXA Overexertion from prolonged static or awkward postures, initial encounter
CPT/HCPCS: 73610; 99283

== ENCOUNTER → 2023-07-24 09:21 | Outpatient (CLI) | payer OTHER, MEDICAID, SELFPAY ==
[2023-07-24 10:11] LABS: COVID-19 CEPHEID 4-PLEX PCR Negative (Negative); Influenza A - CEPHEID Flu A NEGATIVE (NEGATIVE); Influenza B - CEPHEID Flu B NEGATIVE (NEGATIVE); Respiratory Syncytial Virus Negative (Negative)
== END ==
PROVIDERS: PCP Family Medicine; Visit Provider Physician Assistant
DX: R05.1 Acute cough (principal)
CPT/HCPCS: 0241U

== ENCOUNTER → 2023-07-24 09:59 | Outpatient (CLI) | payer OTHER, MEDICAID, SELFPAY ==
--- NOTE | 2023-07-24 10:10 | DI.RAD.S_ITS ---
PROCEDURE: XR CHEST 2V INDICATIONS: cough x 3 weeks, not vaccinated covid TECHNIQUE: 2 views of the chest were acquired. COMPARISON: [facility], CR, XR CHEST 1V, 05/19/2021, 12:31. FINDINGS: Surgical changes and devices: None. Lungs and pleura: Lungs are clear. No pleural effusions or pneumothorax. Mediastinum: Mediastinal contours are normal. Heart size is normal. Bones and chest wall: No suspicious bony abnormalities. Soft tissues appear unremarkable. IMPRESSION: No acute cardiopulmonary pathology. Dictated by: Tin Meza M.D. on 07/24/2023 at 14:17 Approved by: Tin Meza M.D. on 07/24/2023 at 14:17
[2023-07-24 11:55] LABS: Add Manual Diff / Slide Review NO; Basophils Absolute Auto 0 /uL (0-100); Basophils Percent Auto 0.3 % (0-2); Eosinophils Absolute Auto 100 /uL (0-450); Hematocrit 41.3 % (41-53); Hemoglobin 14.5 g/dL (13.5-17.5); Lymphocytes Absolute Auto 1100 /uL (1100-4500); Lymphocytes Percent Auto 9.1 % (25-40); Mean Corpuscular Volume 94.1 fL (80-100); Monocytes Absolute Auto 500 /uL (0-900); Monocytes Percent Auto 3.9 % (3-14); Neutrophils Absolute Auto 9900 /uL (1500-7000); Neutrophils Percent Auto 85.7 % (50-75); Platelet Count 226 X10^3/uL (150-400); Red Blood Cell Count 4.39 X10^6/uL (4.5-5.9); Red Cell Distribution Width 12.1 % (11.6-14.8); White Blood Cell Count 11.6 X10^3/uL (4.5-11.0)
[2023-07-24 12:29] LABS: Alanine Aminotransferase 43 IU/L (<50); Albumin 4.4 g/dL (3.5-5.0); Albumin Globulin Ratio 1.3 (1.0-2.8); Alkaline Phosphatase 97 U/L (38-126); Aspartate Aminotransferase 37 IU/L (17-59); BUN Creatinine Ratio 14.1 (6-22); Bilirubin Total 1.2 mg/dL (0.2-1.3); Blood Urea Nitrogen 12 mg/dL (9-20); Calcium 9.7 mg/dL (8.4-10.2); Carbon Dioxide 25 mmol/L (22-32); Chloride 107 mmol/L (98-107); Cholesterol 180 mg/dL (140-199); Estimated Glomerular Filt Rate > 60 mL/min (>60); Globulin 3.4 g/dL (1.7-4.1); Glucose 101 mg/dL (70-100); HDL Cholesterol 57 mg/dL (40-60); HEMOLYSIS < 15 (0-50); LDL Cholesterol Calculated 93 mg/dL (<100); Potassium 4.1 mmol/L (3.4-5.1); Sodium 139 mmol/L (137-145); Total Protein 7.8 g/dL (6.3-8.2); Triglycerides 150 mg/dL (35-150)
[2023-07-24 12:47] LABS: Thyroid Stimulating Hormone 0.875 uIU/mL (0.47-4.68)
[2023-07-25 08:12] LABS: Apolipoprotein B 100 mg/dL (<90)
== END ==
PROVIDERS: PCP Family Medicine; Referring Provider Physician Assistant; Visit Provider Physician Assistant
DX: J06.9 Acute upper respiratory infection, unspecified (principal); R05.1 Acute cough; R51.9 Headache, unspecified; M79.7 Fibromyalgia; M54.12 Radiculopathy, cervical region; R53.83 Other fatigue; F41.9 Anxiety disorder, unspecified; F43.0 Acute stress reaction; G89.29 Other chronic pain; Z98.890 Other specified postprocedural states
CPT/HCPCS: 0241U; 36415; 71046; 80053; 80061; 82172; 84443; 85025

== ENCOUNTER 2023-09-16 06:20 | Emergency (ER) | payer OTHER, MEDICAID, SELFPAY ==
[2023-09-16 06:25] VITALS: BP 159/82; PULSE 74; RESP 16; TEMP 36.9; O2SAT 98; BMI 26.6
[2023-09-16 06:32] VITALS: BP 164/85; PULSE 75; O2SAT 98
[2023-09-16 06:33] VITALS: BP 159/82; PULSE 84; O2SAT 98
--- NOTE | 2023-09-16 06:37 | DI.RAD.S_ITS ---
PROCEDURE: XR RIBS LT MIN 3V W CXR1V INDICATIONS: left rib pain TECHNIQUE: 2 views of the ribs were acquired, along with a single view chest. COMPARISON: [facility], , XR CHEST 2V, 07/24/2023, 10:19. FINDINGS: Surgical changes and devices: None. Bones and chest wall: No fractures or dislocations. No suspicious bony lesions. Overlying soft tissues appear unremarkable. Lungs and pleura: No pleural effusions or pneumothorax. Lungs appear clear. Mediastinum: Mediastinal contours appear normal. Heart size is normal. IMPRESSION: No acute cardiopulmonary abnormality. No displaced left-sided rib fracture. Dictated by: Jaime Frausto M.D. on 09/16/2023 at 7:34 Approved by: Jaime Frausto M.D. on 09/16/2023 at 7:35
[2023-09-16 07:13] VITALS: BP 174/86; PULSE 75; O2SAT 97
--- NOTE | 2023-09-16 07:15 | ED_ITS ---
HPI - Back Pain/Injury General Chief Complaint: Back Pain/Injury Stated Complaint: Left side rib injury Time Seen by Provider: 09/16/23 06:37 Source: patient History of Present Illness HPI Narrative: Patient here for left rib pain/injury. Patient states he was in the floor playing with his kids a couple of days ago and rolled onto a toy injuring the left anterior inferior ribs. Denies any other injuries. No fever chills no cough cold or congestion. Vital signs are reassuring. is driving him this morning. Patient states he has had oxycodone without allergic reaction. Related Data Previous Rx's Medication Instructions Recorded omeprazole magnesium 20 mg 20 mg PO DAILY #14 tabs 07/13/20 tablet,delayed release (Prilosec OTC) albuterol sulfate 90 mcg/actuation 2 puff inhalation Q6H PRN 11/16/22 aerosol inhaler shortness of breath or wheezing #6.7 grams albuterol sulfate 90 mcg/actuation 2 puff inhalation Q6H PRN 11/16/22 aerosol inhaler shortness of breath or wheezing #8.5 grams inhalational spacing device #1 ea 11/16/22 (Aerochamber MV spacer) pregabalin 150 mg capsule (Lyrica) 150 mg PO BID #90 caps 04/24/23 pregabalin 75 mg capsule (Lyrica) 75 mg PO BID #14 caps 04/24/23 [id number]-[id number] 0.01 1 ea topical .prn #180 mL 07/09/23 %-0.2 %-3.5 % topical gel cyclobenzaprine 10 mg tablet 10 mg PO TID PRN muscle spasm #14 07/09/23 tabs diazepam 10 mg tablet (Valium) 10 mg PO ONCE PRN sedation #1 tab 07/09/23 meloxicam 15 mg tablet 15 mg PO DAILY #90 tabs 07/09/23 omeprazole 20 mg capsule,delayed 20 mg PO DAILY #30 caps 07/09/23 release oxycodone-acetaminophen 10 mg-325 1 tab PO ONCE PRN sedation #1 tab 07/09/23 mg tablet (Percocet) sumatriptan succinate 25 mg tablet See Rx Instructions PO .COMPLEX 07/09/23 (Imitrex) #20 tabs acetaminophen 500 mg tablet 1,000 mg (2 x 500 mg) PO TID PRN 07/24/23 fever or pain #60 tabs amoxicillin 875 mg-potassium 1 tab PO Q12H #20 tabs 07/24/23 clavulanate 125 mg tablet benzonatate 200 mg capsule 200 mg PO TID PRN cough #40 caps 07/24/23 fluticasone propionate 50 1 spray intranasal DAILY #16 grams 07/24/23 mcg/actuation nasal spray,suspension (Flonase Allergy Relief) guaifenesin 1,200 mg tablet, 1,200 mg PO Q12H #30 tabs 07/24/23 extended release 12 hr Allergies Allergy/AdvReac Type Severity Reaction Status Date / Time Sulfa (Sulfonamide Allergy Mild Hives Verified 07/24/23 09:06 Antibiotics) [SULFA (SULFONAMIDE ANTIBIOTICS)] ketorolac [From Toradol] Allergy Verified 07/24/23 09:06 tramadol AdvReac Verified 07/24/23 09:06 Review of Systems Review of Systems Narrative: GENERAL: negative chills, fatigue, malaise, fever, sweats. HEENT: negative sinus pain, ear pain, sore throat RESPIRATORY: negative dyspnea, cough CARDIOVASCULAR: negative chest pain, palpitations GASTROINTESTINAL: negative nausea, vomiting, abdominal pain : negative dysuria, frequency, hematuria MUSCULOSKELETAL: Positive muscle or bony pain SKIN: negative rash, skin lesions NEUROLOGIC: negative weakness, numbness ROS Unobtainable: All systems reviewed & are unremarkable except as noted in HPI and below Patient History Medical History Fibromyalgia Facet arthropathy, cervical Right rotator cuff tear Chronic solar dermatitis Acute stress disorder Vision disorder Hearing deficit (~2015) Elbow pain (~2016) Shoulder pain Fractures (~2014) Chronic back pain (~2011) Cervical spine disease (~2014) White blood cell disorder (~2015) Vertigo (~2015) Tinnitus (~2015) Ruptured tympanic membrane (~2015) Gastric ulcer (~2010) Surgical History History of open reduction and internal fixation (ORIF) procedure (02/05/20) Anesthesia Status post hernia repair (~2003) Status post hernia repair (~2008) Family History Father Age: 64 Hypertension Hematoma Mother Age: 60 Hypertension High cholesterol Diabetes mellitus Sister Age: 42 Hypertension Double ureter Grandmother Stroke Grandfather Cancer Social History marital status: household members: spouse and children occupational status: employed Smoking Status: Never smoker alcohol intake: former substance use type: does not use Smoking Status: Never smoker alcohol intake frequency: other Alcohol type: beer Substance Use Type: marijuana Exam Narrative Exam Narrative: GENERAL: in no distress, not toxic not dyspneic HEAD: Normocephalic. EYES: Pupils equal round ENT: Mucous membranes moist. NECK: Trachea midline. CARDIOVASCULAR: Regular rate and rhythm RESPIRATORY: Clear to auscultation. Breath sounds equal bilaterally. No wheezes, rales, or rhonchi. There is reproducible left anterior inferior rib tenderness. No flail. No crepitus. No bruising seen. Patient is speaking full sentences. No respiratory distress GASTROINTESTINAL: Abdomen soft, non-tender EXTREMITIES: No gross deformities. BACK: No flank tenderness. NEURO: AOx4. SKIN: Warm and dry PSYCH: Not anxious, is cooperative Initial Vital Signs Initial Vital Signs: Vital Signs Temperature 98.5 F 09/16/23 06:25 Pulse Rate 74 09/16/23 06:25 Respiratory Rate 16 09/16/23 06:25 Blood Pressure 159/82 H 09/16/23 06:25 Pulse Oximetry 98 09/16/23 06:25 Oxygen Delivery Method Room Air 09/16/23 06:25 Course Orders Ordered: ED Orders 09/16/23 06:37 XR ribs LT min 3V w CXR1V Stat Discontinued Medications Ondansetron HCl (Ondansetron 4 Mg Odt) 4 mg SL NOW ONE Stop: 09/16/23 07:16 Last Admin: 09/16/23 07:30 Dose: 4 mg Documented By: KOLE Oxycodone/Acetaminophen (Oxycodone/Acetaminophen 5/325 Tablet) 2 tab PO NOW ONE Stop: 09/16/23 07:14 Last Admin: 09/16/23 07:29 Dose: 2 tab Documented By: KOLE Vital Signs Vital signs: Vital Signs - 8 hr 09/16/23 06:25 09/16/23 06:32 09/16/23 06:32 Temperature 98.5 F Pulse Rate 74 75 Respiratory Rate 16 Blood Pressure 159/82 H 164/85 H Pulse Oximetry 98 98 Oxygen Delivery Method Room Air 09/16/23 06:33 09/16/23 06:33 09/16/23 07:13 Temperature Pulse Rate 84 Respiratory Rate Blood Pressure 159/82 H 174/86 H Pulse Oximetry 98 Oxygen Delivery Method Room Air 09/16/23 07:13 09/16/23 07:35 Temperature Pulse Rate 75 Respiratory Rate 18 Blood Pressure Pulse Oximetry 97 Oxygen Delivery Method Room Air MDM - Back Pain/Injury [facility] Narrative Medical decision making narrative: Patient here for left rib pain/injury. Patient states he was in the floor playing with his kids a couple of days ago and rolled onto a toy injuring the left anterior inferior ribs. Denies any other injuries. No fever chills no cough cold or congestion. Vital signs are reassuring. is driving him this morning. Patient states he has had oxycodone without allergic reaction. After history and exam x-ray ribs, pain control/oxycodone. Patient has had oxycodone in the past without allergic reaction. [facility] Medical records reviewed: No recent visit for this complaint Differential considered: Includes but not limited to rib contusion rib fracture pneumothorax Imaging studies independently reviewed: X-ray left ribs read by overnight radiologist no acute finding Treatments: Oxycodone Zofran Re-evaluations: 7:20 a.m.. Reviewed with patient x-ray imaging. It is reassuring at this time. Likely bruised but return precautions reviewed with him repeat imaging if not improving 7-10 days. is driving. He does not need a work note. 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 Reviewed with him pain medication will be given here to lower his pain level, then he can resume his home pain medications/meloxicam with Tylenol. Discussion: Appropriate for discharge home. Patient states is driving. Appropriate for dose of oxycodone here to lower his pain level and likely home medications will be able to control his pain then. Return precautions reviewed. Not toxic at discharge. He desires discharge home. Vital signs reassuring. Diagnosis: Rib contusion Discharge Plan Departure Patient Disposition: Home Clinical Impression: Contusion of rib on left side Qualifiers: Encounter type: initial encounter Qualified Code(s): S20.212A - Contusion of left front wall of thorax, initial encounter Instructions: DI for Rib Contusion Activity Restrictions/Additional Instructions: No driving operating machinery this morning. Please see your family doctor this week for re-evaluation. Call provided primary care referral phone number to establish family doctor. Call [phone]. Continue home medications. Today's exam and x-ray imaging of the ribs is reassuring. Return if not better in or if not improving in 10 days for repeat imaging studies. Prescriptions: No Action (DME) Aerochamber MV Spacer See Rx Instructions .ROUTE .MEDSUPPLY Qty: 1 0RF Rx Instructions: As directed albuterol sulfate 90 mcg/actuation HFA aerosol inhaler 2 puff inhalation Q6H PRN (Reason: shortness of breath or wheezing) Qty: 6.7 1RF guaifenesin 1,200 mg tablet extended release 12hr 1,200 mg PO Q12H Qty: 30 0RF benzonatate 200 mg capsule 200 mg PO TID PRN (Reason: cough) Qty: 40 0RF acetaminophen 500 mg tablet 1,000 mg PO TID PRN (Reason: fever or pain) Qty: 60 0RF fluticasone propionate [Flonase Allergy Relief] 50 mcg/actuation spray,suspension 1 spray intranasal DAILY Qty: 16 1RF Rx Instructions: administer into each nostril amoxicillin-pot clavulanate 875-125 mg tablet 1 tab PO Q12H Qty: 20 0RF albuterol sulfate 90 mcg/actuation HFA aerosol inhaler 2 puff inhalation Q6H PRN (Reason: shortness of breath or wheezing) Qty: 8.5 1RF jpcgmnofc-[id number] 0.01-0.2-3.5 % gel 1 ea topical .prn Qty: 180 3RF omeprazole 20 mg capsule,delayed release(DR/EC) 20 mg PO DAILY Qty: 30 3RF sumatriptan succinate [Imitrex] 25 mg tablet See Rx Instructions PO .COMPLEX Qty: 20 3RF Rx Instructions: take 1 tab at onset of headache; if no relief may repeat 1 tab after at least 2 hrs; max = 4 tabs/24 hr PO meloxicam 15 mg tablet 15 mg PO DAILY Qty: 90 0RF cyclobenzaprine 10 mg tablet 10 mg PO TID PRN (Reason: muscle spasm) Qty: 14 0RF diazepam [Valium] 10 mg tablet 10 mg PO ONCE PRN (Reason: sedation) Qty: 1 0RF Rx Instructions: Take 45 minutes to 1 hour prior to procedure. oxycodone-acetaminophen [Percocet] 10-325 mg tablet 1 tab PO ONCE PRN (Reason: sedation) Qty: 1 0RF Rx Instructions: Take 45 minutes to 1 hour prior to procedure. pregabalin [Lyrica] 75 mg capsule 75 mg PO BID Qty: 14 0RF Rx Instructions: use as taper to full dose of 150mg bid pregabalin [Lyrica] 150 mg capsule 150 mg PO BID Qty: 90 0RF omeprazole magnesium [Prilosec OTC] 20 mg tablet,delayed release (DR/EC) 20 mg PO DAILY Qty: 14 0RF Referrals: Jones Abdul MD [Primary Care Provider] - Stand Alone Forms: Patient Portal/API
--- NOTE | 2023-09-16 07:19 | PC.NURSE ---
Pt reports taking miralax because of difficulty straining from the pain.
[2023-09-16] MEDS: OXYCODONE/ACETAMINOPHEN 5/325 TABLET 2 TAB PO (07:29)
[2023-09-16] MEDS: ONDANSETRON 4 MG ODT SL (07:30)
[2023-09-16 07:35] VITALS: RESP 18
== END 2023-09-16 07:38 | disposition home or self-care (01) ==
PROVIDERS: Emergency Provider Emergency Medicine; PCP Family Medicine
DX: S20.212A Contusion of left front wall of thorax, initial encounter (principal); W18.09XA Striking against other object with subsequent fall, initial encounter
CPT/HCPCS: 71101; 99283

== ENCOUNTER → 2024-03-13 07:06 | Outpatient (CLI) | payer OTHER, MEDICAID, SELFPAY ==
--- NOTE | 2024-03-13 07:07 | DI.US.S_ITS ---
PROCEDURE: US ABDOMEN LIMITED INDICATIONS: RIGHT UPPER QUADRANT PAIN AND VOMITING. HISTORY OF GASTRIC ULCERS AND OMER'S ESOPHAGITIS. TECHNIQUE: Real-time scanning was performed of the abdominal and retroperitoneal organs, with image documentation. COMPARISON: None. FINDINGS: Liver: Liver is enlarged measuring 19.3 cm and homogeneous in echotexture. Gallbladder: No gallstones. Possible 2 mm gallbladder polyp. No wall thickening. No pericholecystic edema. Negative sonographic Breen's sign. Biliary ducts: Intrahepatic bile ducts are non-dilated. Extrahepatic bile duct caliber measures 2.6 mm. Normal is 6-7 mm or less in diameter, or 10 mm or less post-cholecystectomy. Pancreas: Visualized portions of the pancreas are sonographically normal. Miscellaneous: No free abdominal fluid. IMPRESSION: 1. Liver is enlarged. 2. Possible 2 mm gallbladder polyp, statistically benign and no follow-up is necessary. 3. Gallbladder is otherwise normal in appearance. Dictated by: Abdirizak Calderón M.D. on 03/13/2024 at 16:05 Approved by: Abdirizak Calderón M.D. on 03/13/2024 at 16:06
[2024-03-13 09:42] LABS: Add Manual Diff / Slide Review NO; Basophils Absolute Auto 100 /uL (0-100); Basophils Percent Auto 0.4 % (0-2); Eosinophils Absolute Auto 500 /uL (0-450); Eosinophils Percent Auto 4.1 % (2-4); Hematocrit 43.5 % (41-53); Hemoglobin 14.8 g/dL (13.5-17.5); Lymphocytes Absolute Auto 1200 /uL (1100-4500); Lymphocytes Percent Auto 9.3 % (25-40); Mean Corpuscular Hemoglobin 32.2 PG (26-34); Mean Corpuscular Volume 94.8 fL (80-100); Monocytes Absolute Auto 600 /uL (0-900); Monocytes Percent Auto 5.1 % (3-14); Neutrophils Absolute Auto 10200 /uL (1500-7000); Neutrophils Percent Auto 81.1 % (50-75); Platelet Count 226 X10^3/uL (150-400); Red Blood Cell Count 4.58 X10^6/uL (4.5-5.9); Red Cell Distribution Width 12.4 % (11.6-14.8); White Blood Cell Count 12.6 X10^3/uL (4.5-11.0)
[2024-03-13 10:15] LABS: Alanine Aminotransferase 17 IU/L (<50); Albumin 4.4 g/dL (3.5-5.0); Albumin Globulin Ratio 1.6 (1.0-2.8); Alkaline Phosphatase 60 U/L (38-126); Aspartate Aminotransferase 27 IU/L (17-59); BUN Creatinine Ratio 12.8 (6-22); Bilirubin Total 1.5 mg/dL (0.2-1.3); Blood Urea Nitrogen 12 mg/dL (9-20); Calcium 9.7 mg/dL (8.4-10.2); Carbon Dioxide 28 mmol/L (22-32); Chloride 102 mmol/L (98-107); Estimated Glomerular Filt Rate > 60 mL/min (>60); Globulin 2.8 g/dL (1.7-4.1); Glucose 88 mg/dL (70-100); HEMOLYSIS < 15 (0-50); Potassium 4.7 mmol/L (3.4-5.1); Sodium 138 mmol/L (137-145); Total Protein 7.2 g/dL (6.3-8.2)
[2024-03-13 10:43] LABS: TSH w/ Reflex to FT4 0.76 uIU/mL (0.47-4.68)
== END ==
PROVIDERS: PCP Family Medicine; Referring Provider Physician Assistant; Visit Provider Physician Assistant
DX: R10.11 Right upper quadrant pain (principal); R16.0 Hepatomegaly, not elsewhere classified; R07.9 Chest pain, unspecified; R00.2 Palpitations; R42 Dizziness and giddiness; R06.02 Shortness of breath
CPT/HCPCS: 36415; 76705; 80053; 84443; 85025

== ENCOUNTER → 2024-03-27 09:45 | Outpatient (CLI) | payer OTHER, MEDICAID, SELFPAY | PROVIDERS: PCP Family Medicine; Referring Provider Physician Assistant; Visit Provider Physician Assistant | DX: R00.2 Palpitations (principal); R42 Dizziness and giddiness; R06.02 Shortness of breath; R07.9 Chest pain, unspecified | CPT/HCPCS: 93246; 93248 ==

== ENCOUNTER → 2024-04-09 09:00 | Outpatient (CLI) | payer OTHER, MEDICAID, SELFPAY ==
--- NOTE | 2024-04-09 09:03 | DI.CT.S_ITS ---
PROCEDURE: CT ABDOMEN PELVIS W CON INDICATIONS: HEPATOMEGLY / ELEVATED BILIRUBIN / ELEVATED WBC TECHNIQUE: After the administration of intravenous contrast, axial sections acquired from the lung bases to the pubic symphysis. Coronal and sagittal reformats were performed. For radiation dose reduction, the following was used: automated exposure control, adjustment of mA and/or kV according to patient size. COMPARISON: [facility], CT, CT ABDOMEN PELVIS W CON, 05/19/2021, 13:59. FINDINGS: Image quality: Diagnostic. Lower Chest: No significant findings. ABDOMEN: Liver: No solid mass. Liver measures 19 6 cm. Steatosis. Gallbladder: No radiopaque gallstones or wall thickening. Biliary ducts: No biliary dilation. Pancreas: No ductal dilation. Spleen: Spleen 13 cm. Adrenal Glands: No adrenal nodules. Kidneys and Ureters: No hydronephrosis. No solid mass. No complex renal cystic lesion which requires follow up. Stomach and Bowel: Normal colonic caliber, without significant wall thickening. Peritoneum: No abnormal intraperitoneal fluid. No free air. Ventral Wall: No significant ventral hernia. Abdominal Nodes: No retroperitoneal or mesenteric adenopathy by size criteria. Vessels: Aorta and inferior vena cava are normal in size. PELVIS: Pelvic Organs: Unremarkable. Bladder: No bladder wall thickening, accounting for underdistention. Pelvic Nodes: No enlarged lymph nodes. Miscellaneous: No inguinal hernias are seen. Bones: No aggressive osseous abnormality. IMPRESSION: Steatosis with mild hepatomegaly. No ductal dilation. Dictated by: Jyoti Jackson M.D. on 04/09/2024 at 16:56 Approved by: Jyoti Jackson M.D. on 04/09/2024 at 17:03
--- NOTE | 2024-04-09 10:01 | DI.RAD.S_ITS ---
PROCEDURE: XR SHOULDER LT MIN 2V INDICATIONS: left shoulder pain TECHNIQUE: 3 views of the shoulder were acquired. COMPARISON: [facility], , XR SHOULDER LT MIN 2V, 12/22/2021, 21:08. FINDINGS: Bones: No fractures or dislocations. No suspicious bony lesions. Visualized ribs appear intact. Soft tissues: No suspicious soft tissue calcifications. IMPRESSION: No acute bony abnormality. Dictated by: Jyoti Jackson M.D. on 04/09/2024 at 16:52 Approved by: Jyoti Jackson M.D. on 04/09/2024 at 16:53
[2024-04-09 10:38] LABS: Add Manual Diff / Slide Review NO; Basophils Absolute Auto 0 /uL (0-100); Basophils Percent Auto 0.6 % (0-2); Eosinophils Absolute Auto 100 /uL (0-450); Eosinophils Percent Auto 2.1 % (2-4); Hematocrit 41.4 % (41-53); Hemoglobin 14.3 g/dL (13.5-17.5); Lymphocytes Absolute Auto 1000 /uL (1100-4500); Lymphocytes Percent Auto 14.5 % (25-40); Mean Corpuscular HGB Conc 34.6 % (30-36); Mean Corpuscular Hemoglobin 32.2 PG (26-34); Mean Corpuscular Volume 93.1 fL (80-100); Monocytes Absolute Auto 300 /uL (0-900); Neutrophils Absolute Auto 5300 /uL (1500-7000); Neutrophils Percent Auto 77.8 % (50-75); Platelet Count 221 X10^3/uL (150-400); Red Blood Cell Count 4.44 X10^6/uL (4.5-5.9); Red Cell Distribution Width 12.3 % (11.6-14.8); White Blood Cell Count 6.9 X10^3/uL (4.5-11.0)
[2024-04-09 10:56] LABS: HEMOLYSIS < 15 (0-50); Iron 147 ug/dL (49-181)
[2024-04-09 11:00] LABS: Alanine Aminotransferase 20 IU/L (<50); Albumin 4.3 g/dL (3.5-5.0); Albumin Globulin Ratio 1.7 (1.0-2.8); Alkaline Phosphatase 55 U/L (38-126); Aspartate Aminotransferase 28 IU/L (17-59); BUN Creatinine Ratio 11.7 (6-22); Bilirubin Total 1.6 mg/dL (0.2-1.3); Blood Urea Nitrogen 11 mg/dL (9-20); Calcium 9.4 mg/dL (8.4-10.2); Carbon Dioxide 28 mmol/L (22-32); Chloride 105 mmol/L (98-107); Estimated Glomerular Filt Rate > 60 mL/min (>60); Globulin 2.6 g/dL (1.7-4.1); Glucose 113 mg/dL (70-100); HEMOLYSIS < 15 (0-50); Potassium 4.2 mmol/L (3.4-5.1); Sodium 139 mmol/L (137-145); Total Protein 6.9 g/dL (6.3-8.2)
[2024-04-09 11:12] LABS: Percent Iron Saturation 45 % (20-50); Total Iron Binding Capacity 330 ug/dL (261-462); Transferrin 249 mg/dL (206-381)
[2024-04-09 12:02] LABS: Free T4, Direct Thyroxine 0.81 ng/dL (0.78-2.19)
[2024-04-10 01:09] LABS: HBsAg Screen Negative (Negative); Hepatitis A Antibody IgM Negative (Negative); Hepatitis B Core Antibody IgM Negative (Negative); Hepatitis C Antibody Non Reactive (Non Reactive)
[2024-04-10 03:36] LABS: Alpha 1 Anti Trypsin 137 mg/dL (95-164); Ceruloplasmin 17.8 mg/dL (16.0-31.0)
[2024-04-11 14:45] LABS: Smooth Muscle Antibody 7 Units (0-19)
[2024-04-11 18:35] LABS: ANA Screen, IFA Negative (.)
== END ==
PROVIDERS: PCP Family Medicine; Referring Provider Family Medicine; Visit Provider Family Medicine
DX: K76.0 Fatty (change of) liver, not elsewhere classified (principal); R16.0 Hepatomegaly, not elsewhere classified; D72.829 Elevated white blood cell count, unspecified; R74.8 Abnormal levels of other serum enzymes; M25.512 Pain in left shoulder
CPT/HCPCS: 36415; 73030; 74177; 80053; 80074; 82103; 82390; 83540; 83550; 84439; 84443; 85025; 86015; 86038; Q9967

== ENCOUNTER → 2024-04-15 17:14 | Outpatient (CLI) | payer OTHER, MEDICAID, SELFPAY ==
--- NOTE | 2024-04-15 17:27 | DI.RAD.S_ITS ---
PROCEDURE: XR KNEE RT 3V INDICATIONS: Bilateral knee pain TECHNIQUE: 3 views of the knee were acquired. COMPARISON: [facility], [place], XR KNEE LT 3V, 12/31/2021, 22:47. [facility], [place], XR KNEE RT 3V, 07/23/2019, 10:46. FINDINGS: Bones: No fractures or dislocations. No suspicious bony lesions. Soft tissues: No joint effusion. No suspicious soft tissue calcifications. IMPRESSION: No acute bony abnormality or significant effusion. Dictated by: Harris Bess M.D. on 04/16/2024 at 9:16 Approved by: Harris Bess M.D. on 04/16/2024 at 9:16
--- NOTE | 2024-04-15 17:27 | DI.RAD.S_ITS ---
PROCEDURE: XR KNEE LT 3V INDICATIONS: Bilateral knee pain TECHNIQUE: 3 views of the knee were acquired. COMPARISON: [facility], [place], XR KNEE LT 3V, 12/31/2021, 22:47. [facility], [place], XR KNEE RT 3V, 07/23/2019, 10:46. FINDINGS: Bones: No fractures or dislocations. No osseous erosions. Soft tissues: No joint effusion. No suspicious soft tissue calcifications. IMPRESSION: No acute fracture or dislocation of the left knee. Dictated by: Harris Bess M.D. on 04/16/2024 at 9:10 Approved by: Harris Bess M.D. on 04/16/2024 at 9:11
[2024-04-22 08:14] LABS: Percent Free Testosterone 2.72 % (1.50-4.20); Testosterone Free 8.26 ng/dL (5.00-21.00); Testosterone Total 303.7 ng/dL (264.0-916.0)
== END ==
PROVIDERS: PCP Family Medicine; Referring Provider Physician Assistant; Visit Provider Physician Assistant
DX: R53.83 Other fatigue (principal); M25.561 Pain in right knee; M25.562 Pain in left knee; R94.6 Abnormal results of thyroid function studies; L29.9 Pruritus, unspecified
CPT/HCPCS: 36415; 73562; 84402; 84403

== ENCOUNTER 2024-04-28 07:45 | Emergency (ER) | payer OTHER, MEDICAID, SELFPAY ==
[2024-04-28] VITALS (9 sets, daily range): BP systolic 133–140; BP diastolic 71–80; PULSE 56–84; RESP 10–18; TEMP 36.6; O2SAT 99–100; BMI 24.0
--- NOTE | 2024-04-28 07:56 | ED.GIBLEED ---
HPI - GI Bleed General Chief complaint: Abdominal Pain Stated complaint: blood in stool Time Seen by Provider: 04/28/24 07:55 Source: patient, RN notes reviewed and old records reviewed Mode of arrival: Ambulatory Limitations: no limitations History of Present Illness HPI Narrative: 39-year-old history of GERD, hepatomegaly, prior chronic alcohol use who presents with complaint of left lower quadrant pain and blood in his stool. Patient states he had dark blackish stool yesterday, states he had bright red blood in his stool this morning. Describes left lower quadrant pain some mild flank discomfort. Patient states no fevers. States no chest pain or shortness of breath although he feels very anxious. Describes no new nausea or vomiting. Patient states little dysuria, no urgency or frequency. He does not think that the blood was in his urine but he has not 100% for sure. States the lights were off when he went to the bathroom and then turned them on to see what was in the toilet. Patient states has a history of GERD, fatty/alcoholic liver disease takes cholestyramine as his only prescription currently for itching related to his liver disease. States he has had bilateral hernia repairs, had a toupet fundoplication his scheduled for a Vadim fundoplication in June to pay fundoplication. Patient states allergic to sulfa, cats tinnitus from ketorolac and tramadol. States no tobacco, alcohol or recreational drugs. Related Data Previous Rx's Medication Instructions Recorded sumatriptan succinate 25 mg tablet See Rx Instructions PO .COMPLEX 04/03/24 (Imitrex) #20 tabs omeprazole 10 mg capsule,delayed 10 mg PO DAILY #90 caps 04/10/24 release cholestyramine (with sugar) 4 gram 4 g PO DAILY #348.6 grams 04/15/24 oral powder mirtazapine 7.5 mg tablet See Rx Instructions PO BEDTIME #30 04/23/24 tabs Allergies Allergy/AdvReac Type Severity Reaction Status Date / Time Sulfa (Sulfonamide Allergy Mild Hives Verified 04/15/24 16:24 Antibiotics) [SULFA (SULFONAMIDE ANTIBIOTICS)] ketorolac [From Toradol] Allergy Verified 04/15/24 16:24 tramadol AdvReac Verified 04/15/24 16:24 Review of Systems Review of Systems ROS Unobtainable: All systems reviewed & are unremarkable except as noted in HPI and below Patient History Medical History Fibromyalgia Facet arthropathy, cervical Right rotator cuff tear Chronic solar dermatitis Acute stress disorder Vision disorder Hearing deficit (~2015) Elbow pain (~2016) Shoulder pain Fractures (~2014) Chronic back pain (~2011) Cervical spine disease (~2014) White blood cell disorder (~2015) Vertigo (~2015) Tinnitus (~2015) Ruptured tympanic membrane (~2015) Gastric ulcer (~2010) Surgical History History of open reduction and internal fixation (ORIF) procedure (02/05/20) Anesthesia Status post hernia repair (~2003) Status post hernia repair (~2008) Family History Father Age: 64 Hypertension Hematoma Mother Age: 60 Hypertension High cholesterol Diabetes mellitus Sister Age: 42 Hypertension Double ureter Grandmother Stroke Grandfather Cancer Social History marital status: household members: spouse and children occupational status: employed Smoking Status: Never smoker alcohol intake: former substance use type: does not use Smoking Status: Never smoker alcohol intake frequency: other Alcohol type: beer Substance Use Type: marijuana Exam Narrative Exam Narrative: GENERAL: Alert and oriented x three, male in mild distress HEENT: Head normocephalic, atraumatic, EOMI, pupils reactive, face symmetric, moist mucous membranes NECK: Supple, full range of motion CARDIOVASCULAR: Regular rate and rhythm without murmurs, rubs or gallops. No edema bilateral lower extremities. RESPIRATORY: Breath sounds equal bilaterally, no wheezes rales or rhonchi. ABDOMEN: Soft, moderate left lower quadrant tenderness. Normoactive bowel sounds all 4 quadrants. No guarding or rebound, rigidity, no mass : No CVA tenderness bilaterally EXTREMITIES: Normal range of motion, no clubbing or edema. Neurovascularly intact NEUROLOGICAL: Cranial nerves II through XII grossly intact. Moving all extremities SKIN: Warm, dry, no petechiae, no rashes or lesions. Initial Vital Signs Initial Vital Signs: Vital Signs Temperature 97.9 F 04/28/24 07:48 Pulse Rate 66 04/28/24 07:48 Respiratory Rate 18 04/28/24 07:48 Blood Pressure 140/75 04/28/24 07:48 Pulse Oximetry 99 04/28/24 07:48 Oxygen Delivery Method Room Air 04/28/24 07:48 Course Orders Ordered: Discontinued Medications Acetaminophen (Ofirmev) 1,000 mg in 100 mls @ 400 mls/hr IV NOW ONE Stop: 04/28/24 08:19 Last Infusion: 04/28/24 10:05 Dose: Infused Documented By: Infusion: 04/28/24 09:44 Dose: 400 mls/hr Documented By: Infusion: 04/28/24 08:27 Dose: 0 mls/hr Documented By: Admin: 04/28/24 08:27 Dose: 400 mls/hr Documented By: KOLE Lorazepam (Lorazepam 0.5 Mg Tablet) 0.5 mg PO NOW ONE Stop: 04/28/24 09:27 Last Admin: 04/28/24 09:35 Dose: 0.5 mg Documented By: KOLE Ondansetron HCl (Ondansetron 4 Mg/2 Ml Inj) 4 mg IV NOW ONE Stop: 04/28/24 08:13 Last Admin: 04/28/24 08:27 Dose: 4 mg Documented By: KOLE Vital Signs Vital signs: Vital Signs - 8 hr 04/28/24 07:48 04/28/24 07:58 04/28/24 07:59 Temperature 97.9 F Pulse Rate 66 67 68 Respiratory Rate 18 Blood Pressure 140/75 Pulse Oximetry 99 99 99 Oxygen Delivery Method Room Air 04/28/24 07:59 04/28/24 08:00 04/28/24 08:00 Temperature Pulse Rate 73 Respiratory Rate Blood Pressure 135/72 138/80 Pulse Oximetry 100 Oxygen Delivery Method 04/28/24 08:38 04/28/24 09:00 04/28/24 09:07 Temperature Pulse Rate 66 84 61 Respiratory Rate 10 L Blood Pressure Pulse Oximetry 99 99 Oxygen Delivery Method Room Air 04/28/24 09:07 Temperature Pulse Rate Respiratory Rate Blood Pressure 135/74 Pulse Oximetry Oxygen Delivery Method MDM - GI Bleed Lab Data 04/28/24 08:05 04/28/24 08:05 Labs: Lab Results 04/28/24 Range/Units 08:05 WBC 8.0 (4.5-11.0) X10^3/uL RBC 4.53 (4.5-5.9) X10^6/uL Hgb 14.5 (13.5-17.5) g/dL Hct 42.4 (41-53) % MCV 93.7 (80-100) fL MCH 32.0 (26-34) PG MCHC 34.2 (30-36) % RDW 12.7 (11.6-14.8) % Plt Count 212 (150-400) X10^3/uL Neut % (Auto) 70.4 (50-75) % Lymph % (Auto) 18.6 L (25-40) % [place] % (Auto) 7.2 (3-14) % Eos % (Auto) 3.0 (2-4) % Baso % (Auto) 0.8 (0-2) % Neut # (Auto) 5700 (5835-8178) /uL Lymph # (Auto) 1500 (7655-9622) /uL [place] # (Auto) 600 (0-900) /uL Eos # (Auto) 200 (0-450) /uL Baso # (Auto) 100 (0-100) /uL Sodium 140 (137-145) mmol/L Potassium 4.1 (3.4-5.1) mmol/L Chloride 109 H (98-107) mmol/L Carbon Dioxide 27 (22-32) mmol/L BUN 14 (9-20) mg/dL Creatinine 0.86 (0.66-1.25) mg/dL Estimated GFR > 60 (>60) mL/min BUN/Creatinine Ratio 16.3 (6-22) Glucose 99 (70-100) mg/dL Calcium 9.2 (8.4-10.2) mg/dL Total Bilirubin 1.1 (0.2-1.3) mg/dL AST 27 (17-59) IU/L ALT 20 (<50) IU/L Alkaline Phosphatase 63 (38-126) U/L Total Protein 7.1 (6.3-8.2) g/dL Albumin 4.4 (3.5-5.0) g/dL Globulin 2.7 (1.7-4.1) g/dL Albumin/Globulin Ratio 1.6 (1.0-2.8) Lipase 60 (23-300) U/L Ethyl Alcohol < 10 ( - 10) mg/dL Urine Dip Bedside Urine Glucose Negative Bedside Urine Bilirubin - Negative Bedside Urine Ketone - Negative Urine Specific [place] 1.005 Bedside Urine Occult Blood - Negative Bedside Urine pH 7.0 Bedside Urine Protein - Negative Bedside Urine Urobilinogen - Negative Bedside Urine Nitrite - Negative Bedside Urine Leukocytes - Negative Esterase ECG Data Attestation: I personally reviewed and interpreted this ECG as follows: Prior ECG tracings: available for review Interpretation: Normal sinus rhythm rate of 61 RI 160 QRS of 90 QTC of [address] changes. Patient has prior from 05/19/2021 for comparsion, no acute changes. MDM Narrative Medical decision making narrative: 39-year-old male with a history of chronic alcohol use known liver disease who presents with complaint of left lower quadrant pain and bloody there in his stool or urine although he suspect stool. Patient's vitals here are overall appropriate. Labs show white count 8 hemoglobin 14.5 with a prior hemoglobin of 14.3 and fairly consistent in the 14 range over the past several years. Platelets of 212, sodium 140 potassium 4.1 chloride of 109 CO2 27 BUN 14 creatinine 0.86 glucose 99, LFTs are negative lipase is 60. Point of care urine is negative. ETOH is negative. EKG sinus rhythm no acute changes. CT abdomen pelvis GI bleed protocol shows no acute change, some fecal debris within the small bowel usually indicating small intestinal bacterial overgrowth versus slow transit. Patient showed a picture of his stool and had some bright red blood, the water was translucent and since slightly pink. He has not had any additional episodes today. He was hemodynamically stable with no tachycardia or hypotension. Discussed with patient would recommend follow up for colonoscopy hemorrhoids or potential source of his symptoms but with his past history would recommend follow-up. Also discussed making sure stools are soft and regular with Colace or similar [id number] stool softener. Patient is quite anxious, requesting something for anxiety. He deferred Tylenol as he has known liver disease but also describes developing tinnitus with other pain medications. Reviewed findings with patient. After discussion patient can have occasional doses of acetaminophen but would not take regularly. We discussed he has had acetaminophen when he has had Percocet or [place] here in the department. We will give 1 dose of oral medication for anxiety discussed return precautions all questions answered. Discharge Plan Departure Patient Disposition: Home Clinical Impression: Bright red rectal bleeding Instructions: DI for Rectal Bleeding Activity Restrictions/Additional Instructions: Follow up for recheck, your bleeding can sometimes cause by hemorrhoids but would be worthwhile to follow up for colonoscopy for further evaluation because sometimes there can be sources higher up in the colon. Your imaging today did not show any colitis, nephrolithiasis, no diverticulitis or other major changes to the bowel. There is a little fecal debris which can sometimes related to slow transit or constipation. Please call to set up follow up for colonoscopy, this can be done through Gastroenterology and/or General surgery. Contact for general surgery is below. I would recommend taking a stool softener such as Colace if you are not having soft, regular bowel movements. Please return for fevers, new or worsening abdominal back or flank pain, persistent vomiting, increasing black or bloody stools or other new or concerning changes. Prescriptions: No Action omeprazole 10 mg capsule,delayed release(DR/EC) 10 mg PO DAILY Qty: 90 3RF mirtazapine 7.5 mg tablet See Rx Instructions PO BEDTIME Qty: 30 0RF Rx Instructions: Take one tablet one hour prior to bedtime. May repeat within one hour if needed cholestyramine (with sugar) 4 gram powder 4 g PO DAILY Qty: 348.6 1RF Rx Instructions: administer w/meal; avoid other meds within 1hr before or 4-6hr after doses sumatriptan succinate [Imitrex] 25 mg tablet See Rx Instructions PO .COMPLEX Qty: 20 3RF Rx Instructions: take 1 tab at onset of headache; if no relief may repeat 1 tab after at least 2 hrs; max = 4 tabs/24 hr PO Referrals: Christian Blue MD [Physician] - Jones Abdul MD [Primary Care Provider] - Stand Alone Forms: Patient Portal/API/Survey
--- NOTE | 2024-04-28 08:05 | EKG_ITS ---
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
--- NOTE | 2024-04-28 08:05 | DI.CT.S_ITS ---
PROCEDURE: CT ANGIO ABD/PEL GI BLEED INDICATIONS: LLQ pain, bright red blood in stool TECHNIQUE: After the administration of intravenous contrast, 2.5 mm thick sections acquired from the diaphragm to the symphysis. 10 mm maximum-intensity projection (MIP) reformats were then acquired. For radiation dose reduction, the following was used: automated exposure control. COMPARISON: None. FINDINGS: Image Quality: Diagnostic. Abdominal aorta: No aortic aneurysm or evidence of acute aortic syndrome. Mesenteric arteries: Patent without hemodynamically significant stenosis. Renal arteries: Patent without hemodynamically significant stenosis. OTHER: Lower Chest: No significant findings. Liver: No solid mass. Gallbladder: No radiopaque gallstones or wall thickening. Biliary ducts: No biliary dilation. Pancreas: No ductal dilation. Spleen: Size is within normal limits. Adrenal Glands: No adrenal nodules. Kidneys and Ureters: No hydronephrosis. No solid mass. No complex renal cystic lesion which requires follow up. Stomach and Bowel: Normal colonic caliber, without significant wall thickening. Prior surgery at the gastroesophageal junction. Fecal debris within the small bowel. Peritoneum: No abnormal intraperitoneal fluid. No free air. Ventral Wall: No hernia. Abdominal Nodes: No retroperitoneal or mesenteric adenopathy by size criteria. Vessels: Aorta and inferior vena cava are normal in size. PELVIS: Pelvic Organs: Unremarkable. Bladder: Unremarkable. Pelvic Nodes: No enlarged lymph nodes. Miscellaneous: No inguinal hernias are seen. Bones: No aggressive osseous abnormality. IMPRESSION: No acute abnormality. No GI bleed or nephrolithiasis. Fecal debris within the small-bowel, usually indicating small intestinal bacterial overgrowth versus slow transit. Dictated by: Remy Tse M.D. on 04/28/2024 at 8:54 Approved by: Remy Tse M.D. on 04/28/2024 at 8:57
--- NOTE | 2024-04-28 08:25 | PC.NURSE ---
Pt refusing IV tylenol due to his history of liver disease. Pt agitated, raising his voice and stating I would have thought a doctor would think about that! Why would you give me tylenol with liver disease? I provided further education on single dose of tylenol vs chronic tylenol use. Pt states he is not refusing tylenol but requests doctor provide further education on reasoning of medication. Provider notified.
[2024-04-28 08:26] LABS: Add Manual Diff / Slide Review NO; Basophils Absolute Auto 100 /uL (0-100); Basophils Percent Auto 0.8 % (0-2); Eosinophils Absolute Auto 200 /uL (0-450); Hematocrit 42.4 % (41-53); Hemoglobin 14.5 g/dL (13.5-17.5); Lymphocytes Absolute Auto 1500 /uL (1100-4500); Lymphocytes Percent Auto 18.6 % (25-40); Mean Corpuscular HGB Conc 34.2 % (30-36); Mean Corpuscular Volume 93.7 fL (80-100); Monocytes Absolute Auto 600 /uL (0-900); Monocytes Percent Auto 7.2 % (3-14); Neutrophils Absolute Auto 5700 /uL (1500-7000); Neutrophils Percent Auto 70.4 % (50-75); Platelet Count 212 X10^3/uL (150-400); Red Blood Cell Count 4.53 X10^6/uL (4.5-5.9); Red Cell Distribution Width 12.7 % (11.6-14.8)
[2024-04-28] MEDS: ONDANSETRON 4 MG/2 ML INJ IV (08:27)
[2024-04-28] MEDS: ACETAMINOPHEN IV 1,000 MG/100 ML VIAL 400 MG IV (08:27)
[2024-04-28 08:37] LABS: Alanine Aminotransferase 20 IU/L (<50); Albumin 4.4 g/dL (3.5-5.0); Albumin Globulin Ratio 1.6 (1.0-2.8); Alkaline Phosphatase 63 U/L (38-126); Aspartate Aminotransferase 27 IU/L (17-59); BUN Creatinine Ratio 16.3 (6-22); Bilirubin Total 1.1 mg/dL (0.2-1.3); Blood Urea Nitrogen 14 mg/dL (9-20); Calcium 9.2 mg/dL (8.4-10.2); Carbon Dioxide 27 mmol/L (22-32); Chloride 109 mmol/L (98-107); Estimated Glomerular Filt Rate > 60 mL/min (>60); Globulin 2.7 g/dL (1.7-4.1); Glucose 99 mg/dL (70-100); HEMOLYSIS < 15 (0-50); Lipase 60 U/L (23-300); Potassium 4.1 mmol/L (3.4-5.1); Sodium 140 mmol/L (137-145); Total Protein 7.1 g/dL (6.3-8.2)
[2024-04-28 08:38] LABS: Ethanol (ETOH) < 10 mg/dL
[2024-04-28] MEDS: LORazepam 0.5 MG TABLET PO (09:35)
--- NOTE | 2024-04-28 09:40 | PC.NURSE ---
PT educated by provider and now agrees to IV tylenol administration.
== END 2024-04-28 10:15 | disposition home or self-care (01) ==
PROVIDERS: Emergency Provider Emergency Medicine; PCP Family Medicine
DX: K62.5 Hemorrhage of anus and rectum (principal); R10.32 Left lower quadrant pain
CPT/HCPCS: 36415; 74174; 80053; 80320; 81003; 83690; 85025; 93005; 93010; 96365; 96375; 99284; J0134; J2405; Q9967

== ENCOUNTER → 2024-05-29 11:39 | Outpatient (CLI) | payer OTHER, SELFPAY ==
[2024-05-29 13:43] LABS: Add Manual Diff / Slide Review NO; Basophils Absolute Auto 0 /uL (0-100); Basophils Percent Auto 0.4 % (0-2); Eosinophils Absolute Auto 100 /uL (0-450); Eosinophils Percent Auto 1.5 % (2-4); Hematocrit 42.9 % (41-53); Hemoglobin 14.7 g/dL (13.5-17.5); Lymphocytes Absolute Auto 900 /uL (1100-4500); Lymphocytes Percent Auto 11.7 % (25-40); Mean Corpuscular HGB Conc 34.1 % (30-36); Mean Corpuscular Hemoglobin 32.1 PG (26-34); Monocytes Absolute Auto 400 /uL (0-900); Monocytes Percent Auto 5.3 % (3-14); Neutrophils Absolute Auto 6500 /uL (1500-7000); Neutrophils Percent Auto 81.1 % (50-75); Platelet Count 207 X10^3/uL (150-400); Red Blood Cell Count 4.57 X10^6/uL (4.5-5.9); Red Cell Distribution Width 12.7 % (11.6-14.8)
[2024-05-29 14:02] LABS: Alanine Aminotransferase 20 IU/L (<50); Albumin 4.7 g/dL (3.5-5.0); Albumin Globulin Ratio 1.6 (1.0-2.8); Alkaline Phosphatase 59 U/L (38-126); Aspartate Aminotransferase 29 IU/L (17-59); Bilirubin Total 1.3 mg/dL (0.2-1.3); Bilirubin Unconjugated 1.1 mg/dL (0.0-1.1); Globulin 2.9 g/dL (1.7-4.1); HEMOLYSIS < 15 (0-50); Total Protein 7.6 g/dL (6.3-8.2)
[2024-05-29 14:04] LABS: Alanine Aminotransferase 20 IU/L (<50); Albumin 4.6 g/dL (3.5-5.0); Albumin Globulin Ratio 1.6 (1.0-2.8); Alkaline Phosphatase 59 U/L (38-126); Aspartate Aminotransferase 28 IU/L (17-59); BUN Creatinine Ratio 18.2 (6-22); Bilirubin Total 1.3 mg/dL (0.2-1.3); Blood Urea Nitrogen 16 mg/dL (9-20); Calcium 9.8 mg/dL (8.4-10.2); Carbon Dioxide 22 mmol/L (22-32); Chloride 108 mmol/L (98-107); Estimated Glomerular Filt Rate > 60 mL/min (>60); Globulin 2.8 g/dL (1.7-4.1); Glucose 93 mg/dL (70-100); HEMOLYSIS < 15 (0-50); Potassium 4.5 mmol/L (3.4-5.1); Sodium 138 mmol/L (137-145); Total Protein 7.4 g/dL (6.3-8.2)
[2024-05-29 14:35] LABS: TSH w/ Reflex to FT4 1.17 uIU/mL (0.47-4.68)
[2024-05-29 14:38] LABS: Ferritin 27 ng/mL (18-464)
[2024-05-30 03:08] LABS: Ceruloplasmin 16.8 mg/dL (16.0-31.0)
[2024-05-31 10:14] LABS: Smooth Muscle Antibody 6 Units (0-19)
== END ==
PROVIDERS: PCP Family Medicine; Referring Provider Physician Assistant; Visit Provider Physician Assistant
DX: E80.6 Other disorders of bilirubin metabolism (principal); R10.9 Unspecified abdominal pain; R17 Unspecified jaundice; R16.0 Hepatomegaly, not elsewhere classified; K22.719 Barrett's esophagus with dysplasia, unspecified; R53.83 Other fatigue; R79.89 Other specified abnormal findings of blood chemistry
CPT/HCPCS: 36415; 80053; 80076; 82390; 82728; 83516; 84443; 84450; 84460; 85025; 85049; 86015; 86036; 86671

== ENCOUNTER → 2024-05-30 07:41 | Outpatient (CLI) | payer OTHER, SELFPAY ==
--- NOTE | 2024-05-30 07:42 | DI.NM.S_ITS ---
PROCEDURE: NM HIDA WITH CCK PHARMACEUTICAL: 5.5 mCi Tc-99m mebrofenin IV; 1.2 mcg CCK IV. INDICATIONS: HYPERBILLIRUBINEMIA/RT FLANK PAIN TECHNIQUE: Following intravenous administration of Tc-99m mebrofenin, sequential anterior abdominal images were obtained. To evaluate the contractile response of the gallbladder in response to Cholecystokinin (CCK), sincalide (0.02 ?g/kg) was administered by slow intravenous infusion approximately 60 minutes after the administration of the radiopharmaceutical. Sequential imaging was continued for 30 minutes after the start of CCK infusion. Gallbladder ejection fraction was calculated. COMPARISON: None. FINDINGS: Biliary scan: There is normal tracer uptake and excretion by the liver. There is normal visualization of the intrahepatic ducts, common bile duct, and gallbladder. There is normal tracer transit into the duodenum. CCK stimulation: There is normal contractile response of the gallbladder to CCK infusion. The calculated gallbladder ejection fraction is 52% ; normal values are above 35%. It has been shown that any patient abdominal pain after CCK administration is related to the rate of CCK injection, rather than to any underlying gallbladder disease (Clinical Nuclear Medicine 2012; 37: 63-70. Journal of Nuclear Medicine 2014; 55: 1-9). IMPRESSION: 1. There is normal tracer uptake and excretion by the liver with visualization of the bile ducts, gallbladder and transit into the duodenum. 2. Normal contractile response of the gallbladder to CCK infusion. Dictated by: Abdirizak Calderón M.D. on 05/30/2024 at 11:30 Approved by: Abdirizak Calderón M.D. on 05/30/2024 at 11:32
== END ==
PROVIDERS: PCP Family Medicine; Referring Provider Physician Assistant; Visit Provider Physician Assistant
DX: E80.6 Other disorders of bilirubin metabolism (principal); R10.9 Unspecified abdominal pain
CPT/HCPCS: 78227; A9537; J2805

== ENCOUNTER → 2024-06-02 10:21 | Outpatient (CLI) | payer OTHER, SELFPAY | PROVIDERS: PCP Family Medicine; Referring Provider Physician Assistant; Visit Provider Physician Assistant | DX: E80.6 Other disorders of bilirubin metabolism (principal); R10.9 Unspecified abdominal pain | CPT/HCPCS: 83993 ==

== ENCOUNTER → 2024-06-16 09:30 | Outpatient (CLI) | payer OTHER, SELFPAY ==
[2024-06-25 11:15] LABS: Copper, Urine 3
[2024-06-25 11:17] LABS: Creatinine, Urine 0.74
[2024-06-25 11:19] LABS: Copper/Creatinine 4
== END ==
PROVIDERS: PCP Family Medicine; Referring Provider Physician Assistant; Visit Provider Physician Assistant
DX: E80.6 Other disorders of bilirubin metabolism (principal); R10.9 Unspecified abdominal pain
CPT/HCPCS: 82525; 82570

== ENCOUNTER → 2024-06-18 15:58 | Outpatient (CLI) | payer OTHER, SELFPAY ==
[2024-06-20 19:36] LABS: IgG Subclass 1 749 mg/dL (248-810); IgG Subclass 2 155 mg/dL (130-555); IgG Subclass 3 38 mg/dL (15-102); IgG Subclass 4 19 mg/dL (2-96); IgG Total 1161 mg/dL (603-1613)
== END ==
PROVIDERS: PCP Family Medicine; Referring Provider Physician Assistant; Visit Provider Physician Assistant
DX: K86.1 Other chronic pancreatitis (principal)
CPT/HCPCS: 36415; 82784; 82787

== ENCOUNTER → 2024-06-23 09:56 | Outpatient (CLI) | payer OTHER, SELFPAY ==
[2024-06-25 03:11] LABS: Pancreatic Elastase, Fecal >800 (>200)
== END ==
PROVIDERS: PCP Family Medicine; Referring Provider Physician Assistant; Visit Provider Physician Assistant
DX: K86.1 Other chronic pancreatitis (principal)
CPT/HCPCS: 82656

== ENCOUNTER 2024-07-11 14:35 | Emergency (ER) | payer OTHER, SELFPAY ==
[2024-07-11 14:45] VITALS: BP 116/64; PULSE 71; RESP 16; TEMP 36.4; O2SAT 99; BMI 21.6
[2024-07-11 15:15] LABS: Add Manual Diff / Slide Review NO; Basophils Absolute Auto 100 /uL (0-100); Basophils Percent Auto 0.7 % (0-2); Eosinophils Absolute Auto 300 /uL (0-450); Eosinophils Percent Auto 3.4 % (2-4); Hematocrit 40.4 % (41-53); Hemoglobin 13.7 g/dL (13.5-17.5); Lymphocytes Absolute Auto 1500 /uL (1100-4500); Lymphocytes Percent Auto 18.1 % (25-40); Mean Corpuscular Hemoglobin 32.1 PG (26-34); Mean Corpuscular Volume 94.6 fL (80-100); Monocytes Absolute Auto 600 /uL (0-900); Monocytes Percent Auto 6.7 % (3-14); Neutrophils Absolute Auto 6000 /uL (1500-7000); Neutrophils Percent Auto 71.1 % (50-75); Platelet Count 187 X10^3/uL (150-400); Red Blood Cell Count 4.28 X10^6/uL (4.5-5.9); Red Cell Distribution Width 12.7 % (11.6-14.8); White Blood Cell Count 8.4 X10^3/uL (4.5-11.0)
[2024-07-11 15:31] LABS: Alanine Aminotransferase 17 IU/L (<50); Albumin 4.4 g/dL (3.5-5.0); Albumin Globulin Ratio 1.7 (1.0-2.8); Alkaline Phosphatase 59 U/L (38-126); Aspartate Aminotransferase 27 IU/L (17-59); BUN Creatinine Ratio 18.8 (6-22); Bilirubin Total 0.8 mg/dL (0.2-1.3); Blood Urea Nitrogen 16 mg/dL (9-20); Calcium 9.3 mg/dL (8.4-10.2); Carbon Dioxide 24 mmol/L (22-32); Chloride 108 mmol/L (98-107); Estimated Glomerular Filt Rate > 60 mL/min (>60); Globulin 2.6 g/dL (1.7-4.1); Glucose 103 mg/dL (70-100); HEMOLYSIS < 15 (0-50); Lipase 379 U/L (23-300); Potassium 4.2 mmol/L (3.4-5.1); Sodium 138 mmol/L (137-145)
[2024-07-11] MEDS: ONDANSETRON 4 MG/2 ML INJ IV (15:31)
--- NOTE | 2024-07-11 16:54 | PC.NURSE ---
Addendum entered by Ching Panchal R.N. 07/11/24 18:45: I was the primary RN taking care of Luis. I witnessed all that Jean Claude charted. Emotional support to patient. Pt was aware of Dr. Padilla taking care of critical patients and was trying to get in his room eugenia Original Note: This patient came out came of his room yelling I want to leave now. This is abuse, abuse. I have been here for over two hours and nothing has been done and nothing is ordered. Patient was physically hostile approaching the nursing desk. RN Calli attempted to soothe patient and patient continued to yell. This RN stated Sir we are moving as fast as possible. Patient responds The fuck you are, you lazy fuckers. Primary RN asks if she can come take patient line out. This RN went to grab Voluntary denial of care form. While at nurses desk I can still hear patient yelling while primary RN is gathering supplies to remove IV. This RN enters room for primary RN safety and to deliver VDC form. Patient continues hostile language and berating the primary RN. This RN states Sir I understand you are upset but I'm going to ask that you not speak to the staff in this manner. Patient states I'm going to fucking file a complaint against this hospital and your fucking name is going into it, what the fuck is your name. This RN informed him of this RN first name. Primary RN is attempting to take IV out at this time. Patient continues to yell pointing at me You don't fucking talk to me. This RN stepped out of the room to help potentially de escalate the situation but maintain eye contact on patient and nurse incase patient becomes physically violent with primary RN. Primary RN pulled line and placed gauze on patient arm and wrapped with coban. Patient continued to swear and yell on the way out of this department. Patient refused to sign VDC paperwork.
--- NOTE | 2024-07-11 17:29 | PC.NURSE ---
This nail tech witnessed patient storm out of ED yelling we need to do our jobs
== END 2024-07-11 17:00 | disposition left against medical advice (07) ==
PROVIDERS: Emergency Provider Emergency Medicine; PCP Family Medicine
DX: R10.11 Right upper quadrant pain (principal); K86.1 Other chronic pancreatitis
CPT/HCPCS: 36415; 80053; 83690; 85025; 96374; 99284; J2405

== ENCOUNTER 2024-10-09 07:41 | Emergency (ER) | payer OTHER, SELFPAY ==
[2024-10-09 07:52] VITALS: PULSE 80; O2SAT 100
[2024-10-09 07:54] VITALS: BP 144/89; PULSE 81; RESP 18; TEMP 36.3; O2SAT 100
[2024-10-09 08:00] VITALS: BP 128/79; PULSE 69; O2SAT 99
--- NOTE | 2024-10-09 08:05 | ED_ITS ---
HPI - Extremity Problem General Chief complaint: Extremity Problem,Nontraumatic Stated complaint: Right hand is swollen . Time Seen by Provider: 10/09/24 07:49 Source: patient Mode of arrival: Ambulatory History of Present Illness HPI Narrative: Patient here for right thumb pain and swelling onset 3 days ago. No known injury. No prior history of gout. 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 Followed by [facility] and [facility]. 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 Can not take NSAIDs. Is on OxyContin already. Home pain medication has not relieved the pain. Patient did drive here. He does have appointment with his primary care tomorrow. He will inquire about cortisone injection to the thumb if it is arthritis. Patient is right-handed. Related Data Previous Rx's Medication Instructions Recorded sumatriptan succinate 25 mg tablet See Rx Instructions PO .COMPLEX 04/03/24 (Imitrex) #20 tabs omeprazole 10 mg capsule,delayed 10 mg PO DAILY #90 caps 04/10/24 release trazodone 50 mg tablet See Rx Instructions PO BEDTIME PRN 06/03/24 insomnia #60 tabs hydroxyzine HCl 25 mg tablet 25 mg PO TID PRN itching #60 tabs 06/19/24 ondansetron 4 mg disintegrating 4 mg PO Q8H PRN nausea and 09/16/24 tablet vomiting #30 tabs oxycodone 10 mg tablet 10 mg PO TID PRN pain #60 tabs 09/19/24 prednisone 20 mg tablet 40 mg (2 x 20 mg) PO ONCE #20 tabs 10/09/24 Allergies Allergy/AdvReac Type Severity Reaction Status Date / Time Sulfa (Sulfonamide Allergy Mild Hives Verified 10/09/24 12:49 Antibiotics) [SULFA (SULFONAMIDE ANTIBIOTICS)] ketorolac [From Toradol] Allergy Verified 10/09/24 12:49 Review of Systems Review of Systems Narrative: GENERAL: Negative chills, fatigue, malaise, fever, sweats. HEENT: Negative sinus pain, ear pain, sore throat RESPIRATORY: Negative dyspnea, cough CARDIOVASCULAR: Negative chest pain, palpitations GASTROINTESTINAL: Negative vomiting, nausea, abdominal pain : Negative dysuria, frequency, hematuria MUSCULOSKELETAL: Positive muscle or bony pain SKIN: Negative rash, skin lesions NEUROLOGIC: Negative weakness, numbness ROS Unobtainable: All systems reviewed & are unremarkable except as noted in HPI and below Patient History Medical History (Updated 10/09/24 @ 09:16 by Mohsen Wayne MD) Chronic calcific pancreatitis Pruritic rash Fibromyalgia Facet arthropathy, cervical Right rotator cuff tear Chronic solar dermatitis Acute stress disorder Vision disorder Hearing deficit (~2015) Elbow pain (~2016) Shoulder pain Fractures (~2014) Chronic back pain (~2011) Cervical spine disease (~2014) White blood cell disorder (~2015) Vertigo (~2015) Tinnitus (~2015) Ruptured tympanic membrane (~2015) Gastric ulcer (~2010) Surgical History History of open reduction and internal fixation (ORIF) procedure (02/05/20) Anesthesia Status post hernia repair (~2003) Status post hernia repair (~2008) Family History Father Age: 65 Hypertension Hematoma Mother Age: 61 Hypertension High cholesterol Diabetes mellitus Sister Age: 43 Hypertension Double ureter Grandmother Stroke Grandfather Cancer Social History marital status: household members: spouse and children occupational status: employed alcohol intake: former substance use type: does not use Smoking Status: Never smoker alcohol intake frequency: other Alcohol type: beer Exam Narrative Exam Narrative: GENERAL: in no distress, not toxic not dyspneic HEAD: Normocephalic. EYES: Pupils equal round EXTREMITIES: No gross deformities. Examination right upper extremity. There is edema of the erythema tenderness to the MCP joint of the thumb. Fingernail intact. Thumb is warm soft pink light touch intact. No red streaking. Limited range of motion of the thumb due to pain. Wrist is nontender. Remaining fingers nontender no erythema or edema. NEURO: AOx4. Clear speech SKIN: Warm and dry PSYCH: Not anxious, is cooperative Initial Vital Signs Initial Vital Signs: Vital Signs Pulse Rate 80 10/09/24 07:52 Pulse Oximetry 100 10/09/24 07:52 Oxygen Delivery Method Room Air 10/09/24 07:52 Procedures Orthopedic Splinting/Casting Injury #1: Time of procedure: 09:18 Side: right Upper Extremity Injury Location: finger (Thumb pain and swelling) Upper Extremity Immobilizer: thumb spica Post splinting neuro exam: intact Post splinting vascular exam: intact Placed by: Provider Course Orders Ordered: Discontinued Medications Dexamethasone (Dexamethasone 10 Mg/Ml Vial) 20 mg IM NOW ONE Stop: 10/09/24 09:31 Last Admin: 10/09/24 09:22 Dose: 20 mg Documented By: MERCEDES Vital Signs Vital signs: Vital Signs - 8 hr 10/09/24 07:52 10/09/24 07:54 10/09/24 08:00 Temperature 97.4 F L Pulse Rate 80 81 Respiratory Rate 18 Blood Pressure 144/89 H 128/79 Pulse Oximetry 100 100 Oxygen Delivery Method Room Air Room Air 10/09/24 08:00 Temperature Pulse Rate 69 Respiratory Rate Blood Pressure Pulse Oximetry 99 Oxygen Delivery Method Room Air MDM - Extremity (Nontraumatic) Lab Data 10/09/24 08:19 10/09/24 08:19 Labs: Lab Results 10/09/24 Range/Units 08:19 WBC 11.3 H (4.5-11.0) X10^3/uL RBC 4.26 L (4.5-5.9) X10^6/uL Hgb 13.8 (13.5-17.5) g/dL Hct 40.2 L (41-53) % MCV 94.4 (80-100) fL MCH 32.4 (26-34) PG MCHC 34.3 (30-36) % RDW 12.9 (11.6-14.8) % Plt Count 191 (150-400) X10^3/uL Neut % (Auto) 77.4 H (50-75) % Lymph % (Auto) 14.0 L (25-40) % Weld % (Auto) 6.5 (3-14) % Eos % (Auto) 1.8 L (2-4) % Baso % (Auto) 0.3 (0-2) % Neut # (Auto) 8800 H (3444-7096) /uL Lymph # (Auto) 1600 (3560-2316) /uL Weld # (Auto) 700 (0-900) /uL Eos # (Auto) 200 (0-450) /uL Baso # (Auto) 0 (0-100) /uL Sodium 139 (137-145) mmol/L Potassium 4.5 (3.4-5.1) mmol/L Chloride 106 (98-107) mmol/L Carbon Dioxide 27 (22-32) mmol/L BUN 13 (9-20) mg/dL Creatinine 0.80 (0.66-1.25) mg/dL Estimated GFR > 60 (>60) mL/min BUN/Creatinine Ratio 16.3 (6-22) Glucose 103 H (70-99) mg/dL Uric Acid 3.3 L (3.5-8.5) mg/dL Calcium 9.5 (8.4-10.2) mg/dL Total Bilirubin 0.7 (0.2-1.3) mg/dL AST 25 (17-59) IU/L ALT 18 (<50) IU/L Alkaline Phosphatase 66 (38-126) U/L Total Protein 6.8 (6.3-8.2) g/dL Albumin 4.4 (3.5-5.0) g/dL Globulin 2.4 (1.7-4.1) g/dL Albumin/Globulin Ratio 1.8 (1.0-2.8) Imaging Data Extremity x-ray #1: Radiologist's Impression: [address] [address] XRay Report Signed Patient: Luis Castano MR#: [id number] : 1985 Acct:[id number] Age/Sex: 39 / M Date of Service: 10/09/24 Loc: ED Accession Number: [id number] Procedure: XR hand RT min 3V Ordering Provider: Mohsen Wayne MD PROCEDURE: XR HAND RT MIN 3V INDICATIONS: Thumb pain TECHNIQUE: 3 views of the hand(s) acquired. COMPARISON: [facility], , XR HAND LT MIN 3V, 11/13/2022, 12:45. FINDINGS: Bones: No fractures or dislocations. Carpal bones are normally aligned. No suspicious bony lesions. Soft tissues: No suspicious soft tissue calcifications. IMPRESSION: No visualized acute fracture or dislocation. However, if clinical concern and/or pain persist, short interval imaging followup in 7-10 days is recommended, as occult injury cannot be definitively excluded. Dictated by: Jyoti Jackson M.D. on 10/09/2024 at 8:33 Approved by: Jyoti Jackson M.D. on 10/09/2024 at 8:34 [facility] Narrative Medical decision making narrative: Patient here for right thumb pain and swelling onset 3 days ago. No known injury. No prior history of gout. 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 Followed by [facility] and [facility]. 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 Can not take NSAIDs. Is on OxyContin already. Home pain medication has not relieved the pain. Patient did drive here. He does have appointment with his primary care tomorrow. He will inquire about cortisone injection to the thumb if it is arthritis. Patient is right-handed. After history and exam, CBC CMP uric acid x-ray right hand [facility] Medical records reviewed: No recent visit for this complaint Differential considered: Includes but not limited to septic arthritis/gout/arthritis Lab Test results independently reviewed as above. Pertinent findings: Imaging studies independently reviewed: X-ray right hand no acute finding Consultations: None indicated this time Re-evaluations: 9:12 a.m.. Reviewed results with patient. He agrees with thumbs spica splint, he has appointment in 2 hours with his primary care and will inquire about steroid injection. X-rays reassuring. Blood work at this time is reassuring. Return precautions reviewed. Reviewed with them this is arthritis, nonspecific. However no injury. Return precautions reviewed. He desires discharge home. He does agree for intramuscular Decadron as he can not tolerate p.o. NSAIDs or steroids. Discussion: Appropriate for discharge home. Exam is reassuring. Return precautions reviewed. He desires discharge home. He has a point with primary care in 2 hours Diagnosis: Thumb pain Discharge Plan Departure Patient Disposition: Home Clinical Impression: Pain of right thumb Instructions: DI for Arthralgia Activity Restrictions/Additional Instructions: Your exam and laboratory studies and x-ray imaging are reassuring. This could be related to your autoimmune syndrome. Please see your doctor at 11:30 a.m. this morning as scheduled. He may be able to do a steroid injection. No prescriptions are indicated this time. Continue home medications. Return if worse if any questions or concerns. Thumb spica splint has been provided for you for comfort. Prescriptions: No Action omeprazole 10 mg capsule,delayed release(DR/EC) 10 mg PO DAILY Qty: 90 3RF ondansetron 4 mg tablet,disintegrating 4 mg PO Q8H PRN (Reason: nausea and vomiting) Qty: 30 1RF hydroxyzine HCl 25 mg tablet 25 mg PO TID PRN (Reason: itching) Qty: 60 3RF oxycodone 10 mg tablet 10 mg PO TID PRN (Reason: pain) Qty: 60 0RF sumatriptan succinate [Imitrex] 25 mg tablet See Rx Instructions PO .COMPLEX Qty: 20 3RF Rx Instructions: take 1 tab at onset of headache; if no relief may repeat 1 tab after at least 2 hrs; max = 4 tabs/24 hr PO trazodone 50 mg tablet See Rx Instructions PO BEDTIME PRN (Reason: insomnia) Qty: 60 3RF Hold Instructions: Home Medication placed on hold at Doctor's office Rx Instructions: t1-2 tabs qhs as needed for sleep prednisone 20 mg tablet 40 mg PO ONCE Qty: 20 0RF Rx Instructions: Take two tabs daily for 5 days, then taper to 20mg (one tab) daily for 10 days Referrals: Jones Abdul MD [Primary Care Provider] - Stand Alone Forms: Patient Portal/API/Survey
[2024-10-09 08:31] LABS: Add Manual Diff / Slide Review NO; Basophils Absolute Auto 0 /uL (0-100); Basophils Percent Auto 0.3 % (0-2); Eosinophils Absolute Auto 200 /uL (0-450); Eosinophils Percent Auto 1.8 % (2-4); Hematocrit 40.2 % (41-53); Hemoglobin 13.8 g/dL (13.5-17.5); Lymphocytes Absolute Auto 1600 /uL (1100-4500); Mean Corpuscular HGB Conc 34.3 % (30-36); Mean Corpuscular Hemoglobin 32.4 PG (26-34); Mean Corpuscular Volume 94.4 fL (80-100); Monocytes Absolute Auto 700 /uL (0-900); Monocytes Percent Auto 6.5 % (3-14); Neutrophils Absolute Auto 8800 /uL (1500-7000); Neutrophils Percent Auto 77.4 % (50-75); Platelet Count 191 X10^3/uL (150-400); Red Blood Cell Count 4.26 X10^6/uL (4.5-5.9); Red Cell Distribution Width 12.9 % (11.6-14.8); White Blood Cell Count 11.3 X10^3/uL (4.5-11.0)
[2024-10-09 08:42] LABS: Alanine Aminotransferase 18 IU/L (<50); Albumin 4.4 g/dL (3.5-5.0); Albumin Globulin Ratio 1.8 (1.0-2.8); Alkaline Phosphatase 66 U/L (38-126); Aspartate Aminotransferase 25 IU/L (17-59); BUN Creatinine Ratio 16.3 (6-22); Bilirubin Total 0.7 mg/dL (0.2-1.3); Blood Urea Nitrogen 13 mg/dL (9-20); Calcium 9.5 mg/dL (8.4-10.2); Carbon Dioxide 27 mmol/L (22-32); Chloride 106 mmol/L (98-107); Estimated Glomerular Filt Rate > 60 mL/min (>60); Globulin 2.4 g/dL (1.7-4.1); Glucose 103 mg/dL (70-99); HEMOLYSIS < 15 (0-50); Potassium 4.5 mmol/L (3.4-5.1); Sodium 139 mmol/L (137-145); Total Protein 6.8 g/dL (6.3-8.2); Uric Acid 3.3 mg/dL (3.5-8.5)
[2024-10-09 09:01] VITALS: PULSE 88
[2024-10-09] MEDS: DEXAMETHASONE 10 MG/ML VIAL 20 MG IM (09:22)
[2024-10-09 09:34] VITALS: BP 122/75; PULSE 91; RESP 20; TEMP 36.6; O2SAT 100
== END 2024-10-09 09:35 | disposition home or self-care (01) ==
PROVIDERS: Emergency Provider Emergency Medicine; PCP Family Medicine
DX: M79.644 Pain in right finger(s) (principal)
CPT/HCPCS: 29130; 36415; 73130; 80053; 84550; 85025; 96372; 99283; 99284; J1100

== ENCOUNTER → 2024-10-31 10:42 | Outpatient (CLI) | payer OTHER, SELFPAY ==
[2024-10-31 11:32] LABS: Add Manual Diff / Slide Review NO; Basophils Absolute Auto 0 /uL (0-100); Basophils Percent Auto 0.4 % (0-2); Eosinophils Absolute Auto 100 /uL (0-450); Eosinophils Percent Auto 0.7 % (2-4); Hematocrit 40.4 % (41-53); Hemoglobin 13.8 g/dL (13.5-17.5); Lymphocytes Absolute Auto 1600 /uL (1100-4500); Lymphocytes Percent Auto 19.8 % (25-40); Mean Corpuscular HGB Conc 34.2 % (30-36); Mean Corpuscular Hemoglobin 32.4 PG (26-34); Mean Corpuscular Volume 94.7 fL (80-100); Monocytes Absolute Auto 700 /uL (0-900); Monocytes Percent Auto 8.3 % (3-14); Neutrophils Absolute Auto 5900 /uL (1500-7000); Neutrophils Percent Auto 70.8 % (50-75); Platelet Count 224 X10^3/uL (150-400); Red Blood Cell Count 4.26 X10^6/uL (4.5-5.9); Red Cell Distribution Width 12.8 % (11.6-14.8); White Blood Cell Count 8.3 X10^3/uL (4.5-11.0)
[2024-10-31 11:38] LABS: Hemoglobin A1C% w Est Avg Glu 5.1 % (4.0-6.0)
[2024-10-31 11:48] LABS: Alanine Aminotransferase 21 IU/L (<50); Albumin 4.8 g/dL (3.5-5.0); Alkaline Phosphatase 59 U/L (38-126); Aspartate Aminotransferase 24 IU/L (17-59); BUN Creatinine Ratio 21.4 (6-22); Blood Urea Nitrogen 18 mg/dL (9-20); Calcium 9.8 mg/dL (8.4-10.2); Carbon Dioxide 25 mmol/L (22-32); Chloride 104 mmol/L (98-107); Estimated Glomerular Filt Rate > 60 mL/min (>60); Globulin 2.4 g/dL (1.7-4.1); Glucose 102 mg/dL (70-99); HEMOLYSIS < 15 (0-50); Lipase 32 U/L (23-300); Potassium 3.9 mmol/L (3.4-5.1); Sodium 137 mmol/L (137-145); Total Protein 7.2 g/dL (6.3-8.2)
== END ==
PROVIDERS: PCP Family Medicine; Referring Provider Family Medicine; Visit Provider Family Medicine
DX: K86.1 Other chronic pancreatitis (principal); R73.9 Hyperglycemia, unspecified; G89.29 Other chronic pain
CPT/HCPCS: 36415; 80053; 83036; 83690; 85025

== ENCOUNTER → 2025-02-09 15:59 | Outpatient (CLI) | payer OTHER, SELFPAY ==
--- NOTE | 2025-02-09 16:01 | DI.RAD.S_ITS ---
PROCEDURE: XR SHOULDER RT MIN 2V INDICATIONS: acute right shoulder pain TECHNIQUE: Three views of the right shoulder were acquired. COMPARISON: [facility], CR, XR SHOULDER LT MIN 2V, 04/09/2024, 10:02. FINDINGS: Bones: There are no osseous abnormalities. Acromioclavicular and glenohumeral joints: Normal in width and alignment without arthritic change Soft tissues: No soft tissue swelling, calcification or mass. IMPRESSION: Normal shoulder Dictated by: Kalin Barragan M.D. on 02/10/2025 at 10:41 Approved by: Kalin Barragan M.D. on 02/10/2025 at 10:41
--- NOTE | 2025-02-09 16:02 | DI.RAD.S_ITS ---
PROCEDURE: XR LUMBAR SPINE MIN 4V INDICATIONS: BACK PAIN TECHNIQUE: 5 views of the lumbar spine were acquired, including bilateral oblique views. COMPARISON: [facility], , L-SPINE 2-3 VIEWS, 06/02/2015, 15:37. FINDINGS: Bones: 5 nonrib-bearing vertebrae are present. There is normal bony alignment. No vertebral body compression fractures. No suspicious bony lesions. Soft tissues: Overlying bowel gas pattern is normal. No suspicious soft tissue calcifications. Oblique images: No pars defects. IMPRESSION: No acute bony abnormality. Approved by: Mario Martin M.D. on 02/09/2025 at 17:33
[2025-02-09 16:48] LABS: Add Manual Diff / Slide Review NO; Hematocrit 39.4 % (41-53); Hemoglobin 13.8 g/dL (13.5-17.5); Lymphocytes Absolute Auto 1100 /uL (1100-4500); Mean Corpuscular HGB Conc 35.0 % (30-36); Mean Corpuscular Hemoglobin 32.1 PG (26-34); Mean Corpuscular Volume 91.8 fL (80-100); Platelet Count 219 X10^3/uL (150-400)
[2025-02-09 17:28] LABS: Alanine Aminotransferase 17 IU/L (<50); Albumin 4.6 g/dL (3.5-5.0); Albumin Globulin Ratio 1.7 (1.0-2.8); Alkaline Phosphatase 68 U/L (38-126); Blood Urea Nitrogen 17 mg/dL (9-20); Calcium 9.6 mg/dL (8.4-10.2); Carbon Dioxide 27 mmol/L (22-32); Chloride 103 mmol/L (98-107); Estimated Glomerular Filt Rate > 60 mL/min (>60); Globulin 2.7 g/dL (1.7-4.1); Glucose 101 mg/dL (70-99); HEMOLYSIS < 15 (0-50); Lipase 126 U/L (23-300); Potassium 4.3 mmol/L (3.4-5.1); Sodium 138 mmol/L (137-145); Total Protein 7.3 g/dL (6.3-8.2)
[2025-02-09 17:53] LABS: TSH w/ Reflex to FT4 0.48 uIU/mL (0.47-4.68)
== END ==
PROVIDERS: PCP Family Medicine; Referring Provider Physical Medicine & Rehabilitation; Visit Provider Physical Medicine & Rehabilitation
DX: S46.019A Strain of muscle(s) and tendon(s) of the rotator cuff of unspecified shoulder, initial encounter (principal); M25.511 Pain in right shoulder; M54.9 Dorsalgia, unspecified; K86.1 Other chronic pancreatitis; R17 Unspecified jaundice; R63.4 Abnormal weight loss
CPT/HCPCS: 36415; 72110; 73030; 80053; 82248; 83690; 84443; 85025; 85651; 86140

== ENCOUNTER 2025-02-23 21:46 | Observation (INO) | payer OTHER, SELFPAY ==
[2025-02-23 22:02] VITALS: BP 143/68; PULSE 70; RESP 21; TEMP 36.6; O2SAT 99; BMI 21.1
[2025-02-23 22:05] VITALS: PULSE 69; O2SAT 99
[2025-02-23 22:13] LABS: Add Manual Diff / Slide Review NO; Hematocrit 41.2 % (41-53); Hemoglobin 14.2 g/dL (13.5-17.5); Lymphocytes Absolute Auto 1900 /uL (1100-4500); Mean Corpuscular HGB Conc 34.5 % (30-36); Mean Corpuscular Hemoglobin 31.7 PG (26-34); Mean Corpuscular Volume 92.1 fL (80-100); Platelet Count 240 X10^3/uL (150-400)
[2025-02-23 22:24] LABS: Alanine Aminotransferase 19 IU/L (<50); Albumin 4.7 g/dL (3.5-5.0); Albumin Globulin Ratio 1.5 (1.0-2.8); Alkaline Phosphatase 81 U/L (38-126); Blood Urea Nitrogen 16 mg/dL (9-20); Calcium 9.5 mg/dL (8.4-10.2); Carbon Dioxide 29 mmol/L (22-32); Chloride 104 mmol/L (98-107); Estimated Glomerular Filt Rate > 60 mL/min (>60); Globulin 3.2 g/dL (1.7-4.1); Glucose 67 mg/dL (70-99); HEMOLYSIS 15 (0-50); Lipase 81 U/L (23-300); Potassium 3.6 mmol/L (3.4-5.1); Sodium 139 mmol/L (137-145); Total Protein 7.9 g/dL (6.3-8.2)
[2025-02-23 22:30] VITALS: PULSE 67; O2SAT 97
--- NOTE | 2025-02-23 22:36 | ED.ABDPAIN ---
HPI - Abdominal Pain <Mery Padilla DO - Last Filed: 03/05/25 07:46> General Chief Complaint: Abdominal Pain Stated Complaint: Upper flank pain Time Seen by Provider: 02/23/25 22:31 Source: patient Mode of arrival: Ambulatory History of Present Illness HPI narrative: Patient is a 39-year-old male history of chronic calcific pancreatitis, GERD, Alberts's esophagus, hepatomegaly fibromyalgia followed at [facility] with GI suspicious for autoimmune pancreatitis and he thinks autoimmune hepatitis as well I do not see that documented, presenting today with right upper quadrant pain. He reports he has ongoing pain but today it is quite bad. No fever no chills he feels nauseous no vomiting, he did take Zofran prior to arrival. He feels like his liver is swollen. He reports he is not drinking any alcohol and he is watching his diet carefully but pain is quite out of control. Related Data Previous Rx's ?Medication ?Instructions ?Recorded sumatriptan succinate 25 mg tablet See Rx Instructions PO .COMPLEX 04/03/24 (Imitrex) #20 tabs diclofenac sodium 1 % topical gel 2 g topical QID #100 grams 02/16/25 (Voltaren Arthritis Pain) bismuth subsalicylate 262 mg/15 mL 262 mg (15 mL) PO QID #1,000 mL 02/26/25 oral suspension (Pepto-Bismol) metronidazole 500 mg tablet 500 mg PO Q8H #42 tabs 02/26/25 ondansetron 4 mg disintegrating 4 mg PO Q8H PRN nausea and 02/26/25 tablet vomiting #30 tabs oxycodone 10 mg tablet 10 mg PO Q4H PRN pain #24 tabs 02/26/25 pantoprazole 40 mg tablet,delayed 40 mg PO BID #60 tabs 02/26/25 release sucralfate 100 mg/mL oral 10 ml PO QACHS #1,000 mL 02/26/25 suspension (Carafate) tetracycline 500 mg capsule 500 mg PO Q6H #56 caps 02/26/25 Allergies Allergy/AdvReac Type Severity Reaction Status Date / Time Sulfa (Sulfonamide Allergy Mild Hives Verified 02/25/25 11:59 Antibiotics) (SULFA (SULFONAMIDE ANTIBIOTICS)) ketorolac (From Toradol) Allergy Verified 02/25/25 11:59 Patient History <Mery Padilla DO - Last Filed: 03/05/25 07:46> Medical History Chronic calcific pancreatitis Pruritic rash Fibromyalgia Facet arthropathy, cervical Right rotator cuff tear Chronic solar dermatitis Acute stress disorder Vision disorder Hearing deficit (~2015) Elbow pain (~2016) Shoulder pain Fractures (~2014) Chronic back pain (~2011) Cervical spine disease (~2014) White blood cell disorder (~2015) Vertigo (~2015) Tinnitus (~2015) Ruptured tympanic membrane (~2015) Gastric ulcer (~2010) Surgical History History of open reduction and internal fixation (ORIF) procedure (02/05/20) Anesthesia Status post hernia repair (~2003) Status post hernia repair (~2008) Family History Father Age: 65 Hypertension Hematoma Mother Age: 61 Hypertension High cholesterol Diabetes mellitus Sister Age: 43 Hypertension Double ureter Grandmother Stroke Grandfather Cancer Social History marital status: household members: spouse and children occupational status: employed alcohol intake: former substance use type: does not use Smoking Status: Former smoker tobacco type: cigarettes alcohol intake frequency: other Alcohol type: beer Exam <DO Sumit Desai Last Filed: 03/05/25 07:46> Initial Vital Signs Initial Vital Signs: Vital Signs Temperature 98 F 02/23/25 22:02 Pulse Rate 70 02/23/25 22:02 Respiratory Rate 21 02/23/25 22:02 Blood Pressure 143/68 H 02/23/25 22:02 Pulse Oximetry 99 02/23/25 22:02 Oxygen Delivery Method Room Air 02/23/25 22:02 GENERAL: Alert well-appearing 39-year-old male and in [no acute] distress. HEENT: Head atraumatic,EOMI, pupils reactive, face symmetric, [moist] mucous membranes CARDIOVASCULAR: Regular rate and rhythm without murmurs, rubs or gallops. RESPIRATORY: Breath sounds equal bilaterally, no wheezes rales or rhonchi. ABDOMEN: Soft, tender right upper quadrant mild hepatomegaly no significant distention no periumbilical pain EXTREMITIES: Normal range of motion, no clubbing or edema. Neurovascularly intact NEUROLOGICAL: Alert and oriented x4.Normal gait and speech. SKIN: Warm, dry, no laceration, no petechiae, no rashes or lesions. <Jerzy Wells MD - Last Filed: 02/24/25 00:36> Initial Vital Signs Initial Vital Signs: Vital Signs Temperature 98 F 02/23/25 22:02 Pulse Rate 70 02/23/25 22:02 Respiratory Rate 21 02/23/25 22:02 Blood Pressure 143/68 H 02/23/25 22:02 Pulse Oximetry 99 02/23/25 22:02 Oxygen Delivery Method Room Air 02/23/25 22:02 Course <Mery Padilla DO - Last Filed: 03/05/25 07:46> Orders Ordered: Discontinued Medications Benzocaine (Benzocaine/Menthol 1 Yenny Pkt) 1 each PO PRN PRN PRN Reason: Sore Throat Bismuth Subsalicylate (Bismuth Subsalicylate 525 Mg/30 Ml Susp) 30 ml PO QID SUKUMAR Last Admin: 02/26/25 12:25 Dose: 30 ml Documented By: Admin: 02/26/25 08:50 Dose: 30 ml Documented By: Admin: 02/25/25 20:52 Dose: 30 ml Documented By: Admin: 02/25/25 16:35 Dose: 30 ml Documented By: THALIA Bupivacaine HCl/Epinephrine Bitart (Bupivacaine 0.25% W/ Epi (Pf) 30 Ml Vial) 60 ml INJ NOW ONE Stop: 02/24/25 14:56 Last Admin: 02/24/25 14:55 Dose: 50 ml Documented By: RANDAL Calcium Carbonate (Calcium Carbonate 500 Mg Tab) 500 mg PO TID PRN PRN Reason: Heartburn Last Admin: 02/25/25 23:34 Dose: 500 mg Documented By: Admin: 02/25/25 00:41 Dose: 500 mg Documented By: MARELY Fentanyl (Fentanyl 100 Mcg/2 Ml Inj) 0 mcg IV Q5MIN PRN PRN Reason: Pain, Severe (7-10) Fentanyl (Fentanyl 100 Mcg/2 Ml Inj) 0 mcg IV Q5M PRN PRN Reason: Pain, Moderate (4-6) Fentanyl (Fentanyl 100 Mcg/2 Ml Inj) 0 mcg IV Q5M PRN PRN Reason: Pain, Severe (7-10) Last Admin: 02/24/25 16:29 Dose: 50 mcg Documented By: ALY Hydrocortisone (Hydrocortisone 100 Mg/2 Ml Vial) 100 mg INJ NOW ONE Stop: 02/24/25 14:47 Last Admin: 02/24/25 14:45 Dose: 100 mg Documented By: KIMBERLEY Hydromorphone HCl (Hydromorphone Hcl 0.5 Mg/0.5 Ml Syringe) 0.5 mg IV NOW ONE Stop: 02/23/25 22:43 Last Admin: 02/23/25 22:48 Dose: 0.5 mg Documented By: ROBERTO Hydromorphone HCl (Hydromorphone Hcl 0.5 Mg/0.5 Ml Syringe) 0.5 mg IV NOW ONE Stop: 02/23/25 23:45 Last Admin: 02/24/25 00:10 Dose: 0.5 mg Documented By: JORJE Hydromorphone HCl (Hydromorphone Hcl 0.5 Mg/0.5 Ml Syringe) 0.5 mg IV Q2H PRN PRN Reason: Pain, Severe (7-10) Hydromorphone HCl (Hydromorphone 1 Mg/Ml Syringe) 1 mg IV Q2H PRN PRN Reason: Pain, Moderate (4-6) Hydromorphone HCl (Hydromorphone Hcl 0.5 Mg/0.5 Ml Syringe) 1 mg IV Q2H PRN PRN Reason: Pain, Severe (7-10) Last Admin: 02/25/25 20:31 Dose: 1 mg Documented By: Admin: 02/25/25 16:56 Dose: 1 mg Documented By: Admin: 02/25/25 13:50 Dose: 1 mg Documented By: Admin: 02/25/25 10:39 Dose: 1 mg Documented By: Admin: 02/25/25 08:39 Dose: 1 mg Documented By: Admin: 02/25/25 04:53 Dose: 1 mg Documented By: Admin: 02/25/25 02:52 Dose: 1 mg Documented By: Admin: 02/25/25 00:41 Dose: 1 mg Documented By: Admin: 02/24/25 22:15 Dose: 1 mg Documented By: Admin: 02/24/25 20:06 Dose: 1 mg Documented By: Admin: 02/24/25 18:03 Dose: 1 mg Documented By: Admin: 02/24/25 11:34 Dose: 1 mg Documented By: Admin: 02/24/25 07:47 Dose: 1 mg Documented By: Admin: 02/24/25 05:16 Dose: 1 mg Documented By: Admin: 02/24/25 02:09 Dose: 1 mg Documented By: RU Hydromorphone HCl (Hydromorphone 1 Mg/Ml Syringe) 0 mg IV Q5MIN PRN PRN Reason: Pain, Mild (1-3) Hydromorphone HCl (Hydromorphone 1 Mg/Ml Syringe) 0 mg IV Q5MIN PRN PRN Reason: Pain, Moderate (4-6) Last Admin: 02/24/25 16:27 Dose: 0.5 mg Documented By: Admin: 02/24/25 16:21 Dose: 0.5 mg Documented By: ALY Hydromorphone HCl (Hydromorphone 1 Mg/Ml Syringe) 0 mg IV Q5MIN PRN PRN Reason: Pain, Severe (7-10) Hydroxyzine HCl (Hydroxyzine 50 Mg/Ml Inj) 25 mg IM NOW PRN PRN Reason: Pain, Mild (1-3) Last Admin: 02/24/25 16:23 Dose: 25 mg Documented By: ALY Hydroxyzine HCl (Hydroxyzine Hcl 25 Mg Tablet) 25 mg PO TID PRN PRN Reason: Itching Last Admin: 02/25/25 20:51 Dose: 25 mg Documented By: Admin: 02/25/25 15:31 Dose: 25 mg Documented By: Admin: 02/25/25 02:52 Dose: 25 mg Documented By: Admin: 02/24/25 20:06 Dose: 25 mg Documented By: MARELY Piperacillin Sod/Tazobactam (Sod 3.375 gm/ Sodium Chloride) 100 mls @ 25 mls/hr IV Q6HR SUKUMAR Sodium Chloride (Normal Saline 0.9%) 1,000 mls @ 125 mls/hr IV CONT SUKUMAR Last Infusion: 02/24/25 17:15 Dose: Infused Documented By: Admin: 02/24/25 01:47 Dose: 125 mls/hr Documented By: RU Piperacillin Sod/Tazobactam (Sod 3.375 gm/ Sodium Chloride) 100 mls @ 25 mls/hr IV Q6HR [facility] Last Infusion: 02/24/25 10:30 Dose: Infused Documented By: Admin: 02/24/25 06:30 Dose: 25 mls/hr Documented By: Infusion: 02/24/25 05:43 Dose: Infused Documented By: Admin: 02/24/25 01:43 Dose: 25 mls/hr Documented By: RU Lactated Ringer's (Lactated Ringers) 1,000 mls @ 42 mls/hr IV CONT [facility] Last Admin: 02/25/25 11:57 Dose: 42 mls/hr Documented By: Infusion: 02/24/25 17:17 Dose: Infused Documented By: Admin: 02/24/25 16:14 Dose: 42 mls/hr Documented By: Infusion: 02/24/25 16:14 Dose: Infused Documented By: Admin: 02/24/25 16:13 Dose: 42 mls/hr Documented By: ALY Piperacillin Sod/Tazobactam (Sod 3.375 gm/ Sodium Chloride) 100 mls @ 25 mls/hr IV Q8H [facility] Last Admin: 02/24/25 17:16 Dose: Not Given Documented By: MYCHAL Lactated Ringer's (Lactated Ringers) 1,000 mls @ 120 mls/hr IV CONT SUKUMAR Last Admin: 02/25/25 09:38 Dose: 120 mls/hr Documented By: Infusion: 02/25/25 09:38 Dose: Infused Documented By: Admin: 02/25/25 02:36 Dose: 120 mls/hr Documented By: Infusion: 02/25/25 01:39 Dose: Infused Documented By: Admin: 02/24/25 17:19 Dose: 120 mls/hr Documented By: MYCHAL Iopamidol (Iopamidol 30 Ml Vial) 30 ml INJ NOW ONE Stop: 02/24/25 14:56 Last Admin: 02/24/25 15:44 Dose: Not Given Documented By: Metoclopramide HCl (Metoclopramide 10 Mg/2 Ml Inj) 10 mg IV NOW PRN PRN Reason: Nausea And Vomiting Metronidazole (Metronidazole 500 Mg Tablet) 500 mg PO QID SUKUMAR Last Admin: 02/26/25 12:25 Dose: 500 mg Documented By: Admin: 02/26/25 08:55 Dose: 500 mg Documented By: Admin: 02/25/25 23:40 Dose: 500 mg Documented By: Admin: 02/25/25 16:35 Dose: 500 mg Documented By: Admin: 02/25/25 13:49 Dose: 500 mg Documented By: THALIA Ondansetron HCl (Ondansetron 4 Mg/2 Ml Inj) 4 mg IV NOW PRN PRN Reason: Nausea And Vomiting Last Admin: 02/25/25 08:53 Dose: 4 mg Documented By: Admin: 02/24/25 02:09 Dose: 4 mg Documented By: Admin: 02/23/25 22:54 Dose: 4 mg Documented By: ROBERTO Ondansetron HCl (Ondansetron 4 Mg Odt) 4 mg PO NOW PRN PRN Reason: Nausea And Vomiting Last Admin: 02/24/25 11:34 Dose: 4 mg Documented By: INA Ondansetron HCl (Ondansetron 4 Mg/2 Ml Inj) 4 mg IV Q4HR PRN PRN Reason: Nausea And Vomiting Last Admin: 02/26/25 08:30 Dose: 4 mg Documented By: Admin: 02/24/25 07:59 Dose: 4 mg Documented By: MYCHAL Ondansetron HCl (Ondansetron 4 Mg/2 Ml Inj) 4 mg IV NOW PRN PRN Reason: Nausea And Vomiting Ondansetron HCl (Ondansetron 4 Mg Odt) 4 mg PO Q8H PRN PRN Reason: Nausea And Vomiting Last Admin: 02/26/25 08:45 Dose: 4 mg Documented By: THALIA Oxycodone HCl (Oxycodone Ir 5 Mg Tablet) 5 mg PO PACUNOW PRN PRN Reason: Mild or moderate pain Last Admin: 02/24/25 16:41 Dose: 5 mg Documented By: ALY Oxycodone HCl (Oxycodone Ir 10 Mg Tablet) 10 mg PO Q4HR PRN PRN Reason: Pain, Severe (7-10) Oxycodone HCl (Oxycodone Ir 10 Mg Tablet) 10 mg PO Q3HR PRN PRN Reason: Pain, Severe (7-10) Last Admin: 02/26/25 12:25 Dose: 10 mg Documented By: Admin: 02/26/25 08:27 Dose: 10 mg Documented By: Admin: 02/25/25 23:34 Dose: 10 mg Documented By: INA Pantoprazole Sodium (Pantoprazole Dr 20 Mg Tablet) 20 mg PO 0600 [facility] Last Admin: 02/25/25 05:33 Dose: 20 mg Documented By: MARELY Pantoprazole Sodium (Pantoprazole Dr 20 Mg Tablet) 40 mg PO BID [facility] Pantoprazole Sodium (Pantoprazole 40 Mg Vial) 40 mg IV 0700,2100 [facility] Last Admin: 02/26/25 08:31 Dose: 40 mg Documented By: Admin: 02/25/25 20:36 Dose: 40 mg Documented By: Admin: 02/25/25 15:17 Dose: 40 mg Documented By: THALIA Simethicone (Simethicone 80 Mg Tablet) 80 mg PO QID PRN PRN Reason: Flatulence Last Admin: 02/25/25 20:52 Dose: 80 mg Documented By: Admin: 02/24/25 20:06 Dose: 80 mg Documented By: MARELY Sucralfate (Sucralfate 1 Gm/10 Ml Oral Susp) 1 gm PO ACHS [facility] Last Admin: 02/26/25 12:25 Dose: 1 gm Documented By: Admin: 02/26/25 08:30 Dose: 1 gm Documented By: Admin: 02/25/25 20:51 Dose: 1 gm Documented By: Admin: 02/25/25 16:27 Dose: 1 gm Documented By: THALIA Tetracycline HCl (Tetracycline 250 Mg Capsule) 500 mg PO QID [facility] Last Admin: 02/26/25 12:25 Dose: 500 mg Documented By: Admin: 02/26/25 08:55 Dose: 500 mg Documented By: Admin: 02/25/25 20:51 Dose: 500 mg Documented By: Admin: 02/25/25 16:56 Dose: 500 mg Documented By: THALIA Vital Signs Vital signs: Vital Signs - 8 hr 02/23/25 22:02 02/23/25 22:05 02/23/25 22:30 Temperature 98 F Pulse Rate 70 69 67 Respiratory Rate 21 Blood Pressure 143/68 H Pulse Oximetry 99 99 97 Oxygen Delivery Method Room Air 02/23/25 23:00 02/23/25 23:30 02/23/25 23:41 Temperature Pulse Rate 64 62 69 Respiratory Rate 20 Blood Pressure Pulse Oximetry 96 97 99 Oxygen Delivery Method Room Air 02/23/25 23:41 02/24/25 00:00 02/24/25 00:00 Temperature Pulse Rate 65 Respiratory Rate 18 Blood Pressure 132/70 117/76 Pulse Oximetry 97 Oxygen Delivery Method Room Air <Jerzy Wells MD - Last Filed: 02/24/25 00:36> Orders Ordered: Discontinued Medications Benzocaine (Benzocaine/Menthol 1 Yenny Pkt) 1 each PO PRN PRN PRN Reason: Sore Throat Bismuth Subsalicylate (Bismuth Subsalicylate 525 Mg/30 Ml Susp) 30 ml PO QID SUKUMAR Last Admin: 02/26/25 12:25 Dose: 30 ml Documented By: Admin: 02/26/25 08:50 Dose: 30 ml Documented By: Admin: 02/25/25 20:52 Dose: 30 ml Documented By: Admin: 02/25/25 16:35 Dose: 30 ml Documented By: THALIA Bupivacaine HCl/Epinephrine Bitart (Bupivacaine 0.25% W/ Epi (Pf) 30 Ml Vial) 60 ml INJ NOW ONE Stop: 02/24/25 14:56 Last Admin: 02/24/25 14:55 Dose: 50 ml Documented By: RANDAL Calcium Carbonate (Calcium Carbonate 500 Mg Tab) 500 mg PO TID PRN PRN Reason: Heartburn Last Admin: 02/25/25 23:34 Dose: 500 mg Documented By: Admin: 02/25/25 00:41 Dose: 500 mg Documented By: MARELY Fentanyl (Fentanyl 100 Mcg/2 Ml Inj) 0 mcg IV Q5MIN PRN PRN Reason: Pain, Severe (7-10) Fentanyl (Fentanyl 100 Mcg/2 Ml Inj) 0 mcg IV Q5M PRN PRN Reason: Pain, Moderate (4-6) Fentanyl (Fentanyl 100 Mcg/2 Ml Inj) 0 mcg IV Q5M PRN PRN Reason: Pain, Severe (7-10) Last Admin: 02/24/25 16:29 Dose: 50 mcg Documented By: ALY Hydrocortisone (Hydrocortisone 100 Mg/2 Ml Vial) 100 mg INJ NOW ONE Stop: 02/24/25 14:47 Last Admin: 02/24/25 14:45 Dose: 100 mg Documented By: KIMBERLEY Hydromorphone HCl (Hydromorphone Hcl 0.5 Mg/0.5 Ml Syringe) 0.5 mg IV NOW ONE Stop: 02/23/25 22:43 Last Admin: 02/23/25 22:48 Dose: 0.5 mg Documented By: ROBERTO Hydromorphone HCl (Hydromorphone Hcl 0.5 Mg/0.5 Ml Syringe) 0.5 mg IV NOW ONE Stop: 02/23/25 23:45 Last Admin: 02/24/25 00:10 Dose: 0.5 mg Documented By: JORJE Hydromorphone HCl (Hydromorphone Hcl 0.5 Mg/0.5 Ml Syringe) 0.5 mg IV Q2H PRN PRN Reason: Pain, Severe (7-10) Hydromorphone HCl (Hydromorphone 1 Mg/Ml Syringe) 1 mg IV Q2H PRN PRN Reason: Pain, Moderate (4-6) Hydromorphone HCl (Hydromorphone Hcl 0.5 Mg/0.5 Ml Syringe) 1 mg IV Q2H PRN PRN Reason: Pain, Severe (7-10) Last Admin: 02/25/25 20:31 Dose: 1 mg Documented By: Admin: 02/25/25 16:56 Dose: 1 mg Documented By: Admin: 02/25/25 13:50 Dose: 1 mg Documented By: Admin: 02/25/25 10:39 Dose: 1 mg Documented By: Admin: 02/25/25 08:39 Dose: 1 mg Documented By: Admin: 02/25/25 04:53 Dose: 1 mg Documented By: Admin: 02/25/25 02:52 Dose: 1 mg Documented By: Admin: 02/25/25 00:41 Dose: 1 mg Documented By: Admin: 02/24/25 22:15 Dose: 1 mg Documented By: Admin: 02/24/25 20:06 Dose: 1 mg Documented By: Admin: 02/24/25 18:03 Dose: 1 mg Documented By: Admin: 02/24/25 11:34 Dose: 1 mg Documented By: Admin: 02/24/25 07:47 Dose: 1 mg Documented By: Admin: 02/24/25 05:16 Dose: 1 mg Documented By: Admin: 02/24/25 02:09 Dose: 1 mg Documented By: RU Hydromorphone HCl (Hydromorphone 1 Mg/Ml Syringe) 0 mg IV Q5MIN PRN PRN Reason: Pain, Mild (1-3) Hydromorphone HCl (Hydromorphone 1 Mg/Ml Syringe) 0 mg IV Q5MIN PRN PRN Reason: Pain, Moderate (4-6) Last Admin: 02/24/25 16:27 Dose: 0.5 mg Documented By: Admin: 02/24/25 16:21 Dose: 0.5 mg Documented By: ALY Hydromorphone HCl (Hydromorphone 1 Mg/Ml Syringe) 0 mg IV Q5MIN PRN PRN Reason: Pain, Severe (7-10) Hydroxyzine HCl (Hydroxyzine 50 Mg/Ml Inj) 25 mg IM NOW PRN PRN Reason: Pain, Mild (1-3) Last Admin: 02/24/25 16:23 Dose: 25 mg Documented By: ALY Hydroxyzine HCl (Hydroxyzine Hcl 25 Mg Tablet) 25 mg PO TID PRN PRN Reason: Itching Last Admin: 02/25/25 20:51 Dose: 25 mg Documented By: Admin: 02/25/25 15:31 Dose: 25 mg Documented By: Admin: 02/25/25 02:52 Dose: 25 mg Documented By: Admin: 02/24/25 20:06 Dose: 25 mg Documented By: MARELY Piperacillin Sod/Tazobactam (Sod 3.375 gm/ Sodium Chloride) 100 mls @ 25 mls/hr IV Q6HR [facility] Sodium Chloride (Normal Saline 0.9%) 1,000 mls @ 125 mls/hr IV CONT [facility] Last Infusion: 02/24/25 17:15 Dose: Infused Documented By: Admin: 02/24/25 01:47 Dose: 125 mls/hr Documented By: RU Piperacillin Sod/Tazobactam (Sod 3.375 gm/ Sodium Chloride) 100 mls @ 25 mls/hr IV Q6HR [facility] Last Infusion: 02/24/25 10:30 Dose: Infused Documented By: Admin: 02/24/25 06:30 Dose: 25 mls/hr Documented By: Infusion: 02/24/25 05:43 Dose: Infused Documented By: Admin: 02/24/25 01:43 Dose: 25 mls/hr Documented By: RU Lactated Ringer's (Lactated Ringers) 1,000 mls @ 42 mls/hr IV CONT SUKUMAR Last Admin: 02/25/25 11:57 Dose: 42 mls/hr Documented By: Infusion: 02/24/25 17:17 Dose: Infused Documented By: Admin: 02/24/25 16:14 Dose: 42 mls/hr Documented By: Infusion: 02/24/25 16:14 Dose: Infused Documented By: Admin: 02/24/25 16:13 Dose: 42 mls/hr Documented By: ALY Piperacillin Sod/Tazobactam (Sod 3.375 gm/ Sodium Chloride) 100 mls @ 25 mls/hr IV Q8H [facility] Last Admin: 02/24/25 17:16 Dose: Not Given Documented By: MYCHAL Lactated Ringer's (Lactated Ringers) 1,000 mls @ 120 mls/hr IV CONT [facility] Last Admin: 02/25/25 09:38 Dose: 120 mls/hr Documented By: Infusion: 02/25/25 09:38 Dose: Infused Documented By: Admin: 02/25/25 02:36 Dose: 120 mls/hr Documented By: Infusion: 02/25/25 01:39 Dose: Infused Documented By: Admin: 02/24/25 17:19 Dose: 120 mls/hr Documented By: MYCHAL Iopamidol (Iopamidol 30 Ml Vial) 30 ml INJ NOW ONE Stop: 02/24/25 14:56 Last Admin: 02/24/25 15:44 Dose: Not Given Documented By: Metoclopramide HCl (Metoclopramide 10 Mg/2 Ml Inj) 10 mg IV NOW PRN PRN Reason: Nausea And Vomiting Metronidazole (Metronidazole 500 Mg Tablet) 500 mg PO QID [facility] Last Admin: 02/26/25 12:25 Dose: 500 mg Documented By: Admin: 02/26/25 08:55 Dose: 500 mg Documented By: Admin: 02/25/25 23:40 Dose: 500 mg Documented By: Admin: 02/25/25 16:35 Dose: 500 mg Documented By: Admin: 02/25/25 13:49 Dose: 500 mg Documented By: THALIA Ondansetron HCl (Ondansetron 4 Mg/2 Ml Inj) 4 mg IV NOW PRN PRN Reason: Nausea And Vomiting Last Admin: 02/25/25 08:53 Dose: 4 mg Documented By: Admin: 02/24/25 02:09 Dose: 4 mg Documented By: Admin: 02/23/25 22:54 Dose: 4 mg Documented By: ROBERTO Ondansetron HCl (Ondansetron 4 Mg Odt) 4 mg PO NOW PRN PRN Reason: Nausea And Vomiting Last Admin: 02/24/25 11:34 Dose: 4 mg Documented By: INA Ondansetron HCl (Ondansetron 4 Mg/2 Ml Inj) 4 mg IV Q4HR PRN PRN Reason: Nausea And Vomiting Last Admin: 02/26/25 08:30 Dose: 4 mg Documented By: Admin: 02/24/25 07:59 Dose: 4 mg Documented By: MYCHAL Ondansetron HCl (Ondansetron 4 Mg/2 Ml Inj) 4 mg IV NOW PRN PRN Reason: Nausea And Vomiting Ondansetron HCl (Ondansetron 4 Mg Odt) 4 mg PO Q8H PRN PRN Reason: Nausea And Vomiting Last Admin: 02/26/25 08:45 Dose: 4 mg Documented By: THALIA Oxycodone HCl (Oxycodone Ir 5 Mg Tablet) 5 mg PO PACUNOW PRN PRN Reason: Mild or moderate pain Last Admin: 02/24/25 16:41 Dose: 5 mg Documented By: ALY Oxycodone HCl (Oxycodone Ir 10 Mg Tablet) 10 mg PO Q4HR PRN PRN Reason: Pain, Severe (7-10) Oxycodone HCl (Oxycodone Ir 10 Mg Tablet) 10 mg PO Q3HR PRN PRN Reason: Pain, Severe (7-10) Last Admin: 02/26/25 12:25 Dose: 10 mg Documented By: Admin: 02/26/25 08:27 Dose: 10 mg Documented By: Admin: 02/25/25 23:34 Dose: 10 mg Documented By: INA Pantoprazole Sodium (Pantoprazole Dr 20 Mg Tablet) 20 mg PO 0600 [facility] Last Admin: 02/25/25 05:33 Dose: 20 mg Documented By: MARELY Pantoprazole Sodium (Pantoprazole Dr 20 Mg Tablet) 40 mg PO BID [facility] Pantoprazole Sodium (Pantoprazole 40 Mg Vial) 40 mg IV 0700,2100 [facility] Last Admin: 02/26/25 08:31 Dose: 40 mg Documented By: Admin: 02/25/25 20:36 Dose: 40 mg Documented By: Admin: 02/25/25 15:17 Dose: 40 mg Documented By: THALIA Simethicone (Simethicone 80 Mg Tablet) 80 mg PO QID PRN PRN Reason: Flatulence Last Admin: 02/25/25 20:52 Dose: 80 mg Documented By: Admin: 02/24/25 20:06 Dose: 80 mg Documented By: MARELY Sucralfate (Sucralfate 1 Gm/10 Ml Oral Susp) 1 gm PO ACHS [facility] Last Admin: 02/26/25 12:25 Dose: 1 gm Documented By: Admin: 02/26/25 08:30 Dose: 1 gm Documented By: Admin: 02/25/25 20:51 Dose: 1 gm Documented By: Admin: 02/25/25 16:27 Dose: 1 gm Documented By: THALIA Tetracycline HCl (Tetracycline 250 Mg Capsule) 500 mg PO QID [facility] Last Admin: 02/26/25 12:25 Dose: 500 mg Documented By: Admin: 02/26/25 08:55 Dose: 500 mg Documented By: Admin: 02/25/25 20:51 Dose: 500 mg Documented By: Admin: 02/25/25 16:56 Dose: 500 mg Documented By: THALIA Consultations Consultation #1: Dr cedillo general surgery consulted who agreed on admitting the patient to be evaluated in am for possibly surgery. Time: 00:27 Vital Signs Vital signs: Vital Signs - 8 hr 02/23/25 22:02 02/23/25 22:05 02/23/25 22:30 Temperature 98 F Pulse Rate 70 69 67 Respiratory Rate 21 Blood Pressure 143/68 H Pulse Oximetry 99 99 97 Oxygen Delivery Method Room Air 02/23/25 23:00 02/23/25 23:30 02/23/25 23:41 Temperature Pulse Rate 64 62 69 Respiratory Rate 20 Blood Pressure Pulse Oximetry 96 97 99 Oxygen Delivery Method Room Air 02/23/25 23:41 02/24/25 00:00 02/24/25 00:00 Temperature Pulse Rate 65 Respiratory Rate 18 Blood Pressure 132/70 117/76 Pulse Oximetry 97 Oxygen Delivery Method Room Air MDM - Abdominal Pain <Mery Padilla, DO - Last Filed: 03/05/25 07:46> Lab Data 02/23/25 22:00 02/23/25 22:00 Labs: Lab Results 02/23/25 Range/Units 22:00 WBC 8.4 (4.5-11.0) X10^3/uL RBC 4.47 L (4.5-5.9) X10^6/uL Hgb 14.2 (13.5-17.5) g/dL Hct 41.2 (41-53) % MCV 92.1 (80-100) fL MCH 31.7 (26-34) PG MCHC 34.5 (30-36) % RDW 12.7 (11.6-14.8) % Plt Count 240 (150-400) X10^3/uL Neut % (Auto) 66.1 (50-75) % Lymph % (Auto) 23.3 L (25-40) % [place] % (Auto) 7.6 (3-14) % Eos % (Auto) 2.3 (2-4) % Baso % (Auto) 0.7 (0-2) % Neut # (Auto) 5500 (4606-4546) /uL Lymph # (Auto) 1900 (3622-1401) /uL [place] # (Auto) 600 (0-900) /uL Eos # (Auto) 200 (0-450) /uL Baso # (Auto) 100 (0-100) /uL Sodium 139 (137-145) mmol/L Potassium 3.6 (3.4-5.1) mmol/L Chloride 104 (98-107) mmol/L Carbon Dioxide 29 (22-32) mmol/L BUN 16 (9-20) mg/dL Creatinine 0.95 (0.66-1.25) mg/dL Estimated GFR > 60 (>60) mL/min BUN/Creatinine Ratio 16.8 (6-22) Glucose 67 L (70-99) mg/dL Calcium 9.5 (8.4-10.2) mg/dL Total Bilirubin 0.9 (0.2-1.3) mg/dL AST 30 (17-59) IU/L ALT 19 (<50) IU/L Alkaline Phosphatase 81 (38-126) U/L Total Protein 7.9 (6.3-8.2) g/dL Albumin 4.7 (3.5-5.0) g/dL Globulin 3.2 (1.7-4.1) g/dL Albumin/Globulin Ratio 1.5 (1.0-2.8) Lipase 81 (23-300) U/L Point of care testing: Urine Dip Bedside Urine Glucose Negative Bedside Urine Bilirubin - Negative Bedside Urine Ketone - Negative Urine Specific [place] 1.020 Bedside Urine Occult Blood - Negative Bedside Urine pH 6.0 Bedside Urine Protein - Negative Bedside Urine Urobilinogen - Negative Bedside Urine Nitrite - Negative Bedside Urine Leukocytes - Negative Esterase MDM Narrative Medical decision making narrative: MDM CC: Right upper quadrant pain Complicating co-morbidities: Chronic pancreatitis, autoimmune pancreatitis possible hepatitis GERD Data collected from: [ ] Medical records reviewed: Records from [facility] reviewed, suggest 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 Pertinent findings: No leukocytosis WBCs 8.4 no anemia Electrolytes within normal limits creatinine 0.9 glucose 67 Bilirubin 0.9 AST 30 ALT 19 alk-phos 81 lipase 81 all within normal limits Independently reviewed EKG as above Imaging studies independently reviewed: Consultations: [ ] Treatments: Dilaudid Re-evaluations: [ ] Discussion: Patient 39-year-old male with ongoing GI problems followed mostly at [facility] although [facility] records from June were reviewed. Blood work is overall reassuring he has no elevated liver enzymes or bilirubin but is in quite a bit of pain. Awaiting ultrasound patient is signed out to <Jerzy Wells MD - Last Filed: 02/24/25 00:36> Lab Data Labs: Lab Results 02/23/25 Range/Units 22:00 WBC 8.4 (4.5-11.0) X10^3/uL RBC 4.47 L (4.5-5.9) X10^6/uL Hgb 14.2 (13.5-17.5) g/dL Hct 41.2 (41-53) % MCV 92.1 (80-100) fL MCH 31.7 (26-34) PG MCHC 34.5 (30-36) % RDW 12.7 (11.6-14.8) % Plt Count 240 (150-400) X10^3/uL Neut % (Auto) 66.1 (50-75) % Lymph % (Auto) 23.3 L (25-40) % [place] % (Auto) 7.6 (3-14) % Eos % (Auto) 2.3 (2-4) % Baso % (Auto) 0.7 (0-2) % Neut # (Auto) 5500 (8337-7335) /uL Lymph # (Auto) 1900 (4236-5277) /uL [place] # (Auto) 600 (0-900) /uL Eos # (Auto) 200 (0-450) /uL Baso # (Auto) 100 (0-100) /uL Sodium 139 (137-145) mmol/L Potassium 3.6 (3.4-5.1) mmol/L Chloride 104 (98-107) mmol/L Carbon Dioxide 29 (22-32) mmol/L BUN 16 (9-20) mg/dL Creatinine 0.95 (0.66-1.25) mg/dL Estimated GFR > 60 (>60) mL/min BUN/Creatinine Ratio 16.8 (6-22) Glucose 67 L (70-99) mg/dL Calcium 9.5 (8.4-10.2) mg/dL Total Bilirubin 0.9 (0.2-1.3) mg/dL AST 30 (17-59) IU/L ALT 19 (<50) IU/L Alkaline Phosphatase 81 (38-126) U/L Total Protein 7.9 (6.3-8.2) g/dL Albumin 4.7 (3.5-5.0) g/dL Globulin 3.2 (1.7-4.1) g/dL Albumin/Globulin Ratio 1.5 (1.0-2.8) Lipase 81 (23-300) U/L Point of care testing: Urine Dip Bedside Urine Glucose Negative Bedside Urine Bilirubin - Negative Bedside Urine Ketone - Negative Urine Specific [place] 1.020 Bedside Urine Occult Blood - Negative Bedside Urine pH 6.0 Bedside Urine Protein - Negative Bedside Urine Urobilinogen - Negative Bedside Urine Nitrite - Negative Bedside Urine Leukocytes - Negative Esterase MDM Narrative Medical decision making narrative: MDM CC: Right upper quadrant pain Complicating co-morbidities: Chronic pancreatitis, autoimmune pancreatitis possible hepatitis GERD Data collected from: [ ] Medical records reviewed: Records from [facility] reviewed, suggest 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 Pertinent findings: No leukocytosis WBCs 8.4 no anemia Electrolytes within normal limits creatinine 0.9 glucose 67 Bilirubin 0.9 AST 30 ALT 19 alk-phos 81 lipase 81 all within normal limits Independently reviewed EKG as above Imaging studies independently reviewed: Consultations: [ ] Treatments: Dilaudid Re-evaluations: [ ] Discussion: Patient 39-year-old male with ongoing GI problems followed mostly at [facility] although [facility] records from June were reviewed. Blood work is overall reassuring he has no elevated liver enzymes or bilirubin but is in quite a bit of pain. Awaiting ultrasound patient is signed out to 39-year-old male with worsening right upper quadrant pain. Patient's ultrasound did show some sludge and stones in his gallbladder. General surgery was consulted who agreed to admit the patient. Bridge orders placed and we will start antibiotics as well. Discharge Plan Departure Patient Disposition: Admitted as Observation Clinical Impression: Cholelithiasis Qualifiers: Cholelithiasis location: gallbladder Cholecystitis presence: without cholecystitis Biliary obstruction: without biliary obstruction Qualified Code(s): K80.20 - Calculus of gallbladder without cholecystitis without obstruction Admit Date/Time: 02/24/25 00:03 Admit Provider: Nayan Cedillo
--- NOTE | 2025-02-23 22:42 | DI.US.S_ITS ---
PROCEDURE: US ABDOMEN LIMITED INDICATIONS: ruq pain TECHNIQUE: Real-time scanning was performed of the abdominal and retroperitoneal organs, with image documentation. COMPARISON: [facility], CT, CT ANGIO ABD/PEL GI BLEED, 01/21/2025, 11:58. [facility], US, US ABDOMEN LIMITED, 03/13/2024, 7:19. FINDINGS: Liver: Liver is normal in size and homogeneous in echotexture. Gallbladder: Small gallstone measuring 2 mm. No wall thickening. No pericholecystic edema. Negative sonographic Breen's sign. Biliary ducts: Intrahepatic bile ducts are non-dilated. Extrahepatic bile duct caliber measures 4 mm. Normal is 6-7 mm or less in diameter, or 10 mm or less post-cholecystectomy. Pancreas: Visualized portions of the pancreas are sonographically normal. Miscellaneous: No free abdominal fluid. IMPRESSION: No acute cholecystitis. Small gallstone. Dictated by: Jaime Frausto M.D. on 02/24/2025 at 0:18 Approved by: Jaime Frausto M.D. on 02/24/2025 at 0:19
[2025-02-23] MEDS: ONDANSETRON 4 MG/2 ML INJ IV (22:54)
[2025-02-23 23:00] VITALS: PULSE 64; O2SAT 96
[2025-02-23 23:30] VITALS: PULSE 62; O2SAT 97
[2025-02-23 23:41] VITALS: BP 132/70; PULSE 69; RESP 20; O2SAT 99
[2025-02-24] VITALS (18 sets, daily range): BP systolic 108–178; BP diastolic 65–107; PULSE 46–65; RESP 11–99; TEMP 36.1–37; O2SAT 96–100; BMI 21.1
--- NOTE | 2025-02-24 | PATH_ITS ---
[facility] Accession Number: [id number] No. of containers..01 Tissue . 01 Material submitted: . gallbladder - GALLBLADDER . 01 Diagnosis: GALLBLADDER, CHOLECYSTECTOMY: Mild chronic cholecystitis. MRV 03/03/2025 1858 Local . 01 Electronically signed: . Johana Lopez MD, Pathologist NPI- [id number] . 01 Gross description: . Received in formalin with two identifiers and gallbladder is an intact gallbladder, 7.4 x 2.3 x 2.0 cm, with an unremarkable external surface. The cystic duct margin is inked blue and no pericystic lymph node is identified. No calculi are identified within the lumen or the container. The bile is green and mucoid. The mucosa is green and velvety with no yellow areas of discoloration, polyps, or lesions identified. The arce average 0.3 cm thick. Poultry Farm Laborer sections to include the cystic duct margin and full-thickness sections are submitted in A1. ([id number]) /MRV 02/26/2025 1623 Local . 01 Pathologist provided ICD-10: K81.1 . 01 CPT . 806167 Specimen Comment: A courtesy copy of this report has been sent to [facility] Pathology Performed at: [address] [facility], [place], [place] [id number] MD Royal Ramírez MD Phone: [phone]
[2025-02-24] MEDS: PIPERACILLIN/TAZO 3.375 GM in SODIUM CHLORIDE 0.9% 100 ML IV ×2 (01:43→06:30)
[2025-02-24] MEDS: SODIUM CHLORIDE 0.9% 1,000 ML 125 ML IV (01:47)
[2025-02-24] MEDS: ONDANSETRON 4 MG/2 ML INJ IV ×2 (02:09→07:59)
--- NOTE | 2025-02-24 07:08 | PM.HP.IH.1 ---
History of Present Illness History of Present Illness Date Patient Seen: 02/24/25 Time Patient Seen: 07:08 Chief complaint: Upper flank pain Narrative: 39yo M, admitted through ED with RUQ pain, n/v. H/O autoimmune hepatitis. H/O PUD, pt states this pain is very different from ulcer pain. GB u/s shows single small stone without wall thickening, pcf or ductal dilation. WBC 8. Recent ERCP at [facility] showed calcifications in CBD (not seen on ED u/s). H/O Toupet at for reflux. Patient has had RUQ pain for 18 mos and losing weight 170 down to 130. 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 [facility] Medical History Chronic calcific pancreatitis Pruritic rash Fibromyalgia Facet arthropathy, cervical Right rotator cuff tear Chronic solar dermatitis Acute stress disorder Vision disorder Hearing deficit (~2015) Elbow pain (~2016) Shoulder pain Fractures (~2014) Chronic back pain (~2011) Cervical spine disease (~2014) White blood cell disorder (~2015) Vertigo (~2015) Tinnitus (~2015) Ruptured tympanic membrane (~2015) Gastric ulcer (~2010) Surgical History History of open reduction and internal fixation (ORIF) procedure (02/05/20) Anesthesia Status post hernia repair (~2003) Status post hernia repair (~2008) Family History Father Age: 65 Hypertension Hematoma Mother Age: 61 Hypertension High cholesterol Diabetes mellitus Sister Age: 43 Hypertension Double ureter Grandmother Stroke Grandfather Cancer Social History marital status: household members: spouse and children occupational status: employed Smoking Status: Never smoker alcohol intake: former substance use type: does not use Meds Home Medications and Allergies Home Medications ?Medication ?Instructions ?Recorded ?Confirmed ?Type sumatriptan succinate 25 mg tablet See Rx Instructions PO .COMPLEX 04/03/24 02/16/25 Rx (Imitrex) #20 tabs omeprazole 10 mg capsule,delayed 10 mg PO DAILY #90 caps 04/10/24 02/16/25 Rx release hydroxyzine HCl 25 mg tablet 25 mg PO TID PRN itching #60 tabs 06/19/24 02/16/25 Rx ondansetron 4 mg disintegrating 4 mg PO Q8H PRN nausea and 12/23/24 02/16/25 Rx tablet vomiting #30 tabs diclofenac sodium 1 % topical gel 2 g topical QID #100 grams 02/16/25 02/16/25 Rx (Voltaren Arthritis Pain) Allergies Allergy/AdvReac Type Severity Reaction Status Date / Time Sulfa (Sulfonamide Allergy Mild Hives Verified 02/23/25 22:02 Antibiotics) (SULFA (SULFONAMIDE ANTIBIOTICS)) ketorolac (From Toradol) Allergy Verified 02/23/25 22:02 Exam Vital Signs (past 8 hours): - 02/23/25 23:30 02/23/25 23:41 02/23/25 23:41 Temperature Pulse Rate 62 69 Respiratory Rate 20 Blood Pressure 132/70 Pulse Oximetry 97 99 Oxygen Delivery Method Room Air Oxygen Flow Rate 02/24/25 00:00 02/24/25 00:00 02/24/25 00:30 Temperature Pulse Rate 65 64 Respiratory Rate 18 Blood Pressure 117/76 Pulse Oximetry 97 97 Oxygen Delivery Method Room Air Oxygen Flow Rate 02/24/25 00:30 02/24/25 01:00 Temperature 97.0 F L Pulse Rate 60 Respiratory Rate 18 Blood Pressure 129/70 120/68 Pulse Oximetry 99 Oxygen Delivery Method Oxygen Flow Rate 0 Oxygen Delivery Method Room Air Oxygen Flow Rate 0 Narrative Exam Narrative: Uncomfortable due to pain, emesis bag in hand Const Orientation: alert and oriented x3 Resp Effort & Inspection: normal respiratory effort and able to speak in complete sentences Cardio Rate: regular rate GI Other: +RUQ tenderness, +Breen's Extrem General: no pedal edema and no calf tenderness Objective Labs 02/23/25 22:00 02/23/25 22:00 Labs: Laboratory Results - last 24 hr 02/23/25 22:00 WBC 8.4 RBC 4.47 L Hgb 14.2 Hct 41.2 MCV 92.1 MCH 31.7 MCHC 34.5 RDW 12.7 Plt Count 240 Neut % (Auto) 66.1 Lymph % (Auto) 23.3 L [place] % (Auto) 7.6 Eos % (Auto) 2.3 Baso % (Auto) 0.7 Neut # (Auto) 5500 Lymph # (Auto) 1900 [place] # (Auto) 600 Eos # (Auto) 200 Baso # (Auto) 100 Sodium 139 Potassium 3.6 Chloride 104 Carbon Dioxide 29 BUN 16 Creatinine 0.95 Estimated GFR > 60 BUN/Creatinine Ratio 16.8 Glucose 67 L Calcium 9.5 Total Bilirubin 0.9 AST 30 ALT 19 Alkaline Phosphatase 81 Total Protein 7.9 Albumin 4.7 Globulin 3.2 Albumin/Globulin Ratio 1.5 Lipase 81 Assessment & Plan Assessment and plan (1) Cholelithiasis: Qualifiers: Biliary obstruction: without biliary obstruction Cholecystitis presence: without cholecystitis Cholelithiasis location: gallbladder Qualified Code(s): K80.20 - Calculus of gallbladder without cholecystitis without obstruction Status: Acute (2) Cholecystitis, acute with cholelithiasis: Qualifiers: Biliary obstruction: without biliary obstruction Qualified Code(s): K80.00 - Calculus of gallbladder with acute cholecystitis without obstruction Status: Acute Plan Symptoms don't match labs/imaging. Patient aware this may not improve his symptoms. He does have a gallstone and RUQ pain, n/v. Plan laparoscopic cholecystectomy with IOCG. The risks, benefits and options regarding the procedure were explained to the patient in detail. Risk discussion included but not limited to: open incision, injury to other organs or bile duct, bile leaks, abscess, drain, retained stone. The patient was encouraged to ask questions and they were answered to their satisfaction. The patient understands and is agreeable to proceed. Time-Based Coding :: [TOTAL MINUTES] spent with patient and on the chart (including review of chart, obtaining history, exam, reviewing outside data, placing orders, documenting exam and treatment plan, and counseling patient) on [DATE]. Quality VTE Deep Vein Thrombosis/Pulmonary Embolism Present on Admission: No IH PROFEE Special Shopper Document charge(s): Yes Charge Codes Initial inpatient/observation care: 94882
[2025-02-24] MEDS: ONDANSETRON 4 MG ODT PO (11:34)
--- NOTE | 2025-02-24 12:44 | CM.DANOTE ---
Initial DCP Assessment Visit Note Reviewed EMR and team rounds for pt's medical status and updates. Met with pt at bedside to introduce self and role, pt was found to be alert/oriented, and in a considerable amount of pain-he had just received pain meds, per RN. Pt resides independently with his spouse/family in their own home here in [place]. His will transport him home once he's medically cleared for discharge, likely by tomorrow. No CM d/c or assistance needs are identified at this time. Payor: Rui PCP: Dr. Abdul Pt is a 39 year-old M with a hx of chronic pancreatitis, GERD, Alberts's esophagus, hematomegaly, and fibromyalgia. He presented to the ED just after midnight last night with c/o intermittent, worsening right-upper gastric pain, nausea, but no vomiting. Surgery was consulted, and the plan was made to admit to OBS for cholelithiasis and surgery tomorrow (today) for cholecystectomy. He is NPO. DCP will continue to monitor for any further CM d/c needs or assistance. Discharge Planning/Care Management CM Discharge Assessment Start: 02/24/25 01:10 Freq: Status: Active Protocol: Document 02/24/25 12:43 DPL (Rec: 02/24/25 12:44 DPL [id number]) Discharge Planning Assessment Assigned Discharge PE[employer]A [employer] Insurance Rui Advance Directives? No Advance Directives No on File History Provided By Patient,Medical Record Has Patient been No admitted in last 30 days? Prior Living House Arrangements Household Members spouse,children Type of Drives own vehicle transporation used prior to admit Independent with ADL Yes 's Is patient alert and Yes oriented? Comment N/A Comment No identified home d/c needs at this time. Barriers to No Discharge Discharge Plan Home Referrals Initiated None needed Whiteboard Updated Yes in Patient Room with name and ext. # of Equine Manager Review Status In Process Please Provide Date 02/24/25 Initial DC Assessment Was Performed
[2025-02-24] MEDS: HYDROCORTISONE 100 MG/2 ML VIAL INJ (14:45)
[2025-02-24] MEDS: BUPivacaine 0.25% W/ EPI (PF) 30 ML VIAL 60 ML INJ (14:55)
--- NOTE | 2025-02-24 15:46 | SUR.OPER ---
Supine on padded OR bed, head on pillow, safety belt at thigh, right arm padded and tucked at side. left arm secured on padded arm board <90 degrees abduction. Legs uncrossed. Padded footboard in place. Tape over blanket to secure lower legs.
--- NOTE | 2025-02-24 16:07 | PM.OP.1 ---
Operative Date/Time/Diagnoses Date of procedure: 02/24/25 Time of procedure: 16:07 Pre-op diagnosis: Cholelithiasis, cholecystitis Post-op diagnosis: same Procedure & Clinicians Procedure: Laparoscopic cholecystectomy with attempted cholangiogram Same procedure(s) as scheduled: Yes Indications: 39yo M presents through ED with RUQ pain, n/v. U/S demonstrates gallstone. Patient symptoms more severe than imaging and labs. Patient aware cholecystectomy may not improve his symptoms. Surgeon: Nayan Bolden Assisted?: No Anesthesia Type: General Operative Notes Findings: Distended gallbladder, mild edema, cystic duct tiny, would not admit cholangiogram catheter Closure Type: primary Specimen(s): other (gallbladder) Applied: none Estimated Blood Loss (mL): 20 Blood products transfused: none Procedure in detail: After informed consent and satisfactory general endotracheal anesthesia, the abdomen was prepped and draped in the usual sterile manner. The patient received appropriate preoperative antibiotics and DVT prophylaxis. Surgical time-out was performed with all team members in agreement. The pneumoperitoneum was established under direct vision using the Steel direct trocar cutdown technique via an infraumbilical incision. An 0 Vicryl jewmrx-an-wavwz suture was placed in the fascia. The abdominal cavity was insufflated to a pressure of 12 mmHg with carbon dioxide gas. We were able to use a lower pressure due to his thin body habitus. Three right upper quadrant trocars were inserted under direct vision. We performed bilateral laparoscopic TAP blocks by injecting 20 cc of 0.25% Marcaine with epinephrine into the transversus abdominis muscle bilaterally. The remaining 10 cc of local was used in the skin. Incidental note was made of a prior IPOM mesh hernia repair in the left lower quadrant with omentum herniating through a recurrence. There was no bowel in the hernia. The patient was placed in reverse Trendelenburg ctyop-uknq-ki position. The gallbladder was grasped and retracted over the liver. The infundibulum was grasped and retracted laterally for proper exposure of the cystic duct and artery. The gallbladder was noted to be tense and distended. There were no greater omental adhesions to the gallbladder. There was very minor edema associated with the gallbladder. There was no free fluid in the right upper quadrant. The appearance of his gallbladder did not match his symptomatology. The peritoneum was scored on the medial and lateral portions of the gallbladder and the cystic duct and artery were both skeletonized with hook cautery. We are able to achieve critical view of safety with 2 distinct structures entering the gallbladder with segment 5 of the liver posterior. A cholangiogram was attempted by placing a hemolock clip on the cystic duct next to the gallbladder and making a ductotomy with laparoscopic Metzenbaum scissors. The duct was so tiny it would not admit the tip of the yellow ureteral catheter. After multiple attempts, further effort toward cholangiogram was abandoned. There was no ductal dilation on the preoperative imaging and his liver panel was normal. With this, the cystic duct was doubly clipped and divided with Metzenbaum scissors. Hemolock clips were used to doubly clip the cystic artery and divided with Metzenbaum scissors as well. The adhesions between the gallbladder and the liver were divided with cautery. There was no spillage of bile or stones throughout. The gallbladder was placed into an endo-pouch and removed. The pneumoperitoneum was released. The trocars were removed. There was no bleeding noted at the trocar sites. The 0 Vicryl tpbgnn-cs-vbghp suture in the umbilical fascia was tied and there were no palpable fascial defects. The skin incisions were closed using 4-0 Monocryl in a subcuticular manner. Dermabond glue was applied as a final dressing. The estimated blood loss was minimal. The instrument, sponge and needle counts were all correct x2. The patient tolerated the procedure well and was extubated in the operating room and transported to the recovery area in stable condition. Will monitor his symptoms for improvement postoperatively. Complications: none Post-operative Condition: stable Disposition: PACU Plan for aftercare: PACU then byers
[2025-02-24] MEDS: LACTATED RINGERS 1,000 ML 42 ML IV ×2 (16:13→16:14)
[2025-02-24] MEDS: hydrOXYzine 50 MG/ML INJ 25 MG IM (16:23)
[2025-02-24] MEDS: fentaNYL 100 MCG/2 ML INJ IV (16:29)
[2025-02-24] MEDS: LACTATED RINGERS 1,000 ML 120 ML IV (17:19)
--- NOTE | 2025-02-24 19:44 | PC.NURSE ---
Pt returned from PACU at 1700, c/o 10/10 pain to abdomen, radiating up to R shoulder and neck. Pt also having dry heaves. Pt encouraged to see if pain meds from PACU kick in before administering more narcotics and anti-emetics. A&Ox4, hypertensive but otherwise VSS on RA. Able to ambulate independently to the bathroom, pt preferring to ambulate around the room instead of be in bed or chair. Re-oriented to room and call light, call light within reach.
[2025-02-24] MEDS: SIMETHICONE 80 MG TABLET PO (20:06)
[2025-02-25] VITALS (11 sets, daily range): BP systolic 87–139; BP diastolic 43–94; PULSE 46–89; RESP 12–18; TEMP 36.1–36.9; O2SAT 96–99
--- NOTE | 2025-02-25 | PATH_ITS ---
[facility] Accession Number: [id number] No. of containers..02 Tissue . 01 Material submitted: . PART A: stomach - ANTRAL PART B: esophagus - ESOPHAGUS . 01 Diagnosis: A: GASTRIC ANTRUM, BIOPSY: Gastric antrum with mild chronic inactive gastritis. Negative for helicobacter organisms on H/E and immunostain sections, see comment. Negative for intestinal metaplasia, dysplasia, or malignancy. - B: ESOPHAGUS, BIOPSY: Squamocolumnar junctional mucosa with intestinal metaplasia with background reflux esophagitis. Negative for dysplasia or malignancy. Clinically compatible with Alberts's esophagus in the right endoscopic setting. [facility] 03/05/2025 1429 Local . 01 Comment: Part A: An immunohistochemical stain was performed to evaluate for Helicobacter organisms and is NEGATIVE. The control stain was adequately reactive. Technical Note: The immunohistochemical stains reported were performed at [facility] ([address], [facility] [address]). They were developed and their performance characteristics determined by [employer] They have not been cleared or approved by the U.S. Food and Drug Administration, although such approval is not required for analyte-specific reagents of this type. . 01 Electronically signed: . Zach Dumont MD, Pathologist NPI- [id number] . 01 Gross description: . A. Received in formalin with two identifiers and antral biopsy, are two soft armijo tissue fragments ranging from 0.3 to 0.6 cm in greatest dimension. Entirely submitted in cassette A1. B. Received in formalin with two identifiers and esophageal biopsy, are four soft armijo tissue fragments ranging from 0.3 to 0.4 cm in greatest dimension. Entirely submitted in cassette B1. ([id number]) /RICARDO 03/04/2025 0211 Local . 01 Pathologist provided ICD-10: Z13.9 . 01 CPT . 357666, 931812, M54749 Specimen Comment: A courtesy copy of this report has been sent to [facility] Performed at: [address] [address], [place], [place] [id number] MD Royal Ramírez MD Phone: [phone]
[2025-02-25] MEDS: CALCIUM CARBONATE 500 MG TAB PO ×2 (00:41→23:34)
[2025-02-25] MEDS: LACTATED RINGERS 1,000 ML 120 ML IV ×2 (02:36→09:38)
[2025-02-25] MEDS: PANTOPRAZOLE DR 20 MG TABLET PO (05:33)
--- NOTE | 2025-02-25 05:46 | PM.PN.IH.1 ---
Subjective Subjective Date Patient Seen: 02/25/25 Time Patient Seen: 05:46 Interval history: Pain unchanged after lap choley Still c/o RUQ pain, sharp, colicky, burning No emesis Exam Vital Signs (past 8 hours): - 02/25/25 04:12 Temperature 98.2 F Pulse Rate 46 L Respiratory Rate 16 Blood Pressure 139/94 H Pulse Oximetry 99 Oxygen Delivery Method Room Air Oxygen Flow Rate 0 Const Other: Uncomfortable Eyes Conjunctivae: conjunctivae normal (nonicteric) Resp Effort & Inspection: normal respiratory effort and able to speak in complete sentences Cardio Rate: regular rate GI Other: ABD: Incisions CDI, pain appropriate for postop but symptoms unchanged with choley Extrem General: no pedal edema and no calf tenderness Objective Labs 02/23/25 22:00 02/23/25 22:00 [facility] Medical History Chronic calcific pancreatitis Pruritic rash Fibromyalgia Facet arthropathy, cervical Right rotator cuff tear Chronic solar dermatitis Acute stress disorder Vision disorder Hearing deficit (~2015) Elbow pain (~2016) Shoulder pain Fractures (~2014) Chronic back pain (~2011) Cervical spine disease (~2014) White blood cell disorder (~2015) Vertigo (~2015) Tinnitus (~2015) Ruptured tympanic membrane (~2015) Gastric ulcer (~2010) Surgical History History of open reduction and internal fixation (ORIF) procedure (02/05/20) Anesthesia Status post hernia repair (~2003) Status post hernia repair (~2008) Family History Father Age: 65 Hypertension Hematoma Mother Age: 61 Hypertension High cholesterol Diabetes mellitus Sister Age: 43 Hypertension Double ureter Grandmother Stroke Grandfather Cancer Social History marital status: household members: spouse and children occupational status: employed Smoking Status: Never smoker alcohol intake: former substance use type: does not use Assessment & Plan Assessment and plan (1) Cholecystitis, acute with cholelithiasis: Qualifiers: Biliary obstruction: without biliary obstruction Qualified Code(s): K80.00 - Calculus of gallbladder with acute cholecystitis without obstruction Status: Acute (2) Cholelithiasis: Qualifiers: Biliary obstruction: without biliary obstruction Cholecystitis presence: without cholecystitis Cholelithiasis location: gallbladder Qualified Code(s): K80.20 - Calculus of gallbladder without cholecystitis without obstruction Status: Acute Plan POD #1 lap choley Symptoms unchanged with choley As we discussed preop, EGD next step to determine etiology of his pain, PUD top of differential Plan EGD today, NPO until then Time-Based Coding :: [TOTAL MINUTES] spent with patient and on the chart (including review of chart, obtaining history, exam, reviewing outside data, placing orders, documenting exam and treatment plan, and counseling patient) on [DATE]. 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
[2025-02-25] MEDS: ONDANSETRON 4 MG/2 ML INJ IV (08:53)
--- NOTE | 2025-02-25 11:46 | PM.PREOP ---
Pre-operative Note Interval Note History & Physical reviewed/Exam performed by Physician: Yes Changes to H&P: No ASA Class (for procedural sedation): II
--- NOTE | 2025-02-25 11:47 | PM.OP.EGD ---
Operative Date/Time/Diagnoses Date of procedure: 02/25/25 Time of procedure: 12:21 Pre-op diagnosis: Abd pain, possible PUD Post-op diagnosis: other (2cm hiatal hernia, LA Grade B esophagitis, significant gastritis) Procedure & Clinicians Study performed: EGD with biopsy Same procedure(s) as scheduled: Yes Indications: 39yo M, admitted through ED with RUQ pain, cholelithiasis, no symptom improvement after choley, possible duodenal ulcer, H pylori. Surgeon: Nayan Bolden Anesthesia Type: MAC +/- Procedure Notes SCOAP/Timeout: Performed Procedure in detail: EGD Informed consent was obtained. The procedure, its risks, benefits, and alternatives were discussed. Patient understood and agreed to proceed. The patient was placed in the left lateral decubitus position with head elevated. Sedation given per anesthesia. The video endoscope was inserted into the oropharynx and guided under direct vision into the esophagus, stomach, and duodenum which were carefully examined. The scope was retroflexed to examine the hiatus and gastroesophageal junction. Antral biopsies were obtained for Helicobacter pylori. The patient tolerated the procedure very well. There were no apparent complications. Significant EGD findings: Z-line noted at: 34cm 2cm hiatal hernia LA Grade B esophagitis, biopsies taken for [employer] Significant gastritis, antritis, biopsies taken for H pylori Duodenum normal Esophagus otherwise unremarkable proximally No ulcer or erosion seen Small clots of old blood in stomach indicating recent minor bleeding, likely from gastritis H pylori likely Findings: gastritis, hiatal hernia and other findings (esophagitis) Specimen(s): other (Biopsies of distal esophagus and antrum) Complications: none Impression: 2cm hiatal hernia LA Grade B esophagitis Gastritis, diffuse, significant, H pylori likely Post-procedure Recommendations: Will call with biopsy results Plan for aftercare: PACU then byers Follow up: as needed Disposition: PACU
[2025-02-25] MEDS: LACTATED RINGERS 1,000 ML 42 ML IV (11:57)
[2025-02-25] MEDS: PANTOPRAZOLE 40 MG VIAL IV ×2 (15:17→20:36)
[2025-02-25] MEDS: SUCRALFATE 1 GM/10 ML ORAL SUSP PO ×2 (16:27→20:51)
[2025-02-25] MEDS: BISMUTH SUBSALICYLATE 525 MG/30 ML SUSP PO ×2 (16:35→20:52)
[2025-02-25] MEDS: SIMETHICONE 80 MG TABLET PO (20:52)
[2025-02-26 07:25] VITALS: BP 124/68; PULSE 65; RESP 17; TEMP 37.6; O2SAT 96
[2025-02-26] MEDS: ONDANSETRON 4 MG/2 ML INJ IV (08:30)
[2025-02-26] MEDS: SUCRALFATE 1 GM/10 ML ORAL SUSP PO ×2 (08:30→12:25)
[2025-02-26] MEDS: PANTOPRAZOLE 40 MG VIAL IV (08:31)
[2025-02-26] MEDS: ONDANSETRON 4 MG ODT PO (08:45)
[2025-02-26] MEDS: BISMUTH SUBSALICYLATE 525 MG/30 ML SUSP PO ×2 (08:50→12:25)
--- NOTE | 2025-02-26 10:05 | PM.PN.IH.1 ---
Subjective Subjective Date Patient Seen: 02/26/25 Time Patient Seen: 10:06 Interval history: The patient is 2 days status post a laparoscopic cholecystectomy. He underwent an upper endoscopy yesterday in which some clotted blood was noted in the stomach and there was a suspicion that he may have H pylori. Presently the patient states he is doing well and oxycodone 10 mg q.4 hours is managing his pain. He is tolerating a regular diet. Exam Vital Signs (past 8 hours): Oxygen Delivery Method Room Air Oxygen Flow Rate 0 Narrative Exam Narrative: Neck is supple Chest is clear bilaterally Cardiac reveals a regular rate and rhythm Abdomen is scaphoid, soft, nontender. Bowel sounds are active. Incisions are clean without induration, erythema, or discharge. Objective Labs 02/23/25 22:00 02/23/25 22:00 [facility] Medical History Chronic calcific pancreatitis Pruritic rash Fibromyalgia Facet arthropathy, cervical Right rotator cuff tear Chronic solar dermatitis Acute stress disorder Vision disorder Hearing deficit (~2015) Elbow pain (~2016) Shoulder pain Fractures (~2014) Chronic back pain (~2011) Cervical spine disease (~2014) White blood cell disorder (~2015) Vertigo (~2015) Tinnitus (~2015) Ruptured tympanic membrane (~2015) Gastric ulcer (~2010) Surgical History History of open reduction and internal fixation (ORIF) procedure (02/05/20) Anesthesia Status post hernia repair (~2003) Status post hernia repair (~2008) Family History Father Age: 65 Hypertension Hematoma Mother Age: 61 Hypertension High cholesterol Diabetes mellitus Sister Age: 43 Hypertension Double ureter Grandmother Stroke Grandfather Cancer Social History marital status: household members: spouse and children occupational status: employed Smoking Status: Never smoker alcohol intake: former substance use type: does not use Assessment & Plan Assessment and plan (1) Cholecystitis, acute with cholelithiasis: Qualifiers: Biliary obstruction: without biliary obstruction Qualified Code(s): K80.00 - Calculus of gallbladder with acute cholecystitis without obstruction Status: Acute (2) GERD (gastroesophageal reflux disease): Qualifiers: Esophagitis presence: esophagitis presence not specified Qualified Code(s): K21.9 - Gastro-esophageal reflux disease without esophagitis Status: Acute (3) Acute erosive gastritis: Status: Acute Plan We will discharge the patient today. The patient is to follow up with Dr. Bolden in 2 weeks. We will discharge him on postoperative pain medication, Protonix b.i.d., sucralfate, tetracycline, and metronidazole. Time-Based Coding :: [TOTAL MINUTES] spent with patient and on the chart (including review of chart, obtaining history, exam, reviewing outside data, placing orders, documenting exam and treatment plan, and counseling patient) on [DATE]. 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
--- NOTE | 2025-02-26 10:23 | CM.DPC ---
DCP Cont. Reviewed EMR and team rounds for pt's medical status and updates. Pt has been medically cleared for home d/c. No further CM d/c assistance or resource needs identified at this time.
--- NOTE | 2025-02-26 10:46 | P.DS_ITS ---
History of Present Illness History of Present Illness Date Patient Seen: 02/26/25 Chief complaint: Upper flank pain Narrative: 39yo M, admitted through ED with RUQ pain, n/v. H/O autoimmune hepatitis. H/O PUD, pt states this pain is very different from ulcer pain. GB u/s shows single small stone without wall thickening, pcf or ductal dilation. WBC 8. Recent ERCP at [facility] showed calcifications in CBD (not seen on ED u/s). H/O [place] at for reflux. Patient has had RUQ pain for 18 mos and losing weight 170 down to 130. 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 Discharge Providers Provider Date of admission: 02/24/25 00:03 Discharge Date: 02/26/25 Primary care physician: Jones Abdul MD Discharge provider: Maximino Hurtado MD Summary Hospital Course Discharge Diagnosis: Acute cholecystitis Gastritis Hospital Course: unremarkable Exam Vital Signs (past 8 hours): - 02/26/25 07:25 Temperature 99.7 F H Pulse Rate 65 Respiratory Rate 17 Blood Pressure 124/68 Pulse Oximetry 96 Oxygen Flow Rate 0 Oxygen Delivery Method Room Air Oxygen Flow Rate 0 Narrative Exam Narrative: Neck is supple and nontender Chest is clear to auscultation bilaterally Cardiac reveals a regular rate and rhythm Abdomen is scaphoid, soft, nontender Incisions are clean without induration, erythema, or discharge. Objective Labs 02/23/25 22:00 02/23/25 22:00 [facility] Medical History Chronic calcific pancreatitis Pruritic rash Fibromyalgia Facet arthropathy, cervical Right rotator cuff tear Chronic solar dermatitis Acute stress disorder Vision disorder Hearing deficit (~2015) Elbow pain (~2016) Shoulder pain Fractures (~2014) Chronic back pain (~2011) Cervical spine disease (~2014) White blood cell disorder (~2015) Vertigo (~2015) Tinnitus (~2015) Ruptured tympanic membrane (~2015) Gastric ulcer (~2010) Surgical History History of open reduction and internal fixation (ORIF) procedure (02/05/20) Anesthesia Status post hernia repair (~2003) Status post hernia repair (~2008) Family History Father Age: 65 Hypertension Hematoma Mother Age: 61 Hypertension High cholesterol Diabetes mellitus Sister Age: 43 Hypertension Double ureter Grandmother Stroke Grandfather Cancer Social History marital status: household members: spouse and children occupational status: employed alcohol intake: former substance use type: does not use Discharge Plan Discharge Plan Patient Disposition: Home Provider Discharge Comment: follow up with Dr. Bolden-02/09 @ 9:30 (check in at 9:15 ) [phone] Discharge orders & Medications Prescriptions: New oxycodone 10 mg tablet 10 mg PO Q4H PRN (Reason: pain) Qty: 24 0RF bismuth subsalicylate [Pepto-Bismol] 262 mg/15 mL Suspension 262 mg PO QID Qty: 1000 0RF pantoprazole 40 mg tablet,delayed release (DR/EC) 40 mg PO BID Qty: 60 2RF tetracycline 500 mg capsule 500 mg PO Q6H Qty: 56 0RF metronidazole 500 mg tablet 500 mg PO Q8H Qty: 42 0RF sucralfate [Carafate] 100 mg/mL suspension 10 ml PO QACHS Qty: 1000 2RF Continued sumatriptan succinate [Imitrex] 25 mg tablet See Rx Instructions PO .COMPLEX Qty: 20 3RF Rx Instructions: take 1 tab at onset of headache; if no relief may repeat 1 tab after at least 2 hrs; max = 4 tabs/24 hr PO ondansetron 4 mg tablet,disintegrating 4 mg PO Q8H PRN (Reason: nausea and vomiting) Qty: 30 1RF diclofenac sodium [Voltaren Arthritis Pain] 1 % gel 2 g topical QID Qty: 100 0RF Rx Instructions: apply to single elbow, wrist or hand; for hand includes palm/fingers/back of hand Discontinued omeprazole 10 mg capsule,delayed release(DR/EC) 10 mg PO DAILY Qty: 90 3RF hydroxyzine HCl 25 mg tablet 25 mg PO TID PRN (Reason: itching) Qty: 60 3RF Follow up/Referrals: Jones Abdul MD [Primary Care Provider, Family Practice] Nayan Bolden MD [Physician, General Surgery] Referral Note: appt:02/09 @ 9:30 check in at 9:15 for post op follow up Diet/Activity/Treatments Diet: Diet as Tolerated Visit Report/Discharge Packet Instructions: DI for Laparoscopic Cholecystectomy Stand Alone Forms: Patient Portal/API, Stroke Signs & Symptoms Discharge Data Primary Care Provider: Jones Abdul Attending Provider: Nayan Bolden [place] Date/Time: 02/24/25 00:03 Quality VTE Deep Vein Thrombosis/Pulmonary Embolism Present on Admission: No IH PROFEE Charge Codes Discharge inpatient/observation: [id number]
--- NOTE | 2025-02-26 12:50 | PC.NURSE ---
DAy shift: Paperwork signed and all questions answered. Pt has all personal belongings. THe 4 lap sites remain NOLBERTO w/ no s/s of infection and they are intact. New MD scripts sent to Pt's pharmacy. Spouse is driving him home. Left unit at approx 1240. Walked out by this commercial insurance underwriter. Tolerated well. Pain has been well controlled per JUL.
== END 2025-02-26 12:45 | disposition home or self-care (01) ==
LOC: ED 23:44 → AC 02-24 00:04
PROVIDERS: Emergency Medicine; Admitting Provider Surgery; Emergency Provider Family Medicine; PCP Family Medicine; Visit Provider Surgery
PROC: 0FT44ZZ Resection of Gallbladder, Percutaneous Endoscopic Approach (ICD-10-PCS; CPT 47563; principal; 2025-02-24 15:00)
PROC: 0DJ08ZZ Inspection of Upper Intestinal Tract, Via Natural or Artificial Opening Endoscopic (ICD-10-PCS; CPT 43239; principal; 2025-02-25 12:00)
DX: K80.00 Calculus of gallbladder with acute cholecystitis without obstruction (principal); K21.9 Gastro-esophageal reflux disease without esophagitis; M79.7 Fibromyalgia; Z87.891 Personal history of nicotine dependence; Q89.8 Other specified congenital malformations; K29.70 Gastritis, unspecified, without bleeding; K44.9 Diaphragmatic hernia without obstruction or gangrene; K20.90 Esophagitis, unspecified without bleeding
CPT/HCPCS: 47563; 43239; 36415; 76705; 80053; 81003; 83690; 85025; 96365; 96366; 96375; 96376; 99284; G0378; A9270; J1100; J1171; J1720; J2250; J2405; J2470; J2543; J2704; J3010; J3410; Q9967

== ENCOUNTER → 2025-03-30 08:27 | Outpatient (CLI) | payer OTHER, SELFPAY ==
[2025-03-02 14:27] VITALS: BMI 21.1
--- NOTE | 2025-03-30 08:29 | DI.RAD.S_ITS ---
PROCEDURE: FL ARTHROGRAM SHOULDER RT
--- NOTE | 2025-03-30 08:29 | DI.MRI.S_ITS ---
PROCEDURE: MR SHOULDER RT W CON
[2025-03-30] MEDS: SODIUM CHLORIDE 0.9 % 20 ML VIAL IV (09:20)
[2025-03-30] MEDS: LIDOCAINE 1% 20 ML INJ (09:20)
== END ==
LOC: RAD 08:27
PROVIDERS: PCP Family Medicine; Referring Provider Family Medicine; Visit Provider Orthopaedic Surgery
DX: S46.019A Strain of muscle(s) and tendon(s) of the rotator cuff of unspecified shoulder, initial encounter (principal); M25.511 Pain in right shoulder; M75.51 Bursitis of right shoulder
CPT/HCPCS: 23350; 73040; 73222; A9579; Q9967

== ENCOUNTER 2025-05-05 10:21 | Emergency (ER) | payer OTHER, SELFPAY ==
[2025-03-02 14:27] VITALS: BMI 21.1
[2025-05-05] VITALS (10 sets, daily range): BP systolic 111–149; BP diastolic 57–68; PULSE 59–76; RESP 13–20; TEMP 36.8; O2SAT 97–99; BMI 22.2
--- NOTE | 2025-05-05 10:35 | ED.SYNCOPE ---
HPI - Syncope General Chief Complaint: Syncope Stated Complaint: passed out at [employer] Time Seen by Provider: 05/05/25 10:34 History of Present Illness HPI narrative: Patient here with his daughter. Daughter's a pick up and delivery driver. Patient states that 830 this morning at [employer] while getting groceries he was in the checkout line, scanning strawberries, he felt dizzy and the personnel clerk there saw him slump down to the ground. No hard fall. Denies any injury from fainting. He thinks he may have had some palpitations. No seizure activity. EMS arrived and he was told his blood sugar was fine. He was informed to go to the emergency department. He drove self home and told him to go the ER. He stopped by the school to shrimp picker his daughter because he needed a pick up and delivery driver. Patient in no distress at this time. History of autoimmune hepatitis. History of rectal bleed in the past but none recently. No black or bloody stools. Patient sees primary care doctor Vikram, had echocardiogram and Holter monitoring in the past year, his father has history of 3 heart valves and irregular heartbeat. Patient states his echocardiogram was normal and has 4 valves. No arrhythmia caught on his previous Holter monitoring. Patient denies any prevent headache chest pain back pain abdominal pain Related Data Previous Rx's ?Medication ?Instructions ?Recorded sumatriptan succinate 25 mg tablet See Rx Instructions PO .COMPLEX 04/03/24 (Imitrex) #20 tabs diclofenac sodium 1 % topical gel 2 g topical QID #100 grams 02/16/25 (Voltaren Arthritis Pain) bismuth subsalicylate 262 mg/15 mL 262 mg (15 mL) PO QID #1,000 mL 02/26/25 oral suspension (Pepto-Bismol) metronidazole 500 mg tablet 500 mg PO Q8H #42 tabs 02/26/25 ondansetron 4 mg disintegrating 4 mg PO Q8H PRN nausea and 02/26/25 tablet vomiting #30 tabs oxycodone 10 mg tablet 10 mg PO Q4H PRN pain #24 tabs 02/26/25 pantoprazole 40 mg tablet,delayed 40 mg PO BID #60 tabs 02/26/25 release sucralfate 100 mg/mL oral 10 ml PO QACHS #1,000 mL 02/26/25 suspension (Carafate) tetracycline 500 mg capsule 500 mg PO Q6H #56 caps 02/26/25 albuterol sulfate 90 mcg/actuation 2 puff inhalation Q6H PRN 03/12/25 aerosol inhaler shortness of breath or wheezing #8.5 grams scopolamine base 1 mg over 3 days 1 patch transdermal Q3D PRN nausea 03/12/25 transdermal patch #10 ea Allergies Allergy/AdvReac Type Severity Reaction Status Date / Time Sulfa (Sulfonamide Allergy Mild Hives Verified 05/05/25 10:41 Antibiotics) (SULFA (SULFONAMIDE ANTIBIOTICS)) ketorolac (From Toradol) Allergy Verified 05/05/25 10:41 Review of Systems Review of Systems Narrative: GENERAL: Negative chills, fatigue, malaise, fever, sweats. HEENT: Negative sinus pain, ear pain, sore throat RESPIRATORY: Negative dyspnea, cough CARDIOVASCULAR: Negative chest pain, palpitations, positive syncope GASTROINTESTINAL: Negative vomiting, nausea, abdominal pain : Negative dysuria, frequency, hematuria MUSCULOSKELETAL: Negative muscle or bony pain SKIN: Negative rash, skin lesions NEUROLOGIC: Negative weakness, numbness, positive dizziness ROS Unobtainable: All systems reviewed & are unremarkable except as noted in HPI and below Patient History Medical History (Updated 05/05/25 @ 12:43 by Mohsen Wayne MD) Chronic calcific pancreatitis Pruritic rash Fibromyalgia Facet arthropathy, cervical Right rotator cuff tear Chronic solar dermatitis Acute stress disorder Vision disorder Hearing deficit (~2015) Elbow pain (~2016) Shoulder pain Fractures (~2014) Chronic back pain (~2011) Cervical spine disease (~2014) White blood cell disorder (~2015) Vertigo (~2015) Tinnitus (~2015) Ruptured tympanic membrane (~2015) Gastric ulcer (~2010) Surgical History (Updated 03/12/25 @ 11:40 by Jones Abdul MD) Hx laparoscopic cholecystectomy History of open reduction and internal fixation (ORIF) procedure (02/05/20) Anesthesia Status post hernia repair (~2003) Status post hernia repair (~2008) Family History Father Age: 65 Hypertension Hematoma Mother Age: 61 Hypertension High cholesterol Diabetes mellitus Sister Age: 43 Hypertension Double ureter Grandmother Stroke Grandfather Cancer Social History (Reviewed 01/21/25 @ 11:58 by CLAUDY Schroeder marital status: household members: spouse and children occupational status: employed Smoking Status: Former smoker alcohol intake: former substance use type: does not use tobacco type: cigarettes alcohol intake frequency: other Alcohol type: beer Exam Narrative Exam Narrative: GENERAL: in no distress, not toxic not dyspneic HEAD: Normocephalic. Atraumatic no tenderness scalp, no bruising skin treated with a face EYES: Pupils equal round ENT: Mucous membranes moist. NECK: Trachea midline. No midline tenderness step-off cervical spine CARDIOVASCULAR: Regular rate and rhythm RESPIRATORY: Clear to auscultation. Breath sounds equal bilaterally. No wheezes, rales, or rhonchi. GASTROINTESTINAL: Abdomen soft, BACK: No flank tenderness. EXTREMITIES: No gross deformities. Nontender bilateral shoulders elbows wrists pelvis hips knees and ankles NEURO: AOx4. Clear speech, steady self gait from waiting room to his room without assist. No ataxia not antalgic SKIN: Warm and dry PSYCH: Not anxious, is cooperative Initial Vital Signs Initial Vital Signs: Vital Signs Pulse Rate 73 05/05/25 10:29 Pulse Oximetry 98 05/05/25 10:29 Course Orders Ordered: ED Orders 05/05/25 10:36 EKG-12 Lead Stat 05/05/25 10:37 CT head/brain wo con Stat XR chest 1V Stat 05/05/25 11:28 Complete Blood Count AUTO DIFF Stat Comprehensive Metabolic Panel Stat D Dimer Stat Troponin I Stat Urinalysis and Microscopic Stat Urine Drug Screen, Rapid Stat Vital Signs Vital signs: Vital Signs - 8 hr 05/05/25 10:29 05/05/25 10:30 05/05/25 10:30 Temperature Pulse Rate 73 72 Pulse Rate [Orthostatic Lying] Pulse Rate [Orthostatic Standing] Respiratory Rate Blood Pressure 149/68 H Blood Pressure [Orthostatic Lying] Blood Pressure [Orthostatic Standing] Pulse Oximetry 98 99 Oxygen Delivery Method 05/05/25 10:41 05/05/25 10:59 05/05/25 10:59 Temperature 98.2 F Pulse Rate 72 72 Pulse Rate [Orthostatic Lying] Pulse Rate [Orthostatic Standing] Respiratory Rate 17 16 Blood Pressure 149/68 H 122/58 L Blood Pressure [Orthostatic Lying] Blood Pressure [Orthostatic Standing] Pulse Oximetry 99 97 Oxygen Delivery Method Room Air 05/05/25 11:00 05/05/25 11:00 05/05/25 11:02 Temperature Pulse Rate 69 Pulse Rate [Orthostatic Lying] 72 Pulse Rate [Orthostatic Standing] 76 Respiratory Rate 20 Blood Pressure 113/58 L Blood Pressure [Orthostatic Lying] 120/57 L Blood Pressure [Orthostatic Standing] 123/59 L Pulse Oximetry 97 Oxygen Delivery Method 05/05/25 11:30 05/05/25 11:42 05/05/25 11:42 Temperature Pulse Rate 69 59 L Pulse Rate [Orthostatic Lying] Pulse Rate [Orthostatic Standing] Respiratory Rate 14 16 Blood Pressure 111/61 Blood Pressure [Orthostatic Lying] Blood Pressure [Orthostatic Standing] Pulse Oximetry 97 99 Oxygen Delivery Method MDM - Syncope Lab Data 05/05/25 11:28 05/05/25 11:28 Labs: Lab Results 05/05/25 05/05/25 Range/Units 11:28 11:28 WBC 9.5 (4.5-11.0) X10^3/uL RBC 4.43 L (4.5-5.9) X10^6/uL Hgb 14.1 (13.5-17.5) g/dL Hct 40.5 L (41-53) % MCV 91.4 (80-100) fL MCH 31.8 (26-34) PG MCHC 34.7 (30-36) % RDW 12.9 (11.6-14.8) % Plt Count 206 (150-400) X10^3/uL Neut % (Auto) 80.2 H (50-75) % Lymph % (Auto) 12.9 L (25-40) % [place] % (Auto) 5.2 (3-14) % Eos % (Auto) 1.2 L (2-4) % Baso % (Auto) 0.5 (0-2) % Neut # (Auto) 7600 H (4016-8787) /uL Lymph # (Auto) 1200 (3496-9090) /uL [place] # (Auto) 500 (0-900) /uL Eos # (Auto) 100 (0-450) /uL Baso # (Auto) 0 (0-100) /uL D-Dimer < 215 (<500) ng/ml Sodium 140 (137-145) mmol/L Potassium 4.3 (3.4-5.1) mmol/L Chloride 109 H (98-107) mmol/L Carbon Dioxide 24 (22-32) mmol/L BUN 16 (9-20) mg/dL Creatinine 0.74 (0.66-1.25) mg/dL Estimated GFR > 60 (>60) mL/min BUN/Creatinine Ratio 21.6 (6-22) Glucose 94 (70-99) mg/dL Calcium 9.2 (8.4-10.2) mg/dL Total Bilirubin 1.2 (0.2-1.3) mg/dL AST 29 (17-59) IU/L ALT 16 (<50) IU/L Alkaline Phosphatase 56 (38-126) U/L Troponin I < 0.012 (0.01-0.034) ng/mL Total Protein 7.4 (6.3-8.2) g/dL Albumin 4.5 (3.5-5.0) g/dL Globulin 2.9 (1.7-4.1) g/dL Albumin/Globulin Ratio 1.6 (1.0-2.8) Urine Color Yellow Urine Appearance Clear Urine pH 6.0 Normal (4.5-8.0) Ur Specific [place] 1.015 (1.000-1.035) Urine Protein Negative (Negative) Urine Glucose (UA) Negative (Negative) g/dL Urine Ketones Negative (NEGATIVE) Urine Occult Blood Negative (Negative) Urine Nitrate Negative (Negative) Urine Bilirubin Negative (NEGATIVE) Urine Urobilinogen 0.2 (0.2) E.U./dL Ur Leukocyte Esterase Negative (NEGATIVE) Urine RBC 0-1/hpf (0-5/HPF) Urine WBC 0-1/hpf (0-5/HPF) Ur Squamous Epith Cells 0-1 /hpf (0-5/HPF) Urine Bacteria None seen (None) Ur Culture Indicated? Cult not indicated Vol Urine Centrifuged 10ml (spun) U Opiates 300ng/mL cut Negative (Negative) Ur Oxycodone Screen Negative (Negative) Urine Methadone Screen Negative (Negative) Ur Barbiturates Screen Negative (Negative) U Tricyclic Antidepress Negative (Negative) Ur Phencyclidine Scrn Negative (Negative) Ur Amphetamines Screen Negative (Negative) U Methamphetamines Scrn Negative (Negative) Ur MDMA Scrn (Ecstasy) Negative (Negative) U Benzodiazepines Scrn Negative (Negative) Urine Cocaine Screen Negative (Negative) U Marijuana (THC) Screen Positive H (Negative) Urine Specific [place] Normal (Normal) Ur Creatinine Normal (Normal) Imaging Data Chest x-ray: Radiologist's Impression: [address] [address] XRay Report Signed Patient: Luis Castano MR#: [id number] : 1985 Acct:[id number] Age/Sex: 40 / M Date of Service: 05/05/25 Loc: ED Accession Number: [id number] Procedure: XR chest 1V Ordering Provider: Mohsen Wayne MD PROCEDURE: XR CHEST 1V INDICATIONS: Palpitations TECHNIQUE: One view of the chest was acquired. COMPARISON: [facility], , XR CHEST 1V, 01/21/2025, 11:59. FINDINGS: Surgical changes and devices: None. Lungs and pleura: Lungs are clear. No pleural effusions or pneumothorax. Mediastinum: Mediastinal contours appear normal. Heart size is normal. Bones and chest wall: No suspicious bony lesions. Overlying soft tissues appear unremarkable. IMPRESSION: No acute cardiopulmonary abnormality is seen. Dictated by: Flaco Durbin M.D. on 05/05/2025 at 10:55 Approved by: Flaco Durbin M.D. on 05/05/2025 at 10:55 CT scan - head: Radiologist's Impression: [address] [address] [address] Scan Report Signed Patient: Luis Castano MR#: [id number] : 1985 Acct:[id number] Age/Sex: 40 / M Date of Service: 05/05/25 Loc: ED Accession Number: [id number] Procedure: CT head/brain wo con Ordering Provider: Mohsen Wayne MD PROCEDURE: CT HEAD/BRAIN WO CON INDICATIONS: Dizzy/syncope TECHNIQUE: Noncontrast 4.5 mm thick angled axial sections acquired from the foramen magnum to the vertex, with coronal and sagittal reformats. For radiation dose reduction, the following was used: automated exposure control, adjustment of mA and/or kV according to patient size. COMPARISON: None. FINDINGS: Image quality: Diagnostic. CSF spaces: Basal cisterns are patent. No extra-axial fluid collections. Ventricles are normal in size and shape. Brain: No midline shift. No intracranial mass effect or hemorrhage. [place]-white matter interface is normal. Skull and face: Calvarium and visualized facial bones are intact, without suspicious lesions. Sinuses: Minimal inferior right mastoid opacification. IMPRESSION: No acute intracranial pathology. Minimal inferior right mastoid opacification is likely incidental. However, recommend correlation for presence or absence of symptoms potentially related to mastoiditis. Dictated by: Flaco Durbin M.D. on 05/05/2025 at 10:55 Approved by: Flaco Durbin M.D. on 05/05/2025 at 10:56 [facility] Narrative Medical decision making narrative: Patient here with his daughter. Daughter's a pick up and delivery driver. Patient states that 830 this morning at [employer] while getting groceries he was in the checkout line, scanning strawberries, he felt dizzy and the personnel clerk there saw him slump down to the ground. No hard fall. Denies any injury from fainting. He thinks he may have had some palpitations. No seizure activity. EMS arrived and he was told his blood sugar was fine. He was informed to go to the emergency department. He drove self home and told him to go the ER. He stopped by the school to shrimp picker his daughter because he needed a pick up and delivery driver. Patient in no distress at this time. History of autoimmune hepatitis. History of rectal bleed in the past but none recently. No black or bloody stools. Patient sees primary care doctor Vikram, had echocardiogram and Holter monitoring in the past year, his father has history of 3 heart valves and irregular heartbeat. Patient states his echocardiogram was normal and has 4 valves. No arrhythmia caught on his previous Holter monitoring.. Patient denies any prevent headache chest pain back pain abdominal pain MDM After history and exam, CT head chest x-ray EKG CBC CMP troponin D-dimer orthostatics Differential considered: Includes but not limited to arrhythmia dehydration anemia Medical records reviewed: No recent visit for this complaint Lab Test results independently reviewed as above. Pertinent findings: Independently reviewed EKG normal sinus rhythm normal EKG rate 67 Imaging studies independently reviewed: CT head chest x-ray no acute finding CT head no acute finding Consultations: None indicated at this time Re-evaluations: 12:42 p.m.. Updated patient results. Needs close follow up with primary care this week for re-evaluation and Zio patch/Holter monitoring. Reviewed with patient needs a pick up and delivery driver until seen by primary care. No operating machinery or driving. He understands Discussion: Appropriate for discharge home. Exam and laboratory studies are reassuring. Return precautions reviewed with patient. He does have primary care to follow up with. He desires discharge home. Diagnosis: Syncope Discharge Plan Departure Patient Disposition: Home Clinical Impression: Syncope and collapse Instructions: DI for Syncope in Adults (Fainting) Activity Restrictions/Additional Instructions: Your exam and laboratory studies EKG cat scan imaging are reassuring. Please see your family doctor this week for re-evaluation. You may need Zio patch/Holter monitoring with your family doctor for any irregular heartbeat that may have caused your fainting. Keep well hydrated. Return if worse if any questions or concerns. No prescriptions are indicated at this time. Prescriptions: No Action sumatriptan succinate [Imitrex] 25 mg tablet See Rx Instructions PO .COMPLEX Qty: 20 3RF Rx Instructions: take 1 tab at onset of headache; if no relief may repeat 1 tab after at least 2 hrs; max = 4 tabs/24 hr PO scopolamine base 1 mg over 3 days patch 3 day 1 patch transdermal Q3D PRN (Reason: nausea) Qty: 10 3RF albuterol sulfate 90 mcg/actuation HFA aerosol inhaler 2 puff inhalation Q6H PRN (Reason: shortness of breath or wheezing) Qty: 8.5 1RF ondansetron 4 mg tablet,disintegrating 4 mg PO Q8H PRN (Reason: nausea and vomiting) Qty: 30 1RF oxycodone 10 mg tablet 10 mg PO Q4H PRN (Reason: pain) Qty: 24 0RF bismuth subsalicylate [Pepto-Bismol] 262 mg/15 mL Suspension 262 mg PO QID Qty: 1000 0RF pantoprazole 40 mg tablet,delayed release (DR/EC) 40 mg PO BID Qty: 60 2RF tetracycline 500 mg capsule 500 mg PO Q6H Qty: 56 0RF metronidazole 500 mg tablet 500 mg PO Q8H Qty: 42 0RF sucralfate [Carafate] 100 mg/mL suspension 10 ml PO QACHS Qty: 1000 2RF diclofenac sodium [Voltaren Arthritis Pain] 1 % gel 2 g topical QID Qty: 100 0RF Rx Instructions: apply to single elbow, wrist or hand; for hand includes palm/fingers/back of hand Referrals: Jones Abdul MD [Primary Care Provider, Family Practice] Stand Alone Forms: Patient Portal/API
--- NOTE | 2025-05-05 10:39 | EKG_ITS ---
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
[2025-05-05 11:50] LABS: Add Manual Diff / Slide Review NO; Hematocrit 40.5 % (41-53); Hemoglobin 14.1 g/dL (13.5-17.5); Lymphocytes Absolute Auto 1200 /uL (1100-4500); Mean Corpuscular HGB Conc 34.7 % (30-36); Mean Corpuscular Hemoglobin 31.8 PG (26-34); Mean Corpuscular Volume 91.4 fL (80-100); Platelet Count 206 X10^3/uL (150-400)
[2025-05-05 11:52] LABS: Appearance Urine UA CLEAR; Bilirubin Urine UA NEGATIVE (NEGATIVE); Color Urine UA YELLOW; Glucose Urine UA NEGATIVE (Negative); Ketones Urine UA NEGATIVE (NEGATIVE); Leukocyte Esterase Urine UA NEGATIVE (NEGATIVE); Nitrite Urine UA NEGATIVE (Negative); Occult Blood Urine UA NEGATIVE (Negative); Protein Urine UA NEGATIVE (Negative); Specific Gravity Urine UA 1.015 (1.000-1.035); Urobilinogen Urine UA 0.2 E.U./dL (0.2); pH Urine UA 6.0 (4.5-8.0)
[2025-05-05 11:59] LABS: UR Morphine/Opiate cutoff 300 Negative (Negative); Ur Specific Gravity Normal (Normal); Urine MDMA Negative (Negative); Urine Methamphetamines Negative (Negative); Urine Tetrahydrocannabinol Positive (Negative); Urine Tricyclic Antidepressant Negative (Negative)
[2025-05-05 12:03] LABS: Culture Indicated Urine Cult Not Indicated
[2025-05-05 12:09] LABS: Alanine Aminotransferase 16 IU/L (<50); Albumin 4.5 g/dL (3.5-5.0); Albumin Globulin Ratio 1.6 (1.0-2.8); Alkaline Phosphatase 56 U/L (38-126); Blood Urea Nitrogen 16 mg/dL (9-20); Calcium 9.2 mg/dL (8.4-10.2); Carbon Dioxide 24 mmol/L (22-32); Chloride 109 mmol/L (98-107); Estimated Glomerular Filt Rate > 60 mL/min (>60); Globulin 2.9 g/dL (1.7-4.1); Glucose 94 mg/dL (70-99); HEMOLYSIS 29 (0-50); Potassium 4.3 mmol/L (3.4-5.1); Sodium 140 mmol/L (137-145); Total Protein 7.4 g/dL (6.3-8.2)
[2025-05-05 12:21] LABS: Troponin I < 0.012 ng/mL (0.01-0.034)
== END 2025-05-05 12:56 | disposition home or self-care (01) ==
PROVIDERS: Emergency Provider Emergency Medicine; PCP Family Medicine
DX: R55 Syncope and collapse (principal)
CPT/HCPCS: 70450; 71045; 80053; 80305; 81001; 84484; 85025; 85379; 93005; 93010; 99283; 99284